=== PATIENT | female | born 1970 | race Caucasian/White ===

== ENCOUNTER 2022-10-20 08:50 | Outpatient (REF) | payer OTHER, SELFPAY ==
[2022-10-24 13:07] LABS: Age Gdln ACOG Testing Note (.); HPV Aptima Negative (Negative); IGP, Aptima HPV, rfx 16/18,45 Note (.)
== END 2022-10-20 10:00 | disposition home or self-care (01) ==
LOC: LAB 08:50
PROVIDERS: PCP Family Medicine; Visit Provider Obstetrics & Gynecology
DX: Z12.4 Encounter for screening for malignant neoplasm of cervix (principal)
CPT/HCPCS: 87624; G0145

== ENCOUNTER 2022-12-14 14:14 | Outpatient (OUT) | payer OTHER, SELFPAY | END 2022-12-14 14:15 | disposition home or self-care (01) | LOC: PST 14:14 | PROVIDERS: PCP Family Medicine; Visit Provider Surgery | DX: Z01.818 Encounter for other preprocedural examination (principal); Z12.11 Encounter for screening for malignant neoplasm of colon ==

== ENCOUNTER 2023-01-29 08:55 | Outpatient (OUT) | payer OTHER, SELFPAY ==
--- NOTE | 2023-01-29 08:59 | XR_ITS ---
[address] [address] Patient Name: ANJALI ROSADO MRN: [id number] date: 1970 Sex: F Assigned Patient Location: [facility] Current Patient Location: [facility] Accession/Order Number: [id number] Exam Date: 01/29/2023 09:16 Report Date: 01/29/2023 10:19 At the request of: RANI FINN Procedure: XR DEXA axial skeleton EXAMINATION: XR DEXA axial skeleton HISTORY: Screening For Osteoporosis Z13.820 COMPARISON: No relevant comparison available. TECHNIQUE: Dual-energy X-ray absorptiometry (DXA) was performed. FINDINGS: SPINE ANALYSIS: Average bone mineral density is 1.140 g/cm2. T-score (standard deviation relative to young adult mean): -0.5 . HIP ANALYSIS: Lowest bone mineral density is within the left femoral trochanter, 0.657 g/cm2. T-score (standard deviation relative to young adult mean): -1.7 . XR/XR DEXA axial skeleton IMPRESSION: [employer] Classification: Osteopenia - Moderate Fracture Risk Electronically authenticated by: GINNY CURRAN Date: 01/29/2023 10:19
--- NOTE | 2023-01-29 09:18 | MM_ITS ---
Patient Name: ANJALI ROSADO MR#: [id number] : 1970 Exam Date: 01/29/2023 Ordering Doctor: DR David Richards . RADIOLOGY REPORT PROCEDURE: MM TOMOSYNTHESIS SCREENING BI COMPARISON: MG MAMM SCREEN 3D ALEXA CAD, 11/28/2021. MG MAMM SCREEN 3D ALEXA CAD, 11/14/2020. MG MAMM SCREEN ALEXA W CAD, 11/14/2019. MG MAMM ALEXA SCRN W CAD DIG, 01/08/2015. INDICATIONS: Screening Calculator Name NCI Breast Cancer Risk Assessment Tool 5 Year Breast Cancer Risk 1.60% Lifetime Breast Cancer Risk 14.50% Personal Breast Cancer No Personal Ovarian Cancer No Treatments None Family Cancers Aunt-maternal with melenoma cancer at age ~50; Nephew with neuroblastoma cancer at age 1. LOCATION: [facility] BREAST COMPOSITION: Heterogeneously dense,which may obscure small masses. FINDINGS: DIAGNOSTIC CATEGORY 2--BENIGN FINDING: RIGHT BREAST: No significant suspicious finding. No significant change has occurred. LEFT BREAST: No significant suspicious finding. Scattered benign-appearing nodules are present. No significant change has occurred. RECOMMENDATIONS: ROUTINE MAMMOGRAM AND CLINICAL EVALUATION IN 12 MONTHS. PLEASE NOTE: A NORMAL MAMMOGRAM DOES NOT EXCLUDE THE POSSIBILITY OF BREAST CANCER. A CLINICALLY SUSPICIOUS PALPABLE LUMP SHOULD BE BIOPSIED. Dictated by: Rob oRdriguez M.D. on 01/29/2023 at 14:53 Approved by: Rob Rodriguez M.D. on 01/29/2023 at 14:56
== END 2023-01-29 08:56 | disposition home or self-care (01) ==
LOC: MAMMO 08:55
PROVIDERS: PCP Family Medicine; Visit Provider Obstetrics & Gynecology
DX: Z12.31 Encounter for screening mammogram for malignant neoplasm of breast (principal); Z13.820 Encounter for screening for osteoporosis; Z80.9 Family history of malignant neoplasm, unspecified; Z80.8 Family history of malignant neoplasm of other organs or systems; M85.80 Other specified disorders of bone density and structure, unspecified site
CPT/HCPCS: 77063; 77067; 77080

== ENCOUNTER 2023-10-25 21:07 | Outpatient (REF) | payer OTHER, SELFPAY ==
--- OUTSIDE RECORDS SUMMARY | 2023-10-25 21:09 | XMS_ITS | CCD ---
Author Organization [facility] Care Team Providers Care Associate Merchandiser Name Role Phone Kalie Solis Unavailable LAURA MONTANO Attending Unavailable FURLONG, DR ALFIE Schaefer Primary Care Unavailable ROSSY WING Admitting Unavailable ROSSY WING Attending Unavailable ROSSY WING Consulting Unavailable READER, ARTUR Consulting Unavailable NEWATIA, TEJ Consulting Unavailable DIAB ., SOTO Consulting Unavailable AAKASH ., DR SARAVIA Admitting Unavailable AAKASH ., DR SARAVIA Attending Unavailable FURLONG, DR ALFIE Schaefer Primary Care Unavailable AAKASH ., DR SARAVIA Consulting Unavailable AAKASH ., DR SARAVIA Admitting Unavailable AAKASH ., DR SARAVIA Attending Unavailable FURLOGRECIA, DR ALFIE Schaefer Primary Care Unavailable AAKASH ., DR SARAVIA Consulting Unavailable AAKASH ., DR SARAVIA Admitting Unavailable AAKASH ., DR SARAVIA Attending Unavailable FURLONG, DR ALFIE Schaefer Primary Care Unavailable AAKASH ., DR SARAVIA Consulting Unavailable RIGO WALLACE Consulting Unavailable RAMONITA II, SAJAN Consulting Unavailable AAKASH ., DR SARAVIA Admitting Unavailable AAKASH ., DR SARAVIA Attending Unavailable FURLONG, DR ALFIE Schaefer Primary Care Unavailable AAKASH ., DR SARAVIA Consulting Unavailable ROSA, JOHNNY Admitting Unavailable ROSA, JONHNY Attending Unavailable FURMARY, DR ALFIE Schaefer Primary Care Unavailable ROSA, JOHNNY Consulting Unavailable AAKASH ., DR SARAVIA Admitting Unavailable AAKASH ., DR SARAVIA Attending Unavailable FURLONG, DR ALFIE Schaefer Primary Care Unavailable ELYSBURG, DR JOSY Cameron Consulting Unavailable AAKASH ., DR SARAVIA Consulting Unavailable Furjoycelynng Alfie DICKERSON Primary Care Provider [phone] ALFIE ANGELES Referring Unavailable FURLONG, ALFIE G Primary Care Unavailable RUSHER, VANESSA S Attending Unavailable KUNGokul, ZEINA MACIEL Attending Unavailable FURLONG, ALFIE G Referring Unavailable FURLONG, ALFIE G Primary Care Unavailable FURLONG, ALFIE G Attending Unavailable FURLONG, ALFIE G Referring Unavailable FURLONG, ALFIE G Primary Care Unavailable FURLONG, ALFIE G Attending Unavailable FURLONG, ALFIE G Referring Unavailable FURLONG, ALFIE G Primary Care Unavailable FURLONG, ALFIE G Referring Unavailable FURLONG, ALFIE G Primary Care Unavailable FURLONG, ALFIE Schaefer Attending Unavailable Medications Current Medications Medication Drug Class(es) Dates Sig (Normalized) Sig (Original) 12 hr dextromethorphan hydrobromide 30 mg / guaiFENesin 600 mg extended release oral tablet (1 source) Uncompetitive O-jeqojd-S-aspartate Receptor Antagonist, Sigma-1 Agonist Start: 05-06-2023 End: 05-16-2023 take 1 tablet by mouth every hour dextromethorphan -guaiFENesin (MUCINEX DM) 30-600 mg tablet extended release 12 hr Take 1 tablet by mouth every 12 (twelve) hours for 10 days. 20 tablet 0 05/06/2023 05/16/2023 Active fluticasone propionate 0.05 mg/actuat metered dose nasal spray (1 source) Corticosteroid fluticasone propionate (FLONASE) 50 mcg/actuation nasal spray fluticasone propionate 50 mcg/actuation nasal spray,suspension 0 Active magnesium oxide 400 mg oral tablet (1 source) Start: 12-06-2022 magnesium oxide (MAGOX) 400 mg tablet 24 hr metoprolol succinate 25 mg extended release oral tablet (2 sources) beta-Adrenergic Pancho Start: 05-14-2021 metoprolol succinate XL (TOPROL XL) 25 mg 24 hr tablet metoprolol succinate ER 25 mg tablet,extended release 24 hr TAKE 1 TABLET DAILY 0 05/14/2021 Active Metoprolol Succi bailey Active naproxen 500 mg oral tablet (1 source) Nonsteroidal Anti-inflammatory Drug Start: 10-20-2022 take 1 tablet by mouth twice daily as needed for pain naproxen (NAPROSYN) 500 mg tablet Take 1 tablet (500 mg total) by mouth 2 (two) times a day as needed for pain. 180 tablet 0 10/20/2022 Active predniSONE 20 mg oral tablet (1 source) Start: 05-06-2023 End: 05-13-2023 take 1 tablet by mouth in the morning predniSONE (DELTASONE) 20 mg tablet Take 1 tablet (20 mg total) by mouth in the morning for 7 days. 7 tablet 0 05/06/2023 05/13/2023 Active sertraline 100 mg oral tablet (1 source) Serotonin Reuptake Inhibitor Start: 07-13-2022 sertraline (ZOLOFT) 100 mg tablet TAKE 1 TABLET IN THE MORNING 90 tablet 3 07/13/2022 Active Problems Active Problems Problem Classification Problem Date Documented Da te Episodic/Chronic Anxiety disorders (1 source) Anxiety disorder, unspecified; Translations: [ANXIETY DISORDER UNSPECIFIED] Onset: 03-23-2022 Chronic Contraceptive and procreative management (4 sources) Encounter for sterilization; Translations: [ENCOUNTER FOR STERILIZATION] Onset: 03-13-2022 Episodic Esophageal disorders (1 source) Gastro-esophageal reflux disease without esophagitis; Translations: [GERD WITHOUT ESOPHAGITIS] Onset: 06-09-2022 Chronic Essential hypertension (4 sources) Essential (primary) hypertension; Translations: [ESSENTIAL PRIMARY HYPERTENSION] Onset: 12-12-2021 Chronic Headache; including migraine (1 source) Other migraine, not intractable, without status migrainosus; Translations: [Other migraine, not intractable, without status migrainosus] Onset: 07-05-2023 Chronic Mood disorders (1 source) Major depressive disorder, single episode, in full remission; Translations: [Major depressive disorder, single episode, in full remission] Onset: 07-05-2023 Chronic Nonspecific chest pain (4 sources) Chest pain, unspecified; Translations: [Other chest pain] Onset: 06-07-2022 Episodic Other aftercare (1 source) 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; Translations: [OTH [employer]BORNE MISS[employer] SYSTEMS CURRENT DRUG THERAPY] Onset: 06-09-2022 Episodic Other nervous system disorders (1 source) Lesion of plantar nerve, right lower limb; Translations: [Lesion of plantar nerve, right lower limb] Onset: 08-13-2023 Chronic Other screening for suspected conditions (not mental disorders or infectious disease) (10 sources) Encounter for screening mammogram for malignant neoplasm of breast; Translations: [Encounter for screening for malignant neoplasm of cervix] Onset: 09-22-2021 Episodic Pulmonary heart disease (1 source) Personal history of pulmonary embolism; Translations: [PERSONAL HISTORY PULMONARY EMBOLISM] Onset: 03-23-2022 Episodic Residual codes; unclassified (1 source) Viral syndrome; Translations: [Other general symptoms and signs] 05-06-2023 Episodic Unclassified (1 source) CONTACT W/AND (SUSP) EXPOS COVID-19; Translations: [CONTACT W/AND (SUSP) EXPOS COVID-19] Onset: 03-12-2022 Unclassified (1 source) Annual Exam Onset: 08-13-2023 Unclassified (1 source) medication review Onset: 07-05-2023 Unclassified (1 source) Earache Onset: 05-06-2023 Urinary tract infections (1 source) Urinary tract infectious disease Onset: 10-18-2023 Episodic Past or Other Problems Problem Classification Problem Date Documented Date Episodic/Chronic Cardiac dysrhythmias (2 sources) Sinus tachycardia; Translations: [Tachycardia, unspecified] Onset: 04-03-2019 03-24-2022 Episodic Headache; including migraine (1 source) Headache; Translations: [Nonintractable episodic headache] Onset: 10-20-2022 02-04-2023 Episodic Immunizations and screening for infectious disease (1 source) Encounter for screening for human papillomavirus (HPV); Translations: [ENC SCREENING HUMAN PAPILLOMAVIRUS] Onset: 09-23-2021 Episodic Mood disorders (2 sources) Mood disorders; Translations: [DEPRESSION UNSPECIFIED] Onset: 03-23-2022 05-06-2023 Other injuries and conditions due to external causes (1 source) Unspecified injury of right foot, initial encounter; Translations: [Injury of right foot, initial encounter S99.921A] Onset: 12-10-2020 Resolved: 12-10-2020 Episodic Other lower respiratory disease (1 source) Cough Onset: 05-06-2023 Episodic Other nutritional; endocrine; and metabolic disorders (1 source) Overweight; Translations: [Overweight] Onset: 07-05-2023 Episodic Other upper respiratory disease (1 source) Pain in throat Onset: 05-06-2023 Episodic Other upper respiratory infections (2 sources) Viral upper respiratory tract infection; Translations: [Acute upper respiratory infection, unspecified] Onset: 05-06-2023 05-06-2023 Episodic Residual codes; unclassified (1 source) Family history of malignant neoplasm of other organs or systems; Translations: [FAM HX MALIG NEOPLASM OTH ORGN/SYS] Onset: 12-01-2021 Episodic Residual codes; unclassified (1 source) Other general symptoms and signs; Translations: [Other general symptoms and signs] Onset: 05-06-2023 Episodic Sprains and strains (1 source) Unspecified sprain of unspecified toe(s), initial encounter; Translations: [Sprain of toe, initial encounter S93.509A] Onset: 12-10-2020 Resolved: 12-10-2020 Episodic Results Test Name Value Interpretation Reference Range Facility COMPREHENSIVE METABOLIC PANE [facility] 08-13-2023 Albumin [Mass/Vol] 4.1 g/dL Normal 3.2-5.3 [facility] Comment on above: Performed By: #### Stacy FRANKS [id number] #### [facility] ([id number]) [address], [address] [place] [address] ALP [Catalytic activity/Vol] 90 U/L Normal 39-130 [facility] Comment on above: Performed By: #### Stacy FRANKS, 95669-2 #### [facility] ([id number]) [address], [address] [place] [address] ALT [Catalytic activity/Vol] 18 U/L Normal 0-31 [facility] Comment on above: Performed By: #### Stacy FRANKS, 52789-8 #### [facility] ([id number]) [address], [address] [place] [address] Anion gap [Moles/Vol] 9 mmol/L Normal 5-15 [facility] Comment on above: Performed By: #### Stacy FRANKS, 93508-4 #### [facility] ([id number]) [address], [address] [place] [address] AST [Catalytic activity/Vol] 22 U/L Normal 0-41 [facility] Comment on above: Performed By: #### Stacy FRANKS, 44407-7 #### [facility] ([id number]) [address], [address] [place] [address] Bilirubin [Mass/Vol] 0.6 mg/dL Normal 0.3-1.2 [facility] Comment on above: Performed By: #### Stacy FRANKS, 48291-9 #### [facility] ([id number]) [address], [address] [place] [address] Calcium [Mass/Vol] 9.4 mg/dL Normal 8.5-10.5 [facility] Comment on above: Performed By: #### Stacy FRANKS, 42453-9 #### [facility] ([id number]) [address], [address] [place] [address] Chloride [Moles/Vol] 104 mmol/L Normal 98-109 [facility] Comment on above: Performed By: #### Stacy FRANKS, 97759-2 #### [facility] ([id number]) [address], [address] [place] [address] CO2 [Moles/Vol] 28 mmol/L Normal 22-32 [facility] Comment on above: Performed By: #### Stacy FRANKS, 17118-3 #### [facility] ([id number]) [address], [address] [place] [address] Creatinine [Mass/Vol] 0.72 mg/dL Normal 0.40-1.00 [facility] Comment on above: Result Comment: METH OD TRACEABLE TO IDMS STANDARD Performed By: #### Stacy FRANKS, 84846-8 #### [facility] ([id number]) [address] [address] [place] [address] eGFR (CKD-EPI) NON-RACE DEPENDENT >90 Normal >59 [facility] Comment on above: Result Comment: Reported eGFR is based on the CKD-EPI 2020 equation that does not use a race coefficient. Performed By: #### Stacy FRANKS, 25356-8 #### [facility] ([id number]) [address], [address] [place] [address] Glucose [Mass/Vol] 86 mg/dL Normal 65-99 [facility] Comment on above: Performed By: #### Stacy FRANKS, 18857-0 #### [facility] ([id number]) [address], [address] [place] [address] Potassium [Moles/Vol] 3.9 mmol/L Normal 3.5-5.0 [facility] Comment on above: Performed By: #### Stacy FRANKS, 21110-5 #### [facility] ([id number]) [address], [address] [place] [address] Protein [Mass/Vol] 7.3 g/dL Normal 6.0-8.0 [facility] Comment on above: Performed By: #### Stacy FRANKS, 26817-3 #### [facility] ([id number]) [address], [address] [place] [address] Sodium [Moles/Vol] 141 mmol/L Normal 134-146 [facility] Comment on above: Performed By: #### Stacy FRANKS, 25662-8 #### [facility] ([id number]) [address], [address] [place] [address] Urea nitrogen [Mass/Vol] 10 mg/dL Normal 5-23 [facility] Comment on above: Performed By: #### Stacy FRANKS, 27286-7 #### [facility] ([id number]) [address], [address] [place] [address] Lipid 1996 panelon 4 Cholesterol [Mass/Vol] 218 mg/dL High 150-200 [facility] Comment on above: Performed By: #### Stacy FRANKS, 95418-6 #### [facility] ([id number]) [address], [address] [place] [address] Cholesterol in HDL [Mass/Vol] 51 mg/dL Normal >39 [facility] Comment on above: Result Comment: HDL <40 mg/dL - High Risk HDL > or = 40mg/dL- Desirable HDL >60 mg/dL - Negative Risk Performed By: #### Stacy FRANKS, 92464-7 #### [facility] ([id number]) [address], [address] [place] [address] Cholesterol in LDL [Mass/Vol] 123 mg/dL Normal <130 [facility] Comment on above: Result Comment: LDL <100 mg/dL - Desirable LDL >160 mg/dL - High Risk Performed By: #### Stacy FRANKS, 09712-5 #### [facility] ([id number]) [address], [address] [place] [address] Cholesterol in VLDL [Mass/Vol] 44 mg/dL High 0-30 [facility] Comment on above: Performed By: #### Stacy FRANKS, 07006-2 #### [facility] ([id number]) [address], [address] [place] [address] CHOLESTEROL:HDL 4.3 Normal 1.0-5.0 [facility] Comment on above: Performed By: #### Stacy FRANKS, 02862-4 #### [facility] ([id number]) [address], [address] [place] [address] Triglyceride [Mass/Vol] 218 mg/dL High 27-150 [facility] Comment on above: Performed By: #### Stacy FRANKS, 80480-5 #### [facility] ([id number]) [address], [address] [place] [address] POCT Influenza A/Influenza B /SARS-COV-2 Veritoron 05-06-2023 External Poct Influenza A Antigen Negative [facility] External Poct Influenza B Antigen Negative [facility] SARS-CoV-2 (COVID-19) Ag IA.rapid Ql (Resp) Negative [facility] CARDIAC PRESTON ADMITon 023 CK [Catalytic activity/Vol] 77 U/L Normal 26-192 [facility] Comment on above: Performed By: #### MAKENNA Vargas MP #### [facility] [address] [address] [address] Maria Teresa Villasenor CK.MB [Mass/Vol] ng/mL Normal <=3.60 [facility] Comment on above: Performed By: #### MAKENNA Vargas MP #### [facility] [address] [place] [address] Dr. Maria Teresa Villasenor HSTROP <4.0 Normal 4.0-51.3 [facility] Comment on above: Result Comment: CUT- OFF POINTS HAVE BEEN ESTABLISHED BASED ON THE FOURTH UNIVERSAL DEFINITIONS OF MYOCARDIAL INFARCTION. THE UPPER REFERENCE LIMIT (URL) OF TROPONIN, DEFINED THE 99TH PERCENTILE OF cTnI DISTRIBUTION IN A REFERENCE POPULATION, HAS BEEN CONFIRMED THE DECISION THRESHOLD FOR SD DIAGNOSIS. Performed By: #### MAKENNA Vargas MP #### [facility] [address] [place] [address] Dr. Maria Teresa Villasenor ANJANA 30 ng/mL Normal 9-82 [facility] Comment on above: Performed By: #### MAKENNA Vargas MP #### [facility] [address] [address] [address] Maria Teresa Villasenor CBC AUTO DIFFon 06-07-2022 BASO # 0.0 103/ul Normal 0.0-0.1 [facility] Comment on above: Performed By: #### C BC ####[facility] [address] [address]Dr. Maria Teresa Villasenor Basophils/100 WBC (Bld) 0.4 % Normal 0.2-2.0 [facility] Comment on above: Performed By: #### Stacy MARIA ####[facility] [address] [address]Dr. Maria Teresa Villasenor EO # 0.1 103/ul Normal 0.0-0.7 [facility] Comment on above: Performed By: #### C BC ####[facility] [address] [address]Dr. Maria Teresa Villasenor Eosinophils/100 WBC (Bld) 0.9 % Normal 0.9-7.0 [facility] Comment on above: Performed By: #### C BC ####[facility] [address] [place], [place] [address]Dr. Maria Teresa Villasenor Erythrocyte distribution width (RBC) [Ratio] 12.6 % Normal 11.0-15.0 [facility] Comment on above: Performed By: #### C BC ####[facility] [address] [place], [place] [address]Dr. Maria Teresa Villasenor Hematocrit (Bld) [Volume fraction] 39.7 % Normal 36.0-48.0 [facility] Comment on above: Performed By: #### C BC ####[facility] [address] [place], [place] [address]Dr. Maria Teresa Villasenor Hemoglobin (Bld) [Mass/Vol] 13.3 g/dL Normal 12.0-16.0 [facility] Comment on above: Performed By: #### C BC ####[facility] [address] [place], [place] [address]Dr. Maria Teresa Villasenor IG # 0.03 10e3/ul Normal 0.00-0.03 [facility] Comment on above: Performed By: #### C BC ####[facility] [address] [place], [place] [address]Dr. Maria Teresa Villasenor IG % 0.3 % Normal 0.0-0.5 [facility] Comment on above: Performed By: #### C BC ####[facility] [address] [place], [place] [address]Dr. Maria Teresa Villasenor LYMPH # 1.7 103/ul Normal 1.2-3.8 [facility] Comment on above: Performed By: #### C BC ####[facility] [address] [address]Dr. Maria Teresa Hamilton Lymphocytes/100 WBC (Bld) 16.2 % Critically low 20.5-60.0 [facility] Comment on above: Performed By: #### C BC ####[facility] [address] [address]Dr. Carolynedaysi Villasenor MANUAL DIFF REQ NO Normal [facility] Comment on above: Performed By: #### C BC ####[facility] [address] [address]Dr. Maria Teresa Hamilton MCH (RBC) [Entitic mass] 31.9 pg Normal 26.7-34.0 [facility] Comment on above: Performed By: #### C BC ####[facility] [address] [place], [place] [address]Dr. Maria Teresa Hamilton MCHC (RBC) [Mass/Vol] 33.5 g/dL Normal 29.9-35.2 [facility] Comment on above: Performed By: #### C BC ####[facility] [address] [place], [place] [address]Dr. Maria Teresa Villasenor MCV (RBC) [Entitic vol] 95.2 fL Normal 81.0-99.0 [facility] Comment on above: Performed By: #### C BC ####[facility] [address] [place], [place] [address]Dr. Maria Teresa Villasenor MONO # 0.7 103/ul Normal 0.3-0.8 [facility] Comment on above: Performed By: #### C BC ####[facility] [address] [place], [place] [address]Dr. Maria Teresa Villasenor Monocytes/100 WBC (Bld) 6.7 % Normal 1.7-12.0 [facility] Comment on above: Performed By: #### C BC ####[facility] [address] [place], [place] [address]Dr. Maria Teresa Villasenor NEUT # 8.1 103/ul Critically high 1.4-6.5 [facility] Comment on above: Performed By: #### C BC ####[facility] [address] [place] [address] Maria Teresa Villasenor Neutrophils/100 WBC (Bld) 75.5 % Critically high 43.0-75.0 [facility] Comment on above: Performed By: #### C BC ####[facility] [address] [id number] Maria Teresa Villasenor Platelet mean volume (Bld) [Entitic vol] 9.1 fL Critically low 9.5-13.5 [facility] Comment on above: Performed By: #### C BC ####[facility] [address] [id number] Maria Teresa Villasenor PLT 315 103/ul Normal 150-450 [facility] Comment on above: Performed By: #### C BC ####[facility] [address] [id number] Maria Teresa Villasenor RBC 4.17 106/ul Critically low 4.20-5.40 [facility] Comment on above: Performed By: #### C BC ####[facility] [address] [id number]. Maria Teresa Villasenor WBC 10.7 103/ul Normal 4.0-11.0 [facility] Comment on above: Performed By: #### C BC ####[facility] [address] [id number] Maria Teresa Villasenor CTA CHEST WO W CONon 06-07- 023 CTA CHEST WO W CON EXAMINATION: CTA CHEST WO W CON, 06/07/2022 7:37 AM EDT HISTORY: CHEST PAIN, UNSPECIFIED COMPARISON: None. TECHNIQUE: CT angiography of the chest was performed with IV contrast. MIP (maximum intensity projection) images or 3D post processing was performed. CT dose reduction technique was used, including Automated Exposure Control. FINDINGS: VASCULATURE/PULMONARY ARTERIES: There is satisfactory opacification of the pulmonary arterial system. There is no evidence of pulmonary embolism. The main pulmonary artery is normal in diameter. The aorta and great vessels appear normal. HEART/PERICARDIUM: Normal. MEDIASTINAL/HILAR LYMPH NODES: Calcified left hilar lymph node. No lymphadenopathy. ESOPHAGUS: Normal as visualized. PLEURAL CAVITY: No pleural effusion or pneumothorax. LUNGS/AIRWAYS: No infiltrates or consolidations. No suspicious pulmonary nodules. Calcified granuloma noted in the left lower lobe. CHEST WALL/AXILLA/LOWER NECK: Normal. VISUALIZED UPPER ABDOMEN: There is a small hiatal hernia. 6 mm hypodensity in the left hepatic lobe which appears unchanged and likely benign. BONES: No acute process. IMPRESSION: 1. No evidence of pulmonary embolism. 2. No other acute cardiopulmonary process. Electronically authenticated by: TEJ CATES Date: 2022-06-07 08:33 Normal [facility] D-DIMERon 06-07-2022 D-DIMER 0.62 mg/L FEU Critically high <=0.59 [facility] Comment on above: Performed By: #### D DIM #### [facility] [address] [place] [address] Dr. Maria Teresa Villasenor D-DIMER COMMENTS SEE BELOW Normal [facility] Comment on above: Result Comment: Incr eases in D-Dimer concentration observed with thromboembolic events can be variable due to localization, size, and age of the thrombus. Therefore, a thromboembolic event cannot be diagnosed with certainty on the basis of the reference range. D-Dimers may also be elevated for a variety of disorders including: advanced age, , coronary disease, cancer, liver disease, infection, inflammation, hematoma, DIC, trauma, post-surgery, diabetes, thrombolytic or anticoagulant therapy, stress, and generalized hospitalization. Performed By: #### D DIM #### [facility] [address] [place] [address] Dr. Maria Teresa Villasenor PROF CHEM 8 (BAS METB)on Anion gap [Moles/Vol] 12.5 mmol/L Normal [facility] Comment on above: Performed By: #### B TRACIE FRANKSDM #### [facility] [address] [place] [address] Dr. Maria Teresa Villasenor Calcium [Mass/Vol] 9.4 mg/dL Normal 8.5-10.1 [facility] Comment on above: Performed By: #### B TRACIE FRANKSDM #### [facility] [address] [place] [address] Dr. Maria Teresa Villasenor Chloride [Moles/Vol] 103 mmol/L Normal 98-107 [facility] Comment on above: Performed By: #### B MP, CMADM #### [facility] [address] [address] [address] Maria Teresa Villasenor CO2 [Moles/Vol] 28.3 mmol/L Normal 21.0-32.0 [facility] Comment on above: Performed By: #### B MP, CMADM #### [facility] [address] [address] [address] Maria Teresa Villasenor Creatinine [Mass/Vol] 0.68 mg/dL Normal 0.55-1.02 [facility] Comment on above: Performed By: #### B MP, CMADM #### [facility] [address] [address] [address] Maria Teresa Villasenor EGFR-AF CHILEAN >60 Normal >=60 [facility] Comment on above: Performed By: #### B GOLDEN, CMADM #### [facility] [address] [address] [address] Maria Teresa Villasenor EGFR-NON AF CHILEAN >60 Normal >=60 [facility] Comment on above: Performed By: #### B GOLDEN, CMADM #### [facility] [address] [address] [address] Maria Teresa Villasenor Glucose [Mass/Vol] 99 mg/dL Normal 74-106 [facility] Comment on above: Performed By: #### B GOLDEN, CMADM #### [facility] [address] [address] [address] Maria Teresa Villasenor Potassium [Moles/Vol] 3.8 mmol/L Normal 3.5-5.1 [facility] Comment on above: Performed By: #### B MP, CMADM #### [facility] [address] [address] [address] Maria Teresa Villasenor Sodium [Moles/Vol] 140 mmol/L Normal 136-145 [facility] Comment on above: Performed By: #### B MP, CMADM #### [facility] [address] [address] [address] Maria Teresa Villasenor Urea nitrogen [Mass/Vol] 20.0 mg/dL Critically high 7.0-18.0 [facility] Comment on above: Performed By: #### B MAKENNA FRANKS #### [facility] [address] [address] [address] Maria Teresa Villasenor Urea nitrogen/Creatinin e [Mass ratio] 29.4 mg/mg Normal [facility] Comment on above: Performed By: #### B MAKENNA FRANKS #### [facility] [address] [address] [address] Maria Teresa Villasenor TROPONIN, HIGH SENSITIVITYon 06-07-2022 HSTROP <4.0 Normal 4.0-51.3 [facility] Comment on above: Result Comment: CUT- OFF POINTS HAVE BEEN ESTABLISHED BASED ON THE FOURTH UNIVERSAL DEFINITIONS OF MYOCARDIAL INFARCTION. THE UPPER REFERENCE LIMIT (URL) OF TROPONIN, DEFINED THE 99TH PERCENTILE OF cTnI DISTRIBUTION IN A REFERENCE POPULATION, HAS BEEN CONFIRMED THE DECISION THRESHOLD FOR SD DIAGNOSIS. Performed By: #### H STROPN #### [facility] [address] [address] [address] Maria Teresa Villasenor XR CHEST 1 Von 06-07-2022 XR CHEST 1 V HISTORY: Left-sided chest pain radiating into the back since early this morning. XR CHEST 1 V: 06/07/2022 6:53 AM EDT COMPARISON: PA and lateral chest 07/28/2018. FINDINGS: The heart appears within normal limits in size. A calcified lymph node again projects over the left hilum and there is a small calcified granuloma again seen projecting over the left lung base. No focal consolidation, pleural effusion, pneumothorax or evidence of congestive heart failure is seen. IMPRESSION: 1. No radiographic evidence of active cardiopulmonary disease is seen. 2. Stable appearance of the sequela of prior granulomatous disease. Electronically authenticated by: ARTUR HARTMANN Date: 2022-06-07 07:38 Normal The [facility] CBC AUTO DIFFon 03-13-2022 BASO # 0.1 103/ul Normal 0.0-0.1 [facility] Comment on above: Performed By: #### C BC #### [facility] [address] [address] [address] Maria Teresa Villasenor Basophils/100 WBC (Bld) 0.5 % Normal 0.2-2.0 [facility] Comment on above: Performed By: #### C BC #### [facility] [address] [place] [address] Dr. Maria Teresa Villasenor EO # 0.2 103/ul Normal 0.0-0.7 [facility] Comment on above: Performed By: #### C BC #### [facility] [address] [place] [address] Dr. Maria Teresa Villasenor Eosinophils/100 WBC (Bld) 2.4 % Normal 0.9-7.0 [facility] Comment on above: Performed By: #### C BC #### [facility] [address] [place] [address] Dr. Maria Teresa Villasenor Erythrocyte distribution width (RBC) [Ratio] 12.6 % Normal 11.0-15.0 [facility] Comment on above: Performed By: #### C BC #### [facility] [address] [place] [address] Dr. Maria Teresa Villasenor Hematocrit (Bld) [Volume fraction] 43.1 % Normal 36.0-48.0 [facility] Comment on above: Performed By: #### C BC #### [facility] [address] [place] [address] Dr. Maria Teresa Villasenor Hemoglobin (Bld) [Mass/Vol] 13.3 g/dL Normal 12.0-16.0 [facility] Comment on above: Performed By: #### C BC #### [facility] [address] [place] [address] Dr. Maria Teresa Villasenor IG # 0.02 10e3/ul Normal 0.00-0.03 [facility] Comment on above: Performed By: #### C BC #### [facility] [address] [place] [address] Dr. Maria Teresa Villasenor IG % 0.2 % Normal 0.0-0.5 [facility] Comment on above: Performed By: #### C BC #### [facility] [address] [place] [address] Dr. Maria Teresa Villasenor LYMPH # 2.7 103/ul Normal 1.2-3.8 [facility] Comment on above: Performed By: #### C BC #### [facility] [address] [address] [address] Maria Teresa Villasenor Lymphocytes/100 WBC (Bld) 28.6 % Normal 20.5-60.0 [facility] Comment on above: Performed By: #### C BC #### [facility] [address] [address] [address] Maria Teresa Villasenor MANUAL DIFF REQ NO Normal The [facility] Comment on above: Performed By: #### C BC #### [facility] [address] [address] [address] Mraia Teresa Villasenor MCH (RBC) [Entitic mass] 32.7 pg Normal 26.7-34.0 [facility] Comment on above: Performed By: #### C BC #### [facility] [address] [place] [address] Dr. Maria Teresa Villasenor MCHC (RBC) [Mass/Vol] 30.9 g/dL Normal 29.9-35.2 [facility] Comment on above: Performed By: #### C BC #### [facility] [address] [place] [address] Dr. Maria Teresa Villasenor MCV (RBC) [Entitic vol] 105.9 fL Critically high 81.0-99.0 [facility] Comment on above: Performed By: #### C BC #### [facility] [address] [place] [address] Dr. Maria Teresa Villasenor MONO # 1.2 103/ul Critically high 0.3-0.8 [facility] Comment on above: Performed By: #### C BC #### [facility] [address] [place] [address] Dr. Maria Teresa Villasenor Monocytes/100 WBC (Bld) 12.3 % Critically high 1.7-12.0 [facility] Comment on above: Performed By: #### C BC #### [facility] [address] [place] [address] Dr. Maria Teresa Villasenor NEUT # 5.3 103/ul Normal 1.4-6.5 [facility] Comment on above: Performed By: #### C BC #### [facility] [address] [place] [address] Dr. Maria Teresa Villasenor Neutrophils/100 WBC (Bld) 56.0 % Normal 43.0-75.0 [facility] Comment on above: Performed By: #### C BC #### [facility] [address] [place] [address] Dr. Maria Teresa Villasenor Platelet mean volume (Bld) [Entitic vol] 9.3 fL Critically low 9.5-13.5 [facility] Comment on above: Performed By: #### C BC #### [facility] [address] [address] [address] Maria Teresa Villasenor PLT 357 103/ul Normal 150-450 [facility] Comment on above: Performed By: #### C BC #### [facility] [address] [place] [address] Dr. Maria Teresa Villasenor RBC 4.07 106/ul Critically low 4.20-5.40 [facility] Comment on above: Performed By: #### C BC #### [facility] [address] [address] [address] Maria Teresa Villasenor WBC 9.4 103/ul Normal 4.0-11.0 [facility] Comment on above: Performed By: #### C BC #### [facility] [address] [place] [address] Dr. Maria Teresa Villasenor PREG HCG QUALon 03-13-2022 , QUAL Negative Normal NEGATIVE [facility] Comment on above: Performed By: #### P REG #### [facility] [address] [place] [address] Dr. Maria Teresa Villasenor Covid-19 PCR (CVDTB)on 03-01 SARS-CoV-2 (COVID-19) RNA JOSÉ ANTONIO+probe Ql (Unsp spec) Not detected Normal NOT DETECTED [facility] Comment on above: Result Comment: This test is not yet approved or cleared by the [place] FDA. When there are no FDA-approved or cleared tests available, and other criteria are met, FDA can make tests available under an emergency access mechanism called an Emergency Use Authorization (EUA). The EUA for this test is supported by the [place] of Health and Human Service's (HHS's) declaration that circumstances exist to justify the emergency use of in vitro diagnostics for the detection and/or diagnosis of the virus that causes COVID-19. This EUA will remain in effect (meaning this test can be used) for the duration of the COVID-19 declaration justifying emergency of IVDs, unless it is terminated or revoked by FDA (after which the test may no longer be used). When diagnostic testing is negative, the possibility of a false negative should be considered in the context of a patient's recent exposures and the presence of clinical signs and symptoms consistent with SARS-CoV-2. Performed By: #### [facility] ####[facility] [address] [place], [place] [address]AyDr. Maria Teresa Villasenor Office Visiton 02-04-2022 Follow-up visit [id number] Zaki White 1970 F Date Provider Department Center 02/04/2022 LAURA OLSEN [facility] No family history on file Level of Service:74790 [facility] OFFICE/OUTPATIENT ESTABLISHED LOW MDM 20-29 MIN Normal [facility] PROF CHEM 8 (BAS METB)on Anion gap [Moles/Vol] 10.2 mmol/L Normal [facility] Comment on above: Performed By: #### B MP #### [facility] [address] [address] [address] Maria Teresa Villasenor Calcium [Mass/Vol] 8.7 mg/dL Normal 8.5-10.1 [facility] Comment on above: Performed By: #### B MP #### [facility] [address] [address] [address] Maria Teresa Villasenor Chloride [Moles/Vol] 106 mmol/L Normal 98-107 [facility] Comment on above: Performed By: #### B MP #### [facility] [address] [address] [address] Maria Teresa Villasenor CO2 [Moles/Vol] 27.8 mmol/L Normal 21.0-32.0 [facility] Comment on above: Performed By: #### B MP #### [facility] [address] [address] [address] Maria Teresa Villasenor Creatinine [Mass/Vol] 0.64 mg/dL Normal 0.55-1.02 [facility] Comment on above: Performed By: #### B MP #### [facility] [address] [place] [address] Dr. Maria Teresa Villasenor EGFR-AF CHILEAN >60 Normal >=60 [facility] Comment on above: Performed By: #### B MP #### [facility] [address] [address] [address] Maria Teresa Villasenor EGFR-NON AF CHILEAN >60 Normal >=60 [facility] Comment on above: Performed By: #### B MP #### [facility] [address] [address] [address] Maria Teresa Villasenor Glucose [Mass/Vol] 89 mg/dL Normal 74-106 [facility] Comment on above: Performed By: #### B MP #### [facility] [address] [place] [address] Dr. Maria Teresa Villasenor Potassium [Moles/Vol] 4.0 mmol/L Normal 3.5-5.1 [facility] Comment on above: Performed By: #### B MP #### [facility] [address] [place] [address] Dr. Maria Teresa Villasenor Sodium [Moles/Vol] 140 mmol/L Normal 136-145 [facility] Comment on above: Performed By: #### B MP #### [facility] [address] [place] [address] Dr. Maria Teresa Villasenor Urea nitrogen [Mass/Vol] 12.0 mg/dL Normal 7.0-18.0 [facility] Comment on above: Performed By: #### B MP #### [facility] [address] [place] [address] Dr. Maria Teresa Villasenor Urea nitrogen/Creatinin e [Mass ratio] 18.8 mg/mg Normal [facility] Comment on above: Performed By: #### B MP #### [facility] [address] [place] [address] Dr. Maria Teresa Villasenor MG MAMM SCREEN 3D ALEXA CADon 11-28-2021 MG MAMM SCREEN 3D ALEXA CAD Patient: ZAKI WHITE Exam Date: 11/28/2021 : 1970 Gender:F Ordering : DR RANI RICHARDS . Admission #: [id number] Family : Order #: [id number] CLICK HERE TO VIEW EXAM RADIOLOGY REPORT PROCEDURE: MAMMOGRAM SCREENING 3D BILATERAL CAD COMPARISON: MG MAMM SCREEN 3D ALEXA CAD, 11/14/2020. MG MAMM SCREEN ALEXA W CAD, 11/14/2019. INDICATIONS: Screening mammography Calculator Name NCI Breast Cancer Risk Assessment Tool 5 Year Breast Cancer Risk 1.30% Lifetime Breast Cancer Risk 11.80% Personal Breast Cancer No Personal Ovarian Cancer No Treatments None Family Cancers Aunt-maternal with melenoma cancer at age 50; Nephew with neuroblastoma cancer at age 1. LOCATION: The [facility] BREAST COMPOSITION: Heterogeneously dense,which may obscure small masses. FINDINGS: DIAGNOSTIC CATEGORY 1--NEGATIVE. NO CHANGE FROM COMPARISON ASSESSMENT. Scattered benign-appearing calcifications are present. Scattered benign-appearing lymph nodes are present. RIGHT BREAST: No significant suspicious finding. LEFT BREAST: No significant suspicious finding. RECOMMENDATIONS: ROUTINE MAMMOGRAM AND CLINICAL EVALUATION IN 12 MONTHS. PLEASE NOTE: A NORMAL MAMMOGRAM DOES NOT EXCLUDE THE POSSIBILITY OF BREAST CANCER. A CLINICALLY SUSPICIOUS PALPABLE LUMP SHOULD BE BIOPSIED. Dictated by: Josy Sebastian MD on 11/28/2021 at 12:50 Approved by: Josy Sebastian MD on 11/28/2021 at 12:51 [facility] PAP ACOG PANEL 2: 30 to 65on 09-24-2021 . . Normal [facility] Comment on above: Result Comment: Perf ormed at: WB Performed By: #### [id number] #### [facility] [address] [address] [address] Maria Teresa Villasenor Age Gdln ACOG Testing 30-65 Normal [facility] Comment on above: Performed By: #### 4 [id number] #### [facility] [address] [address] [address] Maria Teresa Villasenor DIAGNOSIS: Comment Normal [facility] Comment on above: Result Comment: NEGA TIVE FOR INTRAEPITHELIAL LESION OR MALIGNANCY. Performed at: WB Performed By: #### 4 [id number] #### [facility] [address] [place] [address] Dr. Maria Teresa Villasenor HPV Aptima Negative Normal Negative [facility] Comment on above: Result Comment: This nucleic acid amplification test detects fourteen high-risk HPV types (16,18,31,33,35,39,45,51,52,56,58,59,66,68) without differentiation. Performed at: =G Performed By: #### 4 [id number] #### [facility] [address] [place] [address] Dr. Maria Teresa Villasenor Methodology: Comment Normal [facility] Comment on above: Result Comment: This liquid based ThinPrep(R) pap test was screened with the use of an image guided system. Performed at: WB Performed By: #### 4 [id number] #### [facility] [address] [place] [address] Dr. Maria Teresa Villasenor Note: Comment Normal [facility] Comment on above: Result Comment: The Pap smear is a screening test designed to aid in the detection of premalignant and malignant conditions of the uterine cervix. It is not a diagnostic procedure and should not be used as the sole means of detecting cervical cancer. Both false-positive and false-negative reports do occur. . Performed at: WB Performed By: #### [id number] #### [facility] [address] [place] [address] Dr. Maria Teresa Villasenor Performed by: Comment Normal [facility] Comment on above: Result Comment: Sabrina Vasquez Crusher Supervisor (ASCP) Performed at: WB Performed By: #### 4 [id number] #### [facility] [address] [place] [address] Dr. Maria Teresa Villasenor Specimen adequacy: Comment Normal [facility] Comment on above: Result Comment: Sati sfactory for evaluation. Endocervical and/or squamous metaplastic cells (endocervical component) are present. Performed at: WB Performed By: #### 4 [id number] #### [facility] [address] [place] [address] Dr. Maria Teresa Villasenor COMPREHENSIVE METABOLIC PANE [facility] 08-23-2021 Albumin [Mass/Vol] 4.3 g/dL Normal 3.6-5.1 [facility] Comment on above: Performed By: #### 1 0231, 7600 #### [facility] of [address] [address] Flagsetter: Jacob Zavaleta MD Albumin/Globulin [Mass ratio] 1.8 {ratio} Normal 1.0-2.5 [facility] Comment on above: Performed By: #### 1 0231, 7600 #### [facility] of [address], [address] [place] [address] Flagsetter: Jacob Zavaleta MD ALP [Catalytic activity/Vol] 56 U/L Normal 31-125 [facility] Comment on above: Performed By: #### 1 0231, 7600 #### [facility] of [address] [address] Flagsetter: Jacob Zavaleta MD ALT [Catalytic activity/Vol] 9 U/L Normal 6-29 [facility] Comment on above: Performed By: #### 1 0231, 7600 #### [facility] of [address], [address] [place] [address] Flagsetter: Jacob Zavaleta MD AST [Catalytic activity/Vol] 10 U/L Normal 10-35 [facility] Comment on above: Performed By: #### 1 0231, 7600 #### [facility] of [address], [address] [place] [address] Flagsetter: Jacob Zavaleta MD Bilirubin [Mass/Vol] 0.4 mg/dL Normal 0.2-1.2 [facility] Comment on above: Performed By: #### 1 0231, 7600 #### [facility] of [address] [address] Flagsetter: Jacob Zavaleta MD BUN/CREATININE RATIO NOT APPLICABLE Normal 6-22 [facility] Comment on above: Performed By: #### 1 0231, 7600 #### [facility] of [address], [address] [place] [address] Flagsetter: Jacob Zavaleta MD Calcium [Mass/Vol] 9.3 mg/dL Normal 8.6-10.2 [facility] Comment on above: Performed By: #### 1 023, 7600 #### [facility] of [address], [address] [place] [address] Flagsetter: Jacob Zavaleta MD Chloride [Moles/Vol] 106 mmol/L Normal 98-110 [facility] Comment on above: Performed By: #### 1 023, 7600 #### [facility] of [address], [address] [place] [address] Flagsetter: Jacob Zavaleta MD CO2 [Moles/Vol] 26 mmol/L Normal 20-32 [facility] Comment on above: Performed By: #### 1 023, 7600 #### [facility] [address] [place] [address] Flagsetter: Jacob Zavaleta MD Creatinine [Mass/Vol] 0.77 mg/dL Normal 0.50-1.10 [facility] Comment on above: Performed By: #### 1 023, 7600 #### [facility] [place] [address] Flagsetter: Jacob Zavaleta MD eGFR NON-AFR. CHILEAN 91 mL/min/1.73m2 Normal > OR = 60 [facility] Comment on above: Performed By: #### 1 023, 7600 #### [facility] of [address] [place] [address] Flagsetter: Jacob Zavaleta MD GFR/1.73 sq M.predicted among blacks MDRD (S/P/Bld) [Vol rate/Area] 105 mL/min/{1.73_m2} Normal > OR = 60 [facility] Comment on above: Performed By: #### 1 0231, 7600 #### [facility] of [address] [place] [address] Flagsetter: Jacob Zavaleta MD Globulin (S) [Mass/Vol] 2.4 g/dL Normal 1.9-3.7 [facility] Comment on above: Performed By: #### 1 0231, 7600 #### [facility] [place] [address] Flagsetter: Jacob Zavaleta MD Glucose [Mass/Vol] 148 mg/dL High 65-139 [facility] Comment on above: Result Comment: Non-fasting reference interval For someone without known diabetes, a glucose value >125 mg/dL indicates that they may have diabetes and this should be confirmed with a follow-up test. Performed By: #### 1 023, 7600 #### [facility] [address], [address] [place] [address] Flagsetter: Jacob Zavaleta MD Potassium [Moles/Vol] 4.2 mmol/L Normal 3.5-5.3 [facility] Comment on above: Performed By: #### 1 023, 7600 #### [facility] [place] [address] Flagsetter: Jacob Zavaleta MD Protein [Mass/Vol] 6.7 g/dL Normal 6.1-8.1 [facility] Comment on above: Performed By: #### 1 023, 7600 #### [facility] [place] [address] Flagsetter: Jacob Zavaleta MD Sodium [Moles/Vol] 139 mmol/L Normal 135-146 [facility] Comment on above: Performed By: #### 1 023, 7600 #### [facility] [place] [address] Flagsetter: Jacob Zavaleta MD Urea nitrogen [Mass/Vol] 12 mg/dL Normal 7-25 [facility] Comment on above: Performed By: #### 1 0231, 7600 #### [facility] [place] [address] Flagsetter: Jacob Zavaleta MD LIPID PANEL, [facility] 07-31 Cholesterol [Mass/Vol] 191 mg/dL Normal <200 [facility] Comment on above: Order Comment: FASTI NG:NO FASTING: NO Performed By: #### 1 0231, 7600 #### [facility] [address], [address] [place] [address] Flagsetter: Jacob Zavaleta MD Cholesterol in HDL [Mass/Vol] 60 mg/dL Normal > OR = 50 [facility] Comment on above: Order Comment: FASTI NG:NO FASTING: NO Performed By: #### 1 0231, 7600 #### [facility] [address], [address] [place] [address] Flagsetter: Jacob Zavaleta MD Cholesterol in LDL [Mass/Vol] 107 mg/dL High [facility] Comment on above: Order Comment: FASTI NG:NO FASTING: NO Result Comment: Refe rence range: <100 Desirable range <100 mg/dL for primary prevention; <70 mg/dL for patients with CHD or diabetic patients with > or = 2 CHD risk factors. LDL-C is now calculated using the Richard calculation, which is a validated novel method providing better accuracy than the Friedewald equation in the estimation of LDL-C. Dima HINSON et al. BLANCA. 2013;310(19): 8928-9694 (http://education.Typo Keyboards.klinify/faq/[id number]) Performed By: #### 1 023, 0 #### [facility] [address], [address] [place] [address] Flagsetter: Jacob Zavaleta MD Cholesterol.total/ Cholesterol in HDL [Mass ratio] 3.2 {ratio} Normal <5.0 [facility] Comment on above: Order Comment: FASTI NG:NO FASTING: NO Performed By: #### 1 0231, 7600 #### [facility] [address], [address] [place] [address] Flagsetter: Jacob Zavaleta MD NON HDL CHOLESTEROL 131 mg/dL (calc) High <130 [facility] Comment on above: Order Comment: FASTI NG:NO FASTING: NO Result Comment: For patients with diabetes plus 1 major ASCVD risk factor, treating to a non-HDL-C goal of <100 mg/dL (LDL-C of <70 mg/dL) is considered a therapeutic option. Performed By: #### 1 0231, 7600 #### [facility] [address], [address] Flagsetter: Jacob Zavaleta MD Triglyceride [Mass/Vol] 126 mg/dL Normal <150 [facility] Comment on above: Order Comment: FASTI NG:NO FASTING: NO Performed By: #### 1 0231, 0 #### [facility] [address], [address] Flagsetter: Jacob Zavaleta MD XR foot RT min 3V*on 021 XR foot RT min 3V* [facility] [employer] Other XR foot RT min 3V* [facility] Main [place] [employer] Other XR foot RT min 3V* [address] [place] [address] [employer] Other XR foot RT min 3V* [place] [address] [employer] Other XR foot RT min 3V* XRay Report [employer] Other XR foot RT min 3V* Signed [employer] Other XR foot RT min 3V* Patient: Zaki White MR#: [id number] [employer] Other XR foot RT min 3V* 0 [employer] Other XR foot RT min 3V* : 1970 Acct:[id number] [employer] Other XR foot RT min 3V* Age/Sex: 50 / F ADM Date: 12/10/20 [employer] Other XR foot RT min 3V* Loc: [facility] Room: Type: [facility] [employer] Other XR foot RT min 3V* Attending Dr: Kalie Solis [employer] Other XR foot RT min 3V* Ordering Provider: LEN Alvarado [employer] Other XR foot RT min 3V* Date of Service: 12/10/20 [employer] Other XR foot RT min 3V* XR/XR foot RT min 3V*: Injury of right foot, initial encounter [employer] Other XR foot RT min 3V* Copies to: LEN Alvarado [employer] Other XR foot RT min 3V* CLINICAL HISTORY: Struck right foot against treadmill this morning while walking, pain, bruising [employer] Other XR foot RT min 3V* with swelling to the distal fifth metatarsal and little toe. [employer] Other XR foot RT min 3V* XR foot RT min 3V* [employer] Other XR foot RT min 3V* COMPARISON: None [employer] Other XR foot RT min 3V* FINDINGS: AP, latera l and oblique views of the right foot were obtained. There is no evidence of [employer] Other XR foot RT min 3V* fracture, dislocatio n or bony erosion. Mild spur at the head of the first metatarsal is noted. Soft [employer] Other XR foot RT min 3V* tissue swelling is demonstrated along the lateral aspect of the fifth metatarsal and the little toe. [employer] Other XR foot RT min 3V* XR/XR foot RT min 3V* [employer] Other XR foot RT min 3V* IMPRESSION: [employer] Other XR foot RT min 3V* NO FRACTURE OR SUBLUXATION. [employer] Other XR foot RT min 3V* Impression dictated by: Niels Boyd M.D.12/10/2020 10:37 AM [employer] Other XR foot RT min 3V* Dictation Location: [place] [address] [employer] Other XR foot RT min 3V* Transcribed By: JONH 12/10/20 1037 [employer] Other XR foot RT min 3V* Dictated By: Niels Boyd MD 12/10/20 1027 [employer] Other XR foot RT min 3V* Signed By: [employer] Other XR foot RT min 3V* 12/10/20 1037 [facility] [employer] Other XR foot RT min 3V* [facility] Main [place] [address] [place] [address] XRay Report Signed Patient: Zaki White MR#: [id number] 0 : 1970 Acct:[id number] Age/Sex: 50 / F ADM Date: 12/10/20 Loc: [facility] Room: Type: [facility] Attending Dr: Kalie HARRINGTON Ordering Provider: LEN Alvarado Date of Service: 12/10/20 XR/XR foot RT min 3V*: Injury of right foot, initial encounter Copies to: LEN Alvarado CLINICAL HISTORY: Struck right foot against treadmill this morning while walking, pain, bruising with swelling to the distal fifth metatarsal and little toe. XR foot RT min 3V* COMPARISON: None FINDINGS: AP, lateral and oblique views of the right foot were obtained. There is no evidence of fracture, dislocation or bony erosion. Mild spur at the head of the first metatarsal is noted. Soft tissue swelling is demonstrated along the lateral aspect of the fifth metatarsal and the little toe. XR/XR foot RT min 3V* IMPRESSION: NO FRACTURE OR SUBLUXATION. Impression dictated by: Niels Boyd M.D.12/10/2020 10:37 AM Dictation Location: [facility]--13 Transcribed By: [facility] 12/10/20 1037 Dictated By: Niels Boyd MD 12/10/20 1027 Signed By: 12/10/20 1037 [facility] Vital Signs Date Time Vital Sign Value Performing Clinician Facility 05-06-2023 11:13-0500 Body height 154.9 cm Zeina Pimentel APRN-CODE CLERK Work Phone: [facility] 05-06-2023 11:13-0500 Body mass index (BMI) [Ratio] 27.89 kg/m2 Zeina BOYDCODE CLERK Work Phone: [facility] 05-06-2023 11:13-0500 Body temperature 98.49 [degF] Zeina Pimentel APRN-CODE CLERK Work Phone: [facility] 05-06-2023 11:13-0500 Body weight 66.95 kg Zeina BOYDCODE CLERK Work Phone: [facility] 05-06-2023 11:13-0500 Diastolic blood pressure 64 mm[Hg] Zeina BOYDCODE CLERK Work Phone: [facility] 05-06-2023 11:13-0500 Heart rate 82 /min Zeina BOYDCODE CLERK Work Phone: [facility] 05-06-2023 11:13-0500 SaO2% (BldA) [Mass fraction] 97 % Zeina Pimentel APRNAnnamarieCODE CLERK Work Phone: [facility] 05-06-2023 11:13-0500 Systolic blood pressure 90 mm[Hg] Zeina Pimentel APRNAnnamarieCODE CLERK Work Phone: [facility] 12-10-2020 10:35-0400 Body height 154.94 cm Kalie Solis Other [employer] Other 12-10-2020 10:35-0400 Body mass index (BMI) [Ratio] 26.98 kg/m2 Kalie Solis Other [employer] Other 12-10-2020 10:35-0400 Body temperature 97.8 [degF] Kalie Solis Other [employer] Other 12-10-2020 10:35-0400 Body weight 64.77 kg Kalie Solis Other [employer] Other 12-10-2020 10:35-0400 Diastolic blood pressure 77 mm[Hg] Kalie Solis Other [employer] Other 12-10-2020 10:35-0400 Respiratory rate 18 /min Kalie Solis Other [employer] Other 12-10-2020 10:35-0400 SaO2% (BldA) [Mass fraction] 100 % Kalie Solis Other [employer] Other 12-10-2020 10:35-0400 Systolic blood pressure 113 mm[Hg] Kalie Solis Other [employer] Other Encounters Encounter Date Encounter Type Care Provider Facility Start: 10-18-2023 End: 10-18-2023 ambulatory [facility] Start: 10-12-2023 End: 10-12-2023 ambulatory VANESSA PARKER Not Available Start: 08-13-2023 End: 08-13-2023 ambulatory [facility] Start: 08-13-2023 Encounter for genera l adult medical examination without abnormal findings [facility] Start: 08-13-2023 End: 08-13-2023 ambulatory [facility] Start: 08-13-2023 Encounter for genera l adult medical examination without abnormal findings [facility] Start: 07-05-2023 End: 07-05-2023 ambulatory ALFIE G [facility] Start: 05-06-2023 End: 05-06-2023 Office outpatient visit 15 minutes Zeina Pimentel COMPOUNDING AND FINISHING SUPERVISOR-CODE CLERK Work Phone: [facility] Comment on above: Flu-like symptoms (P rimary Dx); Viral upper respiratory tract infection Start: 05-06-2023 End: 05-06-2023 ambulatory ZEINA PIMENTEL [facility] Start: 06-07-2022 End: 06-07-[address] ALFIE ANGELES Facility:[facility] Start: 03-13-2022 End: 03-13-[address] RANI RICHARDS . Facility:[facility] Start: 03-12-2022 Encounter for preprocedural laboratory examination DR RANI RICHARDS . [facility] Start: 03-10-2022 End: 03-11-[address] RANI RICHARDS . Facility:[facility] Start: 03-10-2022 End: 03-11-2022 Encounter for preprocedural laboratory examination DR RANI RICHARDS . Facility:[facility] Start: 03-06-2022 Encounter for preprocedural cardiovascular examination DR RANI RICHARDS . [facility] Start: 03-02-2022 End: 03-03-[address] RANI RICHARDS . Facility:[facility] Start: 03-02-2022 End: 03-03-2022 Encounter for preprocedural cardiovascular examination DR RANI RICHARDS . Facility:[facility] Start: 02-04-2022 End: [facility] Start[facility] 12-12-2021 End: 12-13-2021 ambulatory JOHNNY LEE Facility:[facility] Start: 11-28-2021 End: 11-29-[address] RANI RICHARDS . Facility:[facility] Start: 09-22-2021 End: 09-22-[address] RANI RICHARDS . Facility:[facility] Start: 12-10-2020 Office outpatient ne w 20 minutes Kalie Solis [facility] Procedures Date Procedure Procedure Detail Performing Clinician Start: 05-06-2023 POCT INFLUENZA A/INF LUENZA B/SARS-COV-2 VERITOR Zeina Pimentel COMPOUNDING AND FINISHING SUPERVISOR-CODE CLERK Work Phone: Start: 05-06-2023 Adult depression scr eening assessment Zeina Pimentel COMPOUNDING AND FINISHING SUPERVISOR-CODE CLERK Work Phone: Start: 01-29-2023 Mammography Zeina Pimentel COMPOUNDING AND FINISHING SUPERVISOR-CODE CLERK Work Phone: Start: 10-20-2022 Microscopic observat ion [Identifier] in Cervix by Cyto stain Zeina Pimentel COMPOUNDING AND FINISHING SUPERVISOR-CODE CLERK Work Phone: Plan of Treatment Date Care Activity Detail Author Start: 10-20-2025 Screening for malignant neoplasm of cervix Pap Smear [facility] Start: 06-19-2025 DTaP,Tdap and Td Vaccines (2 - Td or Tdap) DTaP,Tdap and Td Vaccines (2 - Td or Tdap) [facility] Start: 05-05-2024 Adult BMI Screening Adult BMI Screening [facility] Start: 05-05-2024 Depression Screening Depression Screening [facility] Start: 05-05-2024 Tobacco Screening Tobacco Screening [facility] Start: 01-30-2024 Screening for malignant neoplasm of breast Mammogram [facility] Start: 10-30-2022 Influenza vaccination Influenza Vaccine [facility] Start: 2022 Administration of varicella zoster vaccine Zoster (Shingles) Vaccine (1 of 2) [facility] Start: 2017 Screening for malignant neoplasm of colon Colonoscopy [facility] Start: 1990 Adult BMI Follow Up Plan Adult BMI Follow Up Plan [facility] Immunizations Immunization Date Immunization Notes Care Provider Fa juanita 06-20-2015 tetanus toxoid, redu brinda diphtheria toxoid, and acellular pertussis vaccine, adsorbed Zeina Pimentel COMPOUNDING AND FINISHING SUPERVISOR-CODE CLERK Work Phone: [facility] Payers Date Payer Category Payer Unknown [employer] [place] [employer] [id number] 2022-Present [phone] [address] [place] [address] [id number] 1970 Unknown [id number] 1970 Unknown [id number] 1972 Unknown [id number] [id number] 1972 Unknown [id number] 1972 Unknown [id number] [id number] 1972 Unknown [id number] [id number] 1972 Unknown [id number] [id number] 1972 Unknown [id number] [id number] 1972 Unknown [id number] [id number] 1972 Unknown [id number] [id number] 1972 Unknown [id number] [id number] 1972 Unknown [id number] [id number] 1972 Unknown [id number] 1959 Unknown [id number] Social History Date Type Detail Facility Start: 04-11-2020 End: 05-06-2023 Sex Assigned At [facility] Start: 03-24-2022 Tobacco smoking stat [email or web address] Never smoked tobacco [facility] Start: 03-24-2022 Tobacco use and exposure Smokeless tobacco non-user [facility] Start: 05-06-2023 Alcohol intake Current drinke r of alcohol (finding) [facility] Start: 04-11-2020 End: 05-06-2023 History of Social function [facility] How hard is it for y ou to pay for the very basics like food, housing, medical care, and heating Not hard at all [facility] Start: 1970 Sex Assigned At Not on file P [facility] [place] [facility] History of Present illness Narrative 05-06-2023 Zeina Pimentel, COMPOUNDING AND FINISHING SUPERVISOR-CODE CLERK - 05/06/2023 11:20 AM EST Note Date & Type Note Facility 05-06-2023 History of Present illness Narrative Subjective Patient ID: Zaki White is a 53 y.o. female. Onset with cough on Wednesday of this week Feels some pressure and tightness in the center of the chest but she feels ok breathing She has a sore throat with pain radiating up her neck into her ears Productive cough Appetite ok no nausea or vomiting The following portions of the patient's history were reviewed and updated as appropriate: allergies, current medications, past family history, past medical history, past social history, past surgical history, problem list, and medication reconciliation was completed including current medication and post discharge medication. Review of Systems Constitutional: Positive for fatigue. Negative for chills and fever. HENT: Positive for congestion, ear pain and sore throat. Respiratory: Positive for cough, chest tightness and shortness of breath. Gastrointestinal: Negative for abdominal pain, diarrhea, nausea and vomiting. Endocrine: Negative. Genitourinary: Negative. Musculoskeletal: Positive for myalgias. Allergic/Immunologic: Negative. Neurological: Negative. Hematological: Negative. Psychiatric/Behavioral: Negative. Objective Physical Exam Vitals and nursing note reviewed. Constitutional: Appearance: Normal appearance. HENT: Head: Normocephalic. Right Ear: Tympanic membrane, ear canal and external ear normal. Left Ear: Tympanic membrane, ear canal and external ear normal. Nose: Congestion and rhinorrhea present. Mouth/Throat: Mouth: Mucous membranes are moist. Pharynx: Posterior oropharyngeal erythema present. Eyes: Conjunctiva/sclera: Conjunctivae normal. Cardiovascular: Rate and Rhythm: Normal rate and regular rhythm. Pulses: Normal pulses. Heart sounds: Normal heart sounds. No murmur heard. Pulmonary: Effort: Pulmonary effort is normal. No respiratory distress. Breath sounds: Normal breath sounds. Musculoskeletal: Cervical back: Neck supple. No tenderness. Right lower leg: No edema. Left lower leg: No edema. Lymphadenopathy: Cervical: No cervical adenopathy. Skin: General: Skin is warm and dry. Capillary Refill: Capillary refill takes less than 2 seconds. Neurological: Mental Status: She is alert and oriented to person, place, and time. Psychiatric: Thought Content: Thought content normal. Judgment: Judgment normal. Assessment/Plan Zaki was seen today for sore throat, cough and earache. Diagnoses and all orders for this visit: Flu-like symptoms - POCT Influenza A/Influenza B/SARS-COV-2 Veritor Viral upper respiratory tract infection Other orders - predniSONE (DELTASONE) 20 mg tablet; Take 1 tablet (20 mg total) by mouth in the morning for 7 days. - dextromethorphan-guaiFENesin (MUCINEX DM) 30-600 mg tablet extended release 12 hr; Take 1 tablet by mouth every 12 (twelve) hours for 10 days. Her influenza and covid testing are negative She is afebrile Will treat her symtomatically with rest and fluids and as she feels tight in her chest will provide prednisone as well, no active wheezing noted on exam KAY Ramirez 05/06/23 1223 documented in this encounter [facility] Clinical Note 03-13-2022 Note Date & Type Note Facility 03-13-2022 Note OPERATIVE NOTE OPERATION DATE: 03/13/2022 PROCEDURE: Bilateral laparoscopic salpingectomy. PREOPERATIVE DIAGNOSIS: Multiparity, desires permanent sterilization. POSTOPERATIVE DIAGNOSIS: Multiparity, desires permanent sterilization. ANESTHESIA: General. SURGEON: Rani Richards D.O. EXTRUSION FORMER: UCHE Bynum URINE OUTPUT: Yellow and clear. BLOOD LOSS: 5 mL. FINDINGS: Normal appearing ovaries, uterus and tubes. Normal appearing appendix. SPECIMEN: Bilateral tubes. PROCEDURE: The patient was taken back to the Operating Room where she was given general anesthesia without difficulty. She was then prepped and draped in the normal sterile fashion after being placed in a dorsal lithotomy position. A wet sponge stick was placed into the patient's vagina. Attention was then turned to the patient's abdomen, where a scalpel was used to make a small infraumbilical incision. The S retractors were then used to dissect the underlying layers until the fascia could be seen. The fascia was then grasped with Yohana clamps and tented up. A knife was then used to make a small incision to the fascia. The muscle was identified, at that time two sutures of #0 Vicryl on a GI needle was then used and placed through the fascia. The peritoneum was then identified and entered bluntly. The 10-4 Rosana was then placed into the patient's abdomen. This was confirmed with direct visualization of the bowel, using the laparoscope. The patient's abdomen was then insufflated using approximately 4 liters of CO2 gas. Survey of the patient's abdomen demonstrated ovaries were normal in appearance as well as both tubes and uterus. A second and third rt and lt lateral ports which were 7-8 and 5 mm in size, was then placed after the skin incision was made under direct visualization The patient's tube on the patient's right side was identified and tented up using a grasper, the LigaSure apparatus was then used to come across the mesosalpinx from the fimbriated end to the insertion site at the uterus, the tube was then amputated and removed in its entirety. This was done on the contralateral side. The tubes were the removed from the patient's abdomen. Excellent hemostasis was noted. The lateral ports were then moved under direct visualization with excellent hemostasis. All instruments were removed from the patient's abdomen. The fascia was closed using the #0 Vicryl on GI needle. The skin was closed using 4-0 Vicryl subcuticularly. All instruments were removed from the patient's vagina as well. The patient was taken out of the dorsal lithotomy position and placed in the supine position and taken to recovery in stable condition. Sponge, lap and needle counts were correct x2. [facility] Progress note 02-04-2022 Note Date & Type Note Facility 02-04-2022 Note SVT and palpitations are well controlled with toprol, no concerning symptoms, continue to maintain adequate hydration. Continue toprol RTC 1 year or as needed [facility] Progress note 02-04-2022 Note Date & Type Note Facility 02-04-2022 Note [facility] PROGR ESS NOTE HPI: Zaki White is a 51 y.o. female here for tachycardia that is managed with toprol. Denied chest pain, shortness of breath, orthopnea, or tachycardia with fit bit. Overall she states she feels well, and no concering symptoms at this time. States even with hot showers her symptoms have not re-occurred. Review of Systems Respiratory: Negative for chest tightness. Cardiovascular: Negative for chest pain and leg swelling. Neurological: Negative for dizziness, syncope and light-headedness. All other systems reviewed and are negative. Visit Vitals BP (P) 114/72 Pulse (P) 79 Wt 65.3 kg (144 lb) SpO2 (P) 97% BMI 27.21 kg/m??? BSA 1.68 m??? No Known Allergies Medications: Current Outpatient Medications on File Prior to Visit Medication Sig Dispense Refill fluticasone (Flonase) 50 mcg/actuation nasal spray fluticasone propionate 50 mcg/actuation nasal spray,suspension Jacek Fe 03/20, 28, 1 mg-20 mcg (21)/75 mg (7) tablet Take 1 tablet by mouth in the morning. metoprolol succinate XL (Toprol-XL) 25 mg 24 hr tablet metoprolol succinate ER 25 mg tablet,extended release 24 hr naproxen sodium (Anaprox) 550 mg tablet take 1 tablet by mouth every 12 hours if needed sertraline (Zoloft) 50 mg tablet Take 2 tablets by mouth in the morning. ubrogepant (Ubrelvy) 100 mg tablet in the morning. No current facility-administered medications on file prior to visit. Physical Exam: Constitutional: Appearance: Normal appearance. Without apparent distress HENT: Head: Normocephalic and atraumatic. Nose: Nose normal. Mouth/Throat: Mouth: Mucous membranes are moist. Eyes: Extraocular Movements: Extraocular movements intact. Conjunctiva/sclera: Conjunctivae normal. Neck: Vascular: No JVD. Cardiovascular: Rate and Rhythm: Normal rate and regular rhythm. Pulses: Dorsalis pedis pulses are 3 on the right side and 3on the left side. Posterior tibial pulses are 3 on the right side and 3 on the left side. Heart sounds: Normal heart sounds, S1 normal and S2 normal. Pulmonary: Effort: Pulmonary effort is normal. Breath sounds: Normal breath sounds. Abdominal: General: Bowel sounds are normal. Palpations: Abdomen is soft. Musculoskeletal: General: Normal range of motion. Cervical back: Normal range of motion. Right lower leg: No edema. Left lower leg: No edema. Skin: General: Skin is warm and dry. Capillary Refill: Capillary refill takes less than 2 seconds. Neurological: General: No focal deficit present. Mental Status: She is alert and oriented to person, place, and time. Psychiatric: Mood and Affect: Mood normal. Behavior: Behavior normal. Thought Content: Thought content normal. Judgment: Judgment normal. Labs: 08/22/20 TSH normal BUN 12, Cr 0.77 normal LFT normal Chol 193, HDL 49, Trig 118, LDL 121 Last lab values have been reviewed CV Testing: No echocardiogram results found for the past 12 months Assessment/Plan: Sinus tachycardia SVT and palpitations are well controlled with toprol, no concerning symptoms, continue to maintain adequate hydration. Continue toprol RTC 1 year or as needed [facility] Evaluation note 12-10-2020 Note Date & Type Note Facility 12-10-2020 Evaluation note Encounter Date Diagnosis Assessment Notes Nov, Injury of right foot, initial encounter (ICD-10 - S99.921A) Nov, Sprain of toe, initial encounter (ICD-10 - S93.509A) Nov, Other Toe fracture material was printed, Buddying tape material was printed Keep the toes larry taped for comfort and compression. Ice and elevate your foot as much as possible. Follow-up with your family physician if no improvement in 2 to 3 days. Take Tylenol or ibuprofen as needed for pain. [employer] Other Evaluation note Note Date & Type Note Facility Evaluation note Diagnosis Flu-like symptoms- Primary Viral upper respiratory tract infection Acute upper respiratory infections of unspecified site documented in this encounter [facility] History general Narrative - Reported Note Date & Type Note Facility History general Narrative - Reported Type Medical History tachycardia Surgical History D&C Surgical History wisdom teeth extract Surgical History x1 Hospitalization History see above [employer] Other Instructions Note Date & Type Note Facility Instructions Not on filedocumented in this en counter [facility] Summary Purpose Family History No Family History Records FoundNo Family History Records FoundNo Family History Records FoundNo Family History Records FoundNo Family History Records FoundNo Family History Records FoundNo Family History Records Found Advance Directives No Advanced Directives Records FoundNo Advanced Directives Records FoundNo Advanced Directives Records FoundNo Advanced Directives Records FoundNo Advanced Directives Records FoundNo Advanced Directives Records FoundNo Advanced Directives Records Found Additional Source Comments INFORMATION SOURCE (unrecogn ized section and content) DATE CREATED AUTHOR 12/18/2020 [facility] DATE CREATED AUTHOR AUTHOR'S ORGANIZ ATION 08/23/2021 [facility] DATE CREATED AUTHOR AUTHOR'S ORGANIZ ATION 02/05/2022 [facility] DATE CREATED AUTHOR AUTHOR'S ORGANIZ ATION 06/09/2022 [facility] DATE CREATED AUTHOR AUTHOR'S ORGANIZ ATION 08/15/2023 [facility] DATE CREATED AUTHOR AUTHOR'S ORGANIZ ATION 10/14/2023 [facility] DATE CREATED AUTHOR AUTHOR'S ORGANIZ ATION 10/19/2023 [facility] REASON FOR VISIT (unrecogniz ed section and content) Reason Comments Sore Throat Cough Chest congestion Earache Care Teams (unrecognized sec tion and content) Associate Merchandiser Relationship Specialty Start Date End Date Alfie Angeles DO [address] [place] [address] PCP - General Family Medicine 12/07/22 FOR RECORDS PERTAINING TO PATIENTS WHO ARE OR HAVE BEEN ENROLLED IN A CHEMICAL DEPENDENCY/SUBSTANCEABUSE PROGRAM, SOME INFORMATION MAY BE OMITTED. This clinical summary was aggregated from multiple sources. Caution should be exercised in using it in the provision of clinical care. This summary normalizes information from multiple sources, and as a consequence, information in this document may materially change the coding, format and clinical context of patient data. In addition, data may be omitted in some cases. CLINICAL DECISIONS SHOULD BE BASED ON THE PRIMARY CLINICAL RECORDS. [facility] [employer] [facility]. provides no warranty or guarantee of the accuracy or completeness of information in this document.
== END 2023-10-25 21:08 | disposition home or self-care (01) ==
LOC: LAB 21:07
PROVIDERS: PCP Family Medicine; Visit Provider Obstetrics & Gynecology
DX: Z01.419 Encounter for gynecological examination (general) (routine) without abnormal findings (principal)
CPT/HCPCS: 87624; 88175

== ENCOUNTER 2023-11-08 08:22 | Outpatient (OUT) | payer OTHER, SELFPAY ==
--- NOTE | 2023-11-08 08:24 | US_ITS ---
The [address] [address] Patient Name: ANJALI ROSADO MRN: [id number] date: 1970 Sex: F Assigned Patient Location: [facility] Current Patient Location: [facility] Accession/Order Number: [id number] Exam Date: 11/08/2023 08:25 Report Date: 11/08/2023 15:54 At the request of: RANI FINN Procedure: US pelvis w/ transvaginal EXAMINATION: US pelvis w/ transvaginal HISTORY: POST MENOPAUSAL BLEEDING COMPARISON: No relevant comparison available. FINDINGS: Abdominal and transvaginal images The uterus is normal in size and contour measuring 6.6 x 3.3 x 4.6 cm. Heterogeneous echotexture. No focal myometrial mass. The endometrium measures 9 mm. The right ovary measures 3.3 x 2.3 x 2.6 cm. Normal color Doppler flow. 2.8 cm area of anechoic echogenicity, simple cyst favored The left ovary measures 2.3 x 1.2 x 2.1 cm. Normal color and Doppler flow. 1.1 cm area of heterogeneous avascular echotexture, a complex cyst is favored US/US pelvis w/ transvaginal IMPRESSION: 2.8 cm right ovarian simple cyst 1.1 cm left ovarian complex appearing cyst The endometrium measures 9 mm, thickened for postmenopausal patient Electronically authenticated by: JOSY NEELY Date: 11/08/2023 15:54
--- OUTSIDE RECORDS SUMMARY | 2023-11-08 08:39 | XMS_ITS | CCD ---
Author Organization [facility] CliniSyri Care Team Providers Care Rn Integrity Name Role Phone Kalie Solis Unavailable LAURA MONTANO Attending Unavailable FURLONG, DR ALFIE Schaefer Primary Care Unavailable ROSSY WING Admitting Unavailable ROSSY WING Attending Unavailable ROSSY WING Consulting Unavailable READERARTUR Consulting Unavailable NEWATIA, TEJ Consulting Unavailable DIAB [...] Consulting Unavailable ROSA, JOHNNY Admitting Unavailable ROSA, JOHNNY Attending Unavailable FURMARY, DR ALFIE Schaefer Primary Care Unavailable ROSA, JOHNNY Consulting Unavailable AAKASH ., DR SARAVIA Admitting Unavailable AAKASH ., DR SARAVIA Attending Unavailable FURLONG, DR ALFIE Schaefer Primary Care Unavailable ALEXANDRIA, DR JOSY Cameron Consulting Unavailable AAKASH ., DR SARAVIA Consulting Unavailable Furlong Alfie DICKERSON Primary Care Provider [phone] ALFIE ANGELES Referring Unavailable ALFIE ANGELES Primary Care Unavailable LOVELY ZEINA MACIEL Attending Unavailable BONIFACIOLONG, ALFIE Schaefer Referring Unavailable FURLONG, ALFIE Schaefer Primary Care Unavailable FURLONG, ALFIE Schaefer Attending Unavailable FURLONG, ALFIE G Referring Unavailable FURLONG, ALFIE G Primary Care Unavailable FURLONG, ALFIE Schaefer Attending Unavailable FURLONG, ALFIE G Referring Unavailable FURLONG, ALFIE G Primary Care Unavailable FURLONG, ALFIE Schaefer Referring Unavailable FURLONG, ALFIE G Primary Care Unavailable FURLONG, ALFIE Schaefer Attending Unavailable VANESSA PARKER Attending Unavailable RANI RICHARDS Attending Unavailable Medications Current Medications Medication Drug Class(es) Dates Sig (Normalized) Sig (Original) 12 hr dextromethorphan hydrobromide 30 mg / guaiFENesin 600 mg extended release oral tablet (1 source) Uncompetitive E-xpghdr-T-aspartate Receptor Antagonist, Sigma-1 Agonist Start: 05-06-2023 End: [...] 06-07-2022 Episodic Other aftercare (1 source) Other senior living (current) drug therapy; Translations: [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 CURRENT DRUG THERAPY] Onset: 06-09-2022 Episodic Other [...] Interpretation Reference Range Facility COMPREHENSIVE METABOLIC PANE [facility] 08-13-2023 Albumin [Mass/Vol] 4.1 g/dL Normal 3.2-5.3 [facility] Comment on above: Performed By: #### Stacy FRANKS 69464-4 #### [facility] ([id number]) [address], [address] [place] [address] ALP [Catalytic activity/Vol] 90 U/L Normal 39-130 [facility] Comment on above: Performed By: #### Stacy FRANKS 71471-9 #### [facility] ([id number]) [address] [place] [address] ALT [Catalytic activity/Vol] 18 U/L Normal 0-31 [facility] Comment on above: Performed By: #### Stacy FRANKS 13691-6 #### [facility] ([id number]) [address] [place] [address] Anion gap [Moles/Vol] 9 mmol/L Normal 5-15 [facility] Comment on above: Performed By: #### Stacy FRANKS 95983-1 #### [facility] ([id number]) [address] [place] [address] AST [Catalytic activity/Vol] 22 U/L Normal 0-41 [facility] Comment on above: Performed By: #### Stacy FRANKS 43315-8 #### [facility] ([id number]) [address], [address] [place] [address] Bilirubin [Mass/Vol] 0.6 mg/dL Normal 0.3-1.2 [facility] Comment on above: Performed By: #### Stacy FRANKS, 20289-9 #### [facility] ([id number]) [address], [address] [place] [address] Calcium [Mass/Vol] 9.4 mg/dL Normal 8.5-10.5 [facility] Comment on above: Performed By: #### Stacy FRANKS, 82513-5 #### [facility] ([id number]) [address], [address] [place] [address] Chloride [Moles/Vol] 104 mmol/L Normal 98-109 [facility] Comment on above: Performed By: #### Stacy FRANKS, 58847-5 #### [facility] ([id number]) [address], [address] [place] [address] CO2 [Moles/Vol] 28 mmol/L Normal 22-32 [facility] Comment on above: Performed By: #### Stacy FRANKS, 55858-4 #### [facility] ([id number]) [address], [address] [place] [address] Creatinine [Mass/Vol] 0.72 mg/dL Normal 0.40-1.00 [facility] Comment on above: Result Comment: METH OD TRACEABLE TO IDMS STANDARD Performed By: #### Stacy FRANKS, 25784-6 #### [facility] ([id number]) [address] [place] [address] eGFR (CKD-EPI) NON-RACE DEPENDENT >90 Normal >59 [facility] Comment on above: Result Comment: Reported eGFR is based on the CKD-EPI 2020 equation that does not use a race coefficient. Performed By: #### Stacy FRANKS, 03714-8 #### [facility] ([id number]) [address], [address] [place] [address] Glucose [Mass/Vol] 86 mg/dL Normal 65-99 [facility] Comment on above: Performed By: #### Stacy FRANKS, 93923-1 #### [facility] ([id number]) [address], [address] [place] [address] Potassium [Moles/Vol] 3.9 mmol/L Normal 3.5-5.0 [facility] Comment on above: Performed By: #### Stacy FRANKS, 74324-8 #### [facility] ([id number]) [address], [address] [place] [address] Protein [Mass/Vol] 7.3 g/dL Normal 6.0-8.0 [facility] Comment on above: Performed By: #### Stacy FRANKS, 11262-8 #### [facility] ([id number]) [address] [place] [address] Sodium [Moles/Vol] 141 mmol/L Normal 134-146 [facility] Comment on above: Performed By: #### Stacy FRANKS, 45077-6 #### [facility] ([id number]) [address], [address] [place] [address] Urea nitrogen [Mass/Vol] 10 mg/dL Normal 5-23 [facility] Comment on above: Performed By: #### Stacy FRANKS, 03492-5 #### [facility] ([id number]) [address], [address] [place] [address] Lipid 1996 panelon 4 Cholesterol [Mass/Vol] 218 mg/dL High 150-200 [facility] Comment on above: Performed By: #### Stacy FRANKS, 25401-9 #### [facility] ([id number]) [address], [address] [place] [address] Cholesterol in HDL [Mass/Vol] 51 mg/dL Normal >39 [facility] Comment on above: Result Comment: HDL <40 mg/dL - High Risk HDL > or = 40mg/dL- Desirable HDL >60 mg/dL - Negative Risk Performed By: #### Stacy FRANKS, 91911-3 #### [facility] ([id number]) [address], [address] [place] [address] Cholesterol in LDL [Mass/Vol] 123 mg/dL Normal <130 [facility] Comment on above: Result Comment: LDL <100 mg/dL - Desirable LDL >160 mg/dL - High Risk Performed By: #### Stacy FRANKS, 41330-2 #### [facility] ([id number]) [address], [address] [place] [address] Cholesterol in VLDL [Mass/Vol] 44 mg/dL High 0-30 [facility] Comment on above: Performed By: #### Stacy FRANKS, 70062-1 #### [facility] ([id number]) [address], [address] [place] [address] CHOLESTEROL:HDL 4.3 Normal 1.0-5.0 [facility] Comment on above: Performed By: #### Stacy FRANKS, 22750-6 #### [facility] ([id number]) [address], [address] [place] [address] Triglyceride [Mass/Vol] 218 mg/dL High 27-150 [facility] Comment on above: Performed By: #### Stacy FRANKS, 66278-7 #### [facility] ([id number]) [address], [address] [place] [address] POCT Influenza A/Influenza B /SARS-COV-2 Veritoron 05-06-2023 External Poct Influenza A Antigen Negative [facility] External Poct Influenza B Antigen Negative [facility] SARS-CoV-2 (COVID-19) Ag IA.rapid Ql (Resp) Negative [facility] CARDIAC PRESTON ADMITon 023 CK [Catalytic activity/Vol] 77 U/L Normal 26-192 [facility] Comment on above: Performed By: #### B MAKENNA FRANKS #### [facility] [address] [address] [address] Maria Teresa Villasenor CK.MB [Mass/Vol] ng/mL Normal <=3.60 [facility] Comment on above: Performed By: #### B MAKENNA FRANKS #### [facility] [address] [address] [address] Maria Teresa Villasenor HSTROP <4.0 Normal 4.0-51.3 [facility] Comment on above: Result Comment: CUT- OFF POINTS HAVE BEEN ESTABLISHED BASED ON THE FOURTH UNIVERSAL DEFINITIONS OF MYOCARDIAL INFARCTION. THE UPPER REFERENCE LIMIT (URL) OF TROPONIN, DEFINED THE 99TH PERCENTILE OF cTnI DISTRIBUTION IN A REFERENCE POPULATION, HAS BEEN CONFIRMED THE DECISION THRESHOLD FOR [place] DIAGNOSIS. Performed By: #### MAKENNA Vargas MP #### [facility] [address] [address] [address] Maria Teresa Villasenor ANJANA 30 ng/mL Normal 9-82 [facility] Comment on above: Performed By: #### B MAKENNA FRANKS #### [facility] [address] [address] [address] Maria Teresa Villasenor CBC AUTO DIFFon 06-07-2022 BASO # 0.0 103/ul Normal 0.0-0.1 [facility] Comment on above: Performed By: #### C BC ####[facility] [address] [address]Dr. Maria Teresa Villasenor Basophils/100 WBC (Bld) 0.4 % Normal 0.2-2.0 [facility] Comment on above: Performed By: #### C BC ####[facility] [address] [id number]. Maria Teresa Villasenor EO # 0.1 103/ul Normal 0.0-0.7 [facility] Comment on above: Performed By: #### C BC ####[facility] [address] [address]Dr. Maria Teresa Villasenor Eosinophils/100 WBC (Bld) 0.9 % Normal 0.9-7.0 [facility] Comment on above: Performed By: #### C BC ####[facility] [address] [place], [place] [address]Dr. Maria Teresa Villasenor Erythrocyte distribution width (RBC) [Ratio] 12.6 % Normal 11.0-15.0 [facility] Comment on above: Performed By: #### C BC ####[facility] [address] [place], [place] [address]Dr. Maria Teresa Villasenor Hematocrit (Bld) [Volume fraction] 39.7 % Normal 36.0-48.0 [facility] Comment on above: Performed By: #### C BC ####[facility] [address] [place], [place] [address]Dr. Maria Teresa Villasenor Hemoglobin (Bld) [Mass/Vol] 13.3 g/dL Normal 12.0-16.0 [facility] Comment on above: Performed By: #### C BC ####[facility] [address] [place], [place] [address]Dr. Maria Teresa Villasenor IG # 0.03 10e3/ul Normal 0.00-0.03 [facility] Comment on above: Performed By: #### C BC ####[facility] [address] [place], [place] [address]Dr. Maria Teresa Villasenor IG % 0.3 % Normal 0.0-0.5 [facility] Comment on above: Performed By: #### C BC ####[facility] [address] [place], [place] [address]Dr. Maria Teresa Villasenor LYMPH # 1.7 103/ul Normal 1.2-3.8 [facility] Comment on above: Performed By: #### C BC ####[facility] [address] [address]Dr. Maria Teresa Villasenor Lymphocytes/100 WBC (Bld) 16.2 % Critically low 20.5-60.0 [facility] Comment on above: Performed By: #### C BC ####[facility] [address] [id number]. Maria Teresa Villasenor MANUAL DIFF REQ NO Normal [facility] Comment on above: Performed By: #### C BC ####[facility] [address] [id number]. Maria Teresa Villasenor MCH (RBC) [Entitic mass] 31.9 pg Normal 26.7-34.0 [facility] Comment on above: Performed By: #### C BC ####[facility] [address] [address]Dr. Maria Teresa Villasenor MCHC (RBC) [Mass/Vol] 33.5 g/dL Normal 29.9-35.2 [facility] Comment on above: Performed By: #### C BC ####[facility] [address] [id number]. Maria Teresa Villasenor MCV (RBC) [Entitic vol] 95.2 fL Normal 81.0-99.0 [facility] Comment on above: Performed By: #### C BC ####[facility] [address] [id number]. Maria Teresa Hamilton MONO # 0.7 103/ul Normal 0.3-0.8 [facility] Comment on above: Performed By: #### C BC ####[facility] [address] [id number]. Maria Teresa Villasenor Monocytes/100 WBC (Bld) 6.7 % Normal 1.7-12.0 [facility] Comment on above: Performed By: #### C BC ####[facility] [address] [id number]. Maria Teresa Villasenor NEUT # 8.1 103/ul Critically high 1.4-6.5 [facility] Comment on above: Performed By: #### C BC ####[facility] [address] [place], [place] [address]Ts. Maria Teresa Villasenor Neutrophils/100 WBC (Bld) 75.5 % Critically high 43.0-75.0 [facility] Comment on above: Performed By: #### C BC ####[facility] [address] [place], [place] [address]Pn. Maria Teresa Villasenor Platelet mean volume (Bld) [Entitic vol] 9.1 fL Critically low 9.5-13.5 [facility] Comment on above: Performed By: #### C BC ####[facility] [address] [place], [place] [address]Ox. Maria Teresa Villasenor PLT 315 103/ul Normal 150-450 [facility] Comment on above: Performed By: #### C BC ####[facility] [address] [place], [place] [address]No. Maria Teresa Villasenor RBC 4.17 106/ul Critically low 4.20-5.40 [facility] Comment on above: Performed By: #### C BC ####[facility] [address] [place], [place] [address]Co. Maria Teresa Villasenor WBC 10.7 103/ul Normal 4.0-11.0 [facility] Comment on above: Performed By: #### C BC ####[facility] [address] [place], [place] [address]Bl. Maria Teresa Villasenor CTA CHEST WO W CONon 023 CTA CHEST WO W CON EXAMINATION: [...] TEJ CATES Date: 2022-06-07 08:33 Normal [facility] D-DIMERon 06-07-2022 D-DIMER 0.62 mg/L FEU Critically high <=0.59 [facility] Comment on above: Performed By: #### D DIM #### [facility] [address] [address] [address] Maria Teresa Villasenor D-DIMER COMMENTS SEE BELOW Normal [facility] Comment on above: Result Comment: Incr eases [...] hospitalization. Performed By: #### D DIM #### [facility] [address] [address] [address] Maria Teresa Villasenor PROF CHEM 8 (BAS METB)on Anion gap [Moles/Vol] 12.5 mmol/L Normal [facility] Comment on above: Performed By: #### B GOLDEN, CMADM #### [facility] [address] [address] [address] Maria Teresa Villasenor Calcium [Mass/Vol] 9.4 mg/dL Normal 8.5-10.1 [facility] Comment on above: Performed By: #### B GOLDEN, CMADM #### [facility] [address] [address] [address] Maria Teresa Villasenor Chloride [Moles/Vol] 103 mmol/L Normal 98-107 [facility] Comment on above: Performed By: #### B GOLDEN, CMADM #### [facility] [address] [address] [address] Maria Teresa Villasenor CO2 [Moles/Vol] 28.3 mmol/L Normal 21.0-32.0 [facility] Comment on above: Performed By: #### B GOLDEN, CMADM #### [facility] [address] [address] [address] Maria Teresa Villasenor Creatinine [Mass/Vol] 0.68 mg/dL Normal 0.55-1.02 [facility] Comment on above: Performed By: #### B GOLDEN, CMADM #### [facility] [address] [address] [address] Maria Teresa Villasenor EGFR-AF KITTITIAN >60 Normal >=60 [facility] Comment on above: Performed By: #### B GOLDEN, CMADM #### [facility] [address] [address] [address] Maria Teresa Villasenor EGFR-NON AF KITTITIAN >60 Normal >=60 [facility] Comment on above: Performed By: #### B GOLDEN, CMADM #### [facility] [address] [address] [address] Maria Teresa Villasenor Glucose [Mass/Vol] 99 mg/dL Normal 74-106 [facility] Comment on above: Performed By: #### B GOLDEN, CMADM #### [facility] [address] [address] [address] Maria Teresa Villasenor Potassium [Moles/Vol] 3.8 mmol/L Normal 3.5-5.1 [facility] Comment on above: Performed By: #### B GOLDEN, CMADM #### [facility] [address] [address] [address] Maria Teresa Villasenor Sodium [Moles/Vol] 140 mmol/L Normal 136-145 [facility] Comment on above: Performed By: #### B GOLDEN, CMADM #### [facility] [address] [address] [address] Maria Teresa Villasenor Urea nitrogen [Mass/Vol] 20.0 mg/dL Critically high 7.0-18.0 [facility] Comment on above: Performed By: #### B GOLDEN, TRACIEDM #### [facility] [address] [address] [address] Maria Teresa Villasenor Urea nitrogen/Creatinin e [Mass ratio] 29.4 mg/mg Normal [facility] Comment on above: Performed By: #### B GOLDEN, TRACIEDM #### [facility] [address] [address] [address] Maria Teresa Villasenor TROPONIN, HIGH SENSITIVITYon 06-07-2022 HSTROP <4.0 Normal 4.0-51.3 [facility] Comment on above: Result Comment: CUT- OFF POINTS HAVE BEEN ESTABLISHED BASED ON THE FOURTH UNIVERSAL DEFINITIONS OF MYOCARDIAL INFARCTION. THE UPPER REFERENCE LIMIT (URL) OF TROPONIN, DEFINED THE 99TH PERCENTILE OF cTnI DISTRIBUTION IN A REFERENCE POPULATION, HAS BEEN CONFIRMED THE DECISION THRESHOLD FOR [place] DIAGNOSIS. Performed By: #### H STROPN #### [facility] [address] [place] [address] Dr. Maria Teresa Villasenor XR CHEST 1 [...] ARTUR HARTMANN Date: 2022-06-07 07:38 Normal [facility] CBC AUTO DIFFon 03-13-2022 BASO # 0.1 103/ul Normal 0.0-0.1 [facility] Comment on above: Performed By: #### C BC #### [facility] [address] [place] [address] Dr. Maria Teresa Villasenor Basophils/100 WBC (Bld) 0.5 % Normal 0.2-2.0 [facility] Comment on above: Performed By: #### C BC #### [facility] [address] [place] [address] Dr. Maria Teresa Villasenor EO # 0.2 103/ul Normal 0.0-0.7 [facility] Comment on above: Performed By: #### C BC #### [facility] [address] [place] [address] Dr. Maria Teresa Villasenor Eosinophils/100 WBC (Bld) 2.4 % Normal 0.9-7.0 [facility] Comment on above: Performed By: #### C BC #### [facility] [address] [place] [address] Dr. Maria Teresa Villasenor Erythrocyte distribution width (RBC) [Ratio] 12.6 % Normal 11.0-15.0 [facility] Comment on above: Performed By: #### C BC #### [facility] [address] [place] [address] Dr. Maria Teresa Villasenor Hematocrit (Bld) [Volume fraction] 43.1 % Normal 36.0-48.0 [facility] Comment on above: Performed By: #### C BC #### [facility] [address] [place] [address] Dr. Maria Teresa Villasenor Hemoglobin (Bld) [Mass/Vol] 13.3 g/dL Normal 12.0-16.0 [facility] Comment on above: Performed By: #### C BC #### [facility] [address] [place] [address] Dr. Maria Teresa Villasenor IG # 0.02 10e3/ul Normal 0.00-0.03 [facility] Comment on above: Performed By: #### C BC #### [facility] [address] [place] [address] Dr. Maria Teresa Villasenor IG % 0.2 % Normal 0.0-0.5 [facility] Comment on above: Performed By: #### C BC #### [facility] [address] [place] [address] Dr. Maria Teresa Villasenor LYMPH # 2.7 103/ul Normal 1.2-3.8 [facility] Comment on above: Performed By: #### C BC #### [facility] [address] [place] [address] Dr. Maria Teresa Villasenor Lymphocytes/100 WBC (Bld) 28.6 % Normal 20.5-60.0 [facility] Comment on above: Performed By: #### C BC #### [facility] [address] [place] [address] Dr. Maria Teresa Villasenor MANUAL DIFF REQ NO Normal [facility] Comment on above: Performed By: #### C BC #### [facility] [address] [place] [address] Dr. Maria Teresa Villasenor MCH (RBC) [Entitic mass] 32.7 pg Normal 26.7-34.0 [facility] Comment on above: Performed By: #### C BC #### [facility] [address] [place] [address] Dr. Maria Teresa Villasenor MCHC (RBC) [Mass/Vol] 30.9 g/dL Normal 29.9-35.2 [facility] Comment on above: Performed By: #### C BC #### [facility] [address] [place] [address] Dr. Maria Teresa Villasenor MCV (RBC) [Entitic vol] 105.9 fL Critically high 81.0-99.0 [facility] Comment on above: Performed By: #### C BC #### [facility] [address] [place] [address] Dr. Maria Teresa Villasenor MONO # 1.2 103/ul Critically high 0.3-0.8 [facility] Comment on above: Performed By: #### C BC #### [facility] [address] [place] [address] Dr. Maria Teresa Villasenor Monocytes/100 WBC (Bld) 12.3 % Critically high 1.7-12.0 [facility] Comment on above: Performed By: #### C BC #### [facility] [address] [place] [address] Dr. Maria Teresa Villasenor NEUT # 5.3 103/ul Normal 1.4-6.5 [facility] Comment on above: Performed By: #### C BC #### [facility] [address] [place] [address] Dr. Maria Teresa Villasenor Neutrophils/100 WBC (Bld) 56.0 % Normal 43.0-75.0 [facility] Comment on above: Performed By: #### C BC #### [facility] [address] [address] [address] Maria Teresa Villasenor Platelet mean volume (Bld) [Entitic vol] 9.3 fL Critically low 9.5-13.5 [facility] Comment on above: Performed By: #### C BC #### [facility] [address] [place] [address] Dr. Maria Teresa Villasenor PLT 357 103/ul Normal 150-450 [facility] Comment on above: Performed By: #### C BC #### [facility] [address] [place] [address] Dr. Maria Teresa Villasenor RBC 4.07 106/ul Critically low 4.20-5.40 [facility] Comment on above: Performed By: #### C BC #### [facility] [address] [place] [address] Dr. Maria Teresa Villasenor WBC 9.4 103/ul Normal 4.0-11.0 [facility] Comment on above: Performed By: #### C BC #### [facility] [address] [place] [address] Dr. Maria Teresa Villasenor PREG HCG QUALon 03-13-2022 , QUAL Negative Normal NEGATIVE [facility] Comment on above: Performed By: #### P REG #### [facility] [address] [place] [address] Dr. Maria Teersa Villasenor Covid-19 PCR (CVDTB)on 03-01 SARS-CoV-2 (COVID-19) RNA JOSÉ ANTONIO+probe Ql (Unsp spec) Not detected Normal NOT DETECTED [facility] Comment on above: Result Comment: This test is not yet approved or cleared by the [place] FDA. When there are no FDA-approved or cleared tests available, and other criteria are met, FDA can make tests available under an emergency access mechanism called an Emergency Use Authorization (EUA). The EUA for this test is supported by the [place] of Health and Human Service's (HHS's) declaration [...] consistent with SARS-CoV-2. Performed By: #### [facility] ####[facility] [id number] [address]Dr. Maria Teresa Villasenor Office Visiton 02-04-2022 Follow-up visit [id number] Zaki White 1970 F Date Provider Department Center 02/04/2022 LAURA OLSEN [facility] No family history on file Level of Service:31299 UT OFFICE/OUTPATIENT ESTABLISHED LOW MDM 20-29 MIN Normal [facility] PROF CHEM 8 (BAS METB)on Anion gap [Moles/Vol] 10.2 mmol/L Normal [facility] Comment on above: Performed By: #### B MP #### [facility] [address] [address] [address] Maria Teresa Villasenor Calcium [Mass/Vol] 8.7 mg/dL Normal 8.5-10.1 [facility] Comment on above: Performed By: #### B MP #### [facility] [address] [address] [address] Maria Teresa Villasenor Chloride [Moles/Vol] 106 mmol/L Normal 98-107 [facility] Comment on above: Performed By: #### B MP #### [facility] [address] [address] [address] Maria Teresa Villasenor CO2 [Moles/Vol] 27.8 mmol/L Normal 21.0-32.0 [facility] Comment on above: Performed By: #### B MP #### [facility] [address] [address] [address] Maria Teresa Villasenor Creatinine [Mass/Vol] 0.64 mg/dL Normal 0.55-1.02 [facility] Comment on above: Performed By: #### B MP #### [facility] [address] [address] [address] Maria Teresa Villasenor EGFR-AF KITTITIAN >60 Normal >=60 [facility] Comment on above: Performed By: #### B MP #### [facility] [address] [address] [address] Maria Teresa Villasenor EGFR-NON AF KITTITIAN >60 Normal >=60 [facility] Comment on above: Performed By: #### B MP #### [facility] [address] [address] [address] Maria Teresa Villasenor Glucose [Mass/Vol] 89 mg/dL Normal 74-106 [facility] Comment on above: Performed By: #### B MP #### [facility] [address] [address] [address] Maria Teresa Villasenor Potassium [Moles/Vol] 4.0 mmol/L Normal 3.5-5.1 [facility] Comment on above: Performed By: #### B MP #### [facility] [address] [address] [address] Maria Teresa Villasenor Sodium [Moles/Vol] 140 mmol/L Normal 136-145 [facility] Comment on above: Performed By: #### B MP #### [facility] [address] [address] [address] Maria Teresa Villasenor Urea nitrogen [Mass/Vol] 12.0 mg/dL Normal 7.0-18.0 [facility] Comment on above: Performed By: #### B MP #### [facility] [address] [place] [address] Dr. Maria Teresa Villasenor Urea nitrogen/Creatinin e [Mass ratio] 18.8 mg/mg Normal [facility] Comment on above: Performed By: #### B MP #### [facility] [address] [place] [address] Dr. Maria Teresa Villasenor MG MAMM SCREEN 3D ALEXA CADon 09-30-2022 MG MAMM SCREEN 3D ALEXA CAD Patient: ZAKI WHITE Exam Date: 11/28/2021 : 1970 Gender:F Ordering : DR RANI RICHARDS . Admission #: [id number] Family : Order #: [id number] CLICK HERE TO VIEW EXAM RADIOLOGY REPORT PROCEDURE: MAMMOGRAM SCREENING 3D BILATERAL CAD COMPARISON: MG MAMM SCREEN 3D LAEXA CAD, 11/14/2020. MG MAMM SCREEN ALEXA W CAD, 11/14/2019. INDICATIONS: Screening mammography Calculator Name NCI Breast Cancer Risk Assessment Tool 5 Year Breast Cancer Risk 1.30% Lifetime Breast Cancer Risk 11.80% Personal Breast Cancer No Personal Ovarian Cancer No Treatments None Family Cancers Aunt-maternal with melenoma cancer at age 50; Nephew with neuroblastoma cancer at age 1. LOCATION: [facility] BREAST COMPOSITION: Heterogeneously dense,which may obscure small [...] Josy Sebastian MD on 11/28/2021 at 12:51 [facility] PAP ACOG PANEL 2: 30 to 65on 09-24-2021 . . Normal [facility] Comment on above: Result Comment: Perf ormed at: WB Performed By: #### 4 [id number] #### [facility] [address] [address] [address] Maria Teresa Villasenor Age Gdln ACOG Testing 30-65 Normal [facility] Comment on above: Performed By: #### 4 [id number] #### [facility] [address] [place], [place] [address] Dr. Maria Teresa Villasenor DIAGNOSIS: Comment Normal [facility] Comment on above: Result Comment: NEGA TIVE FOR INTRAEPITHELIAL LESION OR MALIGNANCY. Performed at: WB Performed By: #### 4 [id number] #### [facility] [address] [place] [address] Dr. Maria Teresa Villasenor HPV Aptima Negative Normal Negative [facility] Comment on above: Result Comment: This nucleic acid amplification test detects fourteen high-risk HPV types (16,18,31,33,35,39,45,51,52,56,58,59,66,68) without differentiation. Performed at: =G Performed By: #### 4 [id number] #### [facility] [address] [place] [address] Dr. Maria Teresa Villasenor Methodology: Comment Normal [facility] Comment on above: Result Comment: This liquid based ThinPrep(R) pap test was screened with the use of an image guided system. Performed at: WB Performed By: #### 4 [id number] #### [facility] [address] [place] [address] Dr. Maria Teresa Villasenor Note: Comment Normal [facility] Comment on above: Result Comment: The Pap smear is a screening test designed to aid in the detection of premalignant and malignant conditions of the uterine cervix. It is not a diagnostic procedure and should not be used as the sole means of detecting cervical cancer. Both false-positive and false-negative reports do occur. . Performed at: WB Performed By: #### 4 [id number] #### [facility] [address] [place] [address] Dr. Maria Teresa Villasenor Performed by: Comment Normal [facility] Comment on above: Result Comment: Sabrina Vasquez Sand Mill Operator Facing Sand (ASCP) Performed at: WB Performed By: #### 4 [id number] #### [facility] [address] [place] [address] Dr. Maria Teresa Villasenor Specimen adequacy: Comment Normal [facility] Comment on above: Result Comment: Sati sfactory for evaluation. Endocervical and/or squamous metaplastic cells (endocervical component) are present. Performed at: WB Performed By: #### 4 [id number] #### [facility] [address] [place] [address] Dr. Maria Teresa Villasenor [facility] 08-23-2021 Albumin [Mass/Vol] 4.3 g/dL Normal 3.6-5.1 [facility] Comment on above: Performed By: #### 1 0231, 7600 #### [facility] of [address], [address] [place] [address] [employer] Autobody Repairer: Jacob Zavaleta MD Albumin/Globulin [Mass ratio] 1.8 {ratio} Normal 1.0-2.5 [facility] Comment on above: Performed By: #### 1 0231, 7600 #### [facility] of [address], [address] [place] [address] [employer]ob[employer] Repairer: Jacob Zavaleta MD ALP [Catalytic activity/Vol] 56 U/L Normal 31-125 [facility] Comment on above: Performed By: #### 1 0231, 7600 #### [facility] of [address], [address] [place] [address] [employer] Repairer: Jacob Zavaleta MD ALT [Catalytic activity/Vol] 9 U/L Normal 6-29 [facility] Comment on above: Performed By: #### 1 023, 7600 #### [facility] of [address], [address] [place] [address] [employer]ob[employer] Repairer: Jacob Zavaleta MD AST [Catalytic activity/Vol] 10 U/L Normal 10-35 [facility] Comment on above: Performed By: #### 1 0231, 7600 #### [facility] of [address], [address] [place] [address] [employer]ob[employer] Repairer: Jacob Zavaleta MD Bilirubin [Mass/Vol] 0.4 mg/dL Normal 0.2-1.2 [facility] Comment on above: Performed By: #### 1 0231, 7600 #### [facility] of [address], [address] [place] [address] [employer]ob[employer] Repairer: Jacob Zavaleta MD BUN/CREATININE RATIO NOT APPLICABLE Normal 6-22 [facility] Comment on above: Performed By: #### 1 0231, 7600 #### [facility] of [address], [address] [place] [address] [employer] Repairer: Jacob Zavaleta MD Calcium [Mass/Vol] 9.3 mg/dL Normal 8.6-10.2 [facility] Comment on above: Performed By: #### 1 023, 7600 #### [facility] of [address] [place] [address] [employer] Repairer: Jacob Zavaleta MD Chloride [Moles/Vol] 106 mmol/L Normal 98-110 [facility] Comment on above: Performed By: #### 1 023, 7600 #### [facility] of [address] [place] [address] [employer] Repairer: Jacob Zavaleta MD CO2 [Moles/Vol] 26 mmol/L Normal 20-32 [facility] Comment on above: Performed By: #### 1 023, 7600 #### [facility] [place] [address] [employer] Repairer: Jacob Zavaleta MD Creatinine [Mass/Vol] 0.77 mg/dL Normal 0.50-1.10 [facility] Comment on above: Performed By: #### 1 230, 7600 #### [facility] [place] [address] [employer] Repairer: Jacob Zavaleta MD eGFR NON-AFR. KITTITIAN 91 mL/min/1.73m2 Normal > OR = 60 [facility] Comment on above: Performed By: #### 1 230, 7600 #### [facility] of [address] [place] [address] [employer] Repairer: Jacob Zavaleta MD GFR/1.73 sq M.predicted among blacks MDRD (S/P/Bld) [Vol rate/Area] 105 mL/min/{1.73_m2} Normal > OR = 60 [facility] Comment on above: Performed By: #### 1 023, 7600 #### [facility] of [place] [address] [employer] Repairer: Jacob Zavaleta MD Globulin (S) [Mass/Vol] 2.4 g/dL Normal 1.9-3.7 [facility] Comment on above: Performed By: #### 1 023, 0 #### [facility] [place] [address] [employer] Repairer: Jacob Zavaleta MD Glucose [Mass/Vol] 148 mg/dL High 65-139 [facility] Comment on above: Result Comment: Non-fasting reference interval For someone without known diabetes, a glucose value >125 mg/dL indicates that they may have diabetes and this should be confirmed with a follow-up test. Performed By: #### 1 023, 0 #### [facility] [place] [address] [employer]ob[employer] Repairer: Jacob Zavaleta MD Potassium [Moles/Vol] 4.2 mmol/L Normal 3.5-5.3 [facility] Comment on above: Performed By: #### 1 230, 7599 #### [facility] [place] [address] [employer] Repairer: Jacob Zavaleta MD Protein [Mass/Vol] 6.7 g/dL Normal 6.1-8.1 [facility] Comment on above: Performed By: #### 1 023, 0 #### [facility] [place] [address] [employer]ob[employer] Repairer: Jacob Zavaleta MD Sodium [Moles/Vol] 139 mmol/L Normal 135-146 [facility] Comment on above: Performed By: #### 1 023, 7600 #### [facility] of [place] [address] [employer] Repairer: Jacob Zavaleta MD Urea nitrogen [Mass/Vol] 12 mg/dL Normal 7-25 [facility] Comment on above: Performed By: #### 1 023, 7600 #### [facility] [place] [address] [employer] Repairer: Jacob Zavaleta MD LIPID PANEL, [facility] 07-31 Cholesterol [Mass/Vol] 191 mg/dL Normal <200 [facility] Comment on above: Order Comment: FASTI NG:NO FASTING: NO Performed By: #### 1 0231, 7600 #### [facility] [address], [address] [place] [address] [employer]ob[employer] Repairer: Jacob Zavaleta MD Cholesterol in HDL [Mass/Vol] 60 mg/dL Normal > OR = 50 [facility] Comment on above: Order Comment: FASTI NG:NO FASTING: NO Performed By: #### 1 0231, 7600 #### [facility] [address], [address] [place] [address] [employer] Repairer: Jacob Zavaleta MD Cholesterol in LDL [Mass/Vol] 107 mg/dL High [facility] Comment on above: Order Comment: FASTI NG:NO FASTING: NO Result Comment: Refe rence range: <100 Desirable range <100 mg/dL for primary prevention; <70 mg/dL for patients with CHD or diabetic patients with > or = 2 CHD risk factors. LDL-C is now calculated using the Dima-Jesus calculation, which is a validated novel method providing better accuracy than the Friedewald equation in the estimation of LDL-C. Dima HINSON et al. BLANCA. 2013;310(19): 6235-7705 (http://education.[employer]/faq/MPW524) Performed By: #### 1 0231, 0 #### [facility] [address], [address] [place] [address] [employer]ob[employer] Repairer: Jacob Zavaleta MD Cholesterol.total/ Cholesterol in HDL [Mass ratio] 3.2 {ratio} Normal <5.0 [facility] Comment on above: Order Comment: FASTI NG:NO FASTING: NO Performed By: #### 1 0231, 7600 #### [facility] [address], [address] [place] [address] [employer]ob[employer] Repairer: Jacob Zavaleta MD NON HDL CHOLESTEROL 131 mg/dL (calc) High <130 [facility] Comment on above: Order Comment: FASTI NG:NO FASTING: NO Result Comment: For patients with diabetes plus 1 major ASCVD risk factor, treating to a non-HDL-C goal of <100 mg/dL (LDL-C of <70 mg/dL) is considered a therapeutic option. Performed By: #### 1 0231, 7600 #### [facility] [address] [place] [address], [address] [place] [address] [employer] Repairer: Jacob Zavaleta MD Triglyceride [Mass/Vol] 126 mg/dL Normal <150 [facility] Comment on above: Order Comment: FASTI NG:NO FASTING: NO Performed By: #### 1 0231, 7600 #### [facility] [address], [address] [place] [address] [employer] Repairer: Jacob Zavaleta MD XR foot RT min 3V*on 021 XR foot RT min 3V* [facility] [employer] Other XR foot RT min 3V* [facility] [employer] Other XR foot RT min 3V* [address] [place] [address] [employer] Other XR foot RT min 3V* [place] [id number] [employer] Other XR foot RT min 3V* XRay Report [employer] Other XR foot RT min 3V* Signed [employer] Other XR foot RT min 3V* Patient: Zaki White MR#: [id number] [employer] Other XR foot RT min 3V* 0 [employer] Other XR foot RT min 3V* : 1970 Acct:[id number] [employer] Other XR foot RT min 3V* Age/Sex: 50 / F ADM Date: 12/10/20 [employer] Other XR foot RT min 3V* Loc: XDUCLY Room: Type: REG CLI [employer] Other XR foot RT min 3V* Attending Dr: Kalie HARRINGTON [employer] Other XR foot RT min 3V* Ordering Provider: LEN Alvarado [employer] Other XR foot RT min 3V* Date of Service: 12/10/20 [employer] Other XR foot RT min 3V* XR/XR foot RT min 3V*: Injury of right foot, initial encounter [employer] Other XR foot RT min 3V* Copies to: LEN Alvarado [employer] Other XR foot RT min 3V* CLINICAL HISTORY: Struck right foot against treadmill this morning while walking, pain, bruising [employer] Other XR foot RT min 3V* with swelling to the distal fifth metatarsal and little toe. [employer] Other XR foot RT min 3V* XR foot RT min 3V* [employer] Other XR foot RT min 3V* COMPARISON: None [employer] Other XR foot RT min 3V* FINDINGS: AP, latera l and oblique views of the right foot were obtained. There is no evidence of [employer] Other XR foot RT min 3V* fracture, dislocatio n or bony erosion. Mild spur at the head of the first metatarsal is noted. Soft [employer] Other XR foot RT min 3V* tissue swelling is demonstrated along the lateral aspect of the fifth metatarsal and the little toe. [employer] Other XR foot RT min 3V* XR/XR foot RT min 3V* [employer] Other XR foot RT min 3V* IMPRESSION: [employer] Other XR foot RT min 3V* NO FRACTURE OR SUBLUXATION. [employer] Other XR foot RT min 3V* Impression dictated by: Niels Boyd M.D.12/10/2020 10:37 AM [employer] Other XR foot RT min 3V* Dictation Location: [place] [address] [employer] Other XR foot RT min 3V* Transcribed By: JONH 12/10/20 1037 [employer] Other XR foot RT min 3V* Dictated By: Niels Boyd MD 12/10/20 1027 [employer] Other XR foot RT min 3V* Signed By: [employer] Other XR foot RT min 3V* 12/10/20 1037 [facility] Other XR foot RT min 3V* [facility] [employer] [address] [place] [address] XRay Report Signed Patient: Zaki White MR#: [id number] 0 : 1970 Acct:[id number] Age/Sex: 50 / F ADM Date: 12/10/20 Loc: [facility] Room: Type: [facility] Attending Dr: Kalie HARRINGTON Ordering Provider: LEN [...] Niels Boyd M.D.12/10/2020 10:37 AM Dictation Location: [facility]13 Transcribed By: [facility] 12/10/20 1037 Dictated By: Niels Boyd MD 12/10/20 1027 Signed By: 12/10/[address] [facility] Vital Signs Date Time Vital Sign Value Performing Clinician Facility 05-06-2023 11:130500 Body height 154.9 cm Zeina Pimentel APRN-MAINTENANCE SHOP MANAGER Work Phone: [facility] 05-06-2023 11:13-0500 Body mass index (BMI) [Ratio] 27.89 kg/m2 Zeina Pimentel APRN-MAINTENANCE SHOP MANAGER Work Phone: [facility] 05-06-2023 11:13-0500 Body temperature 98.49 [degF] Zeina Pimentel APRN-MAINTENANCE SHOP MANAGER Work Phone: [facility] 05-06-2023 11:13-0500 Body weight 66.95 kg Zeina Pimentel APRN-MAINTENANCE SHOP MANAGER Work Phone: [facility] 05-06-2023 11:13-0500 Diastolic blood pressure 64 mm[Hg] Zeina Pimentel APRNAnnamarieMAINTENANCE SHOP MANAGER Work Phone: [facility] 05-06-2023 11:13-0500 Heart rate 82 /min Zeina Pimentel APRNAnnamarieMAINTENANCE SHOP MANAGER Work Phone: [facility] 05-06-2023 11:13-0500 SaO2% (BldA) [Mass fraction] 97 % Zeina Pimentel APRN-MAINTENANCE SHOP MANAGER Work Phone: [facility] 05-06-2023 11:13-0500 Systolic blood pressure 90 mm[Hg] Zeina Pimentel APRN-MAINTENANCE SHOP MANAGER Work Phone: [facility] 12-10-2020 10:35-0400 Body height 154.94 cm Kalie Solis Other [employer] Other 12-10-2020 10:35-0400 Body mass index (BMI) [Ratio] 26.98 kg/m2 Kalie Solis Other [employer] Other 12-10-2020 10:35-0400 Body temperature 97.8 [degF] Kalie Solis Other [employer] Other 12-10-2020 10:35-0400 Body weight 64.77 kg Kalie Solis Other [employer] Other 12-10-2020 10:35-0400 Diastolic blood pressure 77 mm[Hg] Kalie Solis Other [employer] Other 12-10-2020 10:35-0400 Respiratory rate 18 /min Kalie Solis Other [employer] Other 12-10-2020 10:35-0400 SaO2% (BldA) [Mass fraction] 100 % Kalie Solis Other [employer] Other 12-10-2020 10:35-0400 Systolic blood pressure 113 mm[Hg] Kalie Solis Other [employer] Other Encounters Encounter Date Encounter Type Care Provider Facility Start: 10-25-2023 End: 10-25-2023 ambulatory RANI RICHARDS Not Available Start: 10-18-2023 End: 10-18-[address] [facility] Start: 10-12-2023 End: 10-12-2023 ambulatory VANESSA PARKER Not Available Start: 08-13-2023 End: 08-13-2023 ambulatory [facility] Start: 08-13-2023 Encounter for genera l adult medical examination without abnormal findings [facility] Start: 08-13-2023 End: 08-13-2023 ambulatory PHILADELPHIA Silvano [facility] Start: 08-13-2023 Encounter for genera l adult medical examination without abnormal findings ALFIE Schaefer [facility] Start: 07-05-2023 End: 07-05-2023 ambulatory ALFIE Silvano [facility] Start: 05-06-2023 End: 05-06-2023 Office outpatient visit 15 minutes Zeina Pimentel UPHOLSTERY REPAIRER-MAINTENANCE SHOP MANAGER Work Phone: [facility] Comment on above: Flu-like symptoms (P rimary Dx); Viral upper respiratory tract infection Start: 05-06-2023 End: 05-06-2023 ambulatory ZEINA PIMENTEL [facility] Start: 06-07-2022 End: 06-07-[address] ALFIE ANGELES Facility:[facility] Start: 03-13-2022 End: 03-13-[address] RANI RICHARDS . Facility:[facility] Start: 03-12-2022 Encounter for preprocedural laboratory examination DR RANI RICHARDS . [facility] Start: 03-10-2022 End: 03-11-[address] RANI RICHARDS . Facility:[facility] Start: 03-10-2022 End: 03-11-2022 Encounter for preprocedural laboratory examination DR RANI RICHARDS . Facility:[facility] Start: 03-06-2022 Encounter for preprocedural cardiovascular examination DR RANI RICHARDS . [facility] Start: 03-02-2022 End: 03-03-[address] RANI RICHARDS . Facility:[facility] Start: 03-02-2022 End: 03-03-2022 Encounter for preprocedural cardiovascular examination DR RANI RICHARDS . Facility:[facility] Start: 02-04-2022 End: 02-04-2022 ambulatory LAURA MONTANO [facility] Start: 12-12-2021 End: 12-13-2021 ambulatory JOHNNY LEE Facility:[facility] Start: 11-28-2021 End: 11-29-[address] RANI RICHARDS . Facility:[facility] Start: 09-22-2021 End: 09-22-[address] RANI RICHARDS . Facility:[facility] Start: 12-10-2020 Office outpatient ne w 20 minutes Kalie Solis [facility] Procedures Date Procedure Procedure Detail Performing Clinician Start: 05-06-2023 POCT INFLUENZA A/INF LUENZA B/SARS-COV-2 VERITOR Zeina Pimentel UPHOLSTERY REPAIRER-MAINTENANCE SHOP MANAGER Work Phone: Start: 05-06-2023 Adult depression scr eening assessment Zeina Pimentel UPHOLSTERY REPAIRER-MAINTENANCE SHOP MANAGER Work Phone: Start: 01-29-2023 Mammography Zeina Pimentel UPHOLSTERY REPAIRER-MAINTENANCE SHOP MANAGER Work Phone: Start: 10-20-2022 Microscopic observat ion [Identifier] in Cervix by Cyto stain Zeina Pimentel UPHOLSTERY REPAIRER-MAINTENANCE SHOP MANAGER Work Phone: Plan of Treatment Date Care Activity Detail Author Start: 10-20-2025 Screening for malignant neoplasm of cervix Pap Smear [facility] Start: 06-19-2025 DTaP,Tdap and Td Vaccines (2 - Td or Tdap) DTaP,Tdap and Td Vaccines (2 - Td or Tdap) [facility] Start: 05-05-2024 Adult BMI Screening Adult BMI Screening [facility] Start: 05-05-2024 Depression Screening Depression Screening [facility] Start: 05-05-2024 Tobacco Screening Tobacco Screening [facility] Start: 01-30-2024 Screening for malignant neoplasm of breast Mammogram [facility] Start: 10-30-2022 Influenza vaccination Influenza Vaccine [facility] Start: 2022 Administration of varicella zoster vaccine Zoster (Shingles) Vaccine (1 of 2) [facility] Start: 2017 Screening for malignant neoplasm of colon Colonoscopy [facility] Start: 1990 Adult BMI Follow Up Plan Adult BMI Follow Up Plan [facility] Immunizations Immunization Date Immunization Notes Care Provider Alan grant 06-20-2015 tetanus toxoid, redu brinda diphtheria toxoid, and acellular pertussis vaccine, adsorbed Zeina Pimentel UPHOLSTERY REPAIRER-MAINTENANCE SHOP MANAGER Work Phone: [facility] Payers Date Payer Category Payer Unknown [employer] [place] [employer] [id number] 2022-Present [phone] [address] [place] [address] [id number] 1970 Unknown [id number] 1970 Unknown [id number] 1970 Unknown [id number] 1972 Unknown [id number] 1972 Unknown [id number] 1972 Unknown [id number] 1972 Unknown [id number] 1970 Unknown [id number] 1970 Unknown [id number] 1970 Unknown [id number] 1972 Unknown [id number] 1972 Unknown [id number] 1972 Unknown [id number] 1972 Unknown [id number] 1959 Unknown [id number] Social History Date Type Detail Facility Start: 04-11-2020 End: 05-06-2023 Sex Assigned At [facility] Start: 03-24-2022 [facility] Start: 03-24-2022 Tobacco use and exposure Smokeless tobacco non-user [facility] Start: 05-06-2023 Alcohol intake Current drinke r of alcohol (finding) [facility] Start: 04-11-2020 End: 05-06-2023 History of Social function [facility] How hard is it for y ou to pay for the very basics like food, housing, medical care, and heating Not hard at all [facility] Start: 1970 Sex Assigned At Not on file P [facility] History of Present illness Narrative 05-06-2023 Zeina Maciel Lovely, UPHOLSTERY REPAIRER-MAINTENANCE [employer]OP MANAGER - 05/06/2023 11:20 AM EST Note Date [...] no active wheezing noted on exam KAY Ramriez 05/06/23 1223 documented in this encounter [facility] Clinical Note 03-13-2022 Note Date & Type Note Facility 03-13-2022 Note OPERATIVE NOTE OPERATION DATE: 03/13/2022 PROCEDURE: Bilateral laparoscopic salpingectomy. PREOPERATIVE DIAGNOSIS: Multiparity, desires permanent sterilization. POSTOPERATIVE DIAGNOSIS: Multiparity, desires permanent sterilization. ANESTHESIA: General. SURGEON: Rani Richards D.O. BEND UP: UCHE Bynum URINE OUTPUT: Yellow and clear. [...] and needle counts were correct x2. [facility] Progress note 02-04-2022 Note Date & Type Note Facility 02-04-2022 Note SVT and palpitations are well controlled with toprol, no concerning symptoms, continue to maintain adequate hydration. Continue toprol RTC 1 year or as needed [facility] Progress note 02-04-2022 Note Date & Type [...] propionate 50 mcg/actuation nasal spray,suspension Jacek Fe /, 28, 1 mg-20 mcg (21)/75 mg (7) [...] toprol RTC 1 year or as needed [facility] Evaluation note 12-10-2020 Note Date & Type [...] Tylenol or ibuprofen as needed for pain. [employer] Other Evaluation note Note Date & Type [...] Surgical History x1 Hospitalization History see above [facility] Other Instructions Note Date & Type Note Facility Instructions Not on filedocumented in this en counter [facility] Summary Purpose Family History No Family [...] section and content) DATE CREATED AUTHOR 12/18/2020 [facility] DATE CREATED AUTHOR AUTHOR'S ORGANIZ ATION 08/23/2021 [facility] DATE CREATED AUTHOR AUTHOR'S ORGANIZ ATION 02/05/2022 [facility] DATE CREATED AUTHOR AUTHOR'S ORGANIZ ATION 06/09/2022 [facility] DATE CREATED AUTHOR AUTHOR'S ORGANIZ ATION 08/15/2023 [facility] DATE CREATED AUTHOR AUTHOR'S ORGANIZ ATION 10/19/2023 [facility] DATE CREATED AUTHOR AUTHOR'S ORGANIZ ATION 10/26/2023 [facility] EPIC REASON FOR VISIT (unrecogniz ed section and content) Reason Comments Sore Throat Cough Chest congestion Earache Care Teams (unrecognized sec tion and content) Rn Integrity Relationship Specialty Start Date End Date Alfie Angeles DO [address], [address] [place] [address] PCP - General Family Medicine 12/07/22 FOR [...] BE BASED ON THE PRIMARY CLINICAL RECORDS. [facility], [facility]. provides no warranty or guarantee of the accuracy or completeness of information in this document.
== END 2023-11-08 08:23 | disposition home or self-care (01) ==
LOC: NOMS 08:23
PROVIDERS: PCP Family Medicine; Visit Provider Obstetrics & Gynecology
DX: N95.0 Postmenopausal bleeding (principal); N83.292 Other ovarian cyst, left side; N83.291 Other ovarian cyst, right side
CPT/HCPCS: 76830; 76856

== ENCOUNTER 2023-12-20 13:33 | Outpatient (OUT) | payer OTHER, SELFPAY ==
--- NOTE | 2023-12-20 13:35 | US_ITS ---
[address] [address] Patient Name: ANJALI ROSADO MRN: [id number] date: 1970 Sex: F Assigned Patient Location: [facility] Current Patient Location: Accession/Order Number: [id number] Exam Date: 12/20/2023 13:36 Report Date: 12/21/2023 10:52 At the request of: RANI FINN Procedure: US pelvis w/ transvaginal EXAMINATION: US pelvis w/ transvaginal HISTORY: LEFT COMPLEX OVARIAN CYST COMPARISON: 11/08/2023 FINDINGS: Transabdominal and transvaginal The uterus is normal in size and contour with heterogeneous echotexture. The uterus measures 5.7 x 3.6 x 4.8 cm per the uterus is anteverted, anteflexed. No focal myometrial mass. The endometrium measures 8 mm, normal The right ovary measures 1.8 x 1.3 x 2.3 cm. Normal color and Doppler flow. The previously noted cyst is not seen The left ovary measures 2.5 x 1.6 x 2.0 cm. Normal color Doppler flow. Previously noted complex cyst is not visualized US/US pelvis w/ transvaginal IMPRESSION: Interval resolution of bilateral ovarian cysts Electronically authenticated by: JOSY NEELY Date: 12/21/2023 10:52
== END 2023-12-20 13:34 | disposition home or self-care (01) ==
LOC: NOMS 13:33
PROVIDERS: PCP Family Medicine; Visit Provider Obstetrics & Gynecology
DX: N83.292 Other ovarian cyst, left side (principal)
CPT/HCPCS: 76830; 76856

== ENCOUNTER 2024-01-11 10:59 | Outpatient (OUT) | payer OTHER, SELFPAY ==
--- NOTE | 2024-01-11 11:07 | ECG_ITS ---
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
== END 2024-01-11 11:00 | disposition home or self-care (01) ==
LOC: PST 11:00
PROVIDERS: PCP Family Medicine; Visit Provider Obstetrics & Gynecology
DX: Z01.810 Encounter for preprocedural cardiovascular examination (principal); R93.89 Abnormal findings on diagnostic imaging of other specified body structures
CPT/HCPCS: 93005

== ENCOUNTER 2024-01-14 09:31 | Day surgery (SDC) | payer OTHER, SELFPAY ==
[2024-01-11 11:52] VITALS: BP 105/73; PULSE 72; TEMP 36.3; O2SAT 100; BMI 27.3
[2024-01-14] VITALS (11 sets, daily range): BP systolic 107–116; BP diastolic 67–77; PULSE 73–107; TEMP 36.1–36.4; O2SAT 96–100; BMI 26.9
--- OUTSIDE RECORDS SUMMARY | 2024-01-14 09:44 | XMS_ITS | CCD ---
Author Organization [facility] Care Team Providers Care Fish Conservationist Name Role Phone Kalie Solis Unavailable LAURA MONTANO Attending Unavailable FURLONG, DR ALFIE Schaefer Primary Care Unavailable ROSSY WING Admitting Unavailable ROSSY WING Attending Unavailable ROSSY WING Consulting Unavailable READERARTUR Consulting Unavailable NEWATIA, TEJ Consulting Unavailable DIAB ., SOTO Consulting Unavailable SUSIE ., DR SARAVIA Admitting Unavailable SUSIE ., DR SARAVIA Attending Unavailable FURLONG, DR ALFIE Schaefer Primary Care Unavailable SUSIE ., DR SARAVIA Consulting Unavailable SUSIE ., DR SARAVIA Admitting Unavailable SUSIE ., DR SARAVIA Attending Unavailable FURLONG, DR ALFIE Schaefer Primary Care Unavailable SUSIE ., DR SARAVIA Consulting Unavailable SUSIE ., DR SARAVIA Admitting Unavailable SUSIE ., DR SARAVIA Attending Unavailable FURLONG, DR ALFIE Schaefer Primary Care Unavailable SUSIE ., DR SARAVIA Consulting Unavailable RIGO WALLACE Consulting Unavailable RAMONITA II, SAJAN Consulting Unavailable SUSIE ., DR SARAVIA Admitting Unavailable SUSIE ., DR SARAVIA Attending Unavailable FURLONG, DR ALFIE Schaefer Primary Care Unavailable SUSIE ., DR SARAVIA Consulting Unavailable ROSA, JOHNNY Admitting Unavailable ROSA, JOHNNY Attending Unavailable FURLOGRECIA, DR ALFIE Schaefer Primary Care Unavailable ROSA, JOHNNY Consulting Unavailable SUSIE ., DR SARAVIA Admitting Unavailable SUSIE ., DR SARAVIA Attending Unavailable FURLONG, DR ALFIE Schaefer Primary Care Unavailable WAHPETON, DR JOSY Cameron Consulting Unavailable SUSIE ., DR SARAVIA Consulting Unavailable Furlong Alfie DICKERSON Primary Care Provider ALFIE ANGELES Referring Unavailable ALFIE ANGELES Primary Care Unavailable ZEINA MURRY Attending Unavailable FURLONG, ALFIE Schaefer Referring Unavailable FURLONG, ALFIE Schaefer Primary Care Unavailable FURLONG, ALFIE Schaefer Attending Unavailable FURLONG, ALFIE Schaefer Referring Unavailable FURLONG, ALFIE Schaefer Primary Care Unavailable FURLONG, ALFIE Schaefer Attending Unavailable FURLONG, ALFIE Schaefer Referring Unavailable FURLONG, ALFIE Schaefer Primary Care Unavailable FURLONG, ALFIE Schaefer Referring Unavailable FURLONG, ALFIE Schaefer Primary Care Unavailable FURLONG, ALFIE Schaefer Attending Unavailable Tenishalong Alfie CASTAÑEDA Primary Care Provider VANESSA PARKER Attending Unavailable RANI RICHARDS Attending Unavailable RANI RICHARDS Attending Unavailable Medications Current Medications Medication Drug Class(es) Dates Sig (Normalized) Sig (Original) Calcium Carb-Cholecalciferol (Calcium 1000 + D) 1000-20 MG-MCG tablet (2 sources) Start: 03-01-2023 Calcium Carb-Cholecalcif mariana (Calcium 1000 + D) 1000-20 MG-MCG tablet 03/01/2023 Active 12 hr dextromethorphan hydrobromide 30 mg / guaiFENesin 600 mg extended release oral tablet (1 source) Uncompetitive M-qeilua-T-aspartate Receptor Antagonist, Sigma-1 Agonist Start: 05-06-2023 End: 05-16-2023 take 1 tablet by mouth every hour dextromethorphan -guaiFENesin (MUCINEX DM) 30-600 mg tablet extended release 12 hr Take 1 tablet by mouth every 12 (twelve) hours for 10 days. 20 tablet 0 05/06/2023 05/16/2023 Active fluticasone propionate 0.05 mg/actuat metered dose nasal spray (2 sources) Corticosteroid fluticasone propionate (FLONASE) 50 mcg/actuation nasal spray fluticasone propionate 50 mcg/actuation nasal spray,suspension Active fluticasone prop ionate (FLONASE) 50 mcg/actuation nasal spray fluticasone propionate 50 mcg/actuation nasal spray,suspension 0 Active magnesium oxide 400 mg oral tablet (4 sources) Start: 12-06-2022 End: 12-20-2023 magnesium oxide (MAGOX) 400 mg tablet 12/06/2022 Active 24 hr metoprolol succinate 25 mg extended release oral tablet (6 sources) beta-Adrenergic Pancho Start: 01-10-2024 metoprolol succinate XL (TOPROL XL) 25 mg 24 hr tablet TAKE 1 TABLET IN THE MORNING 90 tablet 3 01/10/2024 Active Start: 07-05-2023 End: 01-10-2024 take 1 tablet by mouth every twenty-four hours in the morning metoprolol succinate XL (TOPROL XL) 25 mg 24 hr tablet Take 1 tablet (25 mg total) by mouth in the morning. 90 tablet 1 07/05/2023 01/10/2024 Discontinued Start: 04-28-2022 metoprolol suc cinate XL (Toprol-XL) 25 MG 24 hr tablet 1 (one) time each day at the same time. 04/28/2022 Active Start: 05-14-2021 metoprolol suc cinate XL (TOPROL XL) 25 mg 24 hr tablet metoprolol succinate ER 25 mg tablet,extended release 24 hr TAKE 1 TABLET DAILY 0 05/14/2021 Active Metoprolol Succi bailey Active naproxen 500 mg oral tablet (4 sources) Nonsteroidal Anti-inflammatory Drug Start: 10-13-2022 take 1 tablet by mouth twice daily as needed for pain naproxen (NAPROSYN) 500 mg tablet Take 1 tablet (500 mg total) by mouth 2 (two) times a day as needed for pain. 180 tablet 10/20/2022 Active predniSONE 20 mg oral tablet (1 source) Start: 05-06-2023 End: 05-13-2023 take 1 tablet by mouth in the morning predniSONE (DELTASONE) 20 mg tablet Take 1 tablet (20 mg total) by mouth in the morning for 7 days. 7 tablet 0 05/06/2023 05/13/2023 Active sertraline 100 mg oral tablet (4 sources) Serotonin Reuptake Inhibitor Start: 07-13-2022 sertraline (ZOLOFT) 100 mg tablet TAKE 1 TABLET IN THE MORNING 90 tablet 3 07/08/2023 Active ubrogepant 100 mg oral tablet (3 sources) Start: 08-13-2023 take 1 tablet by mouth once daily as needed ubrogepant (UBRELVY) 100 mg tablet Indications: Other migraine without status migrainosus, not intractable Take 100 mg by mouth daily as needed (migraine). 2 tablet 08/13/2023 Active Problems Active Problems Problem Classification Problem [...] HYPERTENSION] Onset: 12-12-2021 Chronic Headache; including migraine (2 sources) Other migraine, not intractable, without status migrainosus; Translations: [Migraine] Onset: 07-05-2023 07-05-2023 Chronic Mood disorders (2 sources) Major depressive disorder, single episode, in full remission; Translations: [Major depression in remission] Onset: 07-05-2023 07-05-2023 Chronic Nonspecific chest pain (4 sources) Chest pain, unspecified; Translations: [Other chest pain] Onset: 06-07-2022 Episodic Other aftercare (1 source) Other strategic planning specialist (current) drug therapy; Translations: [OTH PRISON CURRENT DRUG THERAPY] Onset: 06-09-2022 Episodic Other nervous system disorders (1 source) Lesion of plantar nerve, right lower limb; Translations: [Lesion of plantar nerve, right lower limb] Onset: 08-13-2023 Chronic Other screening for suspected conditions (not mental disorders or infectious disease) (1 source) Endometrium thickened; Translations: [Abnormal findings on diagnostic imaging of other specified body structures] 12-20-2023 Chronic Other screening for suspected conditions (not [...] Problem Date Documented Date Episodic/Chronic Cardiac dysrhythmias (3 sources) Sinus tachycardia; Translations: [Tachycardia, unspecified] Onset: 04-03-2019 03-24-2022 Episodic Headache; including migraine (4 sources) Headache; Translations: [Nonintractable episodic headache] Onset: 10-20-2022 02-04-2023 Episodic Immunizations and screening for infectious disease (1 source) Encounter for screening for human papillomavirus (HPV); Translations: [ENC SCREENING HUMAN PAPILLOMAVIRUS] Onset: 09-23-2021 Episodic Mood disorders (3 sources) Mood disorders; Translations: [DEPRESSION UNSPECIFIED] Onset: 05-06-2023 Resolved: 08-13-2023 05-06-2023 Other injuries and conditions due to [...] Test Name Value Interpretation Reference Range Facility [facility] METABOLIC PANE Michael 08-13-2023 Albumin [Mass/Vol] 4.1 g/dL Normal 3.2-5.3 [facility] Comment on above: Performed By: #### Stacy FRANKS, 71468-8 #### [facility] ([id number]) [address], [address] [place] [address] ALP [Catalytic activity/Vol] 90 U/L Normal 39-130 [facility] Comment on above: Performed By: #### Stacy FRANKS, 90164-9 #### [facility] ([id number]) [address], [address] [place] [address] ALT [Catalytic activity/Vol] 18 U/L Normal 0-31 [facility] Comment on above: Performed By: #### Stacy FRANKS, 66575-3 #### [facility] ([id number]) [address], [address] [place] [address] Anion gap [Moles/Vol] 9 mmol/L Normal 5-15 [facility] Comment on above: Performed By: #### Stacy FRANKS, 19927-1 #### [facility] ([id number]) [address], [address] [place] [address] AST [Catalytic activity/Vol] 22 U/L Normal 0-41 [facility] Comment on above: Performed By: #### Stacy FRANKS, 58403-8 #### [facility] ([id number]) [address], [address] [place] [address] Bilirubin [Mass/Vol] 0.6 mg/dL Normal 0.3-1.2 [facility] Comment on above: Performed By: #### Stacy FRANKS, 05710-8 #### [facility] ([id number]) [address], [address] [place] [address] Calcium [Mass/Vol] 9.4 mg/dL Normal 8.5-10.5 [facility] Comment on above: Performed By: #### Stacy FRANKS, 06140-0 #### [facility] ([id number]) [address], [address] [place] [address] Chloride [Moles/Vol] 104 mmol/L Normal 98-109 [facility] Comment on above: Performed By: #### Stacy FRANKS, 60535-9 #### [facility] ([id number]) [address], [address] [place] [address] CO2 [Moles/Vol] 28 mmol/L Normal 22-32 [facility] Comment on above: Performed By: #### Stacy FRANKS, 07170-8 #### [facility] ([id number]) [address] [place] [address] Creatinine [Mass/Vol] 0.72 mg/dL Normal 0.40-1.00 [facility] Comment on above: Result Comment: METH OD TRACEABLE TO IDMS STANDARD Performed By: #### Stacy FRANKS, 76309-6 #### [facility] ([id number]) [address], [address] [place] [address] eGFR (CKD-EPI) NON-RACE DEPENDENT >90 Normal >59 [facility] Comment on above: Result Comment: Reported eGFR is based on the CKD-EPI 1 equation that does not use a race coefficient. Performed By: #### Stacy FRANKS, 06208-2 #### [facility] ([id number]) [address], [address] [place] [address] Glucose [Mass/Vol] 86 mg/dL Normal 65-99 [facility] Comment on above: Performed By: #### Stacy FRANKS, 59984-8 #### [facility] ([id number]) [address], [address] [place] [address] Potassium [Moles/Vol] 3.9 mmol/L Normal 3.5-5.0 [facility] Comment on above: Performed By: #### Stacy FRANKS, 59247-3 #### [facility] ([id number]) [address], [address] [place] [address] Protein [Mass/Vol] 7.3 g/dL Normal 6.0-8.0 [facility] Comment on above: Performed By: #### Stacy FRANKS, 00638-1 #### [facility] ([id number]) [address], [address] [place] [address] Sodium [Moles/Vol] 141 mmol/L Normal 134-146 [facility] Comment on above: Performed By: #### Stacy FRANKS, 04477-4 #### [facility] ([id number]) [address], [address] [place] [address] Urea nitrogen [Mass/Vol] 10 mg/dL Normal 5-23 [facility] Comment on above: Performed By: #### Stacy FRANKS, 52585-9 #### [facility] ([id number]) [address], [address] [place] [address] Lipid 1996 panelon 4 Cholesterol [Mass/Vol] 218 mg/dL High 150-200 [facility] Comment on above: Performed By: #### Stacy FRANKS, 23884-7 #### [facility] ([id number]) [address], [address] [place] [address] Cholesterol in HDL [Mass/Vol] 51 mg/dL Normal >39 [facility] Comment on above: Result Comment: HDL <40 mg/dL - High Risk HDL > or = 40mg/dL- Desirable HDL >60 mg/dL - Negative Risk Performed By: #### C GOLDEN, 93789-1 #### [facility] ([id number]) [address], [address] [place] [address] Cholesterol in LDL [Mass/Vol] 123 mg/dL Normal <130 [facility] Comment on above: Result Comment: LDL <100 mg/dL - Desirable LDL >160 mg/dL - High Risk Performed By: #### Stacy FRANKS, 50349-7 #### [facility] ([id number]) [address] [place] [address] Cholesterol in VLDL [Mass/Vol] 44 mg/dL High 0-30 [facility] Comment on above: Performed By: #### Stacy FRANKS, 44263-8 #### [facility] ([id number]) [address] [place] [address] CHOLESTEROL:HDL 4.3 Normal 1.0-5.0 [facility] Comment on above: Performed By: #### Stacy FRANKS, 61706-6 #### [facility] ([id number]) [address] [place] [address] Triglyceride [Mass/Vol] 218 mg/dL High 27-150 [facility] Comment on above: Performed By: #### Stacy FRANKS, 33004-3 #### [facility] ([id number]) [address], [address] [place] [address] POCT Influenza A/Influenza B /SARS-COV-2 Veritoron 05-06-2023 External Poct Influenza A Antigen Negative [facility] External Poct Influenza B Antigen Negative [facility] SARS-CoV-2 (COVID-19) Ag IA.rapid Ql (Resp) Negative [facility] CARDIAC PRESTON ADMITon 023 CK [Catalytic activity/Vol] 77 U/L Normal 26-192 [facility] Comment on above: Performed By: #### B MAKENNA FRANKS #### [facility] [address] [place] [address] Dr. Maria Teresa Villasenor CK.MB [Mass/Vol] ng/mL Normal <=3.60 [facility] Comment on above: Performed By: #### B MAKENNA FRANKS #### [facility] [address] [address] [address] Maria Teresa Villasenor HSTROP <4.0 Normal 4.0-51.3 [facility] Comment on above: Result Comment: CUT- OFF POINTS HAVE BEEN ESTABLISHED BASED ON THE FOURTH UNIVERSAL DEFINITIONS OF MYOCARDIAL INFARCTION. THE UPPER REFERENCE LIMIT (URL) OF TROPONIN, DEFINED THE 99TH PERCENTILE OF cTnI DISTRIBUTION IN A REFERENCE POPULATION, HAS BEEN CONFIRMED THE DECISION THRESHOLD FOR CT DIAGNOSIS. Performed By: #### B MAKENNA FRANKS #### [facility] [address] [place] [address] Dr. Maria Teresa Villasenor ANJANA 30 ng/mL Normal 9-82 [facility] Comment on above: Performed By: #### B MAKENNA FRANKS #### [facility] [address] [address] [address] Maria Teresa Villasenor CBC AUTO DIFFon 06-07-2022 BASO # 0.0 103/ul Normal 0.0-0.1 [facility] Comment on above: Performed By: #### C BC ####[facility] [address] [address]Dr. Maria Teresa Villasenor Basophils/100 WBC (Bld) 0.4 % Normal 0.2-2.0 [facility] Comment on above: Performed By: #### C BC ####[facility] [address] [address]Dr. Maria Teresa Villasenor EO # 0.1 103/ul Normal 0.0-0.7 [facility] Comment on above: Performed By: #### C BC ####[facility] [address] [address]Dr. Maria Teresa Villasenor Eosinophils/100 WBC (Bld) 0.9 % Normal 0.9-7.0 [facility] Comment on above: Performed By: #### C BC ####[facility] [address] [address]Dr. Maria Teresa Villasenor Erythrocyte distribution width (RBC) [Ratio] 12.6 % Normal 11.0-15.0 [facility] Comment on above: Performed By: #### C BC ####[facility] [address] [address]Dr. Maria Teresa Villasenor Hematocrit (Bld) [Volume fraction] 39.7 % Normal 36.0-48.0 [facility] Comment on above: Performed By: #### C BC ####[facility] [address] [place], [place] [address]Dr. Maria Teresa Villasenor Hemoglobin (Bld) [Mass/Vol] 13.3 g/dL Normal 12.0-16.0 [facility] Comment on above: Performed By: #### C BC ####[facility] [address] [place], [place] [address]Dr. Maria Teresa Villasenor IG # 0.03 10e3/ul Normal 0.00-0.03 [facility] Comment on above: Performed By: #### C BC ####[facility] [address] [place], [place] [address]Dr. Maria Teresa Villasenor IG % 0.3 % Normal 0.0-0.5 [facility] Comment on above: Performed By: #### C BC ####[facility] [address] [place], [place] [address]Dr. Maria Teresa Villasenor LYMPH # 1.7 103/ul Normal 1.2-3.8 [facility] Comment on above: Performed By: #### C BC ####[facility] [address] [place], [place] [address]Dr. Maria Teresa Villasenor Lymphocytes/100 WBC (Bld) 16.2 % Critically low 20.5-60.0 [facility] Comment on above: Performed By: #### C BC ####[facility] [address] [place], [place] [address]Dr. Maria Teresa Hamilton MANUAL DIFF REQ NO Normal [facility] Comment on above: Performed By: #### C BC ####[facility] [address] [id number]. Maria Teresa Hamilton MCH (RBC) [Entitic mass] 31.9 pg Normal 26.7-34.0 [facility] Comment on above: Performed By: #### C BC ####[facility] [address] [address]Dr. Maria Teresa Villasenor MCHC (RBC) [Mass/Vol] 33.5 g/dL Normal 29.9-35.2 [facility] Comment on above: Performed By: #### C BC ####[facility] [address] [address]Dr. Maria Teresa Villasenor MCV (RBC) [Entitic vol] 95.2 fL Normal 81.0-99.0 [facility] Comment on above: Performed By: #### C BC ####[facility] [address] [place], [place] [address]DrMaksim Villasenor MONO # 0.7 103/ul Normal 0.3-0.8 [facility] Comment on above: Performed By: #### C BC ####[facility] [address] [place], [place] [address]Dr. Maria Teresa Villasenor Monocytes/100 WBC (Bld) 6.7 % Normal 1.7-12.0 [facility] Comment on above: Performed By: #### C BC ####[facility] [address] [place], [place] [address]DrMaksim Villasenor NEUT # 8.1 103/ul Critically high 1.4-6.5 [facility] Comment on above: Performed By: #### C BC ####[facility] [address] [place], [place] [address]DrMaksim Villasenor Neutrophils/100 WBC (Bld) 75.5 % Critically high 43.0-75.0 [facility] Comment on above: Performed By: #### C BC ####[facility] [address] [place], [place] [address]DrMaksim Villasenor Platelet mean volume (Bld) [Entitic vol] 9.1 fL Critically low 9.5-13.5 [facility] Comment on above: Performed By: #### C BC ####[facility] [address] [place], [place] [address]Kq. Maria Teresa Villasenor PLT 315 103/ul Normal 150-450 [facility] Comment on above: Performed By: #### C BC ####[facility] [address] [place], [place] [address]Mw. Maria Teresa Villasenor RBC 4.17 106/ul Critically low 4.20-5.40 [facility] Comment on above: Performed By: #### C BC ####[facility] [address] [place], [place] [address]Vb. Maria Teresa Villasenor WBC 10.7 103/ul Normal 4.0-11.0 [facility] Comment on above: Performed By: #### C BC ####[facility] [address] [place], [place] [address]Al. Maria Teresa Villasenor CTA CHEST WO W [...] Normal [facility] D-DIMERon 06-07-2022 D-DIMER 0.62 mg/L FEU Critically high <=0.59 [facility] Comment on above: Performed By: #### D DIM #### [facility] [address] [place] [address] Dr. Maria Teresa Villasenor D-DIMER COMMENTS SEE BELOW Normal [facility] Comment on above: Result Comment: Incr eases [...] DIM #### [facility] [address] [place] [address] Dr. Maria Teresa Villasenor PROF CHEM 8 (BAS METB)on Anion gap [Moles/Vol] 12.5 mmol/L Normal [facility] Comment on above: Performed By: #### MAKENNA Vargas MP #### [facility] [address] [place] [address] Dr. Maria Teresa Villasenor Calcium [Mass/Vol] 9.4 mg/dL Normal 8.5-10.1 [facility] Comment on above: Performed By: #### B MAKENNA FRANKS #### [facility] [address] [place] [address] Dr. Maria Teresa Villasenor Chloride [Moles/Vol] 103 mmol/L Normal 98-107 [facility] Comment on above: Performed By: #### B MAKENNA FRANKS #### [facility] [address] [place] [address] Dr. Maria Teresa Villasenor CO2 [Moles/Vol] 28.3 mmol/L Normal 21.0-32.0 [facility] Comment on above: Performed By: #### B MAKENNA FRANKS #### [facility] [address] [address] [address] Maria Teresa Villasenor Creatinine [Mass/Vol] 0.68 mg/dL Normal 0.55-1.02 [facility] Comment on above: Performed By: #### B GOLDEN, MAKENNA #### [facility] [address] [address] [address] Maria Teresa Villasenor EGFR-AF DANISH >60 Normal >=60 [facility] Comment on above: Performed By: #### B GOLDEN, MAKENNA #### [facility] [address] [address] [address] Maria Teresa Villasenor EGFR-NON AF DANISH >60 Normal >=60 [facility] Comment on above: Performed By: #### B MAKENNA FRANKS #### [facility] [address] [address] [address] Maria Teresa Villasenor Glucose [Mass/Vol] 99 mg/dL Normal 74-106 [facility] Comment on above: Performed By: #### B MAKENNA FRANKS #### [facility] [address] [address] [address] Maria Teresa Villasenor Potassium [Moles/Vol] 3.8 mmol/L Normal 3.5-5.1 [facility] Comment on above: Performed By: #### B MAKENNA FRANKS #### [facility] [address] [address] [address] Maria Teresa Villasenor Sodium [Moles/Vol] 140 mmol/L Normal 136-145 [facility] Comment on above: Performed By: #### B GOLDEN, MAKENNA #### [facility] [address] [address] [address] Maria Teresa Villasenor Urea nitrogen [Mass/Vol] 20.0 mg/dL Critically high 7.0-18.0 [facility] Comment on above: Performed By: #### B MAKENNA FRANKS #### [facility] [address] [address] [address] Maria Teresa Villasenor Urea nitrogen/Creatinin e [Mass ratio] 29.4 mg/mg Normal [facility] Comment on above: Performed By: #### B MAKENNA FRANKS #### [facility] [address] [address] [address] Maria Teresa Villasenor TROPONIN, HIGH SENSITIVITYon 06-07-2022 HSTROP <4.0 Normal 4.0-51.3 [facility] Comment on above: Result Comment: CUT- OFF POINTS HAVE BEEN ESTABLISHED BASED ON THE FOURTH UNIVERSAL DEFINITIONS OF MYOCARDIAL INFARCTION. THE UPPER REFERENCE LIMIT (URL) OF TROPONIN, DEFINED THE 99TH PERCENTILE OF cTnI DISTRIBUTION IN A REFERENCE POPULATION, HAS BEEN CONFIRMED THE DECISION THRESHOLD FOR CT DIAGNOSIS. Performed By: #### H STROPN #### [facility] [address] [place] [address] Dr. Maria Teresa Villasenor XR CHEST 1 [...] Normal [facility] CBC AUTO DIFFon 03-13-2022 BASO # 0.1 103/ul Normal 0.0-0.1 [facility] Comment on above: Performed By: #### C BC #### [facility] [address] [place] [address] Dr. Maria Teresa Villasenor Basophils/100 WBC (Bld) 0.5 % Normal 0.2-2.0 [facility] Comment on above: Performed By: #### C BC #### [facility] [address] [place] [address] Dr. Maria Teresa Villasenor EO # 0.2 103/ul Normal 0.0-0.7 [facility] Comment on above: Performed By: #### C BC #### [facility] [address] [address] [address] Maria Teresa Villasenor Eosinophils/100 WBC (Bld) 2.4 % Normal 0.9-7.0 [facility] Comment on above: Performed By: #### C BC #### [facility] [address] [place] [address] Dr. Maria Teresa Villasenor Erythrocyte distribution width (RBC) [Ratio] 12.6 % Normal 11.0-15.0 [facility] Comment on above: Performed By: #### C BC #### [facility] [address] [place] [address] Dr. Maria Teresa Villasenor Hematocrit (Bld) [Volume fraction] 43.1 % Normal 36.0-48.0 [facility] Comment on above: Performed By: #### C BC #### [facility] [address] [place] [address] Dr. Maria Teresa Villasenor Hemoglobin (Bld) [Mass/Vol] 13.3 g/dL Normal 12.0-16.0 [facility] Comment on above: Performed By: #### C BC #### [facility] [address] [place] [address] Dr. Maria Teresa Villasenor IG # 0.02 10e3/ul Normal 0.00-0.03 [facility] Comment on above: Performed By: #### C BC #### [facility] [address] [place] [address] Dr. Maria Teresa Villasenor IG % 0.2 % Normal 0.0-0.5 [facility] Comment on above: Performed By: #### C BC #### [facility] [address] [place] [address] Dr. Maria Teresa Villasenor LYMPH # 2.7 103/ul Normal 1.2-3.8 [facility] Comment on above: Performed By: #### C BC #### [facility] [address] [place] [address] Dr. Maria Teresa Villasenor Lymphocytes/100 WBC (Bld) 28.6 % Normal 20.5-60.0 [facility] Comment on above: Performed By: #### C BC #### [facility] [address] [place] [address] Dr. Maria Teresa Villasenor MANUAL DIFF REQ NO Normal [facility] Comment on above: Performed By: #### C BC #### [facility] [address] [place] [address] Dr. Maria Teresa Villasenor MCH (RBC) [Entitic mass] 32.7 pg Normal 26.7-34.0 [facility] Comment on above: Performed By: #### C BC #### [facility] [address] [place] [address] Dr. Maria Teresa Villasenor MCHC (RBC) [Mass/Vol] 30.9 g/dL Normal 29.9-35.2 [facility] Comment on above: Performed By: #### C BC #### [facility] [address] [place] [address] Dr. Maria Teresa Villasenor MCV (RBC) [Entitic vol] 105.9 fL Critically high 81.0-99.0 [facility] Comment on above: Performed By: #### C BC #### [facility] [address] [place] [address] Dr. Maria Teresa Villasenor MONO # 1.2 103/ul Critically high 0.3-0.8 [facility] Comment on above: Performed By: #### C BC #### [facility] [address] [place] [address] Dr. Maria Teresa Villasenor Monocytes/100 WBC (Bld) 12.3 % Critically high 1.7-12.0 [facility] Comment on above: Performed By: #### C BC #### [facility] [address] [place] [address] Dr. Maria Teresa Villasenor NEUT # 5.3 103/ul Normal 1.4-6.5 [facility] Comment on above: Performed By: #### C BC #### [facility] [address] [place] [address] Dr. Maria Teresa Villasenor Neutrophils/100 WBC (Bld) 56.0 % Normal 43.0-75.0 [facility] Comment on above: Performed By: #### C BC #### [facility] [address] [place] [address] Dr. Maria Teresa Villasenor Platelet mean volume (Bld) [Entitic vol] 9.3 fL Critically low 9.5-13.5 [facility] Comment on above: Performed By: #### C BC #### [facility] [address] [place] [address] Dr. Maria Teresa Villasenor PLT 357 103/ul Normal 150-450 [facility] Comment on above: Performed By: #### C BC #### [facility] [address] [address] [address] Maria Teresa Villasenor RBC 4.07 106/ul Critically low 4.20-5.40 [facility] Comment on above: Performed By: #### C BC #### [facility] [address] [address] [address] Maria Teresa Villasenor WBC 9.4 103/ul Normal 4.0-11.0 [facility] Comment on above: Performed By: #### C BC #### [facility] [address] [place] [address] Dr. Maria Teresa Villasenor PREG HCG QUALon 03-13-2022 , QUAL Negative Normal NEGATIVE [facility] Comment on above: Performed By: #### P REG #### [facility] [address] [place] [address] Dr. Maria Teresa Villasenor Covid-19 PCR (CVDTB)on 03-01 SARS-CoV-2 (COVID-19) RNA JOSÉ ANTONIO+probe Ql (Unsp spec) Not detected Normal NOT DETECTED [facility] Comment on above: Result Comment: This test is not yet approved or cleared by the [place] FDA. When there are no FDA-approved or cleared tests available, and other criteria are met, FDA can make tests available under an emergency access mechanism called an Emergency Use Authorization (EUA). The EUA for this test is supported by the [place] of Health and Human Service's (HHS's) declaration [...] consistent with SARS-CoV-2. Performed By: #### [facility] ####[facility] [id number] [place], [place] [address]IyDr. Maria Teresa Villasenor Office Visiton 02-04-2022 Follow-up visit [id number] Zaki White 1970 F Date Provider Department Center 02/04/2022 RAÚL, LAURA CARD [facility] No family history on file Level of Service:10591 SC OFFICE/OUTPATIENT ESTABLISHED LOW MDM 20-29 MIN Normal [facility] PROF CHEM 8 (BAS METB)on Anion gap [Moles/Vol] 10.2 mmol/L Normal [facility] Comment on above: Performed By: #### B MP #### [facility] [address] [place] [address] Dr. Maria Teresa Villasenor Calcium [Mass/Vol] 8.7 mg/dL Normal 8.5-10.1 [facility] Comment on above: Performed By: #### B MP #### [facility] [address] [address] [address] Maria Teresa Villasenor Chloride [Moles/Vol] 106 mmol/L Normal 98-107 [facility] Comment on above: Performed By: #### B MP #### [facility] [address] [address] [address] Maria Teresa Villasenor CO2 [Moles/Vol] 27.8 mmol/L Normal 21.0-32.0 [facility] Comment on above: Performed By: #### B MP #### [facility] [id number] Maria Teresa Villasenor Creatinine [Mass/Vol] 0.64 mg/dL Normal 0.55-1.02 [facility] Comment on above: Performed By: #### B MP #### [facility] [address] [address] [address] Maria Teresa Villasenor EGFR-AF DANISH >60 Normal >=60 [facility] Comment on above: Performed By: #### B MP #### [facility] [address] [address] [address] Maria Teresa Villasenor EGFR-NON AF DANISH >60 Normal >=60 [facility] Comment on above: Performed By: #### B MP #### [facility] [address] [address] [address] Maria Teresa Villasenor Glucose [Mass/Vol] 89 mg/dL Normal 74-106 [facility] Comment on above: Performed By: #### B MP #### [facility] [address] [address] [address] Maria Teresa Villasenor Potassium [Moles/Vol] 4.0 mmol/L Normal 3.5-5.1 [facility] Comment on above: Performed By: #### B MP #### [facility] [address] [address] [address] Maria Teresa Villasenor Sodium [Moles/Vol] 140 mmol/L Normal 136-145 [facility] Comment on above: Performed By: #### B MP #### [facility] [address] [address] [address] Maria Teresa Villasenor Urea nitrogen [Mass/Vol] 12.0 mg/dL Normal 7.0-18.0 [facility] Comment on above: Performed By: #### B MP #### [facility] [address] [address] [address] Maria Teresa Villasenor Urea nitrogen/Creatinin e [Mass ratio] 18.8 mg/mg Normal [facility] Comment on above: Performed By: #### B MP #### [facility] [address] [address] [address] Maria Teresa Villasenor MG MAMM SCREEN 3D ALEXA CADon 11-28-2021 MG MAMM SCREEN 3D ALEXA CAD Patient: ZAKI WHITE Exam Date: 11/28/2021 : 1970 Gender:F Ordering : DR RANI RICHARDS . Admission #: [id number] Family : Order #: [id number] CLICK HERE TO VIEW EXAM RADIOLOGY REPORT [...] LOCATION: [facility] BREAST COMPOSITION: Heterogeneously dense,which may obscure [...] Josy Sebastian MD on 11/28/2021 at 12:51 Normal [facility] PAP ACOG PANEL 2: 30 to 65on 09-24-2021 . . Normal [facility] Comment on above: Result Comment: Perf ormed at: WB Performed By: #### 4 [id number] #### [facility] [address] [place] [address] Dr. Maria Teresa Villasenor Age Gdln ACOG Testing 30-65 Normal [facility] Comment on above: Performed By: #### 4 [id number] #### [facility] [address] [place] [address] Dr. Maria Teresa Villasenor DIAGNOSIS: Comment Normal [facility] Comment on above: Result Comment: NEGA TIVE FOR INTRAEPITHELIAL LESION OR MALIGNANCY. Performed at: WB Performed By: #### 4 [id number] #### [facility] [address] [address] [address] Maria Teresa Villasenor HPV Aptima Negative Normal Negative [facility] Comment on above: Result Comment: This nucleic acid amplification test detects fourteen high-risk HPV types (16,18,31,33,35,39,45,51,52,56,58,59,66,68) without differentiation. Performed at: =G Performed By: #### 4 [id number] #### [facility] [address] [place] [address] Dr. Maria Teresa Villasenor Methodology: Comment Normal [facility] Comment on above: Result Comment: This liquid based ThinPrep(R) pap test was screened with the use of an image guided system. Performed at: WB Performed By: #### 4 [id number] #### [facility] [address] [place] [address] Dr. Maria Teresa Villasenor Note: Comment Normal [facility] Comment on above: Result Comment: The Pap smear is a screening test designed to aid in the detection of premalignant and malignant conditions of the uterine cervix. It is not a diagnostic procedure and should not be used as the sole means of detecting cervical cancer. Both false-positive and false-negative reports do occur. . Performed at: WB Performed By: #### 4 [id number] #### [facility] [address] [place] [address] Dr. Maria Teresa Villasenor Performed by: Comment Normal [facility] Comment on above: Result Comment: Sabrina Vasquez Manager [employer]) Performed at: WB Performed By: #### 4 [id number] #### [facility] [address] [place] [address] Dr. Maria Teresa Villasenor Specimen adequacy: Comment Normal [facility] Comment on above: Result Comment: Sati sfactory for evaluation. Endocervical and/or squamous metaplastic cells (endocervical component) are present. Performed at: WB Performed By: #### 4 [id number] #### [facility] [address] [place] [address] Dr. Maria Teresa Villasenor [facility] METABOLIC PANE [facility] 08-23-2021 Albumin [Mass/Vol] 4.3 g/dL Normal 3.6-5.1 [facility] Comment on above: Performed By: #### 1 2011, 9470 #### [facility] [address], [address] [place] [address] Multimedia Coordinator: Jacob Zavaleta MD Albumin/Globulin [Mass ratio] 1.8 {ratio} Normal 1.0-2.5 [facility] Comment on above: Performed By: #### 1 0231, 7600 #### [facility] of [address], [address] [place] [address] Multimedia Coordinator: Jacob Zavaleta MD ALP [Catalytic activity/Vol] 56 U/L Normal 31-125 [facility] Comment on above: Performed By: #### 1 0231, 7600 #### [facility] of [address], [address] [place] [address] Multimedia Coordinator: Jacob Zavaleta MD ALT [Catalytic activity/Vol] 9 U/L Normal 6-29 [facility] Comment on above: Performed By: #### 1 0231, 7600 #### [facility] of [address], [address] [place] [address] Multimedia Coordinator: Jacob Zavaleta MD AST [Catalytic activity/Vol] 10 U/L Normal 10-35 [facility] Comment on above: Performed By: #### 1 0231, 7600 #### [facility] of [address], [address] [place] [address] Multimedia Coordinator: Jacob Zavaleta MD Bilirubin [Mass/Vol] 0.4 mg/dL Normal 0.2-1.2 [facility] Comment on above: Performed By: #### 1 0231, 7600 #### [facility] of [place] [address] Multimedia Coordinator: Jacob Zavaleta MD BUN/CREATININE RATIO NOT APPLICABLE Normal 6-22 [facility] Comment on above: Performed By: #### 1 0231, 7600 #### [facility] of [address], [address] [place] [address] Multimedia Coordinator: Jacob Zavaleta MD Calcium [Mass/Vol] 9.3 mg/dL Normal 8.6-10.2 [facility] Comment on above: Performed By: #### 1 0231, 7600 #### [facility] of [address], [address] [place] [address] Multimedia Coordinator: Jacob Zavaleta MD Chloride [Moles/Vol] 106 mmol/L Normal 98-110 [facility] Comment on above: Performed By: #### 1 023, 7600 #### [facility] [address] [place] [address] Multimedia Coordinator: Jacob Zavaleta MD CO2 [Moles/Vol] 26 mmol/L Normal 20-32 [facility] Comment on above: Performed By: #### 1 023, 7600 #### [facility] [place] [address] Multimedia Coordinator: Jacob Zavaleta MD Creatinine [Mass/Vol] 0.77 mg/dL Normal 0.50-1.10 [facility] Comment on above: Performed By: #### 1 023, 7600 #### [facility] [place] [address] Multimedia Coordinator: Jacob Zavaleta MD eGFR NON-AFR. DANISH 91 mL/min/1.73m2 Normal > OR = 60 [facility] Comment on above: Performed By: #### 1 023, 0 #### [facility] [place] [address] Multimedia Coordinator: Jacob Zavaleta MD GFR/1.73 sq M.predicted among blacks MDRD (S/P/Bld) [Vol rate/Area] 105 mL/min/{1.73_m2} Normal > OR = 60 [facility] Comment on above: Performed By: #### 1 230, 7600 #### [facility] [place] [address] Multimedia Coordinator: Jacob Zavaleta MD Globulin (S) [Mass/Vol] 2.4 g/dL Normal 1.9-3.7 [facility] Comment on above: Performed By: #### 1 023, 7600 #### [facility] [place] [address] Multimedia Coordinator: Jacob Zavaleta MD Glucose [Mass/Vol] 148 mg/dL High 65-139 [facility] Comment on above: Result Comment: Non-fasting reference interval For someone without known diabetes, a glucose value >125 mg/dL indicates that they may have diabetes and this should be confirmed with a follow-up test. Performed By: #### 1 0231, 7600 #### [facility] [place] [address] Multimedia Coordinator: Jacob Zavaleta MD Potassium [Moles/Vol] 4.2 mmol/L Normal 3.5-5.3 [facility] Comment on above: Performed By: #### 1 023, 7600 #### [facility] [place] [address] Multimedia Coordinator: Jacob Zavaleta MD Protein [Mass/Vol] 6.7 g/dL Normal 6.1-8.1 [facility] Comment on above: Performed By: #### 1 023, 7600 #### [facility] [place] [address] Multimedia Coordinator: Jacob Zavaleta MD Sodium [Moles/Vol] 139 mmol/L Normal 135-146 [facility] Comment on above: Performed By: #### 1 023, 7600 #### [facility] [place] [address] Multimedia Coordinator: Jacob Zavaleta MD Urea nitrogen [Mass/Vol] 12 mg/dL Normal 7-25 [facility] Comment on above: Performed By: #### 1 023, 7600 #### [facility] [place] [address] Multimedia Coordinator: Jacob Zavaleta MD LIPID PANEL, [facility] 07-31 Cholesterol [Mass/Vol] 191 mg/dL Normal <200 [facility] Comment on above: Order Comment: FASTI NG:NO FASTING: NO Performed By: #### 1 023, 7600 #### [facility] of [place] [address] Multimedia Coordinator: Jacob Zavaleta MD Cholesterol in HDL [Mass/Vol] 60 mg/dL Normal > OR = 50 [facility] Comment on above: Order Comment: FASTI NG:NO FASTING: NO Performed By: #### 1 023, 7600 #### [facility] [address], [address] [place] [address] Multimedia Coordinator: Jacob Zavaleta MD Cholesterol in LDL [Mass/Vol] [...] equation in the estimation of LDL-C. Dima SS et al. BLANCA. 2013;310(19): 9578-1359 (http://education.[employer]/faq/ADI074) Performed By: #### 1 023, 0 #### [facility] [address], [address] [place] [address] Multimedia Coordinator: Jacob Zavaleta MD Cholesterol.total/ Cholesterol in HDL [Mass ratio] 3.2 {ratio} Normal <5.0 [facility] Comment on above: Order Comment: FASTI NG:NO FASTING: NO Performed By: #### 1 023, 7600 #### [facility] [address], [address] [place] [address] Multimedia Coordinator: Jacob Zavaleta MD NON HDL CHOLESTEROL 131 mg/dL (calc) High <130 [facility] Comment on above: Order Comment: FASTI NG:NO FASTING: NO Result Comment: For patients with diabetes plus 1 major ASCVD risk factor, treating to a non-HDL-C goal of <100 mg/dL (LDL-C of <70 mg/dL) is considered a therapeutic option. Performed By: #### 1 023, 7600 #### [facility] [address], [address] [place] [address] Multimedia Coordinator: Jacob Zavaleta MD Triglyceride [Mass/Vol] 126 mg/dL Normal <150 [facility] Comment on above: Order Comment: FASTI NG:NO FASTING: NO Performed By: #### 1 0231, 7600 #### [facility] [address] [facility], [address] [place] [address] Multimedia Coordinator: Jacob Zavaleta MD XR foot RT min 3V*on 021 XR foot RT min 3V* [facility] [employer] Other XR foot RT min 3V* [facility] [employer] Other XR foot RT min 3V* [address] [place] [address] [employer] Other XR foot RT min 3V* GWYN Srivastava [address] [employer] Other XR foot RT min 3V* XRay Report [employer] Other XR foot RT min 3V* Signed [employer] Other XR foot RT min 3V* Patient: Zaki White MR#: [id number] [employer] Other XR foot RT min 3V* 0 [employer] Other XR foot RT min 3V* : 1970 Acct:[id number] [employer] Other XR foot RT min 3V* Age/Sex: 50 / F ADM Date: 12/10/20 [employer] Other XR foot RT min 3V* Loc: [facility] Room: Type: REG CLI [employer] Other XR foot RT min 3V* Attending Dr: Kalie HARRINGTON [employer] Other XR foot RT min 3V* Ordering Provider: LEN Alvarado [employer] Other XR foot RT min 3V* Date of Service: 12/10/20 [employer] Other XR foot RT min 3V* XR/XR foot RT min 3V*: Injury of right foot, initial encounter [employer] Other XR foot RT min 3V* Copies to: TREY AlvaradoC [employer] Other XR foot RT min 3V* CLINICAL HISTORY: Struck right foot against treadmill this morning while walking, pain, bruising [employer] Other XR foot RT min 3V* with swelling to the distal fifth metatarsal and little toe. [employer] Other XR foot RT min 3V* XR foot RT min 3V* [employer] Other XR foot RT min 3V* COMPARISON: None [employer] Other XR foot RT min 3V* FINDINGS: AP, latera l and oblique views of the right foot were obtained. There is no evidence of [employer] Other XR foot RT min 3V* fracture, dislocatio n or bony erosion. Mild spur at the head of the first metatarsal is noted. Soft [employer] Other XR foot RT min 3V* tissue swelling is demonstrated along the lateral aspect of the fifth metatarsal and the little toe. [employer] Other XR foot RT min 3V* XR/XR foot RT min 3V* [employer] Other XR foot RT min 3V* IMPRESSION: [employer] Other XR foot RT min 3V* NO FRACTURE OR SUBLUXATION. [employer] Other XR foot RT min 3V* Impression dictated by: Niels Boyd M.D.12/10/2020 10:37 AM [employer] Other XR foot RT min 3V* Dictation Location: [facility]- [employer] Other XR foot RT min 3V* Transcribed By: JONH 12/10/20 1037 [facility] [employer] Other XR foot RT min 3V* Dictated By: Niels Boyd MD 12/10/20 1027 [facility] [employer] Other XR foot RT min 3V* Signed By: [facility] [employer] Other XR foot RT min 3V* 12/10/20 1037 [facility] [employer] Other XR foot RT min 3V* [facility] [place] [address] [place] [address] XRay Report Signed Patient: Zaki White MR#: [id number] 0 : 1970 Acct:[id number] Age/Sex: 50 / F ADM Date: 12/10/20 [facility]: Type: [facility] Attending Dr: Kalie HARRINGTON Ordering Provider: LEN [...] Niels Boyd M.D.12/10/2020 10:37 AM Dictation Location: [facility]-13 Transcribed By: JONH 12/10/20 1037 Dictated By: Niels Boyd MD 12/10/20 1027 Signed By: 12/10/20 1037 [facility] Vital Signs Date Time Vital Sign Value Performing Clinician Facility 12-20-2023 15:10-0400 Body mass index (BMI) [Ratio] 27.21 kg/m2 Rani Susie DO Work Phone: [facility] 12-20-2023 15:10-0400 Body weight 65.32 kg Rani Susie DO Work Phone: [facility] 12-20-2023 15:10-0400 Diastolic blood pressure 70 mm[Hg] Rani Susie DO Work Phone: [facility] 12-20-2023 15:10-0400 Systolic blood pressure 118 mm[Hg] Rani Susie DO Work Phone: [facility] 05-06-2023 11:13-0500 Body height 154.9 cm Zeina Murry [employer]FORE[employer] CLERK Work Phone: [facility] 05-06-2023 11:13-0500 Body mass index (BMI) [Ratio] 27.89 kg/m2 Zeina Murry [employer]-FOREIGN CLERK Work Phone: [facility] 05-06-2023 11:13-0500 Body temperature 98.49 [degF] Zeina Murry G[employer] AND [employer]ER-FOREIGN CLERK Work Phone: [facility] 05-06-2023 11:13-0500 Body weight 66.95 kg Zeina Murry G[employer] AND [employer]ER-FOREIGN CLERK Work Phone: [facility] 05-06-2023 11:13-0500 Diastolic blood pressure 64 mm[Hg] Zeina Murry G[employer] WHE[employer] AND [employer]ER-FOREIGN CLERK Work Phone: [facility] 05-06-2023 11:13-0500 Heart rate 82 /min Zeina Murry [employer] AND [employer]ER-FOREIGN CLERK Work Phone: [facility] 05-06-2023 11:13-0500 SaO2% (BldA) [Mass fraction] 97 % Zeina Murry [employer] AND [employer]ISHER-FOREIGN CLERK Work Phone: [facility] 05-06-2023 11:13-0500 Systolic blood pressure 90 mm[Hg] Zeina Murry G[employer] WHE[employer] AND [employer]ER-FOREIGN CLERK Work Phone: [employer] 12-10-2020 10:35-0400 Body height 154.94 cm Kalie Solis Other [employer] Other 12-10-2020 10:35-0400 Body mass index (BMI) [Ratio] 26.98 kg/m2 Kalie Solis Other [employer] Other 12-10-2020 10:35-0400 Body temperature 97.8 [degF] Kalie Solis Other [employer] Other 12-10-2020 10:35-0400 Body weight 64.77 kg Kalie Solis Other [employer] Other 12-10-2020 10:35-0400 Diastolic blood pressure 77 mm[Hg] Kalie Solis Other [employer] Other 12-10-2020 10:35-0400 Respiratory rate 18 /min Kalie Solis Other [employer] Other 12-10-2020 10:35-0400 SaO2% (BldA) [Mass fraction] 100 % Kalie Solis Other [employer] Other 12-10-2020 10:35-0400 Systolic blood pressure 113 mm[Hg] Kalie Blackmond Other [employer] Other Encounters Encounter Date Encounter Type Care Provider Facility Start: 01-10-2024 End: 01-10-2024 Refill Alfie Angeles DO Work Phone: [facility] Start: 12-20-2023 End: 12-20-2023 Office outpatient visit 15 minutes Rani Susie DO Work Phone: [facility] Comment on above: Pre-op examination; Thickened endometrium Start: 12-20-2023 End: 12-20-2023 Preprocedural examination done Rani Susie DO Work Phone: [facility] Start: 12-20-2023 End: 12-20-2023 ambulatory RANI SUSIE Not Available Start: 12-20-2023 End: 12-20-2023 Bamboo flowsheet Rani Susie DO Work Phone: [facility] Start: 12-20-2023 End: 12-20-2023 Bamboo flowsheet Rani Susie DO Work Phone: [facility] Start: 10-25-2023 End: 10-25-2023 ambulatory RANI SUSIE Not Available Start: 10-18-2023 End: 10-18-2023 ambulatory [facility] Start: 10-12-2023 End: 10-12-2023 ambulatory VANESSA S KEITH Not Available Start: 08-13-2023 End: 08-13-2023 ambulatory [facility] Start: 08-13-2023 Encounter for genera l adult medical examination without abnormal findings [facility] Start: 08-13-2023 End: 08-13-2023 ambulatory [facility] Start: 08-13-2023 Encounter for genera l adult medical examination without abnormal findings [facility] Start: 07-05-2023 End: 07-05-2023 ambulatory [facility] Start: 05-06-2023 End: 05-06-2023 Office outpatient visit 15 minutes Zeina Murry GOLD WHEEL BLOCKER AND POLISHER-FOREIGN CLERK Work Phone: [facility] Internal [facility] - Family Medicine Comment on above: Flu-like symptoms (P rimary Dx); Viral upper respiratory tract infection Start: 05-06-2023 End: 05-06-2023 ambulatory ZEINA MURRY [facility] Start: 06-07-2022 End: 06-07-[address] ALFIE ANGELES Facility:[facility]1 Start: 03-13-2022 End: 03-13-[address] RANI RICHARDS . Facility:[facility] Start: 03-12-2022 Encounter for preprocedural laboratory examination DR RANI RICHARDS . [facility] Start: 03-10-2022 End: 03-11-[address] RANI RICHARDS . Facility:[facility] Start: 03-10-2022 End: 03-11-2022 Encounter for preprocedural laboratory examination DR RANI RICHARDS . Facility:[facility] Start: 03-06-2022 Encounter for preprocedural cardiovascular examination DR RANI RICHARDS . [facility] Start: 03-02-2022 End: 03-03-[address] RANI RICHARDS . Facility:[facility] Start: 03-02-2022 End: 03-03-2022 Encounter for preprocedural cardiovascular examination DR RANI RICHARDS . Facility:[facility] Start: 02-04-2022 End: 02-04-2022 ambulatory LAURA MONTANO [facility] Start: 12-12-2021 End: 12-13-2021 ambulatory JOHNNY ROSA Facility:[facility] Start: 11-28-2021 End: 11-29-[address] RANI RICHARDS . Facility:[facility] Start: 09-22-2021 End: 09-22-[address] RANI RICHARDS . Facility:[facility] Start: 12-10-2020 Office outpatient ne w 20 minutes Kalie Solis [facility] Procedures Date Procedure Procedure Detail Performing Clinician Start: 08-13-2023 Adult depression scr eening assessment Alfie Angeles DO Work Phone: Start: 05-06-2023 POCT INFLUENZA A/INF LUENZA B/SARS-COV-2 VERITOR Zeina Choi Lovely GOLD WHEEL BLOCKER AND POLISHER-FOREIGN CLERK Work Phone: Start: 05-06-2023 Adult depression scr eening assessment Zeina Lovely GOLD WHEEL BLOCKER AND POLISHER-FOREIGN CLERK Work Phone: Start: 12-01-2023 Mammography Zeina Murry GOLD WHEEL BLOCKER AND POLISHER-FOREIGN CLERK Work Phone: Start: 10-20-2022 Microscopic observat ion [Identifier] in Cervix by Cyto stain Zeina Murry GOLD WHEEL BLOCKER AND POLISHER-FOREIGN CLERK Work Phone: Plan of Treatment Date Care Activity Detail Author Start: 10-20-2025 Screening for malign ant neoplasm of cervix Pap Smear [facility] Start: 06-19-2025 DTaP,Tdap and Td Vac cines (2 - Td or Tdap) DTaP,Tdap and Td Vaccines (2 - Td or Tdap) [facility] Start: 11-01-2024 End: 11-01-2024 Patient encounter procedure 11/01/2024 2:00 PM EDT Office Visit [facility] [address] [facility] [place] [id number] Rani Richards, DO [address] [place], [place] [id number] [facility] Start: 10-17-2024 Adult BMI Screening Adult BMI Screen ing [facility] Start: 08-12-2024 Depression Screening Depression Scre ening [facility] Start: 08-12-2024 Tobacco Screening Tobacco Screening [facility] Start: 05-05-2024 Adult BMI Screening Adult BMI Screen ing [facility] Start: 05-05-2024 Depression Screening Depression Scre ening [facility] Start: 05-05-2024 Tobacco Screening Tobacco Screening [facility] Start: 01-30-2024 Screening for malign ant neoplasm of breast Mammogram [facility] Start: 12-20-2023 End: 12-20-2023 Patient encounter procedure 12/20/2023 2:30 PM EDT Consult [facility] [address] [place] [address] Rani Richards, DO [address] [place], [place] [id number] Arrived [facility] Comment on above: Arrived Start: 10-31-2023 Influenza vaccination Influenza Vacc ine [facility] Start: 10-30-2022 Influenza vaccination Influenza Vacc [facility] Start: 2022 Administration of varicella zoster vaccine Zoster (Shingles) Vaccine (1 of 2) [facility] Start: 2017 Screening for malign ant neoplasm of colon Colonoscopy [facility] Start: 1990 Adult BMI Follow Up Plan Adult BMI Follow Up Plan [facility] Immunizations Immunization Date Immunization Notes Care Provider Alan grant 06-20-2015 tetanus toxoid, redu brinda diphtheria toxoid, and acellular pertussis vaccine, adsorbed Zeina Murry GOLD WHEEL BLOCKER AND POLISHER-FOREIGN CLERK Work Phone: [facility] Payers Date Payer Category Payer Commercial Managed C are - PPO [employer] [id number] 2022 Private Health Insurance [employer] [id number] 2022 Unknown [employer] M MO SUPERMED [id number] 2022-Present [phone] [address] [place] [address] [id number] 1972 Unknown [id number] 2.16.840.1.553703.3.579.2. 593 1972 Unknown [id number] 2.16.840.1.991535.3.579.2. 593 1972 Unknown [id number] 2.16.840.1.524665.3.579.2. 593 1972 Unknown [id number] 2.16.840.1.760700.3.579.2. 593 1972 Unknown [id number] 2.16.840.1.336735.3.579.2. 593 1972 Unknown [id number] 2.16840.1.407722.3.579.2. 593 1972 Unknown [id number] 2.840.1.470065.3.579.2. 593 1972 Unknown [id number] 2.16.840.1.088091.3.579.2. 1286 1972 Unknown [id number] 2.16840.1.667032.3.579.2. 1286 1972 Unknown [id number] 2.16840.1.082571.3.579.2. 1286 1972 Unknown [id number] 2.16840.1.448504.3.579.2. 1286 1972 Unknown [id number] 2.16.840.1.205539.3.579.2. 1286 1972 Unknown [id number] 2.16.840.1.176827.3.579.2. 1259 1972 Unknown [id number] 2.16.840.1.282946.3.579.2. 1259 1972 Unknown [id number] 2.16.840.1.430534.3.579.2. 1259 1959 Unknown [id number] [id number] Social History Date Type Detail Facility Start: 05-06-2023 End: 08-13-2023 Sex Assigned At [facility] Start: 03-24-2022 End: 10-15-2022 Tobacco smoking status NHIS Never smoked tobacco [facility] Start: 03-24-2022 End: 10-15-2022 Tobacco use and exposure Smokeless tobacco non-user [facility] Start: 05-06-2023 End: 08-13-2023 Alcohol intake Current drinker of alcohol (finding) [facility] Start: 05-06-2023 End: 08-13-2023 History of Social function [facility] How hard is it for y ou to pay for the very basics like food, housing, medical care, and heating Not hard at all [facility] Start: 1970 Sex Assigned At Not on file P [facility] Start: 10-25-2023 End: 12-20-2023 Alcoholic beverage intake Lifetime non-drinker (finding) [facility] Start: 1970 Sex assigned at Female [facility] Start: 10-19-2022 Gender identity Identifies as female gender (finding) [facility] Has the [employer], [employer], [employer], or water company threatened to shut off services in your home in past 12Mo No [facility] Are you now , , , , never or living with a partner? [facility] How often to you hav e a drink containing alcohol? 2-4 times a month [facility] How many standard drinks containing alcohol do you have on a typical day? 1 or 2 [facility] How often do you hav e 6 or more drinks on 1 occasion? Never [facility] Do you feel stress - tense, restless, nervous, or anxious, or unable to sleep at night because your mind is troubled all the time - these days [OSQ] Not at all [facility] Start: 10-04-2014 Sex Female (finding) [facility] Clinical Notes 12-10-2020 to 12-20-2023 Caren Khanna - 12/20/2023 2:30 PM EDJordan Murry, GOLD WHEEL BLOCKER AND POLISHER-FOREIGN CLERK - 05/06/2023 11:20 AM EST Note Date & Type Note Facility 12-20-2023 History of Present illness Narrative Reason for Appointment: Patient ID: Zaki White is a 53 y.o. female who presents for Pre-op Visit Patient presents today for Pre Op appointment. Patient is scheduled to undergo D&C Hysteroscopy, possible Myosure on 01/14/[address] Richards at [facility]. MEDICATIONS Current Outpatient Medications Medication Instructions Calcium Carb-Cholecalciferol (Calcium 1000 + D) 1000-20 MG-MCG tablet magnesium oxide (Mag-Ox) 400 MG tablet take 1 tablet by mouth every morning before meals metoprolol succinate XL (Toprol-XL) 25 MG 24 hr tablet Every 24 hours naproxen (NAPROSYN) 500 mg, Oral, 2 times daily PRN sertraline (Zoloft) 100 MG tablet 1 tablet, Oral, Every morning Ubrelvy 100 mg, Oral, Daily PRN ALLERGIES No Known Allergies PROBLEMS Active Ambulatory Problems Diagnosis Date Noted Nonintractable episodic headache 10/20/2022 Resolved Ambulatory Problems Diagnosis Date Noted No Resolved Ambulatory Problems Past Medical History: Diagnosis Date Anxiety Depression (CMS/HCC) Multiple pulmonary nodules Sinus tachycardia HISTORY PAST MEDICAL HISTORY SOCIAL HISTORY Past Medical History: Diagnosis Date Anxiety Depression (CMS/HCC) Multiple pulmonary nodules Sinus tachycardia Social History Tobacco Use Smoking status: Never Smokeless tobacco: Never Vaping Use Vaping status: Never Used Substance Use Topics Alcohol use: Never Drug use: Never FAMILY HISTORY Family History Problem Relation Name Age of Onset Heart disease Father SURGICAL HISTORY Past Surgical History: Procedure Laterality Date BREAST BIOPSY Left SECTION, LOW TRANSVERSE 2014 DILATION AND CURETTAGE OF UTERUS MOUTH SURGERY PAP SMEAR 09/22/2021 negative SALPINGECTOMY Bilateral 03/13/2022 laparoscopic REVIEW OF SYSTEMS Review of Systems: Review of Systems Constitutional: Negative. HENT: Negative. Eyes: Negative. Respiratory: Negative. Cardiovascular: Negative. Gastrointestinal: Negative. Genitourinary: Negative. Musculoskeletal: Negative. Skin: Negative. Neurological: Negative. All other systems reviewed and are negative. Hematological: Negative. Endocrine: Negative. Allergic/Immunologic: Negative. OBJECTIVE Objective: Physical Exam Constitutional: Appearance: Normal appearance. She is well-developed. Cardiovascular: Rate and Rhythm: Normal rate and regular rhythm. Pulmonary: Effort: Pulmonary effort is normal. Breath sounds: Normal breath sounds. Abdominal: General: Bowel sounds are normal. There is no distension. Palpations: Abdomen is soft. Tenderness: There is no abdominal tenderness. There is no guarding or rebound. Musculoskeletal: General: No swelling. Normal range of motion. Right lower leg: No edema. Left lower leg: No edema. Neurological: Mental Status: She is alert and oriented to person, place, and time. Skin: General: Skin is warm and dry. Psychiatric: Mood and Affect: Mood normal. Behavior: Behavior normal. Vitals and nursing note reviewed. Exam conducted with a milk bottling machine operator present. Vitals: Estimated body mass index is 27.02 kg/m as calculated from the following: Height as of 10/12/23: 5' 1 . Weight as of 10/25/23: 143 lb. BP: No LMP recorded. Patient is premenopausal. ASSESSMENT & PLAN ICD-10-CM 1. Pre-op examination Z01.818 2. Thickened endometrium R93.89 Pre Op: Patient is doing well but has complaints of thickened endometrium (found on ultrasound). I have discussed conservative management vs. surgical management with the patient in detail and patient desires surgical management at this time. Patient will undergo D&C Hysteroscopy, possible Myosure on 01/14/2024. Surgical consents were signed, mmc was reviewed, and [facility] Follow Up: Patient is to follow up between 1-2 weeks post operative to assess proper healing and recovery from procedure. Documented by Ayesha Acharya LPN on behalf of: Rani Richards DO documented in this encounter [facility] 05-06-2023 History of Present illness Narrative Subjective [...] Ramirez 05/06/23 1223 documented in this encounter [facility] 03-13-2022 Note OPERATIVE NOTE OPERATION DATE: 03/13/2022 PROCEDURE: Bilateral laparoscopic salpingectomy. PREOPERATIVE DIAGNOSIS: Multiparity, desires permanent sterilization. POSTOPERATIVE DIAGNOSIS: Multiparity, desires permanent sterilization. ANESTHESIA: General. SURGEON: Rani Richards D.O. OUTPATIENT SCHEDULER: UCHE Bynum URINE OUTPUT: Yellow and clear. [...] x2. [facility] 02-04-2022 Note SVT and palpitations are well controlled with toprol, no concerning symptoms, continue to maintain adequate hydration. Continue toprol RTC 1 year or as needed [facility] 02-04-2022 Note [facility]TP CARDIOLOGY PROGR ESS NOTE [...] 50 mcg/actuation nasal spray,suspension Jacek Fe 03/20, , 1 mg-20 mcg (21)/75 mg (7) tablet [...] toprol RTC 1 year or as needed [facility] 12-10-2020 Evaluation note Encounter Date Diagnosis Assessment [...] Tylenol or ibuprofen as needed for pain. [employer] Other Evaluation note* Diagnosis Flu-like symptoms- Primary Viral upper respiratory tract infection Acute upper respiratory infections of unspecified site [facility] Pre-op examination Thickened endometrium Nonspecific (abnormal) findings on radiological and other examination of genitourinary organs documented [facility] this encounter [facility] N[facility] - Reported* Type Description Date Medical History tachycardia Surgical History D&C Surgical History wisdom teeth extract Surgical History x1 Hospitalization History see above [employer] Other InstructionsNot on filedocumented in this encounter [facility] filed[facility]ed in this encounter [facility] Summary Purpose Family History No Family [...] section and content) DATE CREATED AUTHOR 12/18/2020 [facility] DATE CREATED AUTHOR AUTHOR'S ORGANIZ ATION 08/23/2021 [facility] DATE CREATED AUTHOR AUTHOR'S ORGANIZ ATION 02/05/[address] [facility] DATE CREATED AUTHOR AUTHOR'S ORGANIZ ATION 06/09/2022 [facility] DATE CREATED AUTHOR AUTHOR'S ORGANIZ ATION 08/15/2023 [facility] DATE CREATED AUTHOR AUTHOR'S ORGANIZ ATION 10/19/2023 [facility] DATE CREATED AUTHOR AUTHOR'S ORGANIZ ATION 12/22/2023 [facility] Special[facility] EPIC REASON FOR VISIT (unrecogniz ed section and content) Reason Comments Sore Throat Cough Chest congestion Earache Reason Comments Pre-op Visit Reason Comments Med Refill Care Teams (unrecognized sec tion and content) Fish Conservationist Relationship Specialty Start Date End Date Alfie Angeles DO [address], [place] [address] PCP - General Family Medicine 12/07/22 Fish Conservationist Relationship Specialty Start Date End Date Alfie Angeles MD [address], [place] [address] PCP - General 10/19/22 Fish Conservationist Relationship Specialty Start Date End Date Alfie Angeles MD [address], [place] [address] PCP - General 10/19/22 Fish Conservationist Relationship Specialty Start Date End Date Alfie Angeles DO [address], [place] [address] PCP - General Family Medicine 12/07/22 FOR [...] BE BASED ON THE PRIMARY CLINICAL RECORDS. [employer] provides no warranty or guarantee of the accuracy or completeness of information in this document.
[2024-01-14 09:48] LABS: Basophils Percent Auto 0.5 % (0.2-2.0); Eosinophils Absolute Auto 0.1 10^3/uL (0.0-0.7); Eosinophils Percent Auto 1.3 % (0.9-7.0); Hematocrit 40.4 % (36.0-48.0); Hemoglobin 13.4 g/dL (12.0-16.0); Immature Granulocytes Abs Auto 0.02 10^3/uL (0.00-0.03); Immature Granulocytes Pct Auto 0.2 % (0.0-0.5); Lymphocytes Absolute Auto 2.7 10^3/uL (1.2-3.8); Lymphocytes Percent Auto 33.5 % (20.5-60.0); Mean Corpuscular HGB Conc 33.2 g/dL (29.9-35.2); Mean Corpuscular Hemoglobin 31.3 pg (26.7-34.0); Mean Corpuscular Volume 94.4 fL (81.0-99.0); Mean Platelet Volume 9.1 fL (9.5-13.5); Monocytes Percent Auto 11.8 % (1.7-12.0); Neutrophils Absolute Auto 4.3 10^3/uL (1.4-6.5); Neutrophils Percent Auto 52.7 % (43.0-75.0); Platelet Count 372 10^3/uL (150-450); Red Blood Count 4.28 10^6/uL (4.20-5.40); Red Cell Distribution Width 12.4 % (11.0-15.0); White Blood Count 8.2 10^3/uL (4.0-11.0)
[2024-01-14] MEDS: LACTATED RINGER'S SOLUTION 1,000 ML 50 ML IV (10:25)
[2024-01-14] MEDS: FAMOTIDINE/PF 20 MG/2 ML VIAL IV (10:34)
[2024-01-14] MEDS: SCOPOLAMINE 1 MG/3 DAYS TRANSDERM PATCH 1 PATCH TD (10:34)
[2024-01-14 10:38] LABS: HCG Quantitative <1 mIU/mL
--- NOTE | 2024-01-14 12:32 | PM.ONB ---
Brief Operative Note Date of procedure: 01/14/24 Pre-op diagnosis general: pmb Post-op diagnosis: same as pre-op Procedure: NAME OF PROCEDURE: [d&c hysteroscopy] PROCEDURE: The patient was taken back to the Operating Room where she was prepped and draped in normal sterile fashion after being placed under general anesthesia without difficulty. She was also placed in the dorsal lithotomy position. A weighted speculum was placed in the patient?s vagina. The anterior lip of the cervix was identified and grasped with a single tooth tenaculum. The patient?s uterus was then sounded roughly to [?7] cm. The patient was then gently dilated using Hegar dilators. The hysteroscope was passed through the patient?s cervix into the uterus. Both ostia were identified. atrophic appearing endometrium. No gross evidence of polyps, fibroids or malignancy. The hysteroscope was then removed from the patient's uterus.? At that point, gentle curettage was performed until a gritty texture was noted. The endometrial curettings were sent out to pathology.? The single tooth tenaculum was then removed from the patient's anterior lip of the cervix where excellent hemostasis was noted. Anesthesia: ABELARDOA Surgeon: David Richards Estimated blood loss (mL): 5 Pathology: other (endometrial currettings) Condition: stable Disposition: PACU
== END 2024-01-14 13:36 | disposition home or self-care (01) ==
PROVIDERS: PCP Family Medicine; Visit Provider Obstetrics & Gynecology
PROC: (CPT 952; principal; 2024-01-14 10:40)
DX: N95.0 Postmenopausal bleeding (principal); R93.89 Abnormal findings on diagnostic imaging of other specified body structures
CPT/HCPCS: 58558; 36415; 84702; 85025; 88305; J1100; J1885; J2250; J2371; J2405; J2704; J3010

== ENCOUNTER 2024-11-01 20:06 | Outpatient (REF) | payer OTHER, SELFPAY ==
--- OUTSIDE RECORDS SUMMARY | 2024-11-01 14:00 | XMS_ITS | Encounter Summary ---
Author Organization [facility] Address [address] [place] [address] Care Team Providers Care Traffic Control Signaler Name Role Phone Alfie Angeles MD Primary Care Provider Reason for Visit * Reason Comments Well Women Visit Encounter Details Date Type Department Care Team (Late st Contact Info) Description 11/01/2024 2:00 PM EDT Office Visit [facility] [address] [place] [phone] David Richards DO [address] [facility] [place] [address] Well woman exam with routine gynecological exam; Breast cancer screening by mammogram; Postmenopausal state Social History Tobacco Use Types Packs/Day Years Used Date Smoking Tobacco: Never Smokeless Tobacco: Never Alcohol Use Standard Drinks/Week Comments Never 0 (1 standard drink = 0.6 oz pur e alcohol) Comments No Sex and Gender Information Value Date Recorded Sex Assigned at Female 10/19/2022 5:38 PM EDT Legal Sex Female 11:47 PM EDT Gender Identity Female 10/19/2022 5:38 PM EDT Sexual Orientation Not on file documented as of this encounter Last Filed Vital Signs Vital Sign Reading Time Taken Comments Blood Pressure 120/70 11/01/2024 2:40 PM EDT Pulse - - Temperature - - Respiratory Rate - - Oxygen Saturation - - Inhaled Oxygen Concentration - - Weight 69.3 kg (152 lb 12.8 oz) 11/01/2024 2:40 PM EDT Height - - Body Mass Index 28.87 10/12/2023 10:45 AM EDT documented in this encounter Progress Notes * Genia Maria, KAM - 11/01/2024 2:00 PM EDT Reason for Appointment: Patient ID: Zaki White is a 54 y.o. female who presents for Well Women Visit Patient presents today for Annual Exam. MEDICATIONS Current Outpatient Medications Medication Instructions [id number]-oxtwejgitygqs-jwjukbzc (Excedrin Migraine) 250-250-65 MG tablet 1 tablet, Every 6 hours PRN Calcium Carb-Cholecalciferol (Calcium 1000 + D) 1000-20 MG-MCG tablet loratadine-pseudoephedrine ER (Claritin-D 12-hour) 5-120 MG 12 hr tablet 1 tablet, 2 times daily metoprolol succinate XL (Toprol-XL) 25 MG 24 hr tablet Every 24 hours naproxen (NAPROSYN) 500 mg, 2 times daily PRN sertraline (Zoloft) 100 MG tablet 1 tablet, Every morning ALLERGIES No Known Allergies PROBLEMS Active Ambulatory Problems Diagnosis Date Noted Nonintractable episodic headache 10/20/2022 Resolved Ambulatory Problems Diagnosis Date Noted No Resolved Ambulatory Problems Past Medical History: Diagnosis Date Anxiety Depression Multiple pulmonary nodules Sinus tachycardia HISTORY PAST MEDICAL HISTORY SOCIAL HISTORY Past Medical History: Diagnosis Date Anxiety Depression Multiple pulmonary nodules Sinus tachycardia Social History [...] Constitutional: Appearance: Normal appearance. She is well-developed. Genitourinary: Breasts: Breasts are soft. Right: Normal. Left: Normal. Cardiovascular: Rate and Rhythm: Normal rate and [...] nursing note reviewed. Exam conducted with a bus transportation manager present. Vitals: Estimated body mass index is 28.87 kg/m?? as calculated from the following: Height as of 10/11/24: 5' 1 . Weight as of this encounter: 152 lb 12.8 oz. BP: 120/70 No LMP recorded. Patient is premenopausal. ASSESSMENT & PLAN ICD-10-CM 1. Well woman exam with routine gynecological exam Z01.419 THIN PREP TIS PAP AND HR HPV DNA 2. Breast cancer screening by mammogram Z12.31 Bilateral screening mammogram Bilateral screening mammogram 3. Postmenopausal state Z78.0 DEXA bone density Annual Exam: Patient presents today for an annual exam. Patient states she is doing well and has no complaints. Pap was obtained without difficulty. Orders Placed This Encounter Procedures Bilateral screening mammogram DEXA bone density Follow Up: Patient is to return in one year for annual unless needed otherwise. Documented by Genia Maria NP on behalf of: Genia Maria NP documented in this encounter Plan of Treatment Upcoming Encounters Date Type Department Care Team (Late st Contact Info) Description 11/07/2025 2:00 PM EDT Procedure Visit [facility] [address] [place] [address] David Richards DO [address] [place] [address] Scheduled Orders Name Type Priority Associated Diagnoses Orde r Schedule Bilateral screening mammogram Imaging Routine Breast cancer screening by mammogram Expected: 11/01/2024, Expires: 01/01/2026 DEXA bone density Imaging Routine Postmenopausal state Expected: 11/01/2024 (Approximate), Expires: 11/01/2025 THIN PREP TIS PAP AND HR HPV DNA Pathology and Cytology Routine Well woman exam with routine gynecological exam Ordered: 11/01/2024 documented as of this encounter Visit Diagnoses Diagnosis Well woman exam with routine gynecological exam Routine gynecological examination Breast cancer screening by mammogram Postmenopausal state Asymptomatic postmenopausal status (age-related) (natural) documented in this encounter Care Teams Traffic Control Signaler Relationship Specialty Start Date End Date Alfie Angeles MD PCP - General 10/19/22 documented as of this encounter
--- OUTSIDE RECORDS SUMMARY | 2024-11-01 20:11 | XMS_ITS | Encounter Summary ---
Author Organization [facility] Address [id number] [address] [place] [address] Care Team Providers Care Printed Circuit Board Pcb Draftsman Name Role Phone Alfie Angeles DO Primary Care Provider [phone] Encounter Details Date Type Department Care Team (Late st Contact Info) Description 11/07/2021 Orders Only [facility] [address] [place] [phone] Randi Nails, HIDE AND SKIN PROCESSING WORKER-BAKERY MACHINE MECHANIC [address] [place] [address] Primary hypertension (Primary Dx) Social History Tobacco Use Types Packs/Day Years Used Date Smoking Tobacco: Never Assessed Childcare Answer Date Recorded Childcare Unknown 08/10/2018 Employment Answer Date Recorded Employment Unknown 08/10/2018 Purpose - Life Answer Date Recorded Purpose and direction in life Unknown Comments Unknown Sex and Gender Information Value Date Recorded Sex Assigned at Not on file Legal Sex Female 11:34 AM EDT Gender Identity Not on file Sexual Orientation Not on file documented as of this encounter Plan of Treatment Not on file documented as of this encounter Results * Basic Metabolic Panel (12/12/2021) Blood 12/12/2021 us Randi Nails HIDE AND SKIN PROCESSING WORKER-BAKERY MACHINE MECHANIC LAB BLOOD ORDERABLES Fin al Result MANUALLY TRANSCRIBED RESULTS documented in this encounter Visit Diagnoses Diagnosis Primary hypertension- Primary Unspecified essential hypertension documented in this encounter Care Teams Printed Circuit Board Pcb Draftsman Relationship Specialty Start Date End Date Alfie Angeles DO [address], [place] [address] PCP - General Family Medicine 12/07/22 documented as of this encounter
--- OUTSIDE RECORDS SUMMARY | 2024-11-01 20:11 | XMS_ITS | Encounter Summary ---
Author Organization [employer] Address [id number] [address] [place] [address] Care Team Providers Care Aircraft Part Assembler Name Role Phone Alfie Angeles DO Primary Care Provider [phone] Encounter Details Date Type Department Care Team (Late st Contact Info) Description 12/04/2021 [facility]phone [facility] [address] [place] [phone] Randi Nails APRN-CNP [address] [place] [address] Social History Tobacco Use Types Packs/Day Years [...] on file documented as of this encounter Miscellaneous Notes * Telephone Encounter - Naida Mccain - 12/04/2021 11:17 AM EDT Patient called and said that she bumped her rx up to 75 mg and asked if you could switch it, also send [facility] a [facility] * Telephone Encounter - JANN Billy - 12/04/2021 11:17 AM EDT If she is referring to her sertraline - it does not come in 75mg doses- only 50 or 100mg- would shewant me to send in the 100mg dose? * Telephone Encounter - Naida Mccain - 12/04/2021 11:17 AM EDT She said that she is just going to stick eith the 50mg since the 100mg gives her headaches of the Sertraline documented in this encounter Plan of Treatment Not on file documented as of this encounter Visit Diagnoses Not on filedocumented in this encounter Care Teams Aircraft Part Assembler Relationship Specialty Start Date End Date Alfie Angeles DO [address], [facility] [place] [address] PCP - General Family Medicine 12/07/22 documented as of this encounter
--- OUTSIDE RECORDS SUMMARY | 2024-11-01 20:11 | XMS_ITS | Encounter Summary ---
Author Organization [employer] Address [id number] [address] [place] [address] Care Team Providers Care Briquette 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 Helper Name Role Phone Alfie Angeles Primary Care Provider + [phone] Encounter Details Date Type Department Care Team (Late st Contact Info) Description 10/15/2023 [facility] [address] [place] [phone] Luz Erazo CMA Social History Tobacco Use Types Packs/Day Years Used Date Smoking Tobacco: Never Smokeless Tobacco: Never Alcohol Use Standard Drinks/Week Comments Yes 0 (1 standard drink = 0.6 oz pur e alcohol) [facility] Utilities Answer Date Recorded In the past 12 months has [email or web address] electric, gas, oil, or water company threatened to shut off services in your home? No 08/13/2023 Social Connection and Isolat ion Panel [NHANES] Answer Date Recorded In a typical week, how many times do you talk on the phone with family, friends, or neighbors? More than three times a week 08/13/2023 How often do you get togethe r with friends or relatives? Twice a week 08/13/2023 How often do you attend chur ch or jain services? Never 08/13/2023 Do you belong to any clubs o r organizations such as anglican groups, unions, fraternal or athletic groups, or school groups? No 08/13/2023 How often do you attend meet ings of the clubs or organizations you belong to? Never 08/13/2023 Are you , , di vorced, , never , or living with a partner? 08/13/2023 AUDIT-C Answer Date Recorded Q1: How often do you have a drink containing alc ohol? 2-4 times a month 08/13/2023 Q2: How many drinks containi ng alcohol do you have on a typical day when you are drinking? 1 or 2 08/13/2023 Q3: How often do you have si x or more drinks on one occasion? Never 08/13/2023 Overall Financial Resource Strain (CARDIA) Answe r Date Recorded How hard is it for you to pa y for the very basics like food, housing, medical care, and heating? Not hard at all 02/04/2023 PHQ-2 Answer Date Recorded Total Score 0 08/13/2023 [facility] of Occupat ional Health - Occupational Stress Questionnaire Answer Date Recorded Do you feel stress - tense, restless, nervous, or anxious, or unable to sleep at night because your mind is troubled all the time - these days? Not at all 08/13/2023 Exercise Vital Sign Answer Date Recorde d On average, how many days pe r week do you engage in moderate to strenuous exercise (like a brisk walk)? 0 days 08/13/2023 On average, how many minutes do you engage in exercise at this level? 0 min 08/13/2023 PRAPARE - Transportation Answer Date Re corded In the past 12 months, has l ack of transportation kept you from medical appointments or from getting medications? No 08/2022 In the past 12 months, has l ack of transportation kept you from meetings, work, or from getting things needed for daily living? No 02/04/2023 Housing Instability Answer Date Recorde d Are you worried or concerned that in the next two months you may not have stable housing that you own, rent or stay in as a part of a household? No 02/04/2023 Childcare Answer Date Recorded Do problems getting child ca re make it difficult for you to work or study? No 12/07/2022 Employment Answer Date Recorded Do you need help finding a l ocal career center and/or a training program? No 08/13/2023 Hunger Screening Answer Date Recorded Within the past 12 months we worried whether our food would run out before we got money to buy more. Never True 08/13/2023 Within the past 12 months th e food we bought just didn't last and we didn't have money to get more. Never True 08/13/2023 Purpose - Life Answer Date Recorded I have a purpose and direction in my life. Stron gly Agree 08/13/2023 Comments Unknown Sex and Gender Information Value Date Recorded Sex Assigned at Not on file Legal Sex Female 11:34 AM EDT Gender Identity Not on file Sexual Orientation Not on file documented as of this encounter Miscellaneous Notes * Telephone Encounter - Luz Erazo CMA - 10/15/2023 11:24 AM EDT pt called stated she took an at home UTI test came back positive for nitrates she wanted to know ifyou could send something in or do you need to see her or maybe a nurse visit? * Telephone Encounter - Alfie Angeles DO - 10/15/2023 11:24 AM EDT Have her come in for a nurse visit with vitals * Telephone Encounter - Luz Erazo CMA - 10/15/2023 11:24 AM EDT Called pt left vm to call back Wednesday to set up a nurse visit documented in this encounter Plan of Treatment Not on file documented as of this encounter Visit Diagnoses Not on filedocumented in this encounter Additional Health Concerns Assessment Noted Time PHQ-9 Depression Total Score: 0 08/13/19 24 10:29 AM EDT documented as of this encounter Care Teams Briquette 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 Helper Relationship Specialty Start Date End Date Alfie Angeles DO [address], [place] [address] PCP - General Family Medicine 12/07/22 documented as of this encounter
--- OUTSIDE RECORDS SUMMARY | 2024-11-01 20:11 | XMS_ITS | Encounter Summary ---
Author Organization [facility] Address [address] [place] [address] Care Team Providers Care Overhead Distribution Engineer Name Role Phone Alfie Angeles MD Primary Care Provider [phone] Encounter Details Date Type Department Care Team (Late st Contact Info) Description 01/29/2023 Clinisync Result Encounter [facility] External Department Unsolicited Rani Richards DO [address] [place], [place] [id number] Social History Tobacco Use Types Packs/Day Years Used Date Smoking Tobacco: Never Smokeless Tobacco: Never Alcohol Use Standard Drinks/Week Comments Never 0 (1 standard drink = 0.6 oz pur e alcohol) Comments Unknown Sex and Gender Information Value Date Recorded Sex Assigned at Female 10/19/2022 5:38 PM EDT Legal Sex Female 11:47 PM EDT Gender Identity Female 10/19/2022 5:38 PM EDT Sexual Orientation Not on file documented as of this encounter Plan of Treatment Upcoming Encounters Date Type Department Care Team (Late st Contact Info) Description 11/07/2025 2:00 PM EDT Procedure Visit [facility] [address] [place] [phone] Rani Richards DO [address] [place], [place] [id number] documented as of this encounter Procedures Procedure Name Priority Date/Time Associated Diagnosis Comments XR DEXA AXIAL SKELETON 01/29/2023 10:19 AM EST documented in this encounter Results * XR DEXA AXIAL SKELETON (01/29/2023 10:19 AM EST) Anatomical Region Laterality Modality Other 01/29/2023 10:1 9 AM EST Narrative 01/29/2023 10:19 AM EST [address] [address] XRay Report Signed Patient: ZAKI ROSADO MR#: [id number] : 1970 Acct:[id number] Age/Sex: 52 / F ADM Date: 01/29/23 Loc: MAMMO Attending Dr: Rani Richards D.O. Ordering Physician: Rani Richards D.O. Date of Service: 01/29/23 Procedure(s): XR DEXA axial skeleton Accession Number(s): [id number] cc: ALFIE ANGELES ; Rani Richards D.O. [address] [address] Patient Name: ZAKI ROSADO MRN: [id number] date: 1970 Sex: F Assigned Patient [facility]: [facility] Current Patient Location: [facility] Accession/Order Number: [id number] Exam Date: 01/29/2023 09:16 Report Date: 01/29/2023 10:19 At the request of: RANI RICHARDS Procedure: XR DEXA axial skeleton EXAMINATION: XR DEXA axial skeleton HISTORY: Screening For Osteoporosis Z13.820 COMPARISON: No relevant comparison available. TECHNIQUE: Dual-energy X-ray absorptiometry (DXA) was performed. FINDINGS: SPINE ANALYSIS: Average bone mineral density is 1.140 g/cm2. T-score (standard deviation relative to young adult mean): -0.5 . HIP ANALYSIS: Lowest bone mineral density is within the left femoral trochanter, 0.657 g/cm2. T-score (standard deviation relative to young adult mean): -1.7 . XR/XR DEXA axial skeleton IMPRESSION: World [employer] Organization Classification: Osteopenia - Moderate Fracture Risk Electronically authenticated by: ROB RODRIGUEZ Date: 01/29/2023 10:19 Dictated By: Rob Rodriguez M.D. Signed By: 01/29/23 1021 DD/ 1019 TD/TT: Assembly Operator: Procedure Note Radiology, Radiologist, - 01/29/2023 [place] [address] XRay Report Signed Patient: ZAKI ROSADO CMR#: [id number] : 1970Acct:[id number] Age/Sex: 52 / FADM Date: 01/29/23 Loc: MAMMO Attending Dr: Rani Richards D.O. Ordering Physician: Rani Richards D.O. Date of Service: 01/29/23 Procedure(s): XR DEXA axial skeleton Accession Number(s): [id number] cc: ALFIE ANGELES ; Rani Richards D.O. [address] [place] [id number] Patient Name: ZAKI ROSADO MRN: [id number] date: 1970 Sex: F Assigned Patient Location: [facility] Current Patient Location: [facility] Accession/Order Number: [id number] Exam Date: 01/29/2023 09:16 Report Date: 01/29/2023 10:19 At the request of: RANI RICHARDS Procedure: XR DEXA axial skeleton EXAMINATION: XR DEXA axial skeleton HISTORY: Screening For Osteoporosis Z13.820 COMPARISON: No relevant comparison available. TECHNIQUE: Dual-energy X-ray absorptiometry (DXA) was performed. FINDINGS: SPINE ANALYSIS: Average bone mineral density is 1.140 g/cm2. T-score (standard deviation relative to young adult mean): -0.5 . HIP ANALYSIS: Lowest bone mineral density is within the left femoral trochanter, 0.657 g/cm2. T-score (standard deviation relative to young adult mean): -1.7 . XR/XR DEXA axial skeleton IMPRESSION: World Bruno Organization Classification: Osteopenia - Moderate FractureRisk Electronically authenticated by: ROB RODRIGUEZ Date: 01/29/2023 10:19 Dictated By: Rob Rodriguez M.D. Signed By:01/29/23 1021 DD/ 1019 TD/TT: Assembly Operator: us Rani Richards DO [facility] Final Result documented in this encounter Visit Diagnoses Not on filedocumented in this encounter Care Teams Overhead Distribution Engineer Relationship Specialty Start Date End Date Alfie Angeles MD PCP - General 10/19/22 documented as of this encounter
--- OUTSIDE RECORDS SUMMARY | 2024-11-01 20:11 | XMS_ITS | Clinical Summary ---
Author Organization [facility] Address [address] [place] [address] Care Team Providers Care Border Patrol Agent Name Role Phone Alfie Angeles MD Primary Care Provider [phone] Allergies No known active allergies Medications metoprolol succinate XL (Toprol-XL) 25 MG 24 hr tablet 1 (one) time each day at the same time. 04/28/19 23 Active naproxen (Naprosyn) 500 MG tablet Take 500 mg by mouth 2 (two) times a day as needed. 10/14/19 23 Active sertraline (Zoloft) 100 MG tablet Take 1 tablet by mouth in the morning. 07/14/19 23 Active Calcium Carb-Cholecalc iferol (Calcium 1000 + D) 1000-20 MG-MCG tablet 03/01/19 24 Active aspirin-acetam inophen-caffei ne (Excedrin Migraine) 250-250-65 MG tablet Take 1 tablet by mouth every 6 (six) hours if needed for headaches Active loratadine-pse udoephedrine ER (Claritin-D 12-hour) 5-120 MG 12 hr tablet Take 1 tablet by mouth in the morning and 1 tablet before bedtime. Do not crush, chew, or split. Active Ubrogepant (Ubrelvy) 100 MG tablet Take 100 mg by mouth Daily as needed 08/13/19 24 025 Discontinued Active Problems Problem Noted Date Diagnosed Date Nonintractable episodic headache 10/20/2022 Encounters Date Type Department Care Team Description 11/01/2024 2:00 PM EDT Office [facility] [address] [place] [address] [place] [address] David Richards DO Well woman exam with routine gynecological exam; Breast cancer screening by mammogram; Postmenopausal state 11/01/2024 Bamboo flowsheet [facility] [address] [place] [address] David Richards DO from Last 3 Months Family History Medical History Relation Name Comments Heart disease Father Relation Name Status Comments Father Social History Tobacco Use Types Packs/Day Years Used Date Smoking Tobacco: Never Smokeless Tobacco: Never Tobacco Cessation:Counseling Given: Not Answered Alcohol Use Standard Drinks/Week Comments Never 0 (1 standard drink = 0.6 oz pur e alcohol) Comments No Sex and Gender Information Value Date Recorded Sex Assigned at Female 10/19/2022 5:38 PM EDT Legal Sex Female 11:47 PM EDT Gender Identity Female 10/19/2022 5:38 PM EDT Sexual Orientation Not on file Last Filed Vital Signs Vital Sign Reading Time Taken Comments Blood Pressure 120/70 11/01/2024 2:40 PM EDT Pulse - - Temperature - - Respiratory Rate - - Oxygen Saturation - - Inhaled Oxygen Concentration - - Weight 69.3 kg (152 lb 12.8 oz) 11/01/2024 2:40 PM EDT Height 154.9 cm (5' 1 ) 10/12/2023 10:4 5 AM EDT Body Mass Index 28.87 10/12/2023 10:45 AM EDT Plan of Treatment Upcoming Encounters Date Type Department Care Team (Late st Contact Info) Description 11/07/2025 2:00 PM EDT Procedure Visit [facility] [address] [place] [address] David Richards DO [address], [place] [phone] Insurance [employer] Care Teams Border Patrol Agent Relationship Specialty Start Date End Date Alfie Angeles MD PCP - General 10/19/22
--- OUTSIDE RECORDS SUMMARY | 2024-11-01 20:11 | XMS_ITS | Encounter Summary ---
Author Organization [facility] Address [address] [place] [address] Care Team Providers Care Reproduction Machine Loader Name Role Phone Alfie Angeles DO Primary Care Provider [phone] Reason for Visit * Reason Comments Med Refill Encounter Details Date Type Department Care Team (Late st Contact Info) Description 04/20/2023 Refill [facility] [address] [place] [address] Poornima Gotti, SENIOR ORACLE DBA [address] [place] [address] Sinus tachycardia Social History Tobacco Use Types Packs/Day Years Used Date Smoking Tobacco: Never Assessed [place] Safety & Environment Answer Date Rec orded Fear of Current or Ex-Partner Not on file Emotionally Abused Not on file 04/22/2023 Physically Abused Not on file 04/22/2023 Sexually Abused Not on file 04/22/2023 Physically or Sexually Abused Not on file Comments Unknown Sex and Gender Information Value Date Recorded Sex Assigned at Not on file Legal Sex Female 12:22 AM EDT Gender Identity Not on file Sexual Orientation Not on file documented as of this encounter Plan of Treatment Not on file documented as of this encounter Visit Diagnoses Diagnosis Sinus tachycardia Other specified cardiac dysrhythmias documented in this encounter Care Teams Reproduction Machine Loader Relationship Specialty Start Date End Date Alfie Angeles DO [address] [facility] PCP - General 02/03/22 documented as of this encounter
--- OUTSIDE RECORDS SUMMARY | 2024-11-01 20:11 | XMS_ITS | Encounter Summary ---
Author Organization [employer] s tem Address [id number] [address] [place] [address] Care Team Providers Care Commercial Credit Officer Name Role Phone Alfie Angeles DO Primary Care Provider [phone] Encounter Details Date Type Department Care Team (Late st Contact Info) Description 01/26/2022 Orders Only [facility] Internal Medicine - Family Medicine [address] [place] [address] Randi Nails, CORPORATE LEGAL ASSISTANT-FABRIC DESIGNER [address] [place] [address] Social History Tobacco Use Types Packs/Day Years [...] on filedocumented in this encounter Care Teams Commercial Credit Officer Relationship Specialty Start Date End Date Alfie Angeles DO [address] [place] [address] PCP - General Family Medicine 12/07/22 documented as of this encounter
--- OUTSIDE RECORDS SUMMARY | 2024-11-01 20:11 | XMS_ITS | Encounter Summary ---
Author Organization [facility] Address [address] [place] [address] Care Team Providers Care Exhaust And Muffler Repairer Name Role Phone Alfie Angeles MD Primary Care Provider Encounter Details Date Type Department Care Team ([facility] Contact Info) Description 11/01/2024 Bamboo flowsheet [facility] [address] [place], [place] [address] [phone] David Richards DO [facility] [place] [address], [place] [address] Social History Tobacco Use Types Packs/Day Years [...] Upcoming Encounters Date Type Department Care Team ([facility] Contact Info) Description 11/07/2025 2:00 PM EDT Procedure Visit [facility] [address] [place] [phone] David Richards DO [facility] [place] [address] documented as of this encounter Visit Diagnoses Not on filedocumented in this encounter Care Teams Exhaust And Muffler Repairer Relationship Specialty Start Date End Date Alfie Angeles MD PCP - General 10/19/22 documented as of this encounter
--- OUTSIDE RECORDS SUMMARY | 2024-11-01 20:11 | XMS_ITS | Encounter Summary ---
Author Organization [facility] Address [address] [place] [address] Care Team Providers Care Rides Attendant Name Role Phone Alfie Angeles MD Primary Care Provider Encounter Details Date Type Department Care Team (Late Contact Info) Description 01/13/2024 Abstract [facility] [address] [facility] [place] [address] David Richards DO [facility] [place] [address]ar, [facility] Social History Tobacco Use Types Packs/Day Years [...] Encounters Date Type Department Care Team (Late Contact Info) Description 11/07/2025 2:00 PM EDT Procedure Visit [facility] [address] [facility] [place] [address] David Richards DO [facility] [address], [place] [id number] documented as of this encounter Visit Diagnoses Not on filedocumented in this encounter Care Teams Rides Attendant Relationship Specialty Start Date End Date Alfie Angeles MD PCP - General 10/19/22 documented as of this encounter
--- OUTSIDE RECORDS SUMMARY | 2024-11-01 20:11 | XMS_ITS | Encounter Summary ---
Author Organization [employer] Address [id number] [address] [place] [address] Care Team Providers Care Weatherization Technician Name Role Phone Alfie Angeles DO Primary Care Provider + [phone] Reason for Visit * Reason Onset Date Comments Med Refill 02/03/2022 Encounter Details Date Type Department Care Team (Late st Contact Info) Description 02/03/2022 Refill [facility] - Family Medicine [address] [place] [address] Lisa Garces CMA Social History Tobacco Use Types Packs/Day [...] encounter Miscellaneous Notes * Telephone Encounter - Lisa Garces CMA - 02/03/2022 3:21 PM EST Patient said you told her to take 2 a day and now [facility] is telling her she needs a new order stating that before they can give her more. documented in this encounter Plan of Treatment Not on file documented as of this encounter Visit Diagnoses Not on filedocumented in this encounter Care Teams Weatherization Technician Relationship Specialty Start Date End Date Alfie Angeles DO [address], [place] [address] PCP - General Family Medicine 12/07/22 documented as of this encounter
--- OUTSIDE RECORDS SUMMARY | 2024-11-01 20:11 | XMS_ITS | Encounter Summary ---
Author Organization [facility] Address [facility] [id number] [address] [place] [address] Care Team Providers Care Caregiver Services Home Name Role Phone Alfie Angeles DO Primary Care Provider [phone] Encounter Details Date Type Department Care Team (Late st Contact Info) Description 12/25/2021 Orders Only [facility] Internal Medicine - Family Medicine [address] [place] [phone] Jessica Vaz MA Primary hypertension Social History Tobacco Use Types Packs/Day Years [...] on file documented as of this encounter Procedures Procedure Name Priority Date/Time Associated Diagnosis Comments BASIC METABOLIC PANEL Routine 12/12/2021 Primary hypertension documented in this encounter Results * Basic Metabolic Panel (12/12/2021) Blood 12/12/2021 us Randi Nails SQUADRON WORKER-PAPER MACHINE OPERATOR LAB BLOOD ORDERABLES Fin al Result MANUALLY TRANSCRIBED RESULTS documented in this encounter Visit Diagnoses Diagnosis Primary hypertension Unspecified essential hypertension documented in this encounter Care Teams Caregiver Services Home Relationship Specialty Start Date End Date Alfie Angeles DO [address], [facility] [place] [address] PCP - General Family Medicine 12/07/22 documented as of this encounter
--- OUTSIDE RECORDS SUMMARY | 2024-11-01 20:11 | XMS_ITS | Clinical Summary ---
Author Organization [facility] Address [address] [place] [address] Care Team Providers Care Marketing Operations Assistant Name Role Phone Alfie Angeles DO Primary Care Provider [phone] Allergies No known active allergies Medications fluticasone (Flonase) 50 mcg/actuation nasal spray fluticasone propionate 50 mcg/actuation nasal spray,suspensio n Active naproxen sodium (Anaprox) 550 mg tablet take 1 tablet by mouth every 12 hours if needed 2 Active Jacek Fe 03/20, , 1 mg-20 mcg (21)/75 mg (7) tablet Take 1 tablet by mouth in the morning. 2 Active sertraline (Zoloft) 50 mg tablet Take 2 tablets by mouth in the morning. 2 Active ubrogepant (Ubrelvy) 100 mg tablet in the morning. Acti ve metoprolol succinate XL (Toprol-XL) 25 mg 24 hr tabletIndication s:Sinus tachycardia TAKE 1 TABLET DAILY 90 tablet 3 3 Active Active Problems Problem Noted Date Diagnosed Date Sinus tachycardia 02/04/2022 Assessment & Plan (02/04/2022 1:56 PM EST): SVT and palpitations are well controlled with toprol, no concerning symptoms, continue to maintain adequate hydration. Continue toprol RTC 1 year or as needed Social History Tobacco Use Types Packs/Day Years [...] on file Sexual Orientation Not on file Last Filed Vital Signs Vital Sign Reading Time Taken Comments Blood Pressure 125/80 02/07/2021 2:12 PM EST Pulse 82 01/15/2020 1:11 PM EST Temperature - - Respiratory Rate - - Oxygen Saturation 98% 02/07/2021 2:12 PM EST Inhaled Oxygen Concentration - - Weight 65.3 kg (144 lb) 02/04/2022 1:41 PM EST Height 154.9 cm (5' 1 ) 02/07/2021 2:03 PM EST Body Mass Index 27.21 02/07/2021 2:03 PM EST Plan of Treatment Health Maintenance Due Date Last Done Comments CT Colonography 1972 Colonoscopy 1972 Colorectal Cancer Screening 1972 FIT-DNA 1972 FIT 1972 FOBT 1972 Sigmoidoscopy 1972 Depression Screening 1984 Hepatitis B Vaccines (1 of 3 - 19+ 3-dose series) 1991 Pap Smear 1993 Cervical Cancer Screening 2002 HPV/Cotest 2002 Mammogram 2012 Zoster Vaccines (1 of 2) 2022 Influenza Vaccine (#1) 2024 Adult Tetanus 06/19/2025 06/20/2015 HIB Vaccines Aged Out No longer eligi ble based on patient's age to complete this topic HPV Vaccines Aged Out No longer eligi ble based on patient's age to complete this topic IPV Vaccines Aged Out No longer eligi ble based on patient's age to complete this topic Meningococcal B Vaccine Aged Out No l onger eligible based on patient's age to complete this topic Meningococcal Vaccine Aged Out No rustam shawn eligible based on patient's age to complete this topic Pneumococcal Vaccine: Pediat rics (0 to 5 Years) and At-Risk Patients (6 to 64 Years) Aged Out No longer eligi ble based on patient's age to complete this topic Rotavirus Vaccines Aged Out No longer eligible based on patient's age to complete this topic Insurance [employer] Care Teams Marketing Operations Assistant Relationship Specialty Start Date End Date Alfie Angeles DO [address] [facility] PCP - General 02/03/22
--- OUTSIDE RECORDS SUMMARY | 2024-11-01 20:11 | XMS_ITS | Encounter Summary ---
Author Organization [employer] s tem Address [id number] [address] [place] [address] Care Team Providers Care Bonding Supervisor Name Role Phone Alfie Angeles DO Primary Care Provider + [phone] Encounter Details Date Type Department Care Team (Late st Contact Info) Description 02/04/2023 Orders Only [facility] Internal Medicine - Family Medicine [address] [place] [id number] Alfie Angeles DO [address], [place] [address] Social History Tobacco Use Types Packs/Day Years Used Date Smoking Tobacco: Never Smokeless Tobacco: Never Alcohol Use Standard Drinks/Week Comments Yes 0 (1 standard drink = 0.6 oz pur e alcohol) Overall Financial Resource Strain (CARDIA) Answe r Date Recorded How hard is it for you to pa y for the very basics like food, housing, medical care, and heating? Not hard at all 02/04/2023 PHQ-2 Answer Date Recorded Total Score 0 12/07/2022 PRAPARE - Transportation Answer Date Re corded [...] study? No 12/07/2022 Employment Answer Date Recorded Employment Unknown 08/10/2018 Hunger Screening Answer Date Recorded Within the past 12 months we worried whether our food would run out before we got money to buy more. Never True 02/04/2023 Within the past 12 months th e food we bought just didn't last and we didn't have money to get more. Never True 02/04/2023 Purpose - Life Answer Date Recorded Purpose [...] Procedure Name Priority Date/Time Associated Diagnosis Comments MAMMOGRAPHY Routine 01/29/2023 11:48 AM EST documented in this encounter Results * HM MAMMOGRAPHY (01/29/2023 11:48 AM EST) Anatomical Region Laterality Modality Other us Alfie Angeles DO HEALTH MAINTENANCE Final Res ult documented in this encounter Visit Diagnoses Not on filedocumented in this encounter Additional Health Concerns Assessment Noted Time PHQ-9 Depression Total Score: 0 12/08/19 23 9:03 AM EDT documented as of this encounter Care Teams Bonding Supervisor Relationship Specialty Start Date End Date Alfie Angeles DO [address] [facility], [place] [address] PCP - General Family Medicine 12/07/22 documented as of this encounter
--- OUTSIDE RECORDS SUMMARY | 2024-11-01 20:11 | XMS_ITS | Encounter Summary ---
Author Organization [facility] Address [address] [place] [address] Care Team Providers Care Dairy Processing Equipment Operator Name Role Phone Alfie Angeles MD Primary Care Provider Encounter Details Date Type Department Care Team (Late st Contact Info) Description 01/29/2023 Clinisync Result Encounter [facility] External Department Unsolicited David Richards DO [address] [place], [place] [id number] Social History Tobacco Use Types Packs/Day Years [...] EDT Procedure Visit [facility] [address] [place] [id number] David Richards DO [address] [place], [place] [id number] documented as of this encounter Procedures Procedure Name Priority Date/Time Associated Diagnosis Comments MM TOMOSYNTHESIS SCREENING BI 01/29/2023 2:56 PM EST documented in this encounter Results * MM TOMOSYNTHESIS SCREENING BI (01/29/2023 2:56 PM EST) Anatomical Region Laterality Modality Other 01/29/2023 2:56 PM EST Narrative 01/29/2023 2:56 PM EST The [address] [address] Mammography Report Signed Patient: ANJALI ROSADO MR#: [id number] : 1970 Acct:[id number] Age/Sex: 52 / F ADM Date: 01/29/23 Loc: MAMMO Attending Dr: David Richards D.O. Ordering Physician: David Richards D.O. Results: Date of Service: 01/29/23 Follow Up: Procedure(s): MM tomosynthesis screening BI Accession Number(s): [id number] cc: ALFIE ANGELES ; David Richards D.O. Patient Name: ANJALI ROSADO MR#: [id number] : 1970 Exam Date: 01/29/2023 Ordering Doctor: DR David Richards . RADIOLOGY REPORT PROCEDURE: MM TOMOSYNTHESIS SCREENING BI COMPARISON: MG MAMM SCREEN 3D ALEXA CAD, 11/28/2021. MG MAMM SCREEN 3D ALEXA CAD, 11/14/2020. MG MAMM SCREEN ALEXA W CAD, 11/14/2019. MG MAMM ALEXA SCRN W CAD DIG, 01/08/2015. INDICATIONS: Screening Calculator Name NCI Breast Cancer Risk Assessment Tool 5 Year Breast Cancer Risk 1.60% Lifetime Breast Cancer Risk 14.50% Personal Breast Cancer No Personal Ovarian Cancer No Treatments None Family Cancers Aunt-maternal with melenoma cancer at age 50; Nephew with neuroblastoma cancer at age 1. LOCATION: [facility] BREAST COMPOSITION: Heterogeneously dense,which may obscure small masses. FINDINGS: DIAGNOSTIC CATEGORY 2--BENIGN FINDING: RIGHT BREAST: No significant suspicious finding. No significant change has occurred. LEFT BREAST: No significant suspicious finding. Scattered benign-appearing nodules are present. No significant change has occurred. RECOMMENDATIONS: ROUTINE MAMMOGRAM AND CLINICAL EVALUATION IN 12 MONTHS. PLEASE NOTE: A NORMAL MAMMOGRAM DOES NOT EXCLUDE THE POSSIBILITY OF BREAST CANCER. A CLINICALLY SUSPICIOUS PALPABLE LUMP SHOULD BE BIOPSIED. Dictated by: Rob Rodriguez M.D. on 01/29/2023 at 14:53 Approved by: Rob Rodriguez M.D. on 01/29/2023 at 14:56 Dictated By: Rob Rodriguez M.D. Signed By: 01/29/23 1457 DD/ 1456 TD/TT: Metal Hardener: Procedure Note Radiology, Radiologist, MD - 01/29/2023 [place] [address] Mammography Report Signed Patient: ANJALI ROSADO CMR#: [id number] : 1970Acct:[id number] Age/Sex: 52 / FADM Date: 01/29/23 Loc: MAMMO Attending Dr: David Richards D.O. Ordering Physician: David iRchards D.O.Results: Date of Service: 01/29/23Follow Up: Procedure(s): MM tomosynthesis screening BI Accession Number(s): [id number] cc: ALFIE ANGELES Corey D.O. Patient Name: ANJALI ROSADO MR#: [id number] : 1970 Exam Date: 01/29/2023 Ordering Doctor: DR David Richards . RADIOLOGY REPORT PROCEDURE: MM TOMOSYNTHESIS SCREENING BI COMPARISON: MG MAMM SCREEN 3D ALEXA CAD, 11/28/2021. MG MAMM SCREEN 3DBIL CAD, 11/14/2020. MG MAMM SCREEN ALEXA W CAD, 11/14/2019. MG MAMM ALEXA SCRN WCAD DIG, 01/08/2015. INDICATIONS: Screening Calculator Name NCI Breast Cancer Risk Assessment Tool 5 Year Breast Cancer Risk 1.60% Lifetime Breast Cancer Risk 14.50% Personal Breast Cancer No Personal Ovarian Cancer No Treatments None Family Cancers Aunt-maternal with melenoma cancer at age 50; Nephew with neuroblastoma cancer at age 1. LOCATION: [facility] BREAST COMPOSITION: Heterogeneously dense,which may obscure smallmasses. FINDINGS: DIAGNOSTIC CATEGORY 2--BENIGN FINDING: RIGHT BREAST: No significant suspicious finding. No significant changehas occurred. LEFT BREAST: No significant suspicious finding. Scatteredbenign-appearing nodules are present. No significant change has occurred. RECOMMENDATIONS: ROUTINE MAMMOGRAM AND CLINICAL EVALUATION IN 12 MONTHS. PLEASE NOTE: A NORMAL MAMMOGRAM DOES NOT EXCLUDE THE POSSIBILITY OFBREAST CANCER. A CLINICALLY SUSPICIOUS PALPABLE LUMP SHOULD BE BIOPSIED. Dictated by: Rob Rodriguez M.D. on 01/29/2023 at 14:53 Approved by: Rob Rodriguez M.D. on 01/29/2023 at 14:56 Dictated By: Rob Rodriguez M.D. Signed By:01/29/23 1457 DD/ 1456 TD/TT: Metal Hardener: [facility] Susie DO [facility] Final Result documented in this encounter Visit Diagnoses Not on filedocumented in this encounter Care Teams Dairy Processing Equipment Operator Relationship Specialty Start Date End Date Alfie Angeles MD PCP - General 10/19/22 documented as of this encounter
--- OUTSIDE RECORDS SUMMARY | 2024-11-01 20:11 | XMS_ITS | Patient Health Record ---
Author Organization [facility] [place] Address [address] [place] [address] Care Team Providers Care Special Education Director Name Role Phone Alfie Angeles DO Primary Care Provider Unavail able Allergies No Known Allergies Reason For Referral No Information Medications Medication SIG (Take, Route, Frequency, Duration) Notes Start Date End Date Status Metoprolol Succinate ER 25 MG Oral for 90 Days Active Multivitamin - 1 tablet Orally Once a day Active Magnesium Oxide 400 MG Oral for 30 Days Active Suprep Bowel Prep Kit 17.5-3.13-1.6 GM/177ML 177ml Orally BID for 1 11/30/2022 Active Naproxen 500 MG Oral for 90 Days Active Sertraline HCl 100 MG Oral for 90 Days Active Social History Tobacco Use: Social History Observation Description Date Details (start date - stop date) Never Smoker NA - NA Tobacco Use/Smoking Question Answer Notes Patient is a nonsmoker Plan Of Treatment No Information Insurance Providers Payer Name Payer Address Payer Phone Subscriber Number Group Number Insured Name Patient Relationship to Insured Coverage Start Date Coverage End Date MMO [address] [place], [place] [id number] Zaki White Self - patient is the insured Medical (General) History Medical History History ICD Code Anxiety F41.9 Depression F32.9 Pulmonary nodule R91.1 Sinus tachycardia R00.0 Migraines G43.909 Surgical History Surgery Date(Month/Year) breast biopsy D&C uterus mouth surgery salpingectomy bilateral
--- OUTSIDE RECORDS SUMMARY | 2024-11-01 20:11 | XMS_ITS | Encounter Summary ---
Author Organization [facility] [employer] [facility] Address [id number] [address] [place] [address] Care Team Providers Care Rescue Boat Operator Name Role Phone TenishaAlfie garcia Silvano DICKERSON Primary Care Provider + [phone] Reason for Visit * Reason Onset Date Comments New Med Request 02/04/2023 Encounter Details Date Type Department Care Team ([facility] st Contact Info) Description 02/04/2023 [facility]phone [facility] Medicine [address] [place] [address] Baylee Sarah CMA New Med Request Social History Tobacco Use Types Packs/Day Years [...] encounter Miscellaneous Notes * Telephone Encounter - Baylee Sarah CMA - 02/04/2023 11:11 AM EST Pt called states she has been sick with sinus and COVID since Wednesday and now has [place] [facility] she has drainage and it is painful.Would call in something for the eye.Pharmacy is listed and correct. * Telephone Encounter - Alfie Angeles DO - 02/04/2023 11:11 AM EST She should still have a telehealth visit to document and verify diagnosis * Telephone Encounter - Baylee Sarah CMA - 02/04/2023 11:11 AM EST I called her and booked a video visit documented in this encounter Plan of Treatment Not on file documented as of this encounter Visit Diagnoses Not on filedocumented in this encounter Additional Health Concerns Assessment Noted Time PHQ-9 Depression Total Score: 0 12/08/19 23 9:03 AM EDT documented as of this encounter Care Teams Rescue Boat Operator Relationship Specialty Start Date End Date Alfie Angeles DO [address], [facility] [place] [address] PCP - General Family Medicine 12/07/22 documented as of this encounter
--- OUTSIDE RECORDS SUMMARY | 2024-11-01 20:11 | XMS_ITS | Encounter Summary ---
Author Organization [employer] Address [id number] [address] [place] [address] Care Team Providers Care Informatica Mdm Architect Name Role Phone Alfie Angeles Primary Care Provider + [phone] Encounter Details Date Type Department Care Team (Late st Contact Info) Description 11/09/2023 Orders Only [facility] Internal Medicine - Family Medicine [address] [place] [phone] Ref Prov, [place] [address] Social History Tobacco Use Types Packs/Day Years Used Date Smoking Tobacco: Never Smokeless Tobacco: Never Alcohol Use Standard Drinks/Week Comments Yes 0 (1 standard drink = 0.6 oz pur e alcohol) [facility] Utilities Answer Date Recorded In the past 12 months has e electric, gas, oil, or water company threatened [...] often do you attend chur ch or religion services? Never 08/13/2023 Do you belong to any clubs o r organizations such as tenriism groups, unions, fraternal or athletic groups, or [...] Answer Date Recorded Total Score 0 08/13/2023 [facility] of Occupat ional Health - Occupational Stress [...] Procedure Name Priority Date/Time Associated Diagnosis Comments US PELVIC WITH TRANSVAGINAL Routine 11/08/2023 10:35 AM EDT documented in this encounter Results * Ultrasound pelvic with transvaginal (11/08/2023 10:35 AM EDT) Anatomical Region Laterality Modality Body, Pelvis Ultrasound us Not In System Ref Prov IMG US ORDERABLES Final R esult documented in this encounter Visit Diagnoses Not on filedocumented in this encounter Additional Health Concerns Assessment Noted Time PHQ-9 Depression Total Score: 0 08/13/19 24 10:29 AM EDT documented as of this encounter Care Teams Informatica Mdm Architect Relationship Specialty Start Date End Date Alfie Angeles DO [address], [place] [address] PCP - General Family Medicine 12/07/22 documented as of this encounter
--- OUTSIDE RECORDS SUMMARY | 2024-11-01 20:11 | XMS_ITS | Encounter Summary ---
Author Organization [facility] Address [address] [place] [address] Care Team Providers Care Principal Cloud Architect Name Role Phone Alfie Angeles MD Primary Care Provider Encounter Details Date Type Department Care Team (Late Contact Info) Description 01/12/2024 Abstract [facility] [address] [facility] [place] [address] David Richards DO [address] [place] [address] [place]ht[place], [facility] Social History Tobacco Use Types Packs/Day [...] EDT Procedure Visit [facility] [place] [address] [facility] [place] [address] David Richards DO [facility] [address]uri [place], [place] [id number] documented as of this encounter Visit Diagnoses Not on filedocumented in this encounter Care Teams Principal Cloud Architect Relationship Specialty Start Date End Date Alfie Angeles MD PCP - General 10/19/22 documented as of this encounter
--- OUTSIDE RECORDS SUMMARY | 2024-11-01 20:11 | XMS_ITS | Encounter Summary ---
Author Organization [employer] Address [facility] [place] [id number] [address] [place] [address] Care Team Providers Care Construction Pit Worker Name Role Phone Alfie Angeles DO Primary Care Provider [phone] Encounter Details Date Type Department Care Team (Late st Contact Info) Description 12/22/2023 Orders Only [facility] Internal Medicine - Family Medicine [address] [place] [phone] Alfie Angeles DO [address], [place] [address] Social History Tobacco Use Types Packs/Day Years Used Date Smoking Tobacco: Never Smokeless Tobacco: Never Alcohol Use Standard Drinks/Week Comments Yes 0 (1 standard drink = 0.6 oz pur e alcohol) [facility] Utilities Answer Date Recorded In the past 12 months has [employer], gas, oil, or water company threatened to [...] often do you attend chur ch or caodaism services? Never 08/13/2023 Do you belong to any clubs o r organizations such as pentecostal groups, unions, fraternal or athletic groups, or [...] Answer Date Recorded Total Score 0 08/13/2023 [facility] of Occupat ional Health - Occupational Stress [...] Recorded Do you need help finding a [facility] and/or a training program? No [...] documented as of this encounter Care Teams Construction Pit Worker Relationship Specialty Start Date End Date Alfie Angeles DO [address], [place] [address] PCP - General Family Medicine 12/07/22 documented as of this encounter
--- OUTSIDE RECORDS SUMMARY | 2024-11-01 20:11 | XMS_ITS | Encounter Summary ---
Author Organization [facility] Address [address] [place] [address] Care Team Providers Care Life Insurance Agent Name Role Phone Alfie Angeles MD Primary Care Provider Encounter Details Date Type Department Care Team (Late Contact Info) Description 01/19/2024 Abstract [facility] [address] [facility] [address] David Richards DO [facility] Walker Emily Akhtar, [facility] Social History Tobacco Use Types Packs/Day [...] EDT Procedure Visit [facility] [place] [facility] [address] [facility] [address] David Richards DO [facility] [address] [place], [place] [id number] documented as of this encounter Visit Diagnoses Not on filedocumented in this encounter Care Teams Life Insurance Agent Relationship Specialty Start Date End Date Alfie Angeles MD PCP - General 10/19/22 documented as of this encounter
--- OUTSIDE RECORDS SUMMARY | 2024-11-01 20:11 | XMS_ITS | Clinical Summary ---
Author Organization [facility] tem Address [id number] [address] [place] [address] Care Team Providers Care Study Abroad Coordinator Name Role Phone Alfie Angeles Primary Care Provider + [phone] Allergies No known active allergies Medications * This document contains information received from the source organization and may not represent a complete record from that organization. fluticasone propionate (FLONASE) 50 mcg/actuation nasal spray fluticasone propionate 50 mcg/actuation nasal spray,suspensio n Active naproxen (NAPROSYN) 500 mg tablet Take 1 tablet (500 mg total) by mouth 2 (two) times a day as needed for pain. 180 tablet 3 Active magnesium oxide (MAGOX) 400 mg tablet 3 Active ubrogepant (UBRELVY) 100 mg tabletIndication s:Other migraine without status migrainosus, not intractable Take 100 mg by mouth daily as needed (migraine). 2 tablet 4 Active metoprolol succinate XL (TOPROL XL) 25 mg 24 hr tablet TAKE 1 TABLET IN THE MORNING 90 tablet 3 4 Active sertraline (ZOLOFT) 100 mg tablet TAKE 1 TABLET IN THE MORNING 90 tablet 5 Active Active Problems Problem Noted Date Diagnosed Date Depression, major, in remission 07/05/2023 Nonintractable episodic headache 10/20/2022 Sinus tachycardia 04/03/2019 Overview (03/24/2022): Last Assessment & Plan: SVT and palpitations are well controlled with toprol, no concerning symptoms, continue to maintain adequate hydration. Continue toprol RTC 1 year or as needed Migraine Encounters Date Type Department Care Team Description 09/29/2024 Refill [facility] Internal Medicine - Family Medicine [address] [place] [address] Alfie Angeles, DO from Last 3 Months Immunizations Immunization Administration Dates Next Due Tdap 06/20/2015 Family History Medical History Relation Name Comments Supraventricular tachycardia Daughter Anxiety disorder Father COPD Father Depression Father Emphysema Father Heart failure Father Hyperlipidemia Father Hypertension Father No Known Problems Mother Relation Name Status Comments Daughter Alive Father Alive Mother Alive Social History Tobacco Use Types Packs/Day Years Used Date Smoking Tobacco: Never Smokeless Tobacco: Never Tobacco Cessation:Counseling Given: Not Answered Alcohol Use Standard Drinks/Week Comments Yes 0 (1 standard drink = 0.6 oz pur e alcohol) [facility] Utilities Answer Date Recorded In the past 12 months has e [employer], gas, oil, or water [employer] threatened to shut off services in your [...] often do you attend chur ch or buddhism services? Never 08/13/2023 Do you belong to any clubs o r organizations such as confucianism groups, unions, fraternal or athletic groups, or [...] Answer Date Recorded Total Score 0 08/13/2023 [facility] of Occupat ional Health - Occupational Stress [...] Recorded Do you need help finding a [facility] career center and/or a training program? No [...] Sign Reading Time Taken Comments Blood Pressure 100/62 10/18/2023 10:51 AM EDT Pulse 66 10/18/2023 10:51 AM EDT Temperature 36.7 C (98.1 F) 10/18/2023 10:51 AM EDT Respiratory Rate 18 08/13/2023 10:29 AM EDT Oxygen Saturation 97% 10/18/2023 10:51 AM EDT Inhaled Oxygen Concentration - - Weight 66.4 kg (146 lb 6.4 oz) 10/18/2023 10:51 AM EDT Height 154.9 cm (5' 1 ) 10/18/2023 10:51 AM EDT Body Mass Index 27.66 10/18/2023 10:51 AM EDT Plan of Treatment Health Maintenance Due Date Last Done Comments Colonoscopy 2017 Zoster (Shingles) Vaccine (1 of 2) 2022 Mammogram 01/30/2024 01/29/2023 Depression Screening 08/12/2024 08/13/2023 Tobacco Screening 08/12/2024 08/13/2023 Adult BMI Screening 10/17/2024 10/18/2023 Influenza Vaccine 10/30/2024 DTaP,Tdap and Td Vaccines (2 - Td or Tdap) 06/19/2025 06/20/2015 Pap Smear 10/20/2025 10/20/2022 Medical Devices Not on file Procedures Procedure Name Priority Date/Time Associated Diagnosis Comments MAMMOGRAPHY Routine 01/29/2023 11:48 AM EST from Last 3 Months or Most Recently Relevant to Health Maintenance Results * MAMMOGRAPHY (01/29/2023 11:48 AM EST) Anatomical Region Laterality Modality Other us Alfie Angeles DO HEALTH MAINTENANCE Final Res ult from Last 3 Months or Most Recently Relevant to Health Maintenance Insurance [employer] Care Teams Study Abroad Coordinator Relationship Specialty Start Date End Date Alfie Angeles DO [address] [facility] [place] [address] PCP - General Family Medicine 12/07/22
--- OUTSIDE RECORDS SUMMARY | 2024-11-01 20:11 | XMS_ITS | Encounter Summary ---
Author Organization [facility] Address [address] [place] [address] Care Team Providers Care Railroad Watchman Name Role Phone Alfie Angeles MD Primary Care Provider Encounter Details Date Type Department Care Team (Late Contact Info) Description 01/14/2024 Abstract [facility]ARRO [address] [place] [address] David Richards DO [facility] [place] Emily [place], [facility] Social History Tobacco Use Types Packs/Day [...] EDT Procedure Visit [facility] Hermilo NAVARRO [address] [place] [address] David Richards DO [facility] Mayuri [place], [place] [id number] documented as of this encounter Visit Diagnoses Not on filedocumented in this encounter Care Teams Railroad Watchman Relationship Specialty Start Date End Date Alfie Angeles MD PCP - General 10/19/22 documented as of this encounter
--- OUTSIDE RECORDS SUMMARY | 2024-11-01 20:11 | XMS_ITS | Encounter Summary ---
Author Organization [facility] Address [address] [place] [address] Care Team Providers Care Manual Writer Name Role Phone Alfie Angeles MD Primary Care Provider Encounter Details Date Type Department Care Team (Late Contact Info) Description 11/04/2023 Orders Only [facility] Hermilo NAVARRO [address] [facility] [place] [address] Mary Lou Martin LPN 102 [facility] Joe ARTE[place] [facility] Social History Tobacco Use Types Packs/Day Years [...] EDT Procedure Visit [facility] Hermilo NAVARRO [address] [facility] [place] [address] David Richards DO [address] [facility] [address] [place] [id number] documented as of this encounter Procedures Procedure Name Priority Date/Time Associated Diagnosis Comments PAP SMEAR Routine 10/25/2023 12:00 AM EDT documented in this encounter Results * Pap Smear (10/25/2023 12:00 AM EDT) Swab Cervical swab / Unknown Susie Nurse [facility] CYTOLOGY ORDERABLES Final Result EXTERNAL LAB documented in this encounter Visit Diagnoses Not on filedocumented in this encounter Care Teams Manual Writer Relationship Specialty Start Date End Date Alife Angeles MD PCP - General 10/19/22 documented as of this encounter
--- OUTSIDE RECORDS SUMMARY | 2024-11-01 20:11 | XMS_ITS | Encounter Summary ---
Author Organization [facility] Address [address] [place] [address] Care Team Providers Care Right Of Way Maintenance Supervisor Name Role Phone Alfie Angeles MD Primary Care Provider Encounter Details Date Type Department Care Team (Late st Contact Info) Description 11/08/2023 Clinisync Result Encounter [facility] External Department Unsolicited Rani Richards DO [address] [place] [address] Social History Tobacco Use Types Packs/Day Years [...] as of this encounter Miscellaneous Notes * Result Encounter Note - Carol Newton LPN - 11/08/2023 3:58 PM EDT Pt would like to come in and discuss procedure with you. documented in this encounter Plan of Treatment Upcoming Encounters Date Type Department Care Team (Late st Contact Info) Description 11/07/2025 2:00 PM EDT Procedure Visit [facility] OBGYN [address] [place] [phone] Rani Richards DO [address] [place] [address] Dr Joe Kumar [place] [id number] (work) documented as of this encounter Procedures Procedure Name Priority Date/Time Associated Diagnosis Comments US PELVIS W/ TRANSVAGINAL 11/08/2023 3:54 PM EDT documented in this encounter Results * US PELVIS W/ TRANSVAGINAL (11/08/2023 3:54 PM EDT) Anatomical Region Laterality Modality Other 11/08/2023 3:54 PM EDT Narrative 11/08/2023 3:56 PM EDT [address] [address] Ultrasound Report Signed Patient: ANJALI ROSADO MR#: [id number] : 1970 Acct:[id number] Age/Sex: 53 / F ADM Date: 11/08/23 Loc: [facility] Attending Dr: Rani Richards D.O. Ordering Physician: Rani Richards D.O. Date of Service: 11/08/23 Procedure(s): US pelvis w/ transvaginal Accession Number(s): [id number] cc: ALFIE ANGELES Corey D.O. The [address] [address] Patient Name: ANJALI ROSADO MRN: [id number] date: 1970 Sex: F Assigned Patient Location: [facility] Current Patient Location: [facility] Accession/Order Number: [id number] Exam Date: 11/08/2023 08:25 Report Date: 11/08/2023 15:54 At the request of: RANI RICHARDS Procedure: US pelvis w/ transvaginal EXAMINATION: US pelvis w/ transvaginal HISTORY: POST MENOPAUSAL BLEEDING COMPARISON: No relevant comparison available. FINDINGS: Abdominal and transvaginal images The uterus is normal in size and contour measuring 6.6 x 3.3 x 4.6 cm. Heterogeneous echotexture. No focal myometrial mass. The endometrium measures 9 mm. The right ovary measures 3.3 x 2.3 x 2.6 cm. Normal color Doppler flow. 2.8 cm area of anechoic echogenicity, simple cyst favored The left ovary measures 2.3 x 1.2 x 2.1 cm. Normal color and Doppler flow. 1.1 cm area of heterogeneous avascular echotexture, a complex cyst is favored US/US pelvis w/ transvaginal IMPRESSION: 2.8 cm right ovarian simple cyst 1.1 cm left ovarian complex appearing cyst The endometrium measures 9 mm, thickened for postmenopausal patient Electronically authenticated by: JOSY NEELY Date: 11/08/2023 15:54 Dictated By: Josy Neely M.D. Signed By: 11/08/23 1556 DD/ 155 TD/TT: National Dedicated Truck Driver: Procedure Note Radiology, Radiologist, MD - 11/08/2023 [place] [address] Ultrasound Report Signed Patient: ANJALI ROSADO CMR#: [id number] : 1970Acct:[id number] Age/Sex: 53 / FADM Date: 11/08/23 Loc: [facility] Attending Dr: Rani Richards D.O. Ordering Physician: Rani Richards D.O. Date of Service: 11/08/23 Procedure(s): US pelvis w/ transvaginal Accession Number(s): [id number] cc: ALFIE ANGELES Corey D.O. The [address] [id number] Patient Name: ANJALI ROSADO MRN: [id number] date: 1970 Sex: F Assigned Patient Location: [facility] Current Patient Location: [facility] Accession/Order Number: [id number] Exam Date: 11/08/2023 08:25 Report Date: 11/08/2023 15:54 At the request of: RANI RICHARDS Procedure: US pelvis w/ transvaginal EXAMINATION: US pelvis w/ transvaginal HISTORY: POST MENOPAUSAL BLEEDING COMPARISON: No relevant comparison available. FINDINGS: Abdominal and transvaginal images The uterus is normal in size and contour measuring 6.6 x 3.3 x 4.6 cm. Heterogeneous echotexture. No focal myometrial mass. The endometrium measures 9 mm. The right ovary measures 3.3 x 2.3 x 2.6 cm. Normal color Doppler flow.2.8 cm area of anechoic echogenicity, simple cyst favored The left ovary measures 2.3 x 1.2 x 2.1 cm. Normal color and Doppler flow.1.1 cm area of heterogeneous avascular echotexture, a complex cyst is favored US/US pelvis w/ transvaginal IMPRESSION: 2.8 cm right ovarian simple cyst 1.1 cm left ovarian complex appearing cyst The endometrium measures 9 mm, thickened for postmenopausal patient Electronically authenticated by: JOSY NEELY Date: 11/08/2023 15:54 Dictated By: Josy Neely M.D. Signed By:11/08/23 1556 DD/ 1554 TD/TT: National Dedicated Truck Driver: us Rani Susie DO [facility] Final Result documented in this encounter Visit Diagnoses Not on filedocumented in this encounter Care Teams Right Of Way Maintenance Supervisor Relationship Specialty Start Date End Date Alfie Angeles MD PCP - General 10/19/22 documented as of this encounter
--- OUTSIDE RECORDS SUMMARY | 2024-11-01 20:11 | XMS_ITS | Encounter Summary ---
Author Organization [facility] Address [address] [place] [address] Care Team Providers Care Vice President Talent Management Name Role Phone Alfie Angeles MD Primary Care Provider [phone] Encounter Details Date Type Department Care Team (Late st Contact Info) Description 01/11/2024 Clinisync Result Encounter [facility] External Department Unsolicited Rani Richards DO [address] [place], [place] [phone] Social History Tobacco Use Types Packs/Day Years [...] EDT Procedure Visit [facility] Hermilo OBGYKatharine [address] [place] [phone] Rani Richards DO [address] [place], [place] [address] documented as of this encounter Procedures Procedure Name Priority Date/Time Associated Diagnosis Comments ECG 12-LEAD 01/11/2024 11:54 AM EST documented in this encounter Results * ECG 12-LEAD (01/11/2024 11:54 AM EST) Anatomical Region Laterality Modality Other 01/11/2024 11:5 4 AM EST Narrative 01/11/2024 10:51 PM EST The [address] [address] Electrocardiograph Report Signed Patient: ZAKI ROSADO MR#: [id number] : 1970 Acct:[id number] Age/Sex: 53 / F ADM Date: 01/11/24 Loc: PST Attending Dr: Rani Richards D.O. Ordering Physician: Rani Richards D.O. 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 Signed By: 01/11/24 2251 DD/ 1154 TD/TT: Paper Processing Machine Helper: Procedure Note Radiology, Radiologist, - 01/11/2024 The [place] [id number] Electrocardiograph Report Signed Patient: ZAKI ROSADO CMR#: [id number] : 1970Acct:[id number] Age/Sex: 53 / FADM Date: 01/11/24 Loc: PST Attending Dr: Rani Richards D.O. Ordering Physician: Susie,Rani D.O. 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 Signed By:01/11/24 2251 DD/ 1154 TD/TT: Paper Processing Machine Helper: us Rani Richards DO [facility] Final Result documented in this encounter Visit Diagnoses Not on filedocumented in this encounter Care Teams Vice President Talent Management Relationship Specialty Start Date End Date Alfie Angeles MD PCP - General 10/19/22 documented as of this encounter
--- OUTSIDE RECORDS SUMMARY | 2024-11-01 20:11 | XMS_ITS | Encounter Summary ---
Author Organization [facility] Address [address] [place] [address] Care Team Providers Care Medical I D Sales Name Role Phone Alfie Angeles MD Primary Care Provider Encounter Details Date Type Department Care Team (Late st Contact Info) Description 12/21/2023 Clinisync Result Encounter [facility] External Department Unsolicited Rani Richards DO [address] [place], [place] [phone] Social History Tobacco Use Types Packs/Day Years [...] EDT Procedure Visit [facility] [address] [place] [phone] Rani Richards DO [address] [place], [place] [address] documented as of this encounter Procedures Procedure Name Priority Date/Time Associated Diagnosis Comments US PELVIS W/ TRANSVAGINAL 12/21/2023 10:52 AM EDT documented in this encounter Results * US PELVIS W/ TRANSVAGINAL (12/21/2023 10:52 AM EDT) Anatomical Region Laterality Modality Other 12/21/2023 10:5 2 AM EDT Narrative 12/21/2023 10:55 [place] [address] Ultrasound Report Signed Patient: ZAKI ROSADO MR#: [id number] : 1970 Acct:[id number] Age/Sex: 53 / F ADM Date: 12/20/23 Loc: [facility] Attending Dr: Rani Richards D.O. Ordering Physician: Rani Richards D.O. Date of Service: 12/20/23 Procedure(s): US pelvis w/ transvaginal Accession Number(s): [id number] cc: ALFIE ANGELES Corey D.O. [place] [id number] Patient Name: ZAKI ROSADO MRN: [id number] date: 1970 Sex: F Assigned Patient Location: [facility] Current Patient Location: Accession/Order Number: [id number] Exam Date: 12/20/2023 13:36 Report Date: 12/21/2023 10:52 At the request of: RANI RIHCARDS Procedure: US pelvis w/ transvaginal EXAMINATION: US pelvis w/ transvaginal HISTORY: LEFT COMPLEX OVARIAN CYST COMPARISON: 11/08/2023 FINDINGS: Transabdominal and transvaginal The uterus is normal in size and contour with heterogeneous echotexture. The uterus measures 5.7 x 3.6 x 4.8 cm per the uterus is anteverted, anteflexed. No focal myometrial mass. The endometrium measures 8 mm, normal The right ovary measures 1.8 x 1.3 x 2.3 cm. Normal color and Doppler flow. The previously noted cyst is not seen The left ovary measures 2.5 x 1.6 x 2.0 cm. Normal color Doppler flow. Previously noted complex cyst is not visualized US/US pelvis w/ transvaginal IMPRESSION: Interval resolution of bilateral ovarian cysts Electronically authenticated by: JOSY NEELY Date: 12/21/2023 10:52 Dictated By: Josy Neely M.D. Signed By: 12/21/23 1055 DD/ 105 TD/TT: Harvesting Supervisor: Procedure Note Radiology, Radiologist, MD - 12/21/2023 [place] [address] Ultrasound Report Signed Patient: ZAKI ROSADO CMR#: [id number] : 1970Acct:[id number] Age/Sex: 53 / FADM Date: 12/20/23 Loc: [facility] Attending Dr: Rani Richards D.O. Ordering Physician: Rani Richards D.O. Date of Service: 12/20/23 Procedure(s): US pelvis w/ transvaginal Accession Number(s): [id number] cc: ALFIE ANGELES ; Rani Richards D.O. The [address] [address] Patient Name: ZAKI ROSADO MRN: [id number] date: 1970 Sex: F Assigned Patient Location: [facility] Current Patient Location: Accession/Order Number: [id number] Exam Date: 12/20/2023 13:36 Report Date: 12/21/2023 10:52 At the request of: RANI RICHARDS Procedure: US pelvis w/ transvaginal EXAMINATION: US pelvis w/ transvaginal HISTORY: LEFT COMPLEX OVARIAN CYST COMPARISON: 11/08/2023 FINDINGS: Transabdominal and transvaginal The uterus is normal in size and contour with heterogeneous echotexture.The uterus measures 5.7 x 3.6 x 4.8 cm per the uterus is anteverted,anteflexed. No focal myometrial mass. The endometrium measures 8 mm, normal The right ovary measures 1.8 x 1.3 x 2.3 cm. Normal color and Dopplerflow. The previously noted cyst is not seen The left ovary measures 2.5 x 1.6 x 2.0 cm. Normal color Doppler flow. Previously noted complex cyst is not visualized US/US pelvis w/ transvaginal IMPRESSION: Interval resolution of bilateral ovarian cysts Electronically authenticated by: JOSY NEELY Date: 12/21/2023 10:52 Dictated By: Josy Neely M.D. Signed By:12/21/23 1055 DD/ 1052 TD/TT: Harvesting Supervisor: us Rani Susie DO [facility] Final Result documented in this encounter Visit Diagnoses Not on filedocumented in this encounter Care Teams Medical I D Sales Relationship Specialty Start Date End Date Alfie Angeles MD PCP - General 10/19/22 documented as of this encounter
--- OUTSIDE RECORDS SUMMARY | 2024-11-01 20:11 | XMS_ITS | Encounter Summary ---
Author Organization [facility] Address [id number] [address] [place] [address] Care Team Providers Care Wire Stripping 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 Name Role Phone Alfie Angeles DO Primary Care Provider [phone] Reason for Visit * Reason Onset Date Comments Med Refill 10/12/2022 Encounter Details Date Type Department Care Team (Late st Contact Info) Description 10/12/2022 [facility] [address] [place] [address] Lisa Garces CMA Med Refill Social History Tobacco Use Types Packs/Day Years Used Date Smoking Tobacco: Never Smokeless Tobacco: Never Alcohol Use Standard Drinks/Week Comments Yes 0 (1 standard drink = 0.6 oz pur e alcohol) PHQ-2 Answer Date Recorded Total Score 0 03/24/2022 Childcare Answer Date Recorded Childcare Unknown 08/10/2018 [...] Telephone Encounter - Lisa Garces CMA - 10/12/2022 10:11 AM EDT [facility] sent a refill on the Naproen Sod 5550mg * Telephone Encounter - Alfie Angeles DO - 10/12/2022 10:11 AM EDT I have not seen any refill request for naproxen come through. Was this message from the patient? * Telephone Encounter - Lisa Garces CMA - 10/12/2022 10:11 AM EDT Pharmacy sent it.It says [facility] * Telephone Encounter - Alfie Angeles DO - 10/12/2022 10:11 AM EDT It was not in my review been. Might be in [facility] but I sent it in any way documented in this encounter Plan of Treatment Not on file documented as of this encounter Visit Diagnoses Not on filedocumented in this encounter Additional Health Concerns Assessment Noted Time PHQ-9 Depression Total Score: 0 03/24/19 23 11:05 AM EST documented as of this encounter Care Teams Wire Stripping 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 Relationship Specialty Start Date End Date Alfie Angeles DO [address] [place] [address] PCP - General Family Medicine 12/07/22 documented as of this encounter
--- OUTSIDE RECORDS SUMMARY | 2024-11-01 20:15 | XMS_ITS | CCD ---
Author Organization [facility] Care Team Providers Care Informaticist Name Role Phone Kalie Solis Unavailable LAURA MONTANO Attending Unavailable FURLONG, DR ALFIE Schaefer Primary Care Unavailable ROSSY WING Admitting Unavailable ROSSY WING Attending Unavailable ROSSY WING Consulting Unavailable READERARTUR Consulting Unavailable NEWATIA, TEJ Consulting Unavailable DIAB ., SOTO Consulting Unavailable SUSIE ., DR SARAVIA Admitting Unavailable SSUIE ., DR SARAVIA Attending Unavailable FURLONG, DR ALFIE Schaefer Primary Care Unavailable SUSIE ., DR SARAVIA Consulting Unavailable SUSIE ., DR SARAVIA Admitting Unavailable SUSIE ., DR SARAVIA Attending Unavailable FURLONG, DR ALFIE Schaefer Primary Care Unavailable SUSIE ., DR SARAVIA Consulting Unavailable SUSIE ., DR SARAIVA Admitting Unavailable SUSIE ., DR SARAVIA Attending Unavailable FURLONG, DR ALFIE Schaefer Primary Care Unavailable SUSIE ., DR SARAVIA Consulting Unavailable RIGO WALLACE Consulting Unavailable RAMONITA II, SAJAN Consulting Unavailable SUSIE ., DR SARAVIA Admitting Unavailable SUSIE ., DR SARAVIA Attending Unavailable FURLONG, DR ALFIE Schaefer Primary Care Unavailable SUSIE ., DR SARAVIA Consulting Unavailable ROSA, JOHNNY Admitting Unavailable ROSA, JOHNNY Attending Unavailable FURLOMARIAJOSE, DR ALFIE Schaefer Primary Care Unavailable ROSA, JOHNNY Consulting Unavailable SUSIE ., DR SARAVIA Admitting Unavailable SUSIE ., DR SARAVIA Attending Unavailable FURLONG, DR ALFIE Schaefer Primary Care Unavailable [place]ST[place], DR JOSY Cameron Consulting Unavailable SUSIE ., DR SARAVIA Consulting Unavailable ALFIE ANGELES Referring Unavailable CLAUDIA, ALFIE Schaefer Primary Care Unavailable ZEINA MURRY Attending Unavailable FURLOALFIE PAIGE Referring Unavailable FURLOMARIAJOSE, ALFIE Schaefer Primary Care Unavailable FURLONG, ALFIE Schaefer Attending Unavailable CLAUDIA, ALFIE Schaefer Referring Unavailable TENISHALONG, ALFIE cShaefer Primary Care Unavailable FURLONG, ALFIE Schaefer Attending Unavailable FURLONG, ALFIE Schaefer Referring Unavailable FURLONG, ALFIE Schaefer Primary Care Unavailable TENISHALONG, ALFIE Schaefer Referring Unavailable FURTESSYNG, ALFIE Schaefer Primary Care Unavailable CLAUDIA, ALFIE Schaefer Attending Unavailable Alfie Angeles MD Primary Care Provider [phone] Alfie Angeles DO Primary Care Provider David Richards DO Attending Provider [phone] Tenishalomariajose, Alfie Primary Care Unavailable Susie, David Attending Unavailable Susie, David Admitting Unavailable GAB THOMAS Attending Unavailable DAVID RICHARDS Attending Unavailable SUSIE, DAVID Attending Unavailable JESSICA KAUFFMAN Attending Unavailable Alfie Angeles DO Primary Care Provider [phone] Alfie Angeles DO Primary Care Provider [phone] Alfie Angeles MD Primary Care Provider [phone] Medications Current Medications Medication Drug Class(es) Dates Sig (Normalized) Sig (Original) acetaminophen 250 mg / aspirin 250 mg / caffeine 65 mg oral tablet (2 sources) Platelet Aggregation Inhibitor, Nonsteroidal Anti-inflammatory Drug, Central Nervous System Stimulant, Methylxanthine take 1 tablet by mouth every six hours as needed for headache aspirin-acetamin ophen-caffeine (Excedrin Migraine) 250-250-65 MG tablet Take 1 tablet by mouth every 6 (six) hours if needed for headaches Active Calcium Carb-Cholecalciferol (Calcium 1000 + D) 1000-20 MG-MCG tablet (15 sources) Start: 03-01-2023 Calcium Carb-Cholecalcif marinaa (Calcium 1000 + D) 1000-20 MG-MCG tablet 03/01/2023 Active 12 hr dextromethorphan hydrobromide 30 mg / guaiFENesin 600 mg extended release oral tablet (1 source) Uncompetitive W-oxtvkf-A-aspartate Receptor Antagonist, Sigma-1 Agonist Start: 05-06-2023 End: 05-16-2023 take 1 tablet by mouth every hour dextromethorphan -guaiFENesin (MUCINEX DM) 30-600 mg tablet extended release 12 hr Take 1 tablet by mouth every 12 (twelve) hours for 10 days. 20 tablet 0 05/06/2023 05/16/2023 Active fluticasone propionate 0.05 mg/actuat metered dose nasal spray (10 sources) Corticosteroid fluticasone propionate (FLONASE) 50 mcg/actuation nasal spray fluticasone propionate 50 mcg/actuation nasal spray,suspension Active fluticasone prop ionate (FLONASE) 50 mcg/actuation nasal spray fluticasone propionate 50 mcg/actuation nasal spray,suspension 0 Active 12 hr loratadine 5 mg / pseudoephedrine sulfate 120 mg extended release oral tablet (2 sources) alpha-Adrenergic Agonist take 1 tablet by mouth once in the morning, then take 1 tablet by mouth every twelve hours at bedtime loratadine-pseudoephedrine ER (Claritin-D 12-hour) 5-120 MG 12 hr tablet Take 1 tablet by mouth in the morning and 1 tablet before bedtime. Do not crush, chew, or split. 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 04/28/2022 Active Start: 05-14-2021 End: 07-05-2023 metoprolol succinate XL (TOP ROL XL) 25 mg 24 hr tablet metoprolol succinate ER 25 mg tablet,extended release 24 hr TAKE 1 TABLET DAILY 05/14/2021 07/05/2023 Discontinued (Reorder) Metoprolol Succi bailey Active naproxen 500 mg oral tablet (20 sources) Nonsteroidal Anti-inflammatory Drug Start: 10-13-2022 take 1 tablet by mouth twice daily as needed naproxen (Naprosyn) 500 MG tablet Take 500 mg by mouth 2 (two) times a day as needed. 10/13/2022 Active nitrofurantoin, macrocrystals 25 mg / nitrofurantoin, monohydrate 75 mg oral capsule (1 source) Nitrofuran Antibacterial Start: 10-18-2023 End: 10-23-2023 take 1 capsule by mouth in the morning, then take 1 capsule by mouth at bedtime nitrofurantoin, macrocrystal-mo nohydrate, (MACROBID) 100 mg capsule Take 1 capsule (100 mg total) by mouth in the morning and 1 capsule (100 mg total) before bedtime. Do all this for 5 days. 10 capsule 10/18/2023 10/23/2023 Active predniSONE 20 mg oral tablet (1 source) Start: 05-06-2023 End: 05-13-2023 take 1 tablet by mouth in the morning predniSONE (DELTASONE) 20 mg tablet Take 1 tablet (20 mg total) by mouth in the morning for 7 days. 7 tablet 0 05/06/2023 05/13/2023 Active sertraline 100 mg oral tablet (20 sources) Serotonin Reuptake Inhibitor Start: 09-29-2024 sertraline (ZOLOFT) 100 mg tablet TAKE 1 TABLET IN THE MORNING 90 tablet 09/29/2024 Active Start: 07-13-2022 End: 09-29-2024 take 1 tablet by mouth in the morning sertraline (Zoloft) 100 MG tablet Take 1 tablet by mouth in the morning. 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 21 tablet 10/12/2023 Active ubrogepant 100 mg oral tablet (20 sources) Start: 08-13-2023 End: 11-01-2024 take 1 tablet by mouth every twenty-four hours as needed Ubrogepant (Ubrelvy) 100 MG tablet Take 100 mg by mouth Daily as needed 08/13/2023 11/01/2024 Discontinued Problems Active Problems Problem Classification Problem Date Documented Date Episodic/Chronic Anxiety disorders (1 source) Anxiety disorder, unspecified; Translations: [ANXIETY DISORDER UNSPECIFIED] Onset: 03-23-2022 Chronic Contraceptive and procreative management (4 sources) Encounter for sterilization; Translations: [ENCOUNTER FOR STERILIZATION] Onset: 03-13-2022 Episodic Esophageal disorders (1 source) Gastro-esophageal reflux disease without esophagitis; Translations: [GERD WITHOUT ESOPHAGITIS] Onset: 06-09-2022 Chronic Essential hypertension (4 sources) Essential (primary) hypertension; Translations: [ESSENTIAL PRIMARY HYPERTENSION] Onset: 12-12-2021 Chronic Genitourinary symptoms and ill-defined conditions (1 source) Mixed urinary incontinence; Translations: [Mixed incontinence] 07-05-2023 Chronic Headache; including migraine (14 sources) Other migraine, not intractable, without status migrainosus; Translations: [Migraine without aura, not refractory ] Onset: 07-05-2023 10-25-2023 Chronic Menopausal disorders (2 sources) Postmenopausal bleeding; Translations: [Postmenopausal bleeding] 10-25-2023 Chronic Mood disorders (11 sources) Major depressive disorder, single episode, in full remission; Translations: [Major depression in remission] Onset: 07-05-2023 07-05-2023 Chronic Nonspecific chest pain (4 sources) Chest pain, unspecified; Translations: [Other chest pain] Onset: 06-07-2022 Episodic Osteoporosis (2 sources) Postmenopausal osteoporosis; Translations: [Age-related osteoporosis without current pathological fracture] 10-25-2023 Chronic Other aftercare (1 source) Other mcc (current) drug therapy; Translations: [OTH UNDER BASTER CURRENT DRUG THERAPY] Onset: 06-09-2022 Episodic Other aftercare (2 sources) Surgical follow-up; Translations: [Encounter for follow-up examination after completed treatment for conditions other than malignant neoplasm] 02-01-2024 Episodic Other nervous system disorders (1 source) Lesion of plantar nerve, right lower limb; Translations: [Lesion of plantar nerve, right lower limb] Onset: 08-13-2023 Chronic Other nervous system disorders (1 source) Mortons neuroma of right foot; Translations: [Lesion of plantar nerve, right lower limb] 08-13-2023 Chronic Other screening for suspected conditions (not mental disorders or infectious disease) (1 source) Endometrium thickened; Translations: [Abnormal findings on diagnostic imaging of other specified body structures] 12-20-2023 Chronic Other screening for suspected conditions (not mental disorders or infectious disease) (15 sources) Encounter for screening mammogram for malignant neoplasm of breast; Translations: [Encounter for screening for malignant neoplasm of cervix] Onset: 09-22-2021 Episodic Ovarian cyst (2 sources) Complex cyst of left ovary; Translations: [Other ovarian cyst, left side] 11-17-2023 Episodic Pulmonary heart disease (1 source) Personal history of pulmonary embolism; Translations: [PERSONAL HISTORY PULMONARY EMBOLISM] Onset: 03-23-2022 Episodic Residual codes; unclassified (2 sources) Postmenopausal state; Translations: [Asymptomatic menopausal state] 11-01-2024 Episodic Unclassified (1 source) CONTACT W/AND (SUSP) EXPOS COVID-19; Translations: [CONTACT W/AND (SUSP) EXPOS COVID-19] Onset: 03-12-2022 Unclassified (1 source) Annual Exam Onset: 08-13-2023 Unclassified (1 source) medication review Onset: 07-05-2023 Unclassified (1 source) Earache Onset: 05-06-2023 Urinary tract infections (1 source) Urinary tract infectious disease Onset: 10-18-2023 Episodic Past or Other Problems Problem Classification Problem Date Documented Date Episodic/Chronic Cardiac dysrhythmias (12 sources) Tachycardia, unspecified; Translations: [Sinus tachycardia] Onset: 04-03-2019 07-05-2023 Episodic Genitourinary symptoms and ill-defined conditions (1 source) Dysuria; Translations: [Dysuria] 10-18-2023 Episodic Headache; including migraine (20 sources) Headache; Translations: [Nonintractable episodic headache] Onset: 10-20-2022 10-20-2022 Episodic Immunizations and screening for infectious disease (1 source) Encounter for screening for human papillomavirus (HPV); Translations: [ENC SCREENING HUMAN PAPILLOMAVIRUS] Onset: 09-23-2021 Episodic Mood disorders (11 sources) Mood disorders; Translations: [DEPRESSION UNSPECIFIED] Onset: 07-05-2023 Resolved: 08-13-2023 07-05-2023 Other injuries and conditions due to external causes (1 source) Unspecified injury of right foot, initial encounter; Translations: [Injury of right foot, initial encounter S99.921A] Onset: 12-10-2020 Resolved: 12-10-2020 Episodic Other lower respiratory disease (1 source) Cough Onset: 05-06-2023 Episodic Other nutritional; endocrine; and metabolic disorders (1 source) Overweight; Translations: [Overweight] Onset: 07-05-2023 Episodic Other nutritional; endocrine; and metabolic disorders (2 sources) Overweight; Translations: [Overweight] 07-05-2023 Episodic Other upper respiratory disease (1 source) Pain in throat Onset: 05-06-2023 Episodic Other upper respiratory infections (2 sources) Acute upper respiratory infection, unspecified; Translations: [Viral upper respiratory tract infection] Onset: 05-06-2023 05-06-2023 Episodic Residual codes; unclassified (1 source) Family history of malignant neoplasm of other organs or systems; Translations: [FAM HX MALIG NEOPLASM OTH ORGN/SYS] Onset: 12-01-2021 Episodic Residual codes; unclassified (1 source) Other general symptoms and signs; Translations: [Other general symptoms and signs] Onset: 05-06-2023 Episodic Residual codes; unclassified (1 source) Viral syndrome; Translations: [Other general symptoms and signs] 05-06-2023 Episodic Sprains and strains (1 source) Unspecified sprain of unspecified toe(s), initial encounter; Translations: [Sprain of toe, initial encounter S93.509A] Onset: 12-10-2020 Resolved: 12-10-2020 Episodic Results Test Name Value Interpretation Reference Range Facility ALL CBC WITH AUTO DIFFon BASOPHILS ABSOLUTE AUTO 0 [facility] Basophils/100 WBC (Bld) 0.5 % 0.2 - 2.0 % [facility] Eosinophils/100 WBC (Bld) 1.3 % 0.9 - 7.0 % [facility] Erythrocyte distribution width (RBC) [Ratio] 12.4 % 11.0 - 15.0 % [facility] Hematocrit (Bld) [Volume fraction] 40.4 % 36.0 - 48.0 % [facility] Hemoglobin (Bld) [Mass/Vol] 13.4 g/dL 12.0 - 16.0 g/dL [facility] IMMATURE GRANULOCYTES ABS AUTO 0.02 [facility] Immature granulocytes/100 WBC (Bld) 0.2 % 0.0 - 0.5 % [facility] Interpretation and review of laboratory results [facility] LYMPHOC[facility] ABSOLUTE AUTO 2.7 [facility] Lymphocytes/100 WBC (Bld) 33.5 % 20.5 - 60.0 % [facility] MCH (RBC) [Entitic mass] 31.3 pg 26.7 - 34.0 pg [facility] MCHC (RBC) [Mass/Vol] 33.2 g/dL 29.9 - 35.2 g/dL [facility] MCV (RBC) [Entitic vol] 94.4 fL 81.0 - 99.0 fL [facility] MONOCYTES ABSOLUTE AUTO 1 High [facility] Monocytes/100 WBC (Bld) 11.8 % 1.7 - 12.0 % [facility] NEUTROPHILS ABSOLUTE AUTO 4.3 [facility] Neutrophils/100 WBC (Bld) 52.7 % 43.0 - 75.0 % [facility] Platelet mean volume (Bld) [Entitic vol] 9.1 fL Low 9.5 - 13.5 fL [facility] TBH EO # 0.1 [facility] TB PLT 372 [facility] TB RBC 4.28 [facility]H WBC 8.2 [facility] Michael 01-14-2024 L - -------- Specimen: [id number] Received: 01/17/24 Status: ZEFERINO Cynthia Num: [id number] Spec Type: Surgical Subm Dr: David Richards Tissues: A Endometrium - Curettings (ENDOMETRIAL CURETTINGS) Procedures: JESSE, Gross/Micro L4 -------- Age/ Patient Sex Location Account Attending Physician -------- Anjali White 53/F [facility] [id number] David Richards -------- SPEC NUM: [id number] RECD: 01/17/24 STATUS: JARONAdriana MARIE NUM: [id number] BARBARA: 01/14/24- SUBM DR: David Richards ENTERED: 01/17/[address]: Hermilo,Lab SPEC TYPE: Surgical DEPT: NATHAN DOMINGO ENTERED BY: [id number] RECV BY: [id number] ORDERED: HE/2, Gross/Micro L4 ORDERED: VILLA/Christopher, Gross/Micro L4 Pathological Diagnosis Endometrial curettings: -Multiple small disrupted endometrial glandular strips of at least weakly type proliferative endometrium, and slightly limited for overall assessment, otherwise without obvious features of hyperplasia or atypia observed -Incidental occasionally minute intermixed clusters of cervical epithelial elements without dysplasia Clinical Information Thickened endometrium Gross Description Part A is received in formalin labeled with the patients name, date of , and endometrial curettings is a Telfa pad with ordonez-pink to red-brown, delicate soft tissue fragments, admixed with a pale coy mucoid material, 0.8 x 0.6 x 0.1 cm in aggregate. The specimen is filtered and entirely submitted in a single cassette. (1, ns, [id number]) VINCENT -------- Specimen: [id number] Received: 01/17/24 Status: ZEFERINO Marie Num: [id number] Spec Type: Surgical Subm Dr: David Richards Tissues: A Endometrium - Curettings (ENDOMETRIAL CURETTINGS) Procedures: VILLA/Christopher, Gross/Micro L4 -------- Patient: Anjali White [id number] (Continued) -------- Specimen: [id number] Received: 01/17/24 (Continued) Signed (signature on file) Pravin Villasenor MD 01/18/24 1648 -------- Specimen: [id number] Received: 01/17/24 Status: JARONAdriana Marie Num: [id number] Spec Type: Surgical Subm Dr: David Richards Tissues: A Endometrium - Curettings (ENDOMETRIAL CURETTINGS) Procedures: VILLA/Ye White/Nehemiah L4 -------- Patient: Anjali White [id number] (Continued) -------- Specimen: [id number] Received: 01/17/24 (Continued) Microscopic Description Microscopic examinations are performed supporting the above interpretation CPT Codes 44447 -------- -------- Specimen: [id number] Received: 01/17/24 Status: ZEFERINO Marie Num: [id number] Spec Type: Surgical Subm Dr: David Richards Tissues: A Endometrium - Curettings (ENDOMETRIAL CURETTINGS) Procedures: Ye MOLINA/Nehemiah L4 -------- Patient: Anjali White [id number] (Continued) -------- Signed (signature on file) Pravin Villasenor MD 01/18/24 8163 Normal [facility] Physician [facility] TB PREG QUANT HCGon 15-2 024 HCG QUANTITATIVE <1 mIU/mL [facility] Comment on above: 5-50 0.2-1 WEEK 50-500 1-2 WEEKS 100-5,000 2-3 WEEKS 500-10,000 3-4 WEEKS 1,000-50,000 4-5 WEEKS 10,000-100,000 5-6 WEEKS 15,000-200,000 6-8 WEEKS 10,000-100,000 2-3 MONTHS [facility] Mytonomy e IGP,APTIMA HPV,AGE GDLNon AGE GDLN ACOG TESTING Note . [facility] Comment on above: TESTS RESULT FLAG UN ITS REF RANGE LAB Clinician Provided Cytology Information Source.............Cervix;Endocervix No. of containers..01 ThinPrep Vial Age Algo ACOG Mackenzie... FLAG LEGEND: L-Low Normal,H-High Normal,LL-Alert Low,HH-Alert High <-Panic Low,>-Panic High,A-Abnormal,AA-Critical Abnormal Performed at: 01 =[facility] [place] [address] Mariana Sanchez MD, HPV APTIMA Negative Negative [facility] Comment on above: This nucleic acid am plification test detects fourteen high- risk HPV types (16,18,31,33,35,39,45,51,52,56,58,59,66,68) without differentiation. Performed at: =G - [facility] [place] [place], [place] [id number] Research Physicist: Mariana Sanchez MD, Phone: [phone] Performed at: [address] [id number] Research Physicist: Mariana Sanchez MD, Phone: [phone] IGP, APTIMA HPV, RFX 16/18,45 Note . [facility] Comment on above: TESTS RESULT FLAG UN ITS REF RANGE LAB DIAGNOSIS: 02 NEGATIVE FOR INTRAEPITHELIAL LESION OR MALIGNANCY. Specimen adequacy: 02 Satisfactory for evaluation. Endocervical and/or squamous metaplastic cells (endocervical component) are present. Performed by: Rena Wilson, Marketing Analytics Lead . 02 Note: Note 02 The Pap smear is a screening test designed to aid in the detection of premalignant and malignant conditions of the uterine cervix. It is not a diagnostic procedure and should not be used as the sole means of detecting cervical cancer. Both false-positive and false-negative reports do occur. Test Methodology: Note 02 This liquid based ThinPrep(R) pap test was screened with the use of an image guided system. HPV Genotype Reflex Note 02 Criteria not met, HPV Genotype not performed. FLAG LEGEND: L-Low Normal,H-High Normal,LL-Alert Low,HH-Alert High <-Panic Low,>-Panic High,A-Abnormal,AA-Critical Abnormal Performed at: [address] [place] [address], [place] [address] Mariana Sanchez MD, BRUSH-SPATULA CERVIX ENDOCERVIX [facility] POCT urinalysis dipstick onl yon 10-18-2023 Appearance (U) clear [facility] External Poct Urine Bilirubin Negative [facility] External Poct Urine Blood Trace [facility] External Poct Urine Color yellow [facility] External Poct Urine Glucose Negative [facility] External Poct Urine Ketones Negative [facility] External Poct Urine Leukocyte Esterase 1+ [facility] External Poct Urine Nitrite Positive [facility] External Poct Urine Ph 6.0 [facility] External Poct Urine Protein Negative [facility] External Poct Urine Specific [place] 1.015 [facility] External Poct Urine Urobilinogen 0.2 [facility] COMPREHENSIVE METABOLIC PANE Michael 08-13-2023 Albumin [Mass/Vol] 4.1 g/dL Normal 3.2-5.3 [facility] Comment on above: Performed By: #### Stacy FRANKS [id number] #### [facility] ([id number]) [address] [place] [address] ALP [Catalytic activity/Vol] 90 U/L Normal 39-130 [facility] Comment on above: Performed By: #### Stacy FRANKS, 03503-9 #### [facility] ([id number]) [address], [address] [place] [address] ALT [Catalytic activity/Vol] 18 U/L Normal 0-31 [facility] Comment on above: Performed By: #### Stacy FRANKS, 30510-4 #### [facility] ([id number]) [address] [place] [address] Anion gap [Moles/Vol] 9 mmol/L Normal 5-15 [facility] Comment on above: Performed By: #### Stacy FRANKS, 09058-9 #### [facility] ([id number]) [address], [address] [place] [address] AST [Catalytic activity/Vol] 22 U/L Normal 0-41 [facility] Comment on above: Performed By: #### Stacy FRANKS, 38524-9 #### [facility] ([id number]) [address], [address] [place] [address] Bilirubin [Mass/Vol] 0.6 mg/dL Normal 0.3-1.2 [facility] Comment on above: Performed By: #### Stacy FRANKS, 72923-8 #### [facility] ([id number]) [address], [address] [place] [address] Calcium [Mass/Vol] 9.4 mg/dL Normal 8.5-10.5 [facility] Comment on above: Performed By: #### Stacy FRANKS, 13754-1 #### [facility] ([id number]) [address], [address] [place] [address] Chloride [Moles/Vol] 104 mmol/L Normal 98-109 [facility] Comment on above: Performed By: #### Stacy FRANKS, 02645-6 #### [facility] ([id number]) [address], [address] [place] [address] CO2 [Moles/Vol] 28 mmol/L Normal 22-32 [facility] Comment on above: Performed By: #### Stacy FRANKS, 30218-1 #### [facility] ([id number]) [address], [address] [place] [address] Creatinine [Mass/Vol] 0.72 mg/dL Normal 0.40-1.00 [facility] [facility] Comment on above: Result Comment: METH OD TRACEABLE TO IDMS STANDARD Performed By: #### Stacy FRANKS, 88239-9 #### [facility] ([id number]) [address], [address] [place] [address] eGFR (CKD-EPI) NON-RACE DEPENDENT >90 Normal >59 [facility] Comment on above: Result Comment: Reported eGFR is based on the CKD-EPI 2020 equation that does not use a race coefficient. Performed By: #### Stacy FRANKS, 48140-4 #### [facility] ([id number]) [address], [address] [place] [address] Glucose [Mass/Vol] 86 mg/dL Normal 65-99 [facility] Comment on above: Performed By: #### Stacy FRANKS, 94478-3 #### [facility] ([id number]) [address], [address] [place] [address] Potassium [Moles/Vol] 3.9 mmol/L Normal 3.5-5.0 [facility] Comment on above: Performed By: #### Stacy FRANKS 71227-9 #### [facility] ([id number]) [address], [address] [place] [address] Protein [Mass/Vol] 7.3 g/dL Normal 6.0-8.0 [facility] Comment on above: Performed By: #### Stacy FRANKS, 97777-0 #### [facility] ([id number]) [address], [address] [place] [address] Sodium [Moles/Vol] 141 mmol/L Normal 134-146 [facility] Comment on above: Performed By: #### Stacy FRANKS 35909-4 #### [facility] ([id number]) [address], [address] [place] [address] Urea nitrogen [Mass/Vol] 10 mg/dL Normal 5-23 [facility] Comment on above: Performed By: #### Stacy FRANKS, 32427-7 #### [facility] ([id number]) [address], [address] [place] [address] Comprehensive metabolic pane michael 08-13-2023 Albumin [Mass/Vol] 4.1 g/dL 3.2 - 5.3 g/dL [facility] ALP [Catalytic activity/Vol] 90 U/L 39 - 130 U/L [facility] ALT No additional P-5'-P [Catalytic activity/Vol] 18 U/L 0 - 31 U/L [facility] Anion gap [Moles/Vol] 9 mmol/L 5 - 15 mmol/L [facility] AST [Catalytic activity/Vol] 22 U/L 0 - 41 U/L [facility] Bilirubin [Mass/Vol] 0.6 mg/dL 0.3 - 1.2 mg/dL [facility] Calcium [Mass/Vol] 9.4 mg/dL 8.5 - 10. 5 mg/dL [facility] Chloride [Moles/Vol] 104 mmol/L 98 - 109 mmol/L [facility] CO2 [Moles/Vol] 28 mmol/L 22 - 32 mmol/L [facility] Creatinine [Mass/Vol] 0.72 mg/dL 0.40 - 1.00 mg/dL [facility] Comment on above: METHOD TRACEABLE TO [facility] STANDARD eGFR (CKD-EPI)non-race dependent - PINF [facility] Comment on above: Reported eGFR is based on the CKD-EPI 2020 equation that does not use a race coefficient. Glucose [Mass/Vol] 86 mg/dL 65 - 99 mg/dL [facility] Potassium [Moles/Vol] 3.9 mmol/L 3.5 - 5.0 mmol/L [facility] Protein [Mass/Vol] 7.3 g/dL 6.0 - 8.0 g/dL [facility] Sodium [Moles/Vol] 141 mmol/L 134 - 146 mmol/L [facility] Urea nitrogen [Mass/Vol] 10 mg/dL 5 - 23 mg/dL [facility] Lipid 1996 panelon 4 Cholesterol [Mass/Vol] 218 mg/dL High 150 - 200 mg/dL [facility] Cholesterol in HDL [Mass/Vol] 51 mg/dL 39 - PINF mg/dL [facility] Comment on above: HDL <40 mg/dL - High Risk HDL > or = 40mg/dL- Desirable HDL >60 mg/dL - Negative Risk Cholesterol in LDL [Mass/Vol] 123 mg/dL NINF - 130 mg/dL [facility] Comment on above: LDL <100 mg/dL - Desirable LDL >160 mg/dL - High Risk Cholesterol in VLDL [Mass/Vol] 44 mg/dL High 0 - 30 mg/dL [facility] Cholesterol.total/C holesterol in HDL [Mass ratio] 4.3 {ratio} 1.0 - 5.0 [facility] Interpretation and review of laboratory results Abnormal [facility] Triglyceride [Mass/Vol] 218 mg/dL High 27 - 150 mg/dL [facility] Cholesterol [Mass/Vol] 218 mg/dL High 150-200 [facility] Comment on above: Performed By: #### Stacy FRANKS, 66824-7 #### [facility] ([id number]) [address] [place] [address] Cholesterol in HDL [Mass/Vol] 51 mg/dL Normal >39 [facility] Comment on above: Result Comment: HDL <40 mg/dL - High Risk HDL > or = 40mg/dL- Desirable HDL >60 mg/dL - Negative Risk Performed By: #### Stacy FRANKS, 59843-2 #### [facility] ([id number]) [address], [address] [place] [address] Cholesterol in LDL [Mass/Vol] 123 mg/dL Normal <130 [facility] Comment on above: Result Comment: LDL <100 mg/dL - Desirable LDL >160 mg/dL - High Risk Performed By: #### Stacy FRANKS, 40050-0 #### [facility] ([id number]) [address], [address] [place] [address] Cholesterol in VLDL [Mass/Vol] 44 mg/dL High 0-30 [facility] Comment on above: Performed By: #### Stacy FRANKS, 58014-3 #### [facility] ([id number]) [address], [address] [place] [address] CHOLESTEROL:HDL 4.3 Normal 1.0-5.0 [facility] Comment on above: Performed By: #### Stacy FRANKS, 84134-6 #### [facility] ([id number]) [address], [address] [place] [address] Triglyceride [Mass/Vol] 218 mg/dL High 27-150 [facility] Comment on above: Performed By: #### Stacy FRANKS, 04251-2 #### [facility] ([id number]) [address], [address] [place] [address] No Panel Informationon 08-12 [facility] POCT Influenza A/Influenza B /SARS-COV-2 Veritoron 05-06-2023 External Poct Influenza A Antigen Negative [facility] External Poct Influenza B Antigen Negative [facility] SARS-CoV-2 (COVID-19) Ag IA.rapid Ql (Resp) Negative [facility] CARDIAC PRESTON ADMITon 023 CK [Catalytic activity/Vol] 77 U/L Normal 26-192 [facility] Comment on above: Performed By: ###MAKENNA Fung MP #### [facility] [address] [address] [address] Maria Teresa Villasenor CK.MB [Mass/Vol] ng/mL Normal <=3.60 [facility] Comment on above: Performed By: #### B MAKENNA FRANKS #### [facility] [address] [address] [address] Maria Teresa Villasenor HSTROP <4.0 Normal 4.0-51.3 [facility] Comment on above: Result Comment: CUT- OFF POINTS HAVE BEEN ESTABLISHED BASED ON THE FOURTH UNIVERSAL DEFINITIONS OF MYOCARDIAL INFARCTION. THE UPPER REFERENCE LIMIT (URL) OF TROPONIN, DEFINED THE 99TH PERCENTILE OF cTnI DISTRIBUTION IN A REFERENCE POPULATION, HAS BEEN CONFIRMED THE DECISION THRESHOLD FOR [place] DIAGNOSIS. Performed By: #### B MAKENNA FRANKS #### [facility] [address] [address] [address] Maria Teresa Villasenor ANJANA 30 ng/mL Normal 9-82 [facility] Comment on above: Performed By: #### B MAKENNA FRANKS #### [facility] [address] [place] [address] Dr. Maria Teresa Villasenor CBC AUTO DIFFon 06-07-2022 BASO # 0.0 103/ul Normal 0.0-0.1 [facility] Comment on above: Performed By: #### C BC ####[facility] [address] [address]Dr. Maria Teresa Villasenor Basophils/100 WBC (Bld) 0.4 % Normal 0.2-2.0 [facility] Comment on above: Performed By: #### C BC ####[facility] [address] [address]DrMaksim Villasenor EO # 0.1 103/ul Normal 0.0-0.7 [facility] Comment on above: Performed By: #### C BC ####[facility] [address] [address]DrMaksim Villasenor Eosinophils/100 WBC (Bld) 0.9 % Normal 0.9-7.0 [facility] Comment on above: Performed By: #### C BC ####[facility] [address] [address]DrMaksim Villasenor Erythrocyte distribution width (RBC) [Ratio] 12.6 % Normal 11.0-15.0 [facility] Comment on above: Performed By: #### C BC ####[facility] [address] [address]Dr. Maria Teresa Villasenor Hematocrit (Bld) [Volume fraction] 39.7 % Normal 36.0-48.0 [facility] Comment on above: Performed By: #### C BC ####[facility] [address] [address]Dr. Carolynedaysi Villasenor Hemoglobin (Bld) [Mass/Vol] 13.3 g/dL Normal 12.0-16.0 [facility] Comment on above: Performed By: #### C BC ####[facility] [address] [address]Dr. Carolynedaysi Villasenor IG # 0.03 10e3/ul Normal 0.00-0.03 [facility] Comment on above: Performed By: #### C BC ####[facility] [address] [address]Dr. Maria Teresa Villasenor IG % 0.3 % Normal 0.0-0.5 [facility] Comment on above: Performed By: #### C BC ####[facility] [address] [place], [place] [address]Dr. Carolynedaysi Villasenor LYMPH # 1.7 103/ul Normal 1.2-3.8 [facility] Comment on above: Performed By: #### C BC ####[facility] [address] [address]Dr. Maria Teresa Villasenor Lymphocytes/100 WBC (Bld) 16.2 % Critically low 20.5-60.0 [facility] Comment on above: Performed By: #### C BC ####[facility] [address] [place], [place] [address]Dr. Maria Teresa Villasenor MANUAL DIFF REQ NO Normal [facility] Comment on above: Performed By: #### C BC ####[facility] [address] [place], [place] [address]Dr. Maria Teresa Villasenor MCH (RBC) [Entitic mass] 31.9 pg Normal 26.7-34.0 [facility] Comment on above: Performed By: #### C BC ####[facility] [address] [id number]. Maria Teresa Hamilton MCHC (RBC) [Mass/Vol] 33.5 g/dL Normal 29.9-35.2 [facility] Comment on above: Performed By: #### C BC ####[facility] [address] [id number]. Carolynedaysi Villasenor MCV (RBC) [Entitic vol] 95.2 fL Normal 81.0-99.0 [facility] Comment on above: Performed By: #### C BC ####[facility] [address] [place], [place] [address]Dr. Maria Teresa Villasenor MONO # 0.7 103/ul Normal 0.3-0.8 [facility] Comment on above: Performed By: #### C BC ####[facility] [address] [place], [place] [address]Dr. Maria Teresa Villasenor Monocytes/100 WBC (Bld) 6.7 % Normal 1.7-12.0 [facility] Comment on above: Performed By: #### C BC ####[facility] [address] [place], [place] [address]Dr. Maria Teresa Villasenor NEUT # 8.1 103/ul Critically high 1.4-6.[address] [facility] Comment on above: Performed By: #### C BC ####[facility] [address] [place], [place] [address]Dr. Maria Teresa Villasenor Neutrophils/100 WBC (Bld) 75.5 % Critically high 43.0-75.0 [facility] Comment on above: Performed By: #### C BC ####[facility] [address] [place], [place] [address]Dr. Maria Teresa Villasenor Platelet mean volume (Bld) [Entitic vol] 9.1 fL Critically low 9.5-13.5 [facility] Comment on above: Performed By: #### C BC ####[facility] [address] [place], [place] [address]Dr. Maria Teresa Villasenor PLT 315 103/ul Normal 150-450 [facility] Comment on above: Performed By: #### C BC ####[facility] [address] [place], [place] [address]RcMaksim Villasenor RBC 4.17 106/ul Critically low 4.20-5.40 [facility] Comment on above: Performed By: #### C BC ####[facility] [address] [place], [place] [address]YgMaksim Villasenor WBC 10.7 103/ul Normal 4.0-11.0 [facility] Comment on above: Performed By: #### C BC ####[facility] [address] [place], [place] [address]Uw. Maria Teresa Villasenor CTA CHEST WO W [...] by: TEJ CATES Date: 2022-06-07 08:33 Normal [facility] D-DIMERon 06-07-2022 D-DIMER 0.62 mg/L FEU Critically high <=0.59 [facility] Comment on above: Performed By: #### D DIM #### [facility] [address] [place], [place] [address] Dr. Maria Teresa Villasenor D-DIMER COMMENTS SEE BELOW Normal [facility] Comment on above: Result Comment: [...] hospitalization. Performed By: #### D DIM #### [facility] [address] [place] [address] Dr. Maria Teresa Villasenor PROF CHEM 8 (BAS METB)on Anion gap [Moles/Vol] 12.5 mmol/L Normal [facility] Comment on above: Performed By: #### B MAKENNA FRANKS #### [facility] [address] [place] [address] Dr. Maria Teresa Villasenor Calcium [Mass/Vol] 9.4 mg/dL Normal 8.5-10.1 [facility] Comment on above: Performed By: #### B MAKENNA FRANKS #### [facility] [address] [place] [address] Dr. Maria Teresa Villasenor Chloride [Moles/Vol] 103 mmol/L Normal 98-107 [facility] Comment on above: Performed By: #### B TRACIE FRANKSDM #### [facility] [address] [place] [address] Dr. Maria Teresa Villasenor CO2 [Moles/Vol] 28.3 mmol/L Normal 21.0-32.0 [facility] Comment on above: Performed By: #### B TRACIE FRANKSDM #### [facility] [address] [place] [address] Dr. Maria Teresa Villasenor Creatinine [Mass/Vol] 0.68 mg/dL Normal 0.55-1.02 [facility] Comment on above: Performed By: #### B GOLDEN, TRACIEDM #### [facility] [address] [place] [address] Dr. Maria Teresa Villasenor EGFR-AF BERMUDIAN >60 Normal >=60 [facility] Comment on above: Performed By: #### B GOLDEN, CMADM #### [facility] [address] [place] [address] Dr. Maria Teresa Villasenor EGFR-NON AF BERMUDIAN >60 Normal >=60 [facility] Comment on above: Performed By: #### B GOLDEN, CMADM #### [facility] [address] [address] [address] Maria Teresa Villasenor Glucose [Mass/Vol] 99 mg/dL Normal 74-106 [facility] Comment on above: Performed By: #### B GOLDEN, CMADM #### [facility] [address] [place] [address] Dr. Maria Teresa Villasenor Potassium [Moles/Vol] 3.8 mmol/L Normal 3.5-5.1 [facility] Comment on above: Performed By: #### B GOLDEN, CMADM #### [facility] [address] [place] [address] Dr. Maria Teresa Villasenor Sodium [Moles/Vol] 140 mmol/L Normal 136-145 [facility] Comment on above: Performed By: #### B GOLDEN, CMADM #### [facility] [address] [place] [address] Dr. Maria Teresa Villasenor Urea nitrogen [Mass/Vol] 20.0 mg/dL Critically high 7.0-18.0 [facility] Comment on above: Performed By: #### B GOLDEN, CMADM #### [facility] [address] [place] [address] Dr. Maria Teresa Villasenor Urea nitrogen/Creatinine [Mass ratio] 29.4 mg/mg Normal [facility] Comment on above: Performed By: #### B GOLDEN, CMADM #### [facility] [address] [place] [address] Dr. Maria Teresa Villasenor TROPONIN, HIGH SENSITIVITYon 06-07-2022 HSTROP <4.0 Normal 4.0-51.3 [facility] Comment on above: Result Comment: CUT- OFF POINTS HAVE BEEN ESTABLISHED BASED ON THE FOURTH UNIVERSAL DEFINITIONS OF MYOCARDIAL INFARCTION. THE UPPER REFERENCE LIMIT (URL) OF TROPONIN, DEFINED THE 99TH PERCENTILE OF cTnI DISTRIBUTION IN A REFERENCE POPULATION, HAS BEEN CONFIRMED THE DECISION THRESHOLD FOR [place] DIAGNOSIS. Performed By: #### H STROPN #### [facility] [address] [place] [address] Dr. Maria Teresa Villasenor XR CHEST 1 [...] ARTUR HARTMANN Date: 2022-06-07 07:38 Normal [facility] CBC AUTO DIFFon 03-13-2022 BASO # 0.1 103/ul Normal 0.0-0.1 [facility] Comment on above: Performed By: #### C BC #### [facility] [address] [place] [address] Dr. Maria Teresa Villasenor Basophils/100 WBC (Bld) 0.5 % Normal 0.2-2.0 [facility] Comment on above: Performed By: #### C BC #### [facility] [address] [place] [address] Dr. Maria Teresa Villasenor EO # 0.2 103/ul Normal 0.0-0.7 [facility] Comment on above: Performed By: #### C BC #### [facility] [address] [place] [address] Dr. Maria Teresa Villasenor Eosinophils/100 WBC (Bld) 2.4 % Normal 0.9-7.0 [facility] Comment on above: Performed By: #### C BC #### [facility] [address] [place] [address] Dr. Maria Teresa Villasenor Erythrocyte distribution width (RBC) [Ratio] 12.6 % Normal 11.0-15.0 [facility] Comment on above: Performed By: #### C BC #### [facility] [address] [place] [address] Dr. Maria Teresa Villasenor Hematocrit (Bld) [Volume fraction] 43.1 % Normal 36.0-48.0 [facility] Comment on above: Performed By: #### C BC #### [facility] [address] [place] [address] Dr. Maria Teresa Villasenor Hemoglobin (Bld) [Mass/Vol] 13.3 g/dL Normal 12.0-16.0 [facility] Comment on above: Performed By: #### C BC #### [facility] [address] [place] [address] Dr. Maria Teresa Villasenor IG # 0.02 10e3/ul Normal 0.00-0.03 [facility] Comment on above: Performed By: #### C BC #### [facility] [address] [place] [address] Dr. Maria Teresa Villasenor IG % 0.2 % Normal 0.0-0.5 [facility] Comment on above: Performed By: #### C BC #### [facility] [address] [place] [address] Dr. Maria Teresa Villasenor LYMPH # 2.7 103/ul Normal 1.2-3.8 [facility] Comment on above: Performed By: #### C BC #### [facility] [address] [place] [address] Dr. Maria Teresa Villasenor Lymphocytes/100 WBC (Bld) 28.6 % Normal 20.5-60.0 [facility] Comment on above: Performed By: #### C BC #### [facility] [address] [place] [address] Dr. Maria Teresa Villasenor MANUAL DIFF REQ NO Normal [facility] Comment on above: Performed By: #### C BC #### [facility] [address] [place] [address] Dr. Maria Teresa Villasenor MCH (RBC) [Entitic mass] 32.7 pg Normal 26.7-34.0 [facility] Comment on above: Performed By: #### C BC #### [facility] [address] [address] [address] Maria Teresa Villasenor MCHC (RBC) [Mass/Vol] 30.9 g/dL Normal 29.9-35.2 [facility] Comment on above: Performed By: #### C BC #### [facility] [address] [address] [address] Maria Teresa Villasenor MCV (RBC) [Entitic vol] 105.9 fL Critically high 81.0-99.0 [facility] Comment on above: Performed By: #### C BC #### [facility] [address] [address] [address] Maria Teresa Villasenor MONO # 1.2 103/ul Critically high 0.3-0.8 [facility] Comment on above: Performed By: #### C BC #### [facility] [address] [place] [address] Dr. Maria Teresa Villasenor Monocytes/100 WBC (Bld) 12.3 % Critically high 1.7-12.0 [facility] Comment on above: Performed By: #### C BC #### [facility] [address] [address] [address] Maria Teresa Villasenor NEUT # 5.3 103/ul Normal 1.4-6.5 [facility] Comment on above: Performed By: #### C BC #### [facility] [address] [place] [address] Dr. Maria Teresa Villasenor Neutrophils/100 WBC (Bld) 56.0 % Normal 43.0-75.0 [facility] Comment on above: Performed By: #### C BC #### [facility] [address] [address] [address] Maria Teresa Villasenor Platelet mean volume (Bld) [Entitic vol] 9.3 fL Critically low 9.5-13.5 [facility] Comment on above: Performed By: #### C BC #### [facility] [address] [address] [address] Maria Teresa Villasenor PLT 357 103/ul Normal 150-450 [facility] Comment on above: Performed By: #### C BC #### [facility] [address] [place], [place] [address] Dr. Maria Teresa Villasenor RBC 4.07 106/ul Critically low 4.20-5.[address] [facility] Comment on above: Performed By: #### C BC #### [facility] [address] [place], [place] [address] Dr. Maria Teresa Villasenor WBC 9.4 103/ul Normal 4.0-11.0 [facility] Comment on above: Performed By: #### C BC #### [facility] [address] [id number] Maria Teresa Villasenor PREG HCG QUALon 03-13-2022 , QUAL Negative Normal NEGATIVE [facility] Comment on above: Performed By: #### P REG #### [facility] [address] [id number] Maria Teresa Villasenor Covid-19 PCR (CVDTB)on 03-01 SARS-CoV-2 (COVID-19) RNA JOSÉ ANTONIO+probe Ql (Unsp spec) Not detected Normal NOT DETECTED [facility] Comment on above: Result Comment: This test is not yet approved or cleared by the [place] FDA. When there are no FDA-approved or cleared tests available, and other criteria are met, FDA can make tests available under an emergency access mechanism called an Emergency Use Authorization (EUA). The EUA for this test is supported by the [facility] of Health and Human Service's (HHS's) declaration [...] consistent with SARS-CoV-2. Performed By: #### C VDTBH ####[facility] [address] [id number]. Maria Teresa Villasenor Office Visiton 02-04-2022 Follow-up visit [id number] Anjali White Stacy 1970 F Date Provider Department Center 02/04/2022 LAURA OLSEN CARD [facility] No family history on file Level of Service:28083 [place] OFFICE/OUTPATIENT ESTABLISHED LOW MDM 20-29 MIN Normal [facility] PROF CHEM 8 (BAS METB)on Anion gap [Moles/Vol] 10.2 mmol/L Normal [facility] Comment on above: Performed By: #### B MP #### [facility] [address] [address] [address] Maria Teresa Villasenor Calcium [Mass/Vol] 8.7 mg/dL Normal 8.5-10.1 [facility] Comment on above: Performed By: #### B MP #### [facility] [address] [address] [address] Maria Teresa Villasenor Chloride [Moles/Vol] 106 mmol/L Normal 98-107 [facility] Comment on above: Performed By: #### B MP #### [facility] [address] [address] [address] Maria Teresa Villasenor CO2 [Moles/Vol] 27.8 mmol/L Normal 21.0-32.0 [facility] Comment on above: Performed By: #### B MP #### [facility] [address] [address] [address] Maria Teresa Villasenor Creatinine [Mass/Vol] 0.64 mg/dL Normal 0.55-1.02 [facility] Comment on above: Performed By: #### B MP #### [facility] [address] [address] [address] Maria Teresa Villasenor EGFR-AF BERMUDIAN >60 Normal >=60 [facility] Comment on above: Performed By: #### B MP #### [facility] [address] [address] [address] Maria Teresa Villasenor EGFR-NON AF BERMUDIAN >60 Normal >=60 [facility] Comment on above: Performed By: #### B MP #### [facility] [address] [address] [address] Maria Teresa Villasenor Glucose [Mass/Vol] 89 mg/dL Normal 74-106 [facility] Comment on above: Performed By: #### B MP #### [facility] [address] [address] [address] Maria Teresa Villasenor Potassium [Moles/Vol] 4.0 mmol/L Normal 3.5-5.1 [facility] Comment on above: Performed By: #### B MP #### [facility] [address] [address] [address] Maria Teresa Villasenor Sodium [Moles/Vol] 140 mmol/L Normal 136-145 [facility] Comment on above: Performed By: #### B MP #### [facility] [address] [address] [address] Maria Teresa Villasenor Urea nitrogen [Mass/Vol] 12.0 mg/dL Normal 7.0-18.0 [facility] Comment on above: Performed By: #### B MP #### [facility] [address] [address] [address] Maria Teresa Villasenor Urea nitrogen/Creatinine [Mass ratio] 18.8 mg/mg Normal [facility] Comment on above: Performed By: #### B MP #### [facility] [address] [address] [address] Maria Teresa Villasenor MG MAMM SCREEN 3D ALEXA CADon 11-28-2021 MG MAMM SCREEN 3D ALEXA CAD Patient: ANJALI WHITE Exam Date: 11/28/2021 : 1970 Gender:F Ordering : DR DAVID RICHARDS . Admission #: [id number] Family : Order #: [id number] CLICK HERE TO VIEW EXAM RADIOLOGY REPORT [...] neuroblastoma cancer at age 3. LOCATION: [facility] BREAST COMPOSITION: Heterogeneously dense,which may obscure small [...] Sebastian MD on 11/28/2021 at 12:51 Normal [facility] PAP ACOG PANEL 2: 30 to 65on 09-24-2021 . . Normal [facility] Comment on above: Result Comment: Perf ormed at: WB Performed By: #### 4 [id number] #### [facility] [address] [place] [address] Dr. Maria Teresa Villasenor Age Gdln ACOG Testing -67 Normal [facility] Comment on above: Performed By: #### 4 [id number] #### [facility] [address] [place] [address] Dr. Maria Teresa Villasenor DIAGNOSIS: Comment Normal [facility] Comment on above: Result Comment: NEGA TIVE FOR INTRAEPITHELIAL LESION OR MALIGNANCY. Performed at: WB Performed By: #### 4 [id number] #### [facility] [address] [place] [address] Dr. Maria Teresa Villasenor HPV Aptima Negative Normal Negative [facility] Comment on above: Result Comment: This nucleic acid amplification test detects fourteen high-risk HPV types (16,18,31,33,35,39,45,51,52,56,58,59,66,68) without differentiation. Performed at: =G Performed By: #### 4 [id number] #### [facility] [address] [place] [address] Dr. Maria Teresa Villasenor Methodology: Comment Normal [facility] Comment on above: Result Comment: This liquid based ThinPrep(R) pap test was screened with the use of an image guided system. Performed at: WB Performed By: #### 4 [id number] #### [facility] [address] [place] [address] Dr. Maria Teresa Villasenor Note: Comment Normal [facility] Comment on above: Result Comment: The Pap smear is a screening test designed to aid in the detection of premalignant and malignant conditions of the uterine cervix. It is not a diagnostic procedure and should not be used as the sole means of detecting cervical cancer. Both false-positive and false-negative reports do occur. . Performed at: WB Performed By: #### 4 [id number] #### [facility] [address] [address] [address] Maria Teresa Villasenor Performed by: Comment Normal [facility] Comment on above: Result Comment: Sabrina Vasquez, Marketing Analytics Lead (ASCP) Performed at: WB Performed By: #### 4 [id number] #### [facility] [address] [place] [address] Dr. Maria Teresa Villasenor Specimen adequacy: Comment Normal [facility] Comment on above: Result Comment: Sati sfactory for evaluation. Endocervical and/or squamous metaplastic cells (endocervical component) are present. Performed at: WB Performed By: #### 4 [id number] #### [facility] [address] [place] [address] Dr. Maria Teresa Vill[facility]enor [facility]21 Albumin [Mass/Vol] 4.3 g/dL Normal 3.6-5.1 [facility] Comment on above: Performed By: #### 1 230, 7010 #### [facility] [address] [place]per: Jacob Zavaleta MD Albumin/Globulin [Mass ratio] 1.8 {ratio} Normal 1.0-2.5 [facility] Comment on above: Performed By: #### 1 230, 0810 #### [facility] [address] [place]: Jacob Zavaleta MD ALP [Catalytic activity/Vol] 56 U/L Normal 31-125 [facility] Comment on above: Performed By: #### 1 023, 9110 #### [facility] of [address], [address] [place] [address] [place]: Jacob Zavaleta MD ALT [Catalytic activity/Vol] 9 U/L Normal 6-29 [facility] Comment on above: Performed By: #### 1 0231, 7600 #### [facility] of [address] [place] [address] [place]per: Jacob Zavaleta MD AST [Catalytic activity/Vol] 10 U/L Normal 10-35 [facility] Comment on above: Performed By: #### 1 023, 7600 #### [facility] of [address] [address] [place]: Jacob Zavaleta MD Bilirubin [Mass/Vol] 0.4 mg/dL Normal 0.2-1.2 [facility] Comment on above: Performed By: #### 1 023, 7600 #### [facility] of [address] [address] [place]: Jacob Zavaleta MD BUN/CREATININE RATIO NOT APPLICABLE Normal 6-22 [facility] Comment on above: Performed By: #### 1 0231, 7600 #### [facility] of [address] [address] [place]: Jacob Zavaleta MD Calcium [Mass/Vol] 9.3 mg/dL Normal 8.6-10.2 [facility] Comment on above: Performed By: #### 1 0231, 7600 #### [facility] of [address] [address] [place]: Jacob Zavaleta MD Chloride [Moles/Vol] 106 mmol/L Normal 98-110 [facility] Comment on above: Performed By: #### 1 0231, 7600 #### [facility] of [address] [place] [address] [place]: Jacob Zavaleta MD CO2 [Moles/Vol] 26 mmol/L Normal 20-32 [facility] Comment on above: Performed By: #### 1 0231, 7600 #### [facility] [address], [address] [place] [address] [place]: Jacob Zavaleta MD Creatinine [Mass/Vol] 0.77 mg/dL Normal 0.50-1.10 [facility] Comment on above: Performed By: #### 1 023, 7600 #### [facility] [address] [place] [address] [place]per: Jacob Zavaleta MD eGFR NON-AFR. BERMUDIAN 91 mL/min/1.73m2 Normal > OR = 60 [facility] Comment on above: Performed By: #### 1 023, 7600 #### [facility] [address] [place] [address] [place]: Jacob Zavaleta MD GFR/1.73 sq M.predicted among blacks MDRD (S/P/Bld) [Vol rate/Area] 105 mL/min/{1.73_m2} Normal > OR = 60 [facility] Comment on above: Performed By: #### 1 023, 7600 #### [facility] [address] [place] [address] [place]per: Jacob Zavaleta MD Globulin (S) [Mass/Vol] 2.4 g/dL Normal 1.9-3.7 [facility] Comment on above: Performed By: #### 1 023, 7600 #### [facility] [address] [place] [address] [place]: Jacob Zavaleta MD Glucose [Mass/Vol] 148 mg/dL High 65-139 [facility] Comment on above: Result Comment: Non-fasting reference interval For someone without known diabetes, a glucose value >125 mg/dL indicates that they may have diabetes and this should be confirmed with a follow-up test. Performed By: #### 1 023, 7600 #### [facility] [address], [address] [place] [address] [place]: Jacob Zavaleta MD Potassium [Moles/Vol] 4.2 mmol/L Normal 3.5-5.3 [facility] Comment on above: Performed By: #### 1 0231, 7600 #### [facility] of [address], [address] [place] [address] [place]: Jacob Zavaleta MD Protein [Mass/Vol] 6.7 g/dL Normal 6.1-8.1 [facility] Comment on above: Performed By: #### 1 0231, 7600 #### [facility] of [address], [address] [place] [address] [place]per: Jacob Zavaleta MD Sodium [Moles/Vol] 139 mmol/L Normal 135-146 [facility] Comment on above: Performed By: #### 1 0231, 7600 #### [facility] of [address], [address] [place] [address] Bar Helper: Jacob Zavaleta MD Urea nitrogen [Mass/Vol] 12 mg/dL Normal 7-25 [facility] Comment on above: Performed By: #### 1 023, 7600 #### [facility] of [address] [address] [place]per: Jacob Zavaleta MD LIPID PANEL, [facility] 07-31 Cholesterol [Mass/Vol] 191 mg/dL Normal <200 [facility] Comment on above: Order Comment: FASTI NG:NO FASTING: NO Performed By: #### 1 0231, 7600 #### [facility] of [address], [address] [place] [address] [place]per: Jacob Zavaleta MD Cholesterol in HDL [Mass/Vol] 60 mg/dL Normal > OR = 50 [facility] Comment on above: Order Comment: FASTI NG:NO FASTING: NO Performed By: #### 1 0231, 7600 #### [facility] of [address] [address] [place]per: Jacob Zavaleta MD Cholesterol in LDL [Mass/Vol] [...] LDL-C. Dima HINSON et al. BLANCA. 2013;310(19): 4025-4644 (http://education.Branded Reality/faq/ALC341) Performed By: #### 1 023, 0 #### [facility] [address], [address] [place] [address] [place]per: Jacob Zavaleta MD Cholesterol.total/C holesterol in HDL [Mass ratio] 3.2 {ratio} Normal <5.0 [facility] Comment on above: Order Comment: FASTI NG:NO FASTING: NO Performed By: #### 1 230, 0 #### [facility] [address], [address] [place] [address] [place] Helper: Jacob Zavaleta MD NON HDL CHOLESTEROL 131 mg/dL (calc) High <130 [facility] Comment on above: Order Comment: FASTI NG:NO FASTING: NO Result Comment: For patients with diabetes plus 1 major ASCVD risk factor, treating to a non-HDL-C goal of <100 mg/dL (LDL-C of <70 mg/dL) is considered a therapeutic option. Performed By: #### 1 230, 0 #### [facility] [address], [address] [place] [address] [place]per: Jacob Zavaleta MD Triglyceride [Mass/Vol] 126 mg/dL Normal <150 [facility] Comment on above: Order Comment: FASTI NG:NO FASTING: NO Performed By: #### 1 023, 7600 #### [facility] [address], [address] [place] [address] [place]per: Jacob Zavaleta MD XR foot RT min 3V*on 021 XR foot RT min 3V* [facility] Other XR foot RT min 3V* [facility] [place] [employer] Other XR foot RT min 3V* [address] [employer] Other XR foot RT min 3V* GWYN Srivastava [id number] [employer] Other XR foot RT min 3V* XRay Report [employer] Other XR foot RT min 3V* Signed [facility] Other XR foot RT min 3V* Patient: Anjali White MR#: [id number] [facility] Other XR foot RT min 3V* 0 [facility] Other XR foot RT min 3V* : 1970 Acct:[id number] [employer] Other XR foot RT min 3V* Age/Sex: 50 / F ADM Date: 12/10/20 [facility] Other XR foot RT min 3V* Loc: XDUCLY Room: Type: [facility] [employer] Other XR foot RT min 3V* Attending Dr: Kalie HARRINGTON [facility] Other XR foot RT min 3V* Ordering Provider: LEN Alvarado [employer] Other XR foot RT min 3V* Date of Service: 12/10/20 [facility] Other XR foot RT min 3V* XR/XR foot RT min 3V*: Injury of right foot, initial encounter [facility] Other XR foot RT min 3V* Copies to: LEN Alvarado [facility] Other XR foot RT min 3V* CLINICAL HISTORY: Struck right foot against treadmill this morning while walking, pain, bruising [facility] Other XR foot RT min 3V* with swelling to the distal fifth metatarsal and little toe. [facility] Other XR foot RT min 3V* XR foot RT min 3V* [facility] Other XR foot RT min 3V* COMPARISON: None [facility] Other XR foot RT min 3V* FINDINGS: AP, latera l and oblique views of the right foot were obtained. There is no evidence of [facility] Other XR foot RT min 3V* fracture, dislocatio n or bony erosion. Mild spur at the head of the first metatarsal is noted. Soft [facility] Other XR foot RT min 3V* tissue swelling is demonstrated along the lateral aspect of the fifth metatarsal and the little toe. [facility] Other XR foot RT min 3V* XR/XR foot RT min 3V* [facility] Other XR foot RT min 3V* IMPRESSION: [facility] Other XR foot RT min 3V* NO FRACTURE OR SUBLUXATION. [facility] Other XR foot RT min 3V* Impression dictated by: Niels Boyd M.D.12/10/2020 10:37 AM [facility] Other XR foot RT min 3V* Dictation Location: [facility]13 [facility] Other XR foot RT min 3V* Transcribed By: JONH 12/10/20 1037 [facility] Other XR foot RT min 3V* Dictated By: Niels Boyd MD 12/10/20 1027 [facility] Other XR foot RT min 3V* Signed By: [facility] Other XR foot RT min 3V* 12/10/[address] [place] [address] [facility] Other Vital Signs Date Time Vital Sign Value Performing Clinician Facility 11-01-2024 14:40-0400 Body mass index (BMI) [Ratio] 28.87 kg/m2 David Susie DO Work Phone: [facility] 11-01-2024 14:40-0400 Body weight 69.31 kg David Susie DO Work Phone: [facility] 11-01-2024 14:40-0400 Diastolic blood pressure 70 mm[Hg] David Susie DO Work Phone: [facility] 11-01-2024 14:40-0400 Systolic blood pressure 120 mm[Hg] David Susie DO Work Phone: [facility] 02-01-2024 09:11-0500 Body mass index (BMI) [Ratio] 27.78 kg/m2 Jessica PHAN Work Phone: [facility] 02-01-2024 09:11-0500 Body weight 66.68 kg Jessica PHAN Work Phone: [facility] 02-01-2024 09:11-0500 Diastolic blood pressure 74 mm[Hg] Jessica PHAN Work Phone: [facility] 02-01-2024 09:11-0500 Systolic blood pressure 118 mm[Hg] Jessica PHAN Work Phone: [facility] 12-20-2023 15:10-0400 Body mass index (BMI) [Ratio] 27.21 kg/m2 David Susie DO Work Phone: [facility] 12-20-2023 15:10-0400 Body weight 65.32 kg David Susie DO Work Phone: [facility] 12-20-2023 15:10-0400 Diastolic blood pressure 70 mm[Hg] David Susie DO Work Phone: [facility] 12-20-2023 15:10-0400 Systolic blood pressure 118 mm[Hg] David Susie DO Work Phone: [facility] 10-25-2023 08:43-0400 Body mass index (BMI) [Ratio] 27.02 kg/m2 David Susie DO Work Phone: [facility] 10-25-2023 08:43-0400 Body weight 64.86 kg David Susie DO Work Phone: [facility] 10-25-2023 08:43-0400 Diastolic blood pressure 72 mm[Hg] David Susie DO Work Phone: [facility] 10-25-2023 08:43-0400 Systolic blood pressure 118 mm[Hg] David Susie DO Work Phone: [facility] 10-18-2023 10:51-0400 Body height 154.9 cm Alfie Furlong DO Work Phone: [facility] 10-18-2023 10:51-0400 Body mass index (BMI) [Ratio] 27.66 kg/m2 Alfie Furlong DO Work Phone: [facility] 10-18-2023 10:51-0400 Body temperature 98.1 [degF] Alfie Furlong DO Work Phone: [facility] 10-18-2023 10:51-0400 Body weight 66.41 kg Alfie Furlong DO Work Phone: [facility] 10-18-2023 10:51-0400 Diastolic blood pressure 62 mm[Hg] Alfie Furlong DO Work Phone: [facility] 10-18-2023 10:51-0400 Heart rate 66 /min Alfie Furlong DO Work Phone: [facility] 10-18-2023 10:51-0400 SaO2% (BldA) [Mass fraction] 97 % Alfie Furlong DO Work Phone: [facility] 10-18-2023 10:51-0400 Systolic blood pressure 100 mm[Hg] Alfie Furlong DO Work Phone: [facility] 08-13-2023 10:29-0400 Body height 154.9 cm Alfie Furlong DO Work Phone: [facility] 08-13-2023 10:29-0400 Body mass index (BMI) [Ratio] 28.12 kg/m2 Alfie Furlong DO Work Phone: [facility] 08-13-2023 10:29-0400 Body temperature 98.29 [degF] Alfie Furlong DO Work Phone: [facility] 08-13-2023 10:29-0400 Body weight 67.5 kg Alfie Furlong DO Work Phone: [facility] 08-13-2023 10:29-0400 Diastolic blood pressure 60 mm[Hg] Alfie Furlong DO Work Phone: [facility] 08-13-2023 10:29-0400 Heart rate 80 /min Alfie Furlong DO Work Phone: [facility] 08-13-2023 10:29-0400 Respiratory rate 18 /min Alfie Furlong DO Work Phone: [facility] 08-13-2023 10:29-0400 SaO2% (BldA) [Mass fraction] 97 % Alfie Furlong DO Work Phone: [facility] 08-13-2023 10:29-0400 Systolic blood pressure 90 mm[Hg] Alfie Furlong DO Work Phone: [facility] 07-05-2023 15:52-0400 Body height 154.9 cm Alfie Furlong DO Work Phone: [facility] 07-05-2023 15:52-0400 Body mass index (BMI) [Ratio] 28.34 kg/m2 Alfie Furlong DO Work Phone: [facility] 07-05-2023 15:52-0400 Body temperature 98.2 [degF] Alfie Furlong DO Work Phone: [facility] 07-05-2023 15:52-0400 Body weight 68.04 kg Alfie Furlong DO Work Phone: [facility] 07-05-2023 15:52-0400 Diastolic blood pressure 60 mm[Hg] Alfie Furlong DO Work Phone: [facility] 07-05-2023 15:52-0400 Heart rate 85 /min Alfie Furlong DO Work Phone: [facility] 07-05-2023 15:52-0400 Respiratory rate 18 /min Alfie Furlong DO Work Phone: [facility] 07-05-2023 15:52-0400 SaO2% (BldA) [Mass fraction] 98 % Alfie Furlong DO Work Phone: [facility] 07-05-2023 15:52-0400 Systolic blood pressure 104 mm[Hg] Alfie Furlong DO Work Phone: [facility] 05-06-2023 11:13-0500 Body height 154.9 cm Zeina Murry APRN-OUTSIDE PLANT CABLE ENGINEER Work Phone: [facility] 05-06-2023 11:13-0500 Body mass index (BMI) [Ratio] 27.89 kg/m2 Zeina Murry AGRICULTURAL SCIENCES PROFESSOR-OUTSIDE PLANT CABLE ENGINEER Work Phone: [facility] 05-06-2023 11:13-0500 Body temperature 98.49 [degF] Zeina Murry AGRICULTURAL SCIENCES PROFESSOR-OUTSIDE PLANT CABLE ENGINEER Work Phone: [facility] 05-06-2023 11:13-0500 Body weight 66.95 kg Zeina Murry AGRICULTURAL SCIENCES PROFESSOR-OUTSIDE PLANT CABLE ENGINEER Work Phone: [facility] 05-06-2023 11:13-0500 Diastolic blood pressure 64 mm[Hg] Zeina Murry APRN-OUTSIDE PLANT CABLE ENGINEER Work Phone: [facility] 05-06-2023 11:13-0500 Heart rate 82 /min Zeina BOYDOUTSIDE PLANT CABLE ENGINEER Work Phone: [facility] 05-06-2023 11:13-0500 SaO2% (BldA) [Mass fraction] 97 % Zeina Murry APRN-OUTSIDE PLANT CABLE ENGINEER Work Phone: [facility] 05-06-2023 11:13-0500 Systolic blood pressure 90 mm[Hg] Zeina Murry APRN-OUTSIDE PLANT CABLE ENGINEER Work Phone: [facility] 12-10-2020 10:35-0400 Body height 154.94 cm Kalie Blackmond Other [employer] Other 12-10-2020 10:35-0400 Body mass index (BMI) [Ratio] 26.98 kg/m2 Kalie Blackmond Other [facility] Other 12-10-2020 10:35-0400 Body temperature 97.8 [degF] Kalie Blackmond Other [facility] Other 12-10-2020 10:35-0400 Body weight 64.77 kg Kalie Blackmond Other [facility] Other 12-10-2020 10:35-0400 Diastolic blood pressure 77 mm[Hg] Kalie Blackmond Other [facility] Other 12-10-2020 10:35-0400 Respiratory rate 18 /min Kalie Irma Other [facility] Other 12-10-2020 10:35-0400 SaO2% (BldA) [Mass fraction] 100 % Kalie Solis Other [facility] Other 12-10-2020 10:35-0400 Systolic blood pressure 113 mm[Hg] Kalie Solis Other [facility] Other Encounters Encounter Date Encounter Type Care Provider Facility Start: 11-01-2024 End: 11-01-2024 Bamboo flowsheet David Susie DO Work Phone: [facility] Start: 11-01-2024 End: 11-01-2024 Bamboo flowsheet David Susie DO Work Phone: [facility] Start: 11-01-2024 End: 11-01-2024 Patient encounter procedure David Susie DO Work Phone: [facility] Work Phone: Start: 11-01-2024 End: 11-01-2024 Periodic preventive med est patient 40-64yrs David Susie DO Work Phone: [facility] Comment on above: Well woman exam with routine gynecological exam; Breast cancer screening by mammogram; Postmenopausal state Start: 09-29-2024 End: 09-29-2024 Refill Alfie Angeles DO [facility] Start: 07-05-2024 End: 07-31-2024 Telephone encounter Rosaura Robins CMA [facility] Start: 07-03-2024 End: 07-04-2024 Refill Johnny Lee AGRICULTURAL SCIENCES PROFESSOR-WHIP SAWYER Work Phone: [facility] Start: 02-01-2024 End: 02-01-2024 Bamboo flowsheet Jessica PHAN Work Phone: [facility] Start: 02-01-2024 End: 02-01-2024 Bamboo flowsheet Jessica PHAN Work Phone: [facility] Start: 02-01-2024 End: 02-01-2024 Postop follow up visit related to original px Jessica PHAN Work Phone: [facility] Comment on above: Postop check Start: 02-01-2024 End: 02-01-2024 ambulatory JESSICA KAUFFMAN Not Available Start: 01-14-2024 End: 01-14-2024 Clinisync Result Encounter David Susie DO Work Phone: [facility] Unsolicited Start: 01-14-2024 End: 01-14-2024 Clinisync Result Encounter David Susie DO Work Phone: [facility] External [facility] Unsolicited Start: 01-14-2024 End: 01-14-2024 ambulatory Alfie Furlong DO Work Phone: [facility] Work Phone: Start: 01-14-2024 End: 01-14-2024 Departed Referred Alfie Furlong DO Work Phone: [facility] Start: 01-10-2024 End: 01-10-2024 Refill Alfie Schaefer Furlong DO Work Phone: [facility] Start: 12-20-2023 End: 12-20-2023 Office outpatient visit 15 minutes David Susie DO Work Phone: [facility] Comment on above: Pre-op examination; Thickened endometrium Start: 12-20-2023 End: 12-20-2023 Preprocedural examination done David Susie DO Work Phone: [facility] Start: 12-20-2023 End: 12-20-2023 ambulatory DAVID SUSIE Not Available Start: 12-20-2023 End: 12-20-2023 Bamboo flowsheet David Susie DO Work Phone: [facility] Start: 12-20-2023 End: 12-20-2023 Bamboo flowsheet David Susie DO Work Phone: [facility] Start: 11-17-2023 End: 11-17-2023 Phys/qhp telephone evaluation 5-10 min David Susie DO Work Phone: [facility] Comment on above: Complex cyst of left ovary Start: 10-25-2023 End: 10-25-2023 Bamboo flowsheet David Susie DO Work Phone: [facility] Start: 10-25-2023 End: 10-29-2023 Bamboo flowsheet David Susie DO Work Phone: [facility] Start: 10-25-2023 End: 10-29-2023 Clinisync Result Encounter David Susie DO Work Phone: [facility] External Department Unsolicited Start: 10-25-2023 End: 10-25-2023 Patient encounter procedure David Susie DO Work Phone: [facility] Healthcare Start: 10-25-2023 End: 10-25-2023 Periodic preventive med est patient 40-64yrs David Susie DO Work Phone: [facility] Comment on above: Well woman exam with routine gynecological exam; Osteoporosis, post-menopausal ([facility]/HCC); Breast cancer screening by mammogram; Post-menopausal bleeding; Migraine without aura and with status migrainosus, not intractable (CMS/HCC) Start: 10-25-2023 End: 10-25-2023 ambulatory DAVID SUSIE Not Available Start: 10-18-2023 End: 10-18-2023 Office outpatient visit 5 minutes Alfie Angeles DO Work Phone: [facility] Comment on above: Dysuria (Primary Dx) Start: 10-18-2023 End: 10-18-2023 ambulatory ALFIE ANGELES [facility] Start: 10-12-2023 End: 10-12-2023 ambulatory GAB THOMAS Not Available Start: 08-13-2023 End: 08-13-2023 ambulatory [facility] Start: 08-13-2023 Encounter for genera l adult medical examination without abnormal findings [facility] Start: 08-13-2023 End: 08-13-2023 Patient encounter status [facility] DO Work Phone: [facility] Work Phone: Start: 08-13-2023 End: 08-13-2023 Periodic preventive med est patient 40-64yrs [facility] DO Work Phone: [facility] Comment on above: Well adult health ch amilcar (Primary Dx); Overweight; Special screening for malignant neoplasm of colon; Other migraine without status migrainosus, not intractable; Gunn neuroma, right Start: 08-13-2023 End: 08-13-2023 ambulatory [facility] Start: 08-13-2023 Encounter for genera l adult medical examination without abnormal findings [facility] Start: 07-08-2023 End: 07-08-2023 Refcrescencio Lee AGRICULTURAL SCIENCES PROFESSOR-WHIP SAWYER Work Phone: [facility] Start: 07-05-2023 End: 07-05-2023 Office outpatient visit 25 minutes [facility] DO Work Phone: [facility] Comment on above: Depression, major, i n remission (CMS-HCC) (Primary Dx); Sinus tachycardia; Overweight; Other migraine without status migrainosus, not intractable; Mixed stress and urge urinary incontinence Start: 07-05-2023 End: 07-05-2023 ambulatory [facility] Start: 05-06-2023 End: 05-06-2023 Office outpatient visit 15 minutes Zeina Maciel Lovely AGRICULTURAL SCIENCES PROFESSOR-OUTSIDE PLANT CABLE ENGINEER Work Phone: [facility] Comment on above: Flu-like symptoms (P rimary Dx); Viral upper respiratory tract infection Start: 05-06-2023 End: 05-06-2023 ambulatory ZEINA MACIEL [facility] Start: 06-07-2022 End: 06-07-[address] ALFIE ANGELES Facility:[facility] Start: 03-13-2022 End: 03-13-[address] DAVID RICHARDS . Facility:[facility] Start: 03-12-2022 Encounter for preprocedural laboratory examination DR DAVID RICHARDS . [facility] Start: 03-10-2022 End: 03-11-[address] DAVID RICHARDS . Facility:[facility] Start: 03-10-2022 End: 03-11-2022 Encounter for preprocedural laboratory examination DR DAVID RICHARDS . Facility:[facility] Start: 03-06-2022 Encounter for preprocedural cardiovascular examination DR DAVID RICHARDS . [facility] Start: 03-02-2022 End: 03-03-[address] DAVID RICHARDS . Facility:[facility] Start: 03-02-2022 End: 03-03-2022 Encounter for preprocedural cardiovascular examination DR DAVID RICHARDS . Facility:[facility] Start: 02-04-2022 End: 02-04-2022 ambulatory LAURA MONTANO [facility] Start: 12-12-2021 End: 12-13-2021 ambulatory JOHNNY LEE Facility:[facility] Start: 11-28-2021 End: 11-29-[address] DAVID RICHARDS . Facility:[facility] Start: 09-22-2021 End: 09-22-[address] DAVID RICHARDS . Facility:[facility] Start: 12-10-2020 Office outpatient ne w 20 minutes Kalie Soils [facility] Procedures Date Procedure Procedure Detail Performing Clinician Start: 01-14-2024 ALL CBC WITH AUTO DIFF David Susie DO Work Phone: Start: 01-14-2024 [facility] PREG QUANT HCG Core y Susie DO Work Phone: Start: 10-25-2023 IGP,APTIMA HPV,AGE GDLN David Susie DO Work Phone: Start: 10-18-2023 Urnls dip stick/tabl et rgnt non-auto w/o micrscp Alfie Angeles DO Work Phone: Start: 08-13-2023 Adult depression scr eening assessment Alfie Angeles DO Work Phone: Start: 07-05-2023 Adult depression scr eening assessment Alfie Angeles DO Work Phone: Start: 05-06-2023 POCT INFLUENZA A/INF LUENZA B/SARS-COV-2 VERITOR Zeina Murry AGRICULTURAL SCIENCES PROFESSOR-OUTSIDE PLANT CABLE ENGINEER Work Phone: Start: 05-06-2023 Adult depression scr eening assessment Zeina Murry AGRICULTURAL SCIENCES PROFESSOR-OUTSIDE PLANT CABLE ENGINEER Work Phone: Start: 01-29-2023 Mammography Zeina Murry AGRICULTURAL SCIENCES PROFESSOR-[facility] Work Phone: Start: 10-20-2022 Microscopic observat ion [Identifier] in Cervix by Cyto stain Zeina Murry AGRICULTURAL SCIENCES PROFESSOR-[facility] Work Phone: Plan of Treatment Date Care Activity Detail Author Start: 11-07-2025 End: 11-07-2025 Patient encounter procedure 11/07/2025 2:00 PM EDT Procedure Visit [facility] [address] [place] [id number] David Richards DO [address] [place] [address] [facility] Start: 10-20-2025 Screening for malign ant neoplasm of cervix Pap Smear [facility] Start: 06-19-2025 DTaP,Tdap and Td Vaccines (2 - Td or Tdap) DTaP,Tdap and Td Vaccines (2 - Td or Tdap) [facility] Start: 11-01-2024 End: 11-01-2025 DXA Skeletal system Views for bone density DEXA bone density Imaging Routine Postmenopausal state Expected: 11/01/2024 (Approximate), Expires: 11/01/2025 [facility] Comment on above: Expected: 11/01/2024 (Approximate), Expires: 11/01/2025 Start: 11-01-2024 End: 01-01-2026 MG Breast - bilateral Screening Bilateral screening mammogram Imaging Routine Breast cancer screening by mammogram Expected: 11/01/2024, Expires: 01/01/2026 [facility] Work Phone: Comment on above: Expected: 11/01/2024 , Expires: 01/01/2026 Start: 11-01-2024 End: 11-01-2024 Patient encounter procedure [facility] Comment on above: Arrived Start: 10-30-2024 Influenza vaccination Influenza Vacc ine [facility] Start: 10-17-2024 Adult BMI Screening Adult BMI Screen ing [facility] Start: 08-12-2024 Adult BMI Screening Adult BMI Screen ing [facility] Start: 08-12-2024 Depression Screening Depression Scre ening [facility] Start: 08-12-2024 Tobacco Screening Tobacco Screening [facility] Start: 07-04-2024 Adult BMI Screening Adult BMI Screen ing [facility] Start: 07-04-2024 Depression Screening Depression Scre ening [facility] Start: 07-04-2024 Tobacco Screening Tobacco Screening [facility] Start: 05-05-2024 Adult BMI Screening Adult BMI Screen ing [facility] Start: 05-05-2024 Depression Screening Depression Scre ening [facility] Start: 05-05-2024 Tobacco Screening Tobacco Screening [facility] Start: 02-01-2024 End: 02-01-2024 Patient encounter procedure 02/01/2024 8:50 AM EST Office Visit [facility] [address] [place] [address] Jessica Kauffman PA [address] [place], [place] [id number] Arrived [facility] Comment on above: Arrived Start: 01-30-2024 Screening for malign ant neoplasm of breast Mammogram [facility] Start: 12-20-2023 End: 12-20-2023 Patient encounter procedure 12/20/2023 2:30 PM EDT Consult [facility] [address] [place] [id number] David Richards, DO [address] [place], [place] [id number] Arrived [facility] Comment on above: Arrived Start: 12-20-2023 End: 12-20-2023 Patient encounter procedure 12/20/2023 1:20 PM EDT Consult [facility] [address] [place] [address] David Richards, DO [address] [place], [place] [id number] [facility] Start: 11-24-2023 End: 11-24-2023 Patient encounter procedure 11/24/2023 1:15 PM EDT Office Visit [facility] [address] [place] [id number] Gab Thomas, DPM [address] [place], [place] [id number] [facility] Start: 11-17-2023 End: 11-16-2024 US for US PELVIS-TRANSVAG IF INDICATED Imaging Routine Complex cyst of left ovary Expected: 11/17/2023 (Approximate), Expires: 11/16/2024 [facility] Work Phone: Comment on above: Expected: 11/17/2023 (Approximate), Expires: 11/16/2024 Start: 11-08-2023 End: 11-08-2023 Professional / ancillary services management 11/08/2023 8:30 AM EDT Ancillary Procedure [facility] [address] [place] [address] [facility] Start: 10-31-2023 Influenza vaccination Influenza Vacc ine [facility] Start: 10-25-2023 End: 10-24-2024 US for US PELVIS-TRANSVAG IF INDICATED Imaging Routine Post-menopausal bleeding Expected: 10/25/2023 (Approximate), Expires: 10/24/2024 [facility] Comment on above: Expected: 10/25/2023 (Approximate), Expires: 10/24/2024 Start: 10-25-2023 End: 10-25-2023 Patient encounter procedure 10/25/2023 8:30 AM EDT Office Visit [facility] [address] [place] [address] David Richards DO [address] [place] [address] Arrived [facility] Comment on above: Arrived Start: 08-13-2023 End: 08-13-2023 Patient encounter procedure 08/13/2023 10:30 AM EDT [facility] [address] [place] [address] Alfie Angeles, DO [address], [place] [address] [facility] Start: 07-28-2023 Administration of varicella zoster vaccine Zoster (Shingles) Vaccine (1 of 2) [facility] Comment on above: Postponed from 04/08 (Patient Refused) Start: 07-28-2023 Screening for malign ant neoplasm of colon Colonoscopy [facility] Comment on above: Postponed from 04/08 (Patient Refused) Start: 10-30-2022 Influenza vaccination Influenza Vacc ine [facility] Start: 2022 Administration of varicella zoster vaccine Zoster (Shingles) Vaccine (1 of 2) [facility] Start: 2017 Screening for malign ant neoplasm of colon Colonoscopy [facility] Start: 1990 Adult BMI Follow Up Plan Adult BMI F ollow Up Plan [facility] Cologuard [facility] Lab Routine Special screening for malignant neoplasm of colon Ordered: 08/13/2023 [facility] Work Phone: Comment on above: Ordered: 08/13/2023 THIN PREP TIS PAP AN D HR HPV DNA THIN PREP TIS PAP AND HR HPV DNA Pathology and Cytology Routine Well woman exam with routine gynecological exam Ordered: 10/25/2023 [facility] [employer] Work Phone: Comment on above: Ordered: 10/25/2023 THIN PREP TIS PAP AN D HR HPV DNA THIN PREP TIS PAP AND HR HPV DNA Pathology and Cytology Routine Well woman exam with routine gynecological exam Ordered: 11/01/2024 [facility] Comment on above: Ordered: 11/01/2024 Immunizations Immunization Date Immunization Notes Care Provider Alan grant 06-20-2015 tetanus toxoid, redu brinda diphtheria toxoid, and acellular pertussis vaccine, adsorbed Zeina Murry AGRICULTURAL SCIENCES PROFESSOR-OUTSIDE PLANT CABLE ENGINEER Work Phone: [facility] Payers Date Payer Category Payer Self-pay 2022 Commercial [employer] are - PPO [employer] Member Subscriber Plan / Payer (Effective 2022-Present) Name: Anjali White Relation to Subscriber: Self Name: Anjali White Payer ID: Not on file Type: Not on file Address: [place] [id number] 2022 Private Health Insurance [employer] [id number] 2022 Unknown [id number]. [id number] 1972 Unknown [id number] 2.16.840.1.007458.3.579.2. 593 1972 Unknown [id number] 2.16.840.1.593952.3.579.2. 593 1972 Unknown [id number] 2.16.840.1.930174.3.579.2. 593 1972 Unknown [id number] 2.16.840.1.875556.3.579.2. 593 1972 Unknown [id number] 2.16.840.1.795930.3.579.2. 593 1972 Unknown [id number] 2.16.840.1.144734.3.579.2. 593 1972 Unknown [id number] 2.16.840.1.882596.3.579.2. 593 1972 Unknown [id number] 2.16.840.1.985961.3.579.2. 1286 1972 Unknown [id number] 2.16.840.1.813255.3.579.2. 1286 1972 Unknown [id number] 2.16.840.1.997971.3.579.2. 1286 1972 Unknown [id number] 2.16.840.1.545774.3.579.2. 1286 1972 Unknown [id number] 2.16.840.1.943660.3.579.2. 1286 1972 Unknown [id number] 2.16.840.1.460593.3.579.2. 1259 1972 Unknown [id number] 2.16.840.1.477128.3.579.2. 1259 1972 Unknown [id number] 2.16.840.1.087679.3.579.2. 1259 1972 Unknown [id number] 2.16.840.1.263818.3.579.2. 1259 1959 Unknown [id number] 2.16.840.1.017319.19 Unknown [id number] 2.16.840.1.940590.3.579.2. 531 Social History Date Type Detail Facility Start: 10-25-2023 End: 12-20-2023 Sex Assigned At [facility] Start: 03-24-2022 End: 10-15-2022 Tobacco smoking status KYIS Never smoked tobacco [facility] Start: 03-24-2022 End: 10-15-2022 Tobacco use and exposure Smokeless tobacco non-user [facility] Start: 10-25-2023 End: 11-01-2024 Alcoholic beverage intake Lifetime non-drinker (finding) [facility] Start: 10-25-2023 End: 12-20-2023 History of Social function [facility] Start: 1970 Sex assigned at Female [facility] Start: 10-19-2022 Gender identity Identifies as female gender (finding) [facility] Tobacco smoking stat us KYIS Unknown if ever smoked [facility] Work Phone: Start: 10-04-2014 End: 01-18-2024 Sex Female (finding) [facility] Start: 07-05-2023 End: 01-18-2024 Alcoholic beverage intake Current drinker of alcohol (finding) [facility] How hard is it for y ou to pay for the very basics like food, housing, medical care, and heating Not hard at all [facility] Start: 1970 Sex assigned at Not on file P [facility] Has the [employer], [employer], or [employer] threatened to shut off services in your home in past 12Mo No [facility] Are you now , , , , never or living with a partner? [facility] How often to you hav e a drink containing alcohol? 2-4 times a month [facility] How many standard drinks containing alcohol do you have on a typical day? 1 or 2 [facility] How often do you hav e 6 or more drinks on 1 occasion? 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 female who presents for [facility] Visit Patient presents today for Annual Exam. MEDICATIONS Current Outpatient Medications Medication Instructions sfmvuki-foxlfracsmuzc-[id number] (Excedrin Migraine) 250-250-65 MG tablet 1 tablet, [...] nursing note reviewed. Exam conducted with a electrical hardware engineer present. Vitals: Estimated body mass index is 28.87 kg/m as calculated from the following: Height as of 10/12/23: 5' 1 . Weight as of this [...] Genia Maria NP documented in this encounter [facility] 09-29-2024 Miscellaneous Notes Rx sent in. She is due for her yearly wellness anytime documented in this encounter [facility] 09-29-2024 Telephone encounter Note Rx sent in. She is due for her yearly wellness anytime [facility] 07-05-2024 Miscellaneous Notes Patient was called and told she was due for a wellness in July. LM TO CB documented in this encounter [facility] 07-05-2024 Telephone encounter Note Patient was called and told she was due for a wellness in July. [facility] 07-05-2024 Telephone encounter Note LM TO CB [facility] 07-03-2024 Miscellaneous Notes refill Rx sent in. She is due for a wellness after 08/12/24 documented in this encounter [facility] 07-03-2024 Telephone encounter Note refill [facility] 07-03-2024 Telephone encounter Note Rx sent in. She is due for a wellness after 08/12/24 [facility] 02-01-2024 History of Presen t illness Narrative Reason for Appointment: Patient ID: Anjali White is a 53 y.o. female who presents for Post-op Visit Patient presents today for 1 Week Post Op Follow Up appointment. MEDICATIONS Current Outpatient Medications Medication Instructions Calcium Carb-Cholecalciferol (Calcium 1000 + D) 1000-20 MG-MCG tablet metoprolol succinate XL (Toprol-XL) 25 MG 24 [...] SYSTEMS Review of Systems: Review of Systems OBJECTIVE Objective: OBGyn Exam Vitals: Estimated body mass index is 27.78 kg/m as calculated from the following: Height as of 10/12/23: 5' 1 . Weight as of this encounter: 147 lb. BP: 118/74 No LMP recorded. Patient is premenopausal. ASSESSMENT & PLAN ICD-10-CM 1. Postop check Z09 Post Op Follow Up: Patient presents today for a postop follow up after having a D&C Hysteroscopy performed at [facility] with Dr. Richards. Pathology results was reviewed with the patient in great detail and all restrictions have been lifted. Follow Up: Patient is to return to the office for annual exam unless needed otherwise. Documented by SYLVESTER Givens on behalf of: SYLVESTER Givens documented in this encounter [facility] 12-20-2023 History of Presen t illness Narrative Reason for Appointment: Patient ID: Anjali White is a 53 y.o. female who presents for Pre-op Visit Patient presents today for Pre Op appointment. Patient is scheduled to undergo D&C Hysteroscopy, possible Myosure on 01/14/[address] Richards at [facility]. MEDICATIONS Current Outpatient Medications Medication Instructions Calcium [...] nursing note reviewed. Exam conducted with a electrical hardware engineer present. Vitals: Estimated body mass index is [...] reviewed, and patient is to proceed to [facility] OR. Follow Up: Patient is to follow up between 1-2 weeks post operative to assess proper healing and recovery from procedure. Documented by Ayesha Acharya LPN on behalf of: David Richards DO documented in this encounter [facility] 11-17-2023 History of Presen t illness Narrative Reason for Appointment: Patient ID: Anjali White is a 53 y.o. female who presents for Telehealth and Left ovarian CYst Patient presents today via telephone call for a telehealth appointment. Patients Phone #: [phone] (mobile) Current Medications: has a current medication list which includes the following prescription(s): calcium 1000 + d, magnesium oxide, magnesium oxide, metoprolol succinate xl, naproxen, sertraline, and ubrelvy. Medical History: Active Ambulatory Problems Diagnosis Date Noted Nonintractable episodic headache 10/20/2022 Resolved Ambulatory Problems Diagnosis Date Noted No Resolved Ambulatory Problems Past Medical History: Diagnosis Date Anxiety Depression (CMS/HCC) Multiple pulmonary nodules Sinus tachycardia Family History Problem Relation Name Age of Onset Heart disease Father Social History Tobacco Use Smoking status: Never Smokeless tobacco: Never Vaping Use Vaping status: Never Used Substance Use Topics Alcohol use: Never Drug use: Never Past Surgical History: Procedure Laterality Date BREAST BIOPSY Left SECTION, LOW TRANSVERSE 2014 DILATION AND CURETTAGE OF UTERUS MOUTH SURGERY PAP SMEAR 09/22/2021 negative SALPINGECTOMY Bilateral 03/13/2022 laparoscopic No Known Allergies Vitals: Estimated body mass index is 27.02 kg/m as calculated from the following: Height as of 10/12/23: 5' 1 . Weight as of 10/25/23: 143 lb. BP: No LMP recorded. Patient is premenopausal. Assessment/Plan Encounter Diagnosis Name Primary? Complex cyst of left ovary Pt was called and US reviewed with pt- left ovarian complex cyst seen on ultrasound- endometrial thickness at 9mm noted as well. Pt to have ultrasound repeated in 6 weeks and will be scheduled for D&C hysteroscopy poss myosure in the beginning of December. Today's telehealth visit consisted of spending 10 minutes talking to patient on the phone. Documented by Bibiana Quesada LPN on behalf of: David Richards DO documented in this encounter [facility] 10-25-2023 History of Presen t illness Narrative Reason for Appointment: Patient ID: Anjali White is a 53 y.o. female who presents for Gynecologic Exam Patient presents today for Annual Exam. MEDICATIONS Current Outpatient Medications Medication Instructions Calcium Carb-Cholecalciferol (Calcium 1000 + D) 1000-20 MG-MCG tablet magnesium oxide (Mag-Ox) 400 MG tablet take 1 tablet by mouth every morning before meals meloxicam (MOBIC) 15 mg, Oral, Daily metoprolol succinate XL (Toprol-XL) 25 MG 24 [...] SYSTEMS Review of Systems: Review of Systems All other systems reviewed and are negative. OBJECTIVE Objective: Physical Exam Constitutional: Appearance: Normal appearance. She is well-developed. Genitourinary: Vulva normal. Breasts: Breasts are soft. Right: Normal. Left: [...] nursing note reviewed. Exam conducted with a electrical hardware engineer present. Vitals: Estimated body mass index is 27.02 kg/m as calculated from the following: Height as of 10/12/23: 5' 1 . Weight as of this encounter: 143 lb. BP: 118/72 No LMP recorded. Patient is premenopausal. ASSESSMENT & PLAN ICD-10-CM 1. Well woman exam with routine gynecological exam Z01.419 THIN PREP TIS PAP AND HR HPV DNA 2. Osteoporosis, post-menopausal ([facility] M81.0 CANCELED: DEXA bone density 3. Breast cancer screening by mammogram Z12.31 CANCELED: Bilateral screening mammogram CANCELED: Bilateral screening mammogram Annual: Patient presents today for an annual exam. Patient states she is doing well and complaints of cycle in July of this year. Patient voiced that is lasted a week and was painful. Discussed pain management and if this continues to reach out to office if patient desires to have Endometrial ablation. Will order endometrial Stripe with Ultrasound for reassurance. Pap was obtained without difficulty and patient given mammogram order to have scheduled/obtained. Discussed Magnesium Oxide to help with headaches. Follow Up: Patient is to return in one year for annual unless needed otherwise. Documented by Ayesha Acharya LPN on behalf of: David Richards DO documented in this encounter [facility] 10-18-2023 History of Presen t illness Narrative Subjective Patient ID: Anjali White is a 53 y.o. female. Patient thinks she has a urinary tract infection Urinary Tract Infection The current episode started in the past 7 days. The problem occurs every urination. The problem has been unchanged. She has tried nothing for the symptoms. The following portions of the patient's history were reviewed and updated as appropriate: allergies, current medications, past family history, past medical history, past social history, past surgical history, problem list, and medication reconciliation was completed including current medication and post discharge medication. Review of Systems Objective Physical Exam Assessment/Plan Anjali was seen today for urinary tract infection. Diagnoses and all orders for this visit: Dysuria - POCT urinalysis dipstick only Urinalysis suggests a urinary tract infection. We will treat with Macrobid twice a day for 5 days. documented in this encounter [facility] 08-13-2023 History of Presen t illness Narrative Images from the original note were not included. Subjective Patient ID: Anjali White is a 53 y.o. female. Roger presents today for her annual wellness. She has a new problem. She had the pain on the bottom of her right foot between errors 2nd and 3rd toes. Feels like she has walking on a stone at times. If she hits it just right it will hurt for the rest of the day. She saw head bookkeeper a while back when she stubbed her toe. They took an x-ray of it and he squeezed her for foot so hard that it started hurting that day. It has been off and on since but getting worse lately. Otherwise she is doing well. She is taking her medications. The sertraline is doing great . She wants to continue it at its current dose. She does not want to go back to the depression that she had. She was not suicidal but she said it was bad. She did go see a surgeon about having a colonoscopy last year but then his office called and canceled it. She said he is no longer doing those procedures anymore at [place]. They were going to refer to someone else but never did. She does not have any GI symptoms. She has relatives with colon cancer but no first-degree relatives such as a parent or sibling. The following portions of the patient's history were reviewed and updated as appropriate: allergies, current medications, past family history, past medical history, past social history, past surgical history, problem list, and medication reconciliation was completed including current medication and post discharge medication. Review of Systems Objective Physical Exam Exam conducted with a electrical hardware engineer present (Paulo Lenz MS III). Constitutional: General: She is not in acute distress. Appearance: She is overweight. HENT: Head: Normocephalic. Eyes: General: No scleral icterus. Extraocular Movements: Extraocular movements intact. Conjunctiva/sclera: Conjunctivae normal. Neck: Vascular: No carotid bruit. Cardiovascular: Rate and Rhythm: Normal rate and regular rhythm. Pulses: Normal pulses. Heart sounds: Normal heart sounds. No murmur heard. Pulmonary: Effort: Pulmonary effort is normal. No respiratory distress. Breath sounds: Normal breath sounds. No wheezing, rhonchi or rales. Abdominal: General: Bowel sounds are normal. Palpations: Abdomen is soft. Tenderness: There is no abdominal tenderness. Musculoskeletal: Cervical back: Neck supple. Right lower leg: No edema. Left lower leg: No edema. Right foot: Normal range of motion. No deformity or bunion. Feet: Feet: Right foot: Skin integrity: Skin integrity normal. Toenail Condition: Right toenails are normal. Comments: Tenderness between 2nd and 3rd metatarsal heads Lymphadenopathy: Cervical: No cervical adenopathy. Skin: General: Skin is warm. Neurological: General: No focal deficit present. Mental Status: She is alert and oriented to person, place, and time. Psychiatric: Mood and Affect: Mood normal. Behavior: Behavior normal. Thought Content: Thought content normal. Judgment: Judgment normal. Assessment/Plan Anjali was seen today for annual exam. Diagnoses and all orders for this visit: Well adult health check - Comprehensive metabolic panel; Future - Lipid panel; Future Health maintenance discussed. Check CMP and lipids Overweight She is overweight. She would benefit from weight loss. Diet exercise and weight loss discussed and encouraged. Special screening for malignant neoplasm of colon - Cologuard Non[facility] We discussed checking colon cancer with colonoscopy and Cologuard. She agreed to the Cologuard. She would pursue further evaluation with a colonoscopy if needed. Other migraine without status migrainosus, not intractable - ubrogepant (UBRELVY) 100 mg tablet; Take 100 mg by mouth daily as needed (migraine). She used Ubrelvy in the past with great benefit. She had 10 pills but was told that it would not be covered under her insurance although she did not pay anything for it. She would like to try it again. Sample given. She will check with insurance and I can send it in if she would like. Luis A neuroma, right I recommend that she go back to the head bookkeeper for a probable neuroma. She said she would. documented in this encounter [facility] 07-05-2023 History of Presen t illness Narrative Subjective Patient ID: Anjali White is a 53 y.o. female. Anjali is here to recheck multiple problems. She is taking sertraline for depression. It was increased recently to 100 mg. She is doing great . She is really happy with her improvement. She would like to continue. Live live things do not bother her at work or at home like they used to. She has much more patience then she used to. It is improving her quality of life. She has not having any side effects. He has not had any recent headaches. She is taking the magnesium and it is working well. She has not had any recent tachycardia issues. She is taking the metoprolol daily and not having any side effects. She is also had occasional urinary incontinence. She was told by a urologist that she had both types of incontinence. It isn't that common but it does occur. The following portions of the patient's history were reviewed and updated as appropriate: allergies, current medications, past family history, past medical history, past social history, past surgical history, problem list, and medication reconciliation was completed including current medication and post discharge medication. Review of Systems Constitutional: Negative. HENT: Negative. Respiratory: Negative. Cardiovascular: Negative. Gastrointestinal: Negative. Endocrine: Negative. Genitourinary: Positive for difficulty urinating (Her being was told she had mixed urinary incontinence by urologist years ago). Musculoskeletal: Negative. Neurological: Positive for headaches (no recent migraine). Psychiatric/Behavioral: Negative. Doing great on medication Objective Physical Exam Exam conducted with a electrical hardware engineer present (Dale Vasques [facility]). Constitutional: General: She is not in acute distress. Appearance: She is overweight. She is not ill-appearing. HENT: Head: Normocephalic. Eyes: General: No scleral icterus. Extraocular Movements: Extraocular movements intact. Conjunctiva/sclera: Conjunctivae normal. Cardiovascular: Rate and Rhythm: Normal rate and regular rhythm. Pulses: Normal pulses. Heart sounds: Normal heart sounds. No murmur heard. Pulmonary: Effort: Pulmonary effort is normal. No respiratory distress. Breath sounds: Normal breath sounds. No wheezing, rhonchi or rales. Musculoskeletal: Cervical back: Neck supple. Right lower leg: No edema. Left lower leg: No edema. Lymphadenopathy: Cervical: No cervical adenopathy. Skin: General: Skin is warm. Neurological: General: No focal deficit present. Mental Status: She is alert and oriented to person, place, and time. Psychiatric: Mood and Affect: Mood normal. Behavior: Behavior normal. Thought Content: Thought content normal. Judgment: Judgment normal. Assessment/Plan Anjali was seen today for medication review. Diagnoses and all orders for this visit: Depression, major, in remission (CMS-HCC) She is doing great on medication. She would like to continue. We did discuss trying to wean her off but she does not want to do that. Risks and benefits of medication discussed. Sinus tachycardia Stable. Continue current regimen Overweight She is overweight. She would benefit from weight loss. She was interested in GLP-1 medications but she does not have any cardiovascular risks as she is under 30% BMI. Diet exercise and weight loss discussed and encouraged. Other migraine without status migrainosus, not intractable Doing well. Continue current regimen Urinary incontinence Discussed different treatment regimens such as medications and botox. She will think about it. Other orders - Discontinue: metoprolol succinate XL (TOPROL XL) 25 mg 24 hr tablet; Take 1 tablet (25 mg total) by mouth in the morning. - metoprolol succinate XL (TOPROL XL) 25 mg 24 hr tablet; Take 1 tablet (25 mg total) by mouth in the morning. [facility] History of Presen t illness Narrative Subjective Patient ID: Anjali White is a 53 y.o. female. Onset [...] Thought content normal. Judgment: Judgment normal. Assessment/Plan Anjali was seen today for sore throat, cough [...] well, no active wheezing noted on exam Zeina Maciel KAY Murry 05/06/23 1223 documented in this encounter [facility] 03-13-2022 Note OPERATIVE NOTE OPERATION DATE: 03/13/2022 PROCEDURE: Bilateral laparoscopic salpingectomy. PREOPERATIVE DIAGNOSIS: Multiparity, desires permanent sterilization. POSTOPERATIVE DIAGNOSIS: Multiparity, desires permanent sterilization. ANESTHESIA: General. SURGEON: David Richards D.O. CHARCOAL UNLOADER: UCHE Bynum URINE OUTPUT: Yellow and clear. [...] and needle counts were correct x2. [facility] 02-04-2022 Note SVT and palpitations are well controlled with toprol, no concerning symptoms, continue to maintain adequate hydration. Continue toprol RTC 1 year or as needed [facility] 02-04-2022 Note UTP CARDIOLOGY PROGR ESS NOTE HPI: Anjali White is a 51 y.o. female here [...] toprol RTC 1 year or as needed [facility] 12-10-2020 Evaluation note Encounter Date Diagnosis Assessment [...] Tylenol or ibuprofen as needed for pain. Synerscope Other Evaluation note* Diagnosis Pre-op examination Thickened endometrium Nonspecific (abnormal) findings on radiological and other examination of genitourinary organs documented in this encounter [facility] HealthcareEvaluation noteNo assessment information availableMercy Hospital Work Phone: Evaluation note* Diagnosis Postop check Follow-up examination, following unspecified surgery documented in this encounter [facility] HealthcareEvaluation note* Diagnosis Complex cyst of left ovary documented in this encounter [facility] HealthcareEvaluation note* Diagnosis Well woman exam with routine gynecological exam Routine gynecological examination Osteoporosis, post-menopausal (CMS/HCC) Senile osteoporosis Breast cancer screening by mammogram Post-menopausal bleeding Postmenopausal bleeding Migraine without aura and with status migrainosus, not intractable (CMS/HCC) documented in this encounter [facility] HealthcareEvaluation note* Diagnosis Depression, major, in remission (CMS-HCC)- Primary Sinus tachycardia Other specified cardiac dysrhythmias Overweight Other migraine without status migrainosus, not intractable Mixed stress and urge urinary incontinence Mixed incontinence urge and stress (male)(female) [facility] Diagnosis Well adult health check- Primary Unspecified general medical examination Overweight Special screening for malignant neoplasm of colon Special screening for malignant neoplasms, colon Other migraine without status migrainosus, not intractable Gunn neuroma, right [facility]* Diagnosis Flu-like symptoms- Primary Viral upper respiratory tract infection Acute upper respiratory infections of unspecified site [facility]* Diagnosis Dysuria- Primary documented in this encounter [facility] SystemEvaluation note* Diagnosis Well woman exam with routine gynecological exam Routine gynecological examination Breast cancer screening by mammogram Postmenopausal state Asymptomatic postmenopausal status (age-related) (natural) documented in this encounter [facility] HealthcareHistory general Narrative - Reported* Type Description Date Medical History tachycardia Surgical History D&C Surgical History wisdom teeth extract Surgical History x1 Hospitalization History see above Synerscope Other InstructionsNot on filedocumented in this encounter [facility] this [facility] filedocumented in this [facility] on filedocumented in this [facility] filedocumented in this [facility] filedocumented in this [facility] Summary Purpose Family History Relationship Condition Age at Onset Recorded Date/T noble father Hypertension Unknown Heart disease Unknown Advance Directives Advance Directive Response Recorded Date/ Time Advance Directives No December 17, 2020 12:24pm Additional Source Comments INFORMATION SOURCE (unrecogn ized section and content) DATE CREATED AUTHOR 08/23/2021 [facility] DATE CREATED AUTHOR AUTHOR'S ORGANIZ ATION 02/05/2022 [facility] DATE CREATED AUTHOR AUTHOR'S ORGANIZ ATION 06/09/2022 [facility] DATE CREATED AUTHOR AUTHOR'S ORGANIZ ATION 08/15/2023 [facility] DATE CREATED AUTHOR AUTHOR'S ORGANIZ ATION 10/19/2023 [facility] DATE CREATED AUTHOR AUTHOR'S ORGANIZ ATION 01/19/2024 [facility] DATE CREATED AUTHOR AUTHOR'S ORGANIZ ATION 02/02/2024 [facility] EPIC REASON FOR VISIT (unrecogniz ed section and content) Reason Comments Pre-op Visit Reason Comments Post-op Visit Reason Comments Telehealth Left ovarian CYst Reason Comments Gynecologic Exam Reason Comments medication review Reason Comments Med Refill Reason Comments Annual Exam Reason Comments Sore Throat Cough Chest congestion Earache Reason Comments Urinary Tract Infection Frequency,Lower abd pressure x1 week Reason Comments Well Women Visit Care Teams (unrecognized sec tion and content) Informaticist Relationship Specialty Start Date End Date Alfie Angeles MD [address] [place] [address] PCP - General 10/19/22 Informaticist Relationship Specialty Start Date End Date Alfie Angeles MD [address] [place] [address] PCP - General 10/19/22 Team Status: Active Member Role Status Dates Alfie Angeles DO Primary Care Provider Active Team Status: Inactive Member Role Status Dates Alfie Angeles DO Primary Care Provider Active Start: January 14, 2024 End: January 14, 2024 David Richards DO Attending Provider Active Start : January 14, 2024 End: January 14, 2024 Informaticist Relationship Specialty Start Date End Date Alfie Angeles MD [address] [place] [address] PCP - General 10/19/22 Informaticist Relationship Specialty Start Date End Date Alfie Angeles MD [address] [place] [address] PCP - General 10/19/22 Informaticist Relationship Specialty Start Date End Date Alfie Angeles MD [address] [place] [address] PCP - General 10/19/22 Informaticist Relationship Specialty Start Date End Date Alfie Angeles MD [address] [place] [address] PCP - General 10/19/22 Informaticist Relationship Specialty Start Date End Date Alfie Angeles MD [address] [place] [address] PCP - General 10/19/22 Informaticist Relationship Specialty Start Date End Date Alfie Angeles DO [address] [place] [address] PCP - General Family Medicine 12/07/22 Informaticist Relationship Specialty Start Date End Date Claudia Alfie G, [address] [place] [address] PCP - General Family Medicine 12/07/22 Informaticist Relationship Specialty Start Date End Date Claudia Alfie G, [address], [place] [address] PCP - General Family Medicine 12/07/22 Informaticist Relationship Specialty Start Date End Date Claudia Alfie Schaefer [address], [place] [address] PCP - General Family Medicine 12/07/22 Informaticist Relationship Specialty Start Date End Date Claudia Alfie Schaefer [address], [place] [address] PCP - General Family Medicine 12/07/22 Informaticist Relationship Specialty Start Date End Date Alfie Angeles [address], [place] [address] PCP - General Family Medicine 12/07/22 Informaticist Relationship Specialty Start Date End Date Alfie Angeles DO [address], [place] [address] PCP - General Family Medicine 12/07/22 Informaticist Relationship Specialty Start Date End Date Alfie Angeles MD PCP - General 10/19/22 Informaticist Relationship Specialty Start Date End Date Alfie Angeles MD PCP - General 10/19/22 Goals (unrecognized section and content) Goals may be documented in a n alternate section FOR RECORDS PERTAINING TO PATIENTS WHO ARE [...] BE BASED ON THE PRIMARY CLINICAL RECORDS. [facility] [place] [employer] [facility] provides no warranty or guarantee of the accuracy or completeness of information in this document.
[2024-11-05 08:39] LABS: Age Gdln ACOG Testing Note (.); IGP, Aptima HPV, rfx 16/18,45 Note (.)
== END 2024-11-01 20:07 | disposition home or self-care (01) ==
LOC: LAB 20:06
PROVIDERS: PCP Family Medicine; Visit Provider Nurse Practitioner Family
DX: Z01.419 Encounter for gynecological examination (general) (routine) without abnormal findings (principal)
CPT/HCPCS: 87624; 88175

== ENCOUNTER 2024-11-10 13:58 | Outpatient (OUT) | payer OTHER, SELFPAY ==
--- OUTSIDE RECORDS SUMMARY | 2024-11-10 14:06 | XMS_ITS | CCD ---
Author Organization 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 Name Role Phone Kalie Solis Unavailable LAURA [...] SUSIE ., DR SARAVIA Consulting Unavailable ROSA, RANDI Admitting Unavailable ROSA, RANDI Attending Unavailable FURLOMARIAJOSE, DR ALFIE Schaefer Primary Care Unavailable ROSA, RANDI Consulting Unavailable SUSIE ., DR SARAVIA Admitting Unavailable SUSIE ., DR SARAVIA Attending Unavailable FURLONG, DR ALFIE Schaefer Primary Care Unavailable DERRY, DR JOSY Cameron Consulting Unavailable SUSIE ., DR SARAVIA Consulting Unavailable ALFIE ANGELES Referring Unavailable CLAUDIA, ALFIE Schaefer Primary Care Unavailable ZEINA MURRY Attending Unavailable FURLOALFIE PAIGE Referring Unavailable FURLOMARIAJOSE, ALFIE Schaefer Primary Care Unavailable FURLONG, ALFIE Schaefer Attending Unavailable CLAUDIA, ALFIE Schaefer Referring Unavailable CLAUDIA, ALFIE Schaefer Primary Care Unavailable JESÚSNG, ALFIE Schaefer Attending Unavailable BONIFACIOLONG, ALFIE Schaefer Referring Unavailable FURLONG, ALFIE Silvano Primary Care Unavailable BONIFACIOLONG, ALFIE Silvano Referring Unavailable BONIFACIOTESSYNG, ALFIE Silvano Primary Care Unavailable CLAUDIA, ALFIE Schaefer Attending Unavailable Alfie Angeles MD Primary Care Provider [phone] Alfie Angeles DO Primary Care Provider [phone] David Richards DO Attending Provider Claudia, Alfie Primary Care Unavailable David Richards Attending Unavailable David Richards Admitting Unavailable Alfie Angeles DO Primary Care Provider Alfie Angeles DO Primary Care Provider [phone] Alfie Angeles MD Primary Care Provider [phone] DAVID RICHARDS Attending Unavailable DAVID RICHARDS Attending Unavailable JESSICA KAUFFMAN Attending Unavailable Medications Current Medications Medication Drug Class(es) Dates Sig (Normalized) Sig (Original) acetaminophen 250 mg / aspirin 250 mg / caffeine 65 mg oral tablet (3 sources) Platelet Aggregation Inhibitor, Nonsteroidal Anti-inflammatory Drug, Central Nervous System Stimulant, Methylxanthine take 1 tablet by mouth every six hours as needed for headache aspirin-acetamin ophen-caffeine (Excedrin Migraine) 250-250-65 MG tablet Take 1 tablet by mouth every 6 (six) hours if needed for headaches Active Calcium Carb-Cholecalciferol (Calcium 1000 + D) 1000-20 MG-MCG tablet (16 sources) Start: 03-01-2023 Calcium Carb-Cholecalcif mariana (Calcium 1000 + D) 1000-20 MG-MCG tablet 03/01/2023 Active 12 hr dextromethorphan hydrobromide 30 mg / guaiFENesin 600 mg extended release oral tablet (1 source) Uncompetitive J-hsxvoq-O-aspartate Receptor Antagonist, Sigma-1 Agonist Start: 05-06-2023 End: [...] sulfate 120 mg extended release oral tablet (3 sources) alpha-Adrenergic Agonist take 1 tablet by mouth once in the morning, then take 1 tablet by mouth every twelve hours at bedtime loratadine-pseudoephedrine ER (Claritin-D 12-hour) 5-120 MG 12 hr tablet Take 1 tablet by mouth in the morning and 1 tablet before bedtime. Do not crush, chew, or split. Active magnesium oxide 400 mg oral tablet (20 sources) Star t: 10-0 8- 23 End: 11-30 24 magnesium oxide (MAGOX) [...] tablet (20 sources) beta-Adrenergic Pancho Star t: 05-0 08-18 24 End: 12-30 24 metoprolol succinate XL (TOPROL XL) 25 mg 24 hr tablet TAKE 1 TABLET IN THE MORNING 90 tablet 3 01/10/2024 Active Start: 04-28-2022 metoprolol suc cinate XL (Toprol-XL) 25 MG 24 hr tablet 1 (one) time each day at the same time. 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 [facility] Comment on above: TESTS RESULT FLAG UN ITS REF RANGE LAB Clinician Provided Cytology Information Source.............Cervix;Endocervix No. of containers..01 ThinPrep Vial Age Algo ACOG Mackenzie... FLAG LEGEND: L-Low Normal,H-High Normal,LL-Alert Low,HH-Alert High <-Panic Low,>-Panic High,A-Abnormal,AA-Critical Abnormal Performed at: 01 =G [address] [address] Mariana Sanchez MD, HPV APTIMA Negative Negative [facility] Comment on above: This nucleic acid am plification test detects fourteen high- risk HPV types (16,18,31,33,35,39,45,51,52,56,58,59,66,68) without differentiation. Performed at: = - [address] [id number] Medical Asst: Mariana Sanchez MD, Phone: [phone] Performed at: - [address] [id number] Medical Asst: Mariana Sanchez MD, Phone: [phone] IGP, APTIMA HPV, RFX 16/18,45 Note . [facility] Comment on above: TESTS RESULT FLAG UN ITS REF RANGE LAB DIAGNOSIS: 02 NEGATIVE FOR INTRAEPITHELIAL LESION OR MALIGNANCY. Specimen adequacy: 02 Satisfactory for evaluation. Endocervical and/or squamous metaplastic cells (endocervical component) are present. Performed by: 02 Syl James, Vortex Operator ([facility]) . 02 Note: Note 02 The Pap [...] High <-Panic Low,>-Panic High,A-Abnormal,AA-Critical Abnormal Performed at: 02 [facility] [address] [place] [address] Mariana Sanchez MD, BRUSH-SPATULA CERVIX ENDOCERVIX [facility] Healthcar e ALL CBC WITH AUTO DIFFon BASOPHILS ABSOLUTE AUTO 0 [facility] Basophils/100 WBC (Bld) 0.5 % 0.2 - 2.0 % [facility] Eosinophils/100 WBC (Bld) 1.3 % 0.9 - 7.0 % [facility] Erythrocyte distribution width (RBC) [Ratio] 12.4 % 11.0 - 15.0 % [facility] Hematocrit (Bld) [Volume fraction] 40.4 % 36.0 - 48.0 % [facility] Hemoglobin (Bld) [Mass/Vol] 13.4 g/dL 12.0 - 16.0 g/dL [facility] IMMATURE GRANULOCYTES ABS AUTO 0.02 [facility] Immature granulocytes/100 WBC (Bld) 0.2 % 0.0 - 0.5 % [facility] Interpretation and review of laboratory results Abnormal [facility] LYMPHOCYTES ABSOLUTE AUTO 2.7 [facility] Lymphocytes/100 WBC (Bld) 33.5 % 20.5 - 60.0 % [facility] MCH (RBC) [Entitic mass] 31.3 pg 26.7 - 34.0 pg [facility] MCHC (RBC) [Mass/Vol] 33.2 g/dL 29.9 - 35.2 g/dL [facility] MCV (RBC) [Entitic vol] 94.4 fL 81.0 - 99.0 fL [facility] MONOCYTES ABSOLUTE AUTO 1 High [facility] Monocytes/100 WBC (Bld) 11.8 % 1.7 - 12.0 % [facility] NEUTROPHILS ABSOLUTE AUTO 4.3 [facility] Neutrophils/100 WBC (Bld) 52.7 % 43.0 - 75.0 % [facility] Platelet mean volume (Bld) [Entitic vol] 9.1 fL Low 9.5 - 13.5 fL [facility] EO # 0.1 [facility]T [address] [facility] RBC 4.28 [facility] WBC 8.2 [facility] Michael 01-14-2024 L - -------- Specimen: [id number] Received: 01/17/24 Status: ZEFERINO Marie Num: [id number] Spec Type: Surgical Subm Dr: David Richards Tissues: A Endometrium - Curettings (ENDOMETRIAL CURETTINGS) Procedures: HE/2, Gross/Micro L4 -------- Age/ Patient Sex Location Account Attending Physician -------- Anjali White 53/F [place] [id number] David Richards -------- SPEC NUM: [id number] RECD: 01/17/24 STATUS: ZEFERINO MARIE NUM: [id number] BARBARA: 01/14/24- [facility] DR: David Richards ENTERED: 01/17/[address] [facility] [address]: Chavo Akhtar SPEC TYPE: Surgical DEPT: NATHAN DOMINGO ENTERED BY: [id number] RECV BY: [id number] ORDERED: HE/2, Gross/Micro L4 ORDERED: HE/2, Gross/Micro L4 Pathological Diagnosis Endometrial curettings: -Multiple [...] submitted in a single cassette. (1, ns, [id number]) VINCENT -------- Specimen: [id number] Received: 01/17/24 Status: ZEFERINO Marie Num: [id number] Spec Type: Surgical Subm Dr: David Richards Tissues: A Endometrium - Curettings (ENDOMETRIAL CURETTINGS) Procedures: HE/2, Gross/Micro L4 -------- Patient: Anjali White [id number] (Continued) -------- Specimen: [id number] Received: 01/17/24 (Continued) Signed (signature on file) Pravin Villasenor MD 01/18/24 1648 -------- Specimen: [id number] Received: 01/17/24 Status: ZEFERINO Marie Num: [id number] Spec Type: Surgical Subm Dr: David Richards Tissues: A Endometrium - Curettings (ENDOMETRIAL CURETTINGS) Procedures: HE/Christopher, Gross/Micro L4 -------- Patient: Anjali White [id number] (Continued) -------- Specimen: [id number] Received: 01/17/24 (Continued) Microscopic Description Microscopic examinations are performed supporting the above interpretation CPT Codes 77672 -------- -------- Specimen: [id number] Received: 01/17/24 Status: ZEFERINO Marie Num: [id number] Spec Type: Surgical Subm Dr: David Richards Tissues: A Endometrium - Curettings (ENDOMETRIAL CURETTINGS) Procedures: HE/Christopher, Ye/Nehemiah L4 -------- Patient: Anjali White [id number] (Continued) -------- Signed (signature on file) Pravin Villasenor MD 01/18/[address] [facility] TB PREG QUANT HCGon 01-13- 024 HCG QUANTITATIVE <1 mIU/mL [facility] Comment on above: 5-50 0.2-1 WEEK 50-500 1-2 WEEKS 100-5,000 2-3 WEEKS 500-10,000 3-4 WEEKS 1,000-50,000 4-5 WEEKS 10,000-100,000 5-6 WEEKS 15,000-200,000 6-8 WEEKS 10,000-100,000 2-3 MONTHS [facility] Healthcar e IGP,APTIMA HPV,AGE GDLNon AGE GDLN ACOG TESTING Note . [facility] Comment on above: TESTS RESULT FLAG UN ITS REF RANGE LAB Clinician Provided Cytology Information Source.............Cervix;Endocervix No. of containers..01 ThinPrep Vial Age Algo ACOG Mackenzie... FLAG LEGEND: L-Low Normal,H-High Normal,LL-Alert Low,HH-Alert High <-Panic Low,>-Panic High,A-Abnormal,AA-Critical Abnormal Performed at: 01 =[address] [place] [address] Mariana Sanchez MD, HPV APTIMA Negative Negative [facility] Comment on above: This nucleic acid am plification test detects fourteen high- risk HPV types (16,18,31,33,35,39,45,51,52,56,58,59,66,68) without differentiation. Performed at: =[address] [id number] Medical Asst: Mariana Sanchez MD, Phone: [phone] Performed at: [address] [id number] Medical Asst: Mariana Sanchez MD, Phone: [phone] IGP, APTIMA HPV, RFX 16/18,45 Note . [facility] Comment on above: TESTS RESULT FLAG UN ITS REF RANGE LAB DIAGNOSIS: 02 NEGATIVE FOR INTRAEPITHELIAL LESION OR MALIGNANCY. Specimen adequacy: 02 Satisfactory for evaluation. Endocervical and/or squamous metaplastic cells (endocervical component) are present. Performed by: 02 Christina Wilson Felt Cementer . 02 Note: Note 02 The Pap [...] High <-Panic Low,>-Panic High,A-Abnormal,AA-Critical Abnormal Performed at: 02 WB [facility] [address] [place] [address] Mariana Sanchez MD, BRUSH-SPATULA CERVIX [facility]OC[facility]IX [facility] POCT urinalysis dipstick on yon 10-18-2023 Appearance (U) clear [facility] External Poct Urine Bilirubin Negative [facility] External Poct Urine Blood Trace [facility] External Poct Urine Color yellow [facility] External Poct Urine Glucose Negative [facility] External Poct Urine Ketones Negative [facility] External Poct Urine Leukocyte [facility]sterase [facility] Urine Nitrite Positive [facility] External Poct Urine Ph 6.0 [facility] External Poct Urine Protein Negative [facility] External Poct Urine Specific [place] 1.015 [facility] h System External Poct Urine Urobilinogen 0.[address] [facility] COMPREHENSIVE METABOLIC PANE Michael 08-13-2023 Albumin [Mass/Vol] 4.1 g/dL Normal 3.2-5.3 [facility] Comment on above: Performed By: #### Stacy FRANKS 63470-0 #### [facility] ([id number]) [address], [address] [place] [address] ALP [Catalytic activity/Vol] 90 U/L Normal 39-130 [facility] Comment on above: Performed By: #### Stacy FRANKS, 58196-9 #### [facility] ([id number]) [address], [address] [place] [address] ALT [Catalytic activity/Vol] 18 U/L Normal 0-31 [facility] Comment on above: Performed By: #### Stacy FRANKS, 61989-1 #### [facility] ([id number]) [address], [address] [place] [address] Anion gap [Moles/Vol] 9 mmol/L Normal 5-15 [facility] Comment on above: Performed By: #### Stacy FRANKS, 81782-6 #### [facility] ([id number]) [address], [address] [place] [address] AST [Catalytic activity/Vol] 22 U/L Normal 0-41 [facility] Comment on above: Performed By: #### Stacy FRANKS, 72979-2 #### [facility] ([id number]) [address], [address] [place] [address] Bilirubin [Mass/Vol] 0.6 mg/dL Normal 0.3-1.2 [facility] Comment on above: Performed By: #### Stacy FRANKS, 73377-9 #### [facility] ([id number]) [address], [address] [place] [address] Calcium [Mass/Vol] 9.4 mg/dL Normal 8.5-10.5 [facility] Comment on above: Performed By: #### Stacy FRANKS, 24468-6 #### [facility] ([id number]) [address], [address] [place] [address] Chloride [Moles/Vol] 104 mmol/L Normal 98-109 [facility] Comment on above: Performed By: #### Stacy FRANKS, 69694-9 #### [facility] ([id number]) [address], [address] [place] [address] CO2 [Moles/Vol] 28 mmol/L Normal 22-32 [facility] Comment on above: Performed By: #### Stacy FRANKS, 89935-3 #### [facility] ([id number]) [address], [address] [place] [address] Creatinine [Mass/Vol] 0.72 mg/dL Normal 0.40-1.00 [facility] Comment on above: Result Comment: METH OD TRACEABLE TO IDMS STANDARD Performed By: #### Stacy FRANKS, 44738-4 #### [facility] ([id number]) [address] [address] [place] [address] eGFR (CKD-EPI) NON-RACE DEPENDENT >90 Normal >59 [facility] Comment on above: Result Comment: Reported eGFR is based on the CKD-EPI 2020 equation that does not use a race coefficient. Performed By: #### Stacy FRANKS 21852-0 #### [facility] ([id number]) [address], [address] [place] [address] Glucose [Mass/Vol] 86 mg/dL Normal 65-99 [facility] Comment on above: Performed By: #### Stacy FRANKS, 12385-0 #### [facility] ([id number]) [address], [address] [place] [address] Potassium [Moles/Vol] 3.9 mmol/L Normal 3.5-5.0 [facility] Comment on above: Performed By: #### Stacy FRANKS, 87576-3 #### [facility] ([id number]) [address], [address] [place] [address] Protein [Mass/Vol] 7.3 g/dL Normal 6.0-8.0 [facility] Comment on above: Performed By: #### Stacy FRANKS, 24356-9 #### [facility] ([id number]) [address], [address] [place] [address] Sodium [Moles/Vol] 141 mmol/L Normal 134-146 [facility] Comment on above: Performed By: #### Stacy FRANKS, 70100-2 #### [facility] ([id number]) [address], [address] [place] [address] Urea nitrogen [Mass/Vol] 10 mg/dL Normal 5-23 [facility] Comment on above: Performed By: #### Stacy FRANKS, 26897-7 #### [facility] ([id number]) [address], [address] [place] [address] Comprehensive metabolic pane michael 08-13-2023 Albumin [Mass/Vol] 4.1 g/dL 3.2 - 5.3 g/dL [facility] ALP [Catalytic activity/Vol] 90 U/L 39 - 130 U/L [facility] ALT No additional P-5'-P [Catalytic activity/Vol] 18 U/L 0 - 31 U/L [facility] Anion gap [Moles/Vol] 9 mmol/L 5 - 15 mmol/L [facility] AST [Catalytic activity/Vol] 22 U/L 0 - 41 U/L [facility] Bilirubin [Mass/Vol] 0.6 mg/dL 0.3 - 1.2 mg/dL [facility] Calcium [Mass/Vol] 9.4 mg/dL 8.5 - 10. 5 mg/dL [facility] Chloride [Moles/Vol] 104 mmol/L 98 - 109 mmol/L [facility] CO2 [Moles/Vol] 28 mmol/L 22 - 32 mmol/L [facility] Creatinine [Mass/Vol] 0.72 mg/dL 0.40 - 1.00 mg/dL [facility] Comment on above: METHOD TRACEABLE TO [facility] STANDARD eGFR (CKD-EPI)non-race dependent - PINF [facility] Comment on above: Reported eGFR is based on the CKD-EPI 2020 equation that does not use a race coefficient. Glucose [Mass/Vol] 86 mg/dL 65 - 99 mg/dL [facility] Potassium [Moles/Vol] 3.9 mmol/L 3.5 - 5.0 mmol/L [facility] Protein [Mass/Vol] 7.3 g/dL 6.0 - 8.0 g/dL [facility] Sodium [Moles/Vol] 141 mmol/L 134 - 146 mmol/L [facility] Urea nitrogen [Mass/Vol] 10 mg/dL 5 - 23 mg/dL [facility] Lipid 1996 panelon 4 Cholesterol [Mass/Vol] 218 mg/dL High 150 - 200 mg/dL [facility] Cholesterol in HDL [Mass/Vol] 51 mg/dL 39 - PINF mg/dL [facility] Comment on above: HDL <40 mg/dL - High Risk HDL > or = 40mg/dL- Desirable HDL >60 mg/dL - Negative Risk Cholesterol in LDL [Mass/Vol] 123 mg/dL NINF - 130 mg/dL [facility] Comment on above: LDL <100 mg/dL - Desirable LDL >160 mg/dL - High Risk Cholesterol in VLDL [Mass/Vol] 44 mg/dL High 0 - 30 mg/dL [facility] Cholesterol.total/C holesterol in HDL [Mass ratio] 4.3 {ratio} 1.0 - 5.0 [facility] Interpretation and review of laboratory results Abnormal [facility] Triglyceride [Mass/Vol] 218 mg/dL High 27 - 150 mg/dL [facility] Cholesterol [Mass/Vol] 218 mg/dL High 150-200 [facility] Comment on above: Performed By: #### Stacy FRANKS, 27183-0 #### [facility] ([id number]) [address] [place] [address] Cholesterol in HDL [Mass/Vol] 51 mg/dL Normal >39 [facility] Comment on above: Result Comment: HDL <40 mg/dL - High Risk HDL > or = 40mg/dL- Desirable HDL >60 mg/dL - Negative Risk Performed By: #### Stacy FRANKS, 61818-2 #### [facility] ([id number]) [address], [address] [place] [address] Cholesterol in LDL [Mass/Vol] 123 mg/dL Normal <130 [facility] Comment on above: Result Comment: LDL <100 mg/dL - Desirable LDL >160 mg/dL - High Risk Performed By: #### Stacy FRANKS, 31306-0 #### [facility] ([id number]) [address], [address] [place] [address] Cholesterol in VLDL [Mass/Vol] 44 mg/dL High 0-30 [facility] Comment on above: Performed By: #### C GOLDEN, 36341-5 #### [facility] ([id number]) [address], [address] [place] [address] CHOLESTEROL:HDL 4.3 Normal 1.0-5.0 [facility] Comment on above: Performed By: #### C GOLDEN, 90825-4 #### [facility] ([id number]) [address], [address] [place] [address] Triglyceride [Mass/Vol] 218 mg/dL High 27-150 [facility] Comment on above: Performed By: #### C GOLDEN, 92246-4 #### [facility] ([id number]) [address], [address] [place] [address] No Panel Informationon 08-12 [facility] POCT Influenza A/Influenza B /SARS-COV-2 Veritoron 05-06-2023 External Poct Influenza A Antigen Negative [facility] External Poct Influenza B Antigen Negative [facility] SARS-CoV-2 (COVID-19) Ag IA.rapid Ql (Resp) Negative [facility] CARDIAC PRESTON ADMITon 023 CK [Catalytic activity/Vol] 77 U/L Normal 26-192 [facility] Comment on above: Performed By: #### MAKENNA Vargas MP #### [facility] [address] [address] [address] Maria Teresa Villasenor CK.MB [Mass/Vol] ng/mL Normal <=3.60 [facility] Comment on above: Performed By: #### MAKENNA Vargas MP #### [facility] [address] [address] [address] Maria Teresa Villasenor HSTROP <4.0 Normal 4.0-51.3 [facility] Comment on above: Result Comment: CUT- OFF POINTS HAVE BEEN ESTABLISHED BASED ON THE FOURTH UNIVERSAL DEFINITIONS OF MYOCARDIAL INFARCTION. THE UPPER REFERENCE LIMIT (URL) OF TROPONIN, DEFINED THE 99TH PERCENTILE OF cTnI DISTRIBUTION IN A REFERENCE POPULATION, HAS BEEN CONFIRMED THE DECISION THRESHOLD FOR [place] DIAGNOSIS. Performed By: #### B MAKENNA FRANKS #### [facility] [address] [address] [address] Maria Teresa Villasenor ANJANA 30 ng/mL Normal 9-82 [facility] Comment on above: Performed By: #### B MAKENNA FRANKS #### [facility] [address] [address] [address] Maria Teresa Villasenor CBC AUTO DIFFon 06-07-2022 BASO # 0.0 103/ul Normal 0.0-0.1 [facility] Comment on above: Performed By: #### C BC ####[facility] [address] [address]DrMaksim Villasenor Basophils/100 WBC (Bld) 0.4 % Normal 0.2-2.0 [facility] Comment on above: Performed By: #### C BC ####[facility] [address] [address]DrMaksim Villasenor EO # 0.1 103/ul Normal 0.0-0.7 [facility] Comment on above: Performed By: #### C BC ####[facility] [address] [address]Dr. Maria Teresa Villasenor Eosinophils/100 WBC (Bld) 0.9 % Normal 0.9-7.0 [facility] Comment on above: Performed By: #### C BC ####[facility] [address] [address]DrMaksim Villasenor Erythrocyte distribution width (RBC) [Ratio] 12.6 % Normal 11.0-15.0 [facility] Comment on above: Performed By: #### C BC ####[facility] [address] [address]DrMaksim Villasenor Hematocrit (Bld) [Volume fraction] 39.7 % Normal 36.0-48.0 [facility] Comment on above: Performed By: #### C BC ####[facility] [address] [address]Dr. Maria Teresa Villasenor Hemoglobin (Bld) [Mass/Vol] 13.3 g/dL Normal 12.0-16.0 [facility] Comment on above: Performed By: #### C BC ####[facility] [address] [address]Dr[address] Maria Teresa Villasenor IG # 0.03 10e3/ul Normal 0.00-0.03 [facility] Comment on above: Performed By: #### C BC ####[facility] [address] [place], [place] [address]Dr. Maria Teresa Villasenor IG % 0.3 % Normal 0.0-0.5 [facility] Comment on above: Performed By: #### C BC ####[facility] [address] [place], [place] [address]Dr. Maria Teresa Villasenor LYMPH # 1.7 103/ul Normal 1.2-3.8 [facility] Comment on above: Performed By: #### C BC ####[facility] [address] [place], [place] [address]Dr. Maria Teresa Villasenor Lymphocytes/100 WBC (Bld) 16.2 % Critically low 20.5-60.0 [facility] Comment on above: Performed By: #### C BC ####[facility] Ecvve[address] [place], [place] [address]Dr. Maria Teresa Villasenor MANUAL DIFF REQ NO Normal [facility] Comment on above: Performed By: #### C BC ####[facility] [address] [place], [place] [address]Dr. Maria Teresa Villasenor MCH (RBC) [Entitic mass] 31.9 pg Normal 26.7-34.0 [facility] Comment on above: Performed By: #### C BC ####[facility] Ddqjvosghp[address] [place], [place] [address]Dr. Maria Teresa Villasenor MCHC (RBC) [Mass/Vol] 33.5 g/dL Normal 29.9-35.2 [facility] Comment on above: Performed By: #### C BC ####[facility] [address] [place] [id number]. Maria Teresa Villasenor MCV (RBC) [Entitic vol] 95.2 fL Normal 81.0-99.0 [facility] Comment on above: Performed By: #### C BC ####[facility] [address]ugg[address] [place] [id number] Maria Teresa Villasenor MONO # 0.7 103/ul Normal 0.3-0.8 [facility] Comment on above: Performed By: #### C BC ####[facility] [address] [place] [id number]. Maria Teresa Hamilton Monocytes/100 WBC (Bld) 6.7 % Normal 1.7-12.0 [facility] Comment on above: Performed By: #### C BC ####[facility] Gsxubqzy[address] [place], [place] [address]Dr. Maria Teresa Villasenor NEUT # 8.1 103/ul Critically high 1.4-6.5 [facility] Comment on above: Performed By: #### C BC ####[facility] [address] [place], [place] [id number]. Maria Teresa Hamilton Neutrophils/100 WBC (Bld) 75.5 % Critically high 43.0-75.0 [facility] Comment on above: Performed By: #### C BC ####[facility] Azssavog[address] [place], [place] [id number]. Maria Teresa Hamilton Platelet mean volume (Bld) [Entitic vol] 9.1 fL Critically low 9.5-13.5 [facility] Comment on above: Performed By: #### C BC ####[facility] F[address] [place], [place] [address]Dr. Maria Teresa Hamilton PLT 315 103/ul Normal 150-450 [facility] Comment on above: Performed By: #### C BC ####[facility] [address] [place] [id number] Villasenor RBC 4.17 106/ul Critically low 4.20-5.40 [facility] Comment on above: Performed By: #### C BC ####[facility] [address] [place], [place] [address]JgDr. Maria Teresa Villasenor WBC 10.7 103/ul Normal 4.0-11.0 [facility] Comment on above: Performed By: #### C BC ####[facility] [address] [place], [place] [address]QjDr. Maria Teresa Villasenor CTA CHEST WO W [...] TEJ CATES Date: 2022-06-07 08:33 Normal [facility] D-DIMERon 06-07-2022 D-DIMER 0.62 mg/L FEU Critically high <=0.59 [facility] Comment on above: Performed By: #### D DIM #### [facility] [address] [place], [place] [address] Dr. aMria Teresa Villasenor D-DIMER COMMENTS SEE BELOW Normal [facility] Comment on above: Result Comment: Incr [...] hospitalization. Performed By: #### D DIM #### [facility] [address] [place] [address] Dr. Maria Teresa Villasenor PROF CHEM 8 (BAS METB)on Anion gap [Moles/Vol] 12.5 mmol/L Normal [facility] Comment on above: Performed By: #### B MAKENNA FRANKS #### [facility] [address] [place] [address] Dr. Maria Teresa Villasenor Calcium [Mass/Vol] 9.4 mg/dL Normal 8.5-10.1 [facility] Comment on above: Performed By: #### MAKENNA Vargas MP #### [facility] [address] [place] [address] Dr. Maria Teresa Villasenor Chloride [Moles/Vol] 103 mmol/L Normal 98-107 [facility] Comment on above: Performed By: #### MAKENNA Vargas MP #### [facility] [address] [place] [address] Dr. Maria Teresa Villasenor CO2 [Moles/Vol] 28.3 mmol/L Normal 21.0-32.0 [facility] Comment on above: Performed By: #### B MAKENNA FRANKS #### [facility] [address] [place] [address] Dr. Maria Teresa Villasenor Creatinine [Mass/Vol] 0.68 mg/dL Normal 0.55-1.02 [facility] Comment on above: Performed By: #### MAKENNA Vargas MP #### [facility] [address] [place] [address] Dr. Maria Teresa Villasenor EGFR-AF DOMINICAN >60 Normal >=60 [facility] Comment on above: Performed By: #### B MAKENNA FRANKS #### [facility] [address] [place] [address] Dr. Maria Teresa Villasenor EGFR-NON AF DOMINICAN >60 Normal >=60 [facility] Comment on above: Performed By: #### B TRACIE FRANKSDM #### [facility] [address] [place] [address] [address] Maria Teresa Villasenor Glucose [Mass/Vol] 99 mg/dL Normal 74-106 [facility] Comment on above: Performed By: #### B TRACIE FRANKSDM #### [facility] [address] [place] [address] Dr. Maria Teresa Villasenor Potassium [Moles/Vol] 3.8 mmol/L Normal 3.5-5.1 [facility] Comment on above: Performed By: #### B TRACIE FRANKSDM #### [facility] [address] [place] [address] Dr. Maria Teresa Villasenor Sodium [Moles/Vol] 140 mmol/L Normal 136-145 [facility] Comment on above: Performed By: #### B TRACIE FRANKSDM #### [facility] [address] [place] [address] [address] Maria Teresa Villasenor Urea nitrogen [Mass/Vol] 20.0 mg/dL Critically high 7.0-18.0 [facility] Comment on above: Performed By: #### B MAKENNA FRANKS #### [facility] [address] [place] [address] Dr. Maria Teresa Villasenor Urea nitrogen/Creatinine [Mass ratio] 29.4 mg/mg Normal [facility] Comment on above: Performed By: #### B TRACIE FRANKSDM #### [facility] [address] [place] [address] Dr. Maria Teresa Villasenor TROPONIN, HIGH SENSITIVITYon 06-07-2022 HSTROP <4.0 Normal 4.0-51.3 [facility] Comment on above: Result Comment: CUT- OFF POINTS HAVE BEEN ESTABLISHED BASED ON THE FOURTH UNIVERSAL DEFINITIONS OF MYOCARDIAL INFARCTION. THE UPPER REFERENCE LIMIT (URL) OF TROPONIN, DEFINED THE 99TH PERCENTILE OF cTnI DISTRIBUTION IN A REFERENCE POPULATION, HAS BEEN CONFIRMED THE DECISION THRESHOLD FOR [place] DIAGNOSIS. Performed By: #### H GARRICKPN #### [facility] [address] [place] [address] Dr. Maria Teresa Villasenor XR CHEST 1 [...] ARTUR HARTMANN Date: 2022-06-07 07:38 Normal [facility] CBC AUTO DIFFon 03-13-2022 BASO # 0.1 103/ul Normal 0.0-0.1 [facility] Comment on above: Performed By: #### C BC #### [facility] [address] [place] [address] Dr. Maria Teresa Villasenor Basophils/100 WBC (Bld) 0.5 % Normal 0.2-2.0 [facility] Comment on above: Performed By: #### C BC #### [facility] [address] [place] [address] Dr. Maria Teresa Villasenor EO # 0.2 103/ul Normal 0.0-0.7 [facility] Comment on above: Performed By: #### C BC #### [facility] [address] [place] [address] Dr. Maria Teresa Villasenor Eosinophils/100 WBC (Bld) 2.4 % Normal 0.9-7.0 [facility] Comment on above: Performed By: #### C BC #### [facility] [address] [place] [address] Dr. Maria Teresa Villasenor Erythrocyte distribution width (RBC) [Ratio] 12.6 % Normal 11.0-15.0 [facility] Comment on above: Performed By: #### C BC #### [facility] [address] [place] [address] Dr. Maria Teresa Villasenor Hematocrit (Bld) [Volume fraction] 43.1 % Normal 36.0-48.0 [facility] Comment on above: Performed By: #### C BC #### [facility] [address] [place] [address] Dr. Maria Teresa Villasenor Hemoglobin (Bld) [Mass/Vol] 13.3 g/dL Normal 12.0-16.0 [facility] Comment on above: Performed By: #### C BC #### [facility] [address] [place] [address] Dr. Maria Teresa Villasenor IG # 0.02 10e3/ul Normal 0.00-0.03 [facility] Comment on above: Performed By: #### C BC #### [facility] [address] [place] [address] Dr. Maria Teresa Villasenor IG % 0.2 % Normal 0.0-0.5 [facility] Comment on above: Performed By: #### C BC #### [facility] [address] [place] [address] Dr. Maria Teresa Villasenor LYMPH # 2.7 103/ul Normal 1.2-3.8 [facility] Comment on above: Performed By: #### C BC #### [facility] [address] [place] [address] Dr. Maria Teresa Villasenor Lymphocytes/100 WBC (Bld) 28.6 % Normal 20.5-60.0 [facility] Comment on above: Performed By: #### C BC #### [facility] [address] [place] [address] Dr. Maria Teresa Villasenor MANUAL DIFF REQ NO Normal [facility] Comment on above: Performed By: #### C BC #### [facility] [address] [place] [address] Dr. Maria Teresa Villasenor MCH (RBC) [Entitic mass] 32.7 pg Normal 26.7-34.0 [facility] Comment on above: Performed By: #### C BC #### [facility] [address] [place] [address] Dr. Maria Teresa Villasenor MCHC (RBC) [Mass/Vol] 30.9 g/dL Normal 29.9-35.2 [facility] Comment on above: Performed By: #### C BC #### [facility] [address] [place] [address] [address] Maria Teresa Villasenor MCV (RBC) [Entitic vol] 105.9 fL Critically high 81.0-99.0 [facility] Comment on above: Performed By: #### C BC #### [facility] [address] [place] [address] [address] Maria Teresa Villasenor MONO # 1.2 103/ul Critically high 0.3-0.8 [facility] Comment on above: Performed By: #### C BC #### [facility] [address] [place] [address] [address] Maria Teresa Villasenor Monocytes/100 WBC (Bld) 12.3 % Critically high 1.7-12.0 [facility] Comment on above: Performed By: #### C BC #### [facility] [address] [place] [address] Dr. Maria Teresa Villasenor NEUT # 5.3 103/ul Normal 1.4-6.5 [facility] Comment on above: Performed By: #### C BC #### [facility] [address] [place] [address] Dr. Maria Teresa Villasenor Neutrophils/100 WBC (Bld) 56.0 % Normal 43.0-75.0 [facility] Comment on above: Performed By: #### C BC #### [facility] [address] [place] [address] [address] Maria Teresa Villasenor Platelet mean volume (Bld) [Entitic vol] 9.3 fL Critically low 9.5-13.5 [facility] Comment on above: Performed By: #### C BC #### [facility] [address] [place] [address] [address] Maria Teresa Villasenor PLT 357 103/ul Normal 150-450 [facility] Comment on above: Performed By: #### C BC #### [facility] [address] [place] [address] Dr. Maria Teresa Villasenor RBC 4.07 106/ul Critically low 4.20-5.40 [facility] Comment on above: Performed By: #### C BC #### [facility] [address] [place], [place] [address] Dr. Maria Teresa Villasenor WBC 9.4 103/ul Normal 4.0-11.0 [facility] Comment on above: Performed By: #### C BC #### [facility] [address] [place], [place] [address] Dr. Maria Teresa Villasenor PREG HCG QUALon 03-13-2022 , QUAL Negative Normal NEGATIVE [facility] Comment on above: Performed By: #### P REG #### [facility] [address] [place], [place] [address] Dr. Maria Teresa Villasenor Covid-19 PCR (CVDTB)on 03-01 SARS-CoV-2 (COVID-19) RNA JOSÉ ANTONIO+probe Ql (Unsp spec) Not detected Normal NOT DETECTED [facility] Comment on above: Result Comment: This test is not yet approved or cleared by the [place] FDA. When there are no FDA-approved or cleared tests available, and other criteria are met, FDA can make tests available under an emergency access mechanism called an Emergency Use Authorization (EUA). The EUA for this test is supported by the [place] of Health and Human Service's (HHS's) declaration [...] with SARS-CoV-2. Performed By: #### C VDTBH ####[facility] [address] [place], [place] [address]BpDr. Maria Teresa Villasenor Office Visiton 02-04-2022 Follow-up visit [id number] Anjali White 1970 F Date Provider Department Center 02/04/2022 LAURA OLSEN [facility] No family history on file Level of Service:[address] [place] OFFICE/OUTPATIENT ESTABLISHED LOW MDM 20-29 MIN Normal [facility] PROF CHEM 8 (BAS METB)on Anion gap [Moles/Vol] 10.2 mmol/L Normal [facility] Comment on above: Performed By: #### B MP #### [facility] [address] [place] [address] [address] Maria Teresa Villasenor Calcium [Mass/Vol] 8.7 mg/dL Normal 8.5-10.1 [facility] Comment on above: Performed By: #### B MP #### [facility] [address] [place] [address] [address] Maria Teresa Villasenor Chloride [Moles/Vol] 106 mmol/L Normal 98-107 [facility] Comment on above: Performed By: #### B MP #### [facility] [address] [place] [address] [address] Maria Teresa Villasenor CO2 [Moles/Vol] 27.8 mmol/L Normal 21.0-32.0 [facility] Comment on above: Performed By: #### B MP #### [facility] [address] [place] [address] [address] Maria Teresa Villasenor Creatinine [Mass/Vol] 0.64 mg/dL Normal 0.55-1.02 [facility] Comment on above: Performed By: #### B MP #### [facility] [address] [place] [address] [address] Maria Teresa Villasenor EGFR-AF DOMINICAN >60 Normal >=60 [facility] Comment on above: Performed By: #### B MP #### [facility] [address] [place] [address] [address] Maria Teresa Villasenor EGFR-NON AF DOMINICAN >60 Normal >=60 [facility] Comment on above: Performed By: #### B MP #### [facility] [address] [place] [address] [address] Maria Teresa Villasenor Glucose [Mass/Vol] 89 mg/dL Normal 74-106 [facility] Comment on above: Performed By: #### B MP #### [facility] [address] [place], [place] [address] Dr. Maria Teresa Villasenor Potassium [Moles/Vol] 4.0 mmol/L Normal 3.5-5.1 [facility] Comment on above: Performed By: #### B MP #### [facility] [address] [place], [place] [address] Dr. Maria Teresa Villasenor Sodium [Moles/Vol] 140 mmol/L Normal 136-145 [facility] Comment on above: Performed By: #### B MP #### [facility] [address] [place], [place] [address] Dr. Maria Teresa Villasenor Urea nitrogen [Mass/Vol] 12.0 mg/dL Normal 7.0-18.0 [facility] Comment on above: Performed By: #### B MP #### [facility] [address] [place] [address] [address] Maria Teresa Villasenor Urea nitrogen/Creatinine [Mass ratio] 18.8 mg/mg Normal [facility] Comment on above: Performed By: #### B MP #### [facility] [address] [place] [address] [address] Maria Teresa Villasenor MG MAMM SCREEN 3D ALEXA CADon 11-28-2021 MG MAMM SCREEN 3D ALEXA CAD Patient: ANJALI WHITE Exam Date: 11/28/2021 : 1970 Gender:F Ordering : DR DAVID RICHARDS . Admission #: [id number] Family : Order #: [id number] CLICK HERE TO VIEW EXAM RADIOLOGY REPORT [...] neuroblastoma cancer at age 3. LOCATION: [facility] BREAST COMPOSITION: Heterogeneously dense,which may obscure [...] Sebastian MD on 11/28/2021 at 12:51 Normal [facility] PAP ACOG PANEL 2: 30 to 65on 09-24-2021 . . Normal [facility] Comment on above: Result Comment: Perf ormed at: WB Performed By: #### 4 [id number] #### [facility] [address] [place] [address] [address] Maria Teresa Villasenor Age Gdln ACOG Testing [facility] Comment on above: Performed By: #### 4 [id number] #### [facility] [address] [place] [address] [address] Maria Teresa Villasenor DIAGNOSIS: Comment Normal [facility] Comment on above: Result Comment: NEGA TIVE FOR INTRAEPITHELIAL LESION OR MALIGNANCY. Performed at: WB Performed By: #### 4 [id number] #### [facility] [address] [place] [address] [address] Maria Teresa Villasenor HPV Aptima Negative Normal Negative [facility] Comment on above: Result Comment: This nucleic acid amplification test detects fourteen high-risk HPV types (16,18,31,33,35,39,45,51,52,56,58,59,66,68) without differentiation. Performed at: =G Performed By: #### 4 [id number] #### [facility] [address] [place] [address] [address] Maria Teresa Villasenor Methodology: Comment Normal [facility] Comment on above: Result Comment: This liquid based ThinPrep(R) pap test was screened with the use of an image guided system. Performed at: WB Performed By: #### 4 [id number] #### [facility] [address] [place] [address] [address] Maria Teresa Villasenor Note: Comment Normal [facility] Comment on above: Result Comment: The Pap smear is a screening test designed to aid in the detection of premalignant and malignant conditions of the uterine cervix. It is not a diagnostic procedure and should not be used as the sole means of detecting cervical cancer. Both false-positive and false-negative reports do occur. . Performed at: WB Performed By: #### 4 [id number] #### [facility] [address] [place] [address] Dr. Maria Teresa Villasenor Performed by: Comment Normal [facility] Comment on above: Result Comment: Sabrina Vasquez, Felt Cementer (ASCP) Performed at: WB Performed By: #### 4 [id number] #### [facility] [address] [place] [address] Dr. Maria Teresa Villasenor Specimen adequacy: Comment Normal [facility] Comment on above: Result Comment: Sati sfactory for evaluation. Endocervical and/or squamous metaplastic cells (endocervical component) are present. Performed at: WB Performed By: #### 4 [id number] #### [facility] [address] [place] [address] Dr. Maria Teresa Villasenor [facility] 08-23-2021 Albumin [Mass/Vol] 4.3 g/dL Normal 3.6-5.1 [facility] Comment on above: Performed By: #### 1 231, 1300 #### [facility] [place] [address] Restaurant Maintenance Technician: Jacob Zavaleta MD Albumin/Globulin [Mass ratio] 1.8 {ratio} Normal 1.0-2.5 [facility] Comment on above: Performed By: #### 1 023, 0090 #### [facility] [place] [address] Restaurant Maintenance Technician: Jacob Zavaleta MD ALP [Catalytic activity/Vol] 56 U/L Normal 31-125 [facility] Comment on above: Performed By: #### 1 023, 8180 #### [facility] [address], [address] [place] [address] Restaurant Maintenance Technician: Jacob Zavaleta MD ALT [Catalytic activity/Vol] 9 U/L Normal 6-29 [facility] Comment on above: Performed By: #### 1 0231, 7600 #### [facility] of [place] [address] Restaurant Maintenance Technician: Jacob Zavaleta MD AST [Catalytic activity/Vol] 10 U/L Normal 10-35 [facility] Comment on above: Performed By: #### 1 0231, 7600 #### [facility] of [address], [address] [place] [address] Restaurant Maintenance Technician: Jacob Zavaleta MD Bilirubin [Mass/Vol] 0.4 mg/dL Normal 0.2-1.2 [facility] Comment on above: Performed By: #### 1 0231, 7600 #### [facility] of [place] [address] Restaurant Maintenance Technician: Jacob Zavaleta MD BUN/CREATININE RATIO NOT APPLICABLE Normal 6-22 [facility] Comment on above: Performed By: #### 1 023, 7600 #### [facility] of [place] [address] Restaurant Maintenance Technician: Jacob Zavaleta MD Calcium [Mass/Vol] 9.3 mg/dL Normal 8.6-10.2 [facility] Comment on above: Performed By: #### 1 0231, 7600 #### [facility] of [place] [address] Restaurant Maintenance Technician: Jacob Zavaleta MD Chloride [Moles/Vol] 106 mmol/L Normal 98-110 [facility] Comment on above: Performed By: #### 1 0231, 7600 #### [facility] of [address], [address] [place] [address] Restaurant Maintenance Technician: Jacob Zavaleta MD CO2 [Moles/Vol] 26 mmol/L Normal 20-32 [facility] Comment on above: Performed By: #### 1 0231, 7600 #### [facility] of [place] [address] Restaurant Maintenance Technician: Jacob Zavaleta MD Creatinine [Mass/Vol] 0.77 mg/dL Normal 0.50-1.10 [facility] Comment on above: Performed By: #### 1 230, 7600 #### [facility] [place] [address] Restaurant Maintenance Technician: Jacob Zavaleta MD eGFR NON-AFR. DOMINICAN 91 mL/min/1.73m2 Normal > OR = 60 [facility] Comment on above: Performed By: #### 1 230, 7600 #### [facility] [place] [address] Restaurant Maintenance Technician: Jacob Zavaleta MD GFR/1.73 sq M.predicted among blacks MDRD (S/P/Bld) [Vol rate/Area] 105 mL/min/{1.73_m2} Normal > OR = 60 [facility] Comment on above: Performed By: #### 1 230, 7599 #### [facility] [place] [address] Restaurant Maintenance Technician: Jacob Zavaleta MD Globulin (S) [Mass/Vol] 2.4 g/dL Normal 1.9-3.7 [facility] Comment on above: Performed By: #### 1 230, 0 #### [facility] [place] [address] Restaurant Maintenance Technician: Jacob Zavaleta MD Glucose [Mass/Vol] 148 mg/dL High 65-139 [facility] Comment on above: Result Comment: Non-fasting reference interval For someone without known diabetes, a glucose value >125 mg/dL indicates that they may have diabetes and this should be confirmed with a follow-up test. Performed By: #### 1 230, 7600 #### [facility] [place] [address] Restaurant Maintenance Technician: Jacob Zavaleta MD Potassium [Moles/Vol] 4.2 mmol/L Normal 3.5-5.3 [facility] Comment on above: Performed By: #### 1 230, 7600 #### [facility] [address] [address] Restaurant Maintenance Technician: Jacob Zavaleta MD Protein [Mass/Vol] 6.7 g/dL Normal 6.1-8.1 [facility] Comment on above: Performed By: #### 1 0231, 7600 #### [facility] of [address], [address] [place] [address] Restaurant Maintenance Technician: Jacob Zavaleta MD Sodium [Moles/Vol] 139 mmol/L Normal 135-146 [facility] Comment on above: Performed By: #### 1 0231, 7600 #### [facility] of [address], [address] [place] [address] Restaurant Maintenance Technician: Jacob Zavaleta MD Urea nitrogen [Mass/Vol] 12 mg/dL Normal 7-25 [facility] Comment on above: Performed By: #### 1 023, 7600 #### [facility] [place] [address] Restaurant Maintenance Technician: Jacob Zavaleta MD LIPID PANEL, [facility] 07-31 Cholesterol [Mass/Vol] 191 mg/dL Normal <200 [facility] Comment on above: Order Comment: FASTI NG:NO FASTING: NO Performed By: #### 1 0231, 7600 #### [facility] [place] [address] Restaurant Maintenance Technician: Jacob Zavaleta MD Cholesterol in HDL [Mass/Vol] 60 mg/dL Normal > OR = 50 [facility] Comment on above: Order Comment: FASTI NG:NO FASTING: NO Performed By: #### 1 023, 7600 #### [facility] [place] [address] Restaurant Maintenance Technician: Jacob Zavaleta MD Cholesterol in LDL [Mass/Vol] 107 mg/dL High [facility] Comment on above: Order Comment: FASTI NG:NO FASTING: NO Result Comment: Refe rence range: <100 Desirable range <100 mg/dL for primary prevention; <70 mg/dL for patients with CHD or diabetic patients with > or = 2 CHD risk factors. LDL-C is now calculated using the Dima-Lee calculation, which is a validated novel method providing better accuracy than the Friedewald equation in the estimation of LDL-C. Dima SS et al. BLANCA. 2013;310(19): 0908-6334 (http://education.Tittat.Murfie/faq/ZDW638) Performed By: #### 1 023, 0 #### [facility] [address], [address] [place] [address] Restaurant Maintenance Technician: Jacob Zavaleta MD Cholesterol.total/C holesterol in HDL [Mass ratio] 3.2 {ratio} Normal <5.0 [facility] Comment on above: Order Comment: FASTI NG:NO FASTING: NO Performed By: #### 1 023, 7600 #### [facility] [address], [address] [place] [address] Restaurant Maintenance Technician: Jacob Zavaleta MD NON HDL CHOLESTEROL 131 mg/dL (calc) High <130 [facility] Comment on above: Order Comment: FASTI NG:NO FASTING: NO Result Comment: For patients with diabetes plus 1 major ASCVD risk factor, treating to a non-HDL-C goal of <100 mg/dL (LDL-C of <70 mg/dL) is considered a therapeutic option. Performed By: #### 1 023, 7600 #### [facility] [address], [address] [place] [address] Restaurant Maintenance Technician: Jacob Zavaleta MD Triglyceride [Mass/Vol] 126 mg/dL Normal <150 [facility] Comment on above: Order Comment: FASTI NG:NO FASTING: NO Performed By: #### 1 023, 7600 #### [facility] [address], [address] [place] [address] Restaurant Maintenance Technician: Jacob Zavaleta MD XR foot RT min 3V*on 021 XR foot RT min 3V* [facility] [place] Other XR foot RT min 3V* [facility] [employer] [place] Other XR foot RT min 3V* [address] [facility] Other XR foot RT min 3V* [place] [address] [facility] Other XR foot RT min 3V* XRay Report [facility] Other XR foot RT min 3V* Signed [facility] Other XR foot RT min 3V* Patient: Anjali White MR#: [id number] [facility] Other XR foot RT min 3V* 0 [facility] Other XR foot RT min 3V* : 1970 Acct:[id number] [facility] Other XR foot RT min 3V* Age/Sex: 50 / F ADM Date: 12/10/20 [facility] Other XR foot RT min 3V* Loc: XDUCLY Room: Type: [facility] Other XR foot RT min 3V* Attending Dr: Kalie HARRINGTON [facility] Other XR foot RT min 3V* Ordering Provider: LEN Alvarado [facility] Other XR foot RT min 3V* Date of Service: 12/10/20 [facility] Other XR foot RT min 3V* XR/XR foot RT min 3V*: Injury of right foot, initial encounter [facility] Other XR foot RT min 3V* Copies to: LEN Alvarado [facility] Other XR foot RT min 3V* CLINICAL HISTORY: Struck right foot against treadmill this morning while walking, pain, bruising [facility] Other XR foot RT min 3V* with swelling to the distal fifth metatarsal and little toe. [facility] Other XR foot RT min 3V* XR foot RT min 3V* [facility] Other XR foot RT min 3V* COMPARISON: None [facility] Other XR foot RT min 3V* FINDINGS: AP, latera l and oblique views of the right foot were obtained. There is no evidence of [facility] Other XR foot RT min 3V* fracture, dislocatio n or bony erosion. Mild spur at the head of the first metatarsal is noted. Soft [facility] Other XR foot RT min 3V* tissue swelling is demonstrated along the lateral aspect of the fifth metatarsal and the little toe. [facility] Other XR foot RT min 3V* XR/XR foot RT min 3V* [facility] Other XR foot RT min 3V* IMPRESSION: [facility] Other XR foot RT min 3V* NO FRACTURE OR SUBLUXATION. [facility] Other XR foot RT min 3V* Impression dictated by: Niels Boyd M.D.12/10/2020 10:37 AM [facility] Other XR foot RT min 3V* Dictation Location: [facility] Other XR foot RT min 3V* Transcribed By: JONH 12/10/20 1037 [facility] Other XR foot RT min 3V* Dictated By: Niels Boyd MD 12/10/20 1027 [facility] Other XR foot RT min 3V* Signed By: [facility] Other XR foot RT min 3V* 12/10/20 1037 [facility] [employer] Other Vital Signs Date Time Vital Sign Value Performing Clinician Facility 11-01-2024 14:40-0400 Body mass index (BMI) [Ratio] 28.87 kg/m2 David Susie DO Work Phone: [facility] 11-01-2024 14:40-0400 Body weight 69.31 kg David Susie DO Work Phone: [facility] 11-01-2024 14:40-0400 Diastolic blood pressure 70 mm[Hg] David Susie DO Work Phone: [facility] 11-01-2024 14:40-0400 Systolic blood pressure 120 mm[Hg] David Susie DO Work Phone: [facility] 02-01-2024 09:11-0500 Body mass index (BMI) [Ratio] 27.78 kg/m2 Jessica PHAN Work Phone: [facility] 02-01-2024 09:11-0500 Body weight 66.68 kg Jessica PHAN Work Phone: [facility] 02-01-2024 09:11-0500 Diastolic blood pressure 74 mm[Hg] Jessica PHAN Work Phone: [facility] 02-01-2024 09:11-0500 Systolic blood pressure 118 mm[Hg] Jessica PHAN Work Phone: [facility] 12-20-2023 15:10-0400 Body mass index (BMI) [Ratio] 27.21 kg/m2 David Susie DO Work Phone: [facility] 12-20-2023 15:10-0400 Body weight 65.32 kg David Susie DO Work Phone: [facility] 12-20-2023 15:10-0400 Diastolic blood pressure 70 mm[Hg] David Susie DO Work Phone: [facility] 12-20-2023 15:10-0400 Systolic blood pressure 118 mm[Hg] David Susie DO Work Phone: [facility] 10-25-2023 08:43-0400 Body mass index (BMI) [Ratio] 27.02 kg/m2 David Susie DO Work Phone: [facility] 10-25-2023 08:43-0400 Body weight 64.86 kg David Susie DO Work Phone: [facility] 10-25-2023 08:43-0400 Diastolic blood pressure 72 mm[Hg] David Susie DO Work Phone: [facility] 10-25-2023 08:43-0400 Systolic blood pressure 118 mm[Hg] David Susie DO Work Phone: [facility] 10-18-2023 10:51-0400 Body height 154.9 cm Alfie Furlong DO Work Phone: [facility] 10-18-2023 10:51-0400 Body mass index (BMI) [Ratio] 27.66 kg/m2 Alfie BarBirdlong DO Work Phone: [facility] 10-18-2023 10:51-0400 Body temperature 98.1 [degF] Alfie BarBirdlong DO Work Phone: [facility] 10-18-2023 10:51-0400 Body weight 66.41 kg Alfie Furlong DO Work Phone: [facility] 10-18-2023 10:51-0400 Diastolic blood pressure 62 mm[Hg] Alfie Furlong DO Work Phone: [facility] 10-18-2023 10:51-0400 Heart rate 66 /min Alfie BarBirdlong DO Work Phone: [facility] 10-18-2023 10:51-0400 SaO2% (BldA) [Mass fraction] 97 % Alfie Furlong DO Work Phone: [facility] 10-18-2023 10:51-0400 Systolic blood pressure 100 mm[Hg] Alfie Furlong DO Work Phone: [facility] 08-13-2023 10:29-0400 Body height 154.9 cm Alfie Furlong DO Work Phone: [facility] 08-13-2023 10:29-0400 Body mass index (BMI) [Ratio] 28.12 kg/m2 Alfie Furlong DO Work Phone: [facility] 08-13-2023 10:29-0400 Body temperature 98.29 [degF] Alfie Furlong DO Work Phone: [facility] 08-13-2023 10:29-0400 Body weight 67.5 kg Alfie Furlong DO Work Phone: [facility] 08-13-2023 10:29-0400 Diastolic blood pressure 60 mm[Hg] Alfie Furlong DO Work Phone: [facility] 08-13-2023 10:29-0400 Heart rate 80 /min Alfie Furlong DO Work Phone: [facility] 08-13-2023 10:29-0400 Respiratory rate 18 /min Alfie Furlong DO Work Phone: [facility] 08-13-2023 10:29-0400 SaO2% (BldA) [Mass fraction] 97 % Alfie Furlong DO Work Phone: [facility] 08-13-2023 10:29-0400 Systolic blood pressure 90 mm[Hg] Alfie Furlong DO Work Phone: [facility] 07-05-2023 15:52-0400 Body height 154.9 cm Alfie Furlong DO Work Phone: [facility] 07-05-2023 15:52-0400 Body mass index (BMI) [Ratio] 28.34 kg/m2 Alfie Furlong DO Work Phone: [facility] 07-05-2023 15:52-0400 Body temperature 98.2 [degF] Alfie Furlong DO Work Phone: [facility] 07-05-2023 15:52-0400 Body weight 68.04 kg Alfie Furlong DO Work Phone: [facility] 07-05-2023 15:52-0400 Diastolic blood pressure 60 mm[Hg] Alfie Furlong DO Work Phone: [facility] 07-05-2023 15:52-0400 Heart rate 85 /min Alfie Furlong DO Work Phone: [facility] 07-05-2023 15:52-0400 Respiratory rate 18 /min Alfie Furlong DO Work Phone: [facility] 07-05-2023 15:52-0400 SaO2% (BldA) [Mass fraction] 98 % Alfie Furlong DO Work Phone: [facility] 07-05-2023 15:52-0400 Systolic blood pressure 104 mm[Hg] Alfie Furlong DO Work Phone: [facility] 05-06-2023 11:13-0500 Body height 154.9 cm Zeina Murry APRN-CHROME WORKER Work Phone: [facility] 05-06-2023 11:13-0500 Body mass index (BMI) [Ratio] 27.89 kg/m2 Zeina Murry APRN-CHROME WORKER Work Phone: [facility] 05-06-2023 11:13-0500 Body temperature 98.49 [degF] Zeina Murry APRN-CHROME WORKER Work Phone: [facility] 05-06-2023 11:13-0500 Body weight 66.95 kg Zeina Murry APRN-CHROME WORKER Work Phone: [facility] 05-06-2023 11:13-0500 Diastolic blood pressure 64 mm[Hg] Zeina Murry APRN-CHROME WORKER Work Phone: [facility] 05-06-2023 11:13-0500 Heart rate 82 /min Zeina VILLANUEVA Work Phone: [facility] 05-06-2023 11:13-0500 SaO2% (BldA) [Mass fraction] 97 % Zeina VILLANUEVA Work Phone: [facility] 05-06-2023 11:13-0500 Systolic blood pressure 90 mm[Hg] Zeina VILLANUEVA Work Phone: [facility] 12-10-2020 10:35-0400 Body height 154.94 cm Kalie Blackmond Other [facility] Other 12-10-2020 10:35-0400 Body mass index (BMI) [Ratio] 26.98 kg/m2 Kalie Irma Other [facility] Other 12-10-2020 10:35-0400 Body temperature 97.8 [degF] Kalie Blackmond Other [facility] Other 12-10-2020 10:35-0400 Body weight 64.77 kg Kalie Blackmond Other [facility] Other 12-10-2020 10:35-0400 Diastolic blood pressure 77 mm[Hg] Kalie Irma Other [facility] Other 12-10-2020 10:35-0400 Respiratory rate 18 /min Kalie Irma Other [facility] Other 12-10-2020 10:35-0400 SaO2% (BldA) [Mass fraction] 100 % Kalie Irma Other [facility] Other 12-10-2020 10:35-0400 Systolic blood pressure 113 mm[Hg] Kalie Solis Other [place] [employer] Other Encounters Encounter Date Encounter Type Care Provider Facility Start: 11-01-2024 End: 11-01-2024 Bamboo flowsheet David Susie DO Work Phone: [facility] Start: 11-01-2024 End: 11-05-2024 Bamboo flowsheet David Susie DO Work Phone: [facility] Start: 11-01-2024 End: 11-05-2024 Clinisync Result Encounter Genia Maria NP Work Phone: [facility] Unsolicited Start: 11-01-2024 End: 11-01-2024 Patient encounter procedure David Susie DO Work Phone: [facility] Work Phone: Start: 11-01-2024 End: 11-01-2024 Periodic preventive med est patient 40-64yrs David Susie DO Work Phone: [facility] Comment on above: Well woman exam with routine gynecological exam; Breast cancer screening by mammogram; Postmenopausal state Start: 11-01-2024 End: 11-01-2024 ambulatory DAVID SUSIE Not Available Start: 09-29-2024 End: 09-29-2024 Refill Alfie Angeles DO [facility] Phone[facility] Start: 07-05-2024 End: 07-31-2024 Telephone encounter Rosaura Robins CMA [facility] Start: 07-03-2024 End: 07-04-2024 Refill Randi Lee SUPERVISOR BEET END-INSPECTOR EXPERIMENTAL ASSEMBLY Work [facility] Start: 02-01-2024 End: 02-01-2024 Bamboo flowsheet Jessica PHAN Work Phone: [facility] Start: 02-01-2024 End: 02-01-2024 Bamboo flowsheet Jessica PHAN Work Phone: [facility] Start: 02-01-2024 End: 02-01-2024 Postop follow up visit related to original px Jessica PHAN Work Phone: [facility] Comment on above: Postop check Start: 02-01-2024 End: 02-01-2024 ambulatory JESSICA JAMARI Not Available Start: 01-14-2024 End: 01-14-2024 Clinisync Result Encounter David Susie DO Work Phone: [facility] External Department Unsolicited Start: 01-14-2024 End: 01-14-2024 Clinisync Result Encounter David Susie DO Work Phone: [facility] External Department Unsolicited Start: 01-14-2024 End: 01-14-2024 ambulatory Alfie Furlong DO Work Phone: [facility] Work Phone: Start: 01-14-2024 End: 01-14-2024 Departed Referred Alfie Furlong DO Work Phone: [facility] Start: 01-10-2024 End: 01-10-2024 Refill Alfie G Furlong DO Work Phone: [facility] Start: 12-20-2023 End: 12-20-2023 Office outpatient visit 15 minutes David Susie DO Work Phone: [facility] Comment on above: Pre-op examination; Thickened endometrium Start: 12-20-2023 End: 12-20-2023 Preprocedural examination done David Susie DO Work Phone: [facility] Start: 12-20-2023 End: 12-20-2023 ambulatory DAVID SUSIE Not Available Start: 12-20-2023 End: 12-20-2023 Bamboo flowsheet David Susie DO Work Phone: [facility] Start: 12-20-2023 End: 12-20-2023 Bamboo flowsheet Advid Susie DO Work Phone: [facility] Start: 11-17-2023 End: 11-17-2023 Phys/qhp telephone evaluation 5-10 min David Susie DO Work Phone: [facility] Comment on above: Complex cyst of left ovary Start: 10-25-2023 End: 10-25-2023 Bamboo flowsheet David Susie DO Work Phone: [facility] Start: 10-25-2023 End: 10-29-2023 Bamboo flowsheet David Susie DO Work Phone: [facility] Start: 10-25-2023 End: 10-29-2023 Clinisync Result Encounter David Susie DO Work Phone: [facility] External Department Unsolicited Start: 10-25-2023 End: 10-25-2023 Patient encounter procedure David Susie DO Work Phone: [facility] Healthcare Start: 10-25-2023 End: 10-25-2023 Periodic preventive med est patient 40-64yrs David Susie DO Work Phone: [facility] Comment on above: Well woman exam with routine gynecological exam; Osteoporosis, post-menopausal ([facility]); Breast cancer screening by mammogram; Post-menopausal bleeding; Migraine without aura and with status migrainosus, not intractable ([facility]) Start: 10-18-2023 End: 10-18-2023 Office outpatient visit 5 minutes Alfie Angeles DO Work Phone: [facility] Comment on above: Dysuria (Primary Dx) Start: 10-18-2023 End: 10-18-2023 ambulatory ALFIE [facility] Start: 08-13-2023 End: 08-13-2023 ambulatory ALFIE G [facility] Start: 08-13-2023 Encounter for genera l adult medical examination without abnormal findings [facility] Start: 08-13-2023 End: 08-13-2023 Patient encounter status Alfie Stevenmariajose DO Work Phone: [facility] Work Phone: Start: 08-13-2023 End: 08-13-2023 Periodic preventive med est patient 40-64yrs Alfie Stevenmariajose DO Work Phone: [facility] Comment on above: Well adult health ch amilcar (Primary Dx); Overweight; Special screening for malignant neoplasm of colon; Other migraine without status migrainosus, not intractable; Gunn neuroma, right Start: 08-13-2023 End: 08-13-2023 ambulatory [facility] Start: 08-13-2023 Encounter for genera l adult medical examination without abnormal findings [facility] Start: 07-08-2023 End: 07-08-2023 Refill Randi Lee SUPERVISOR BEET END-INSPECTOR EXPERIMENTAL ASSEMBLY Work Phone: [facility] Start: 07-05-2023 End: 07-05-2023 Office outpatient visit 25 minutes Alfie Stevenmariajose DICKERSON Work Phone: [facility] Comment on above: Depression, major, i n remission (CMS-HCC) (Primary Dx); Sinus tachycardia; Overweight; Other migraine without status migrainosus, not intractable; Mixed stress and urge urinary incontinence Start: 07-05-2023 End: 07-05-2023 ambulatory [facility] Start: 05-06-2023 End: 05-06-2023 Office outpatient visit 15 minutes Zeina Murry SUPERVISOR BEET END-CHROME WORKER Work Phone[facility] Comment on above: Flu-like symptoms (P rimary Dx); Viral upper respiratory tract infection Start: 05-06-2023 End: 05-06-20[facility] Start: 06-07-2022 End: 06-07-[address] ALFIE ANGELES Facility:[facility] Start: 03-13-2022 End: 03-13-[address] DAVID RICHARDS . Facility:[facility] Start: 03-12-2022 Encounter for preprocedural laboratory examination DR DAVID RICHARDS . [facility] Start: 03-10-2022 End: 03-11-[address] DAVID RICHARDS . Facility:[facility] Start: 03-10-2022 End: 03-11-2022 Encounter for preprocedural laboratory examination DR DAVID RICHARDS . Facility:[facility] Start: 03-06-2022 Encounter for preprocedural cardiovascular examination DR DAVID RICHARDS . [facility] Start: 03-02-2022 End: 03-03-[address] DAVID RICHARDS . Facility:[facility] Start: 03-02-2022 End: 03-03-2022 Encounter for preprocedural cardiovascular examination DR DAVID RICHARDS . Facility:[facility] Start: 02-04-2022 End: 02-04-2022 ambulatory LAURA CHARMAINE [facility] Start: 12-12-2021 End: 12-13-2021 ambulatory RANDI LEE Facility:[facility] Start: 11-28-2021 End: 11-29-[address] DAVID RICHARDS . Facility:[facility] Start: 09-22-2021 End: 09-22-[address] DAVID RICHARDS . Facility:[facility] Start: 12-10-2020 Office outpatient ne w 20 minutes Kalie Solis [facility] Procedures Date Procedure Procedure Detail Performing Clinician Start: 11-01-2024 IGP,APTIMA HPV,AGE GDLN Genia Maria PARKING OFFICER Work Phone: Start: 01-14-2024 ALL CBC WITH AUTO DIFF [...] INFLUENZA A/INF LUENZA B/SARS-COV-2 VERITOR Zeina Murry SUPERVISOR BEET END-CHROME WORKER Work Phone: Start: 05-06-2023 Adult depression scr eening assessment Zeina Murry SUPERVISOR BEET END-CHROME WORKER Work Phone: Start: 01-29-2023 Mammography Zeina Murry SUPERVISOR BEET END-CHROME WORKER Work Phone: Start: 10-20-2022 Microscopic observat ion [Identifier] in Cervix by Cyto stain Zeina Murry SUPERVISOR BEET END-CHROME WORKER Work Phone: Plan of Treatment Date Care Activity Detail Author Start: 11-07-2025 End: 11-07-2025 Patient encounter procedure 11/07/2025 2:00 PM EDT Procedure Visit [facility] [address] [address] David Richards, DO [address] [address] [facility] Start: 10-20-2025 Screening for malign ant neoplasm of cervix Pap Smear [employer] [facility] Start: 06-19-2025 DTaP,Tdap and Td Vaccines (2 - Td or Tdap) DTaP,Tdap and Td Vaccines (2 - Td or Tdap) [facility] Start: 11-01-2024 End: 11-01-2025 DXA Skeletal system Views for bone density DEXA bone density Imaging Routine Postmenopausal state Expected: 11/01/2024 (Approximate), Expires: 11/01/2025 [facility] Comment on above: Expected: 11/01/2024 (Approximate), [...] Start: 10-30-2024 Influenza vaccination Influenza Vacc ine [facility] Start: 10-17-2024 Adult BMI Screening Adult BMI Screen ing [facility] Start: 08-12-2024 Adult BMI Screening Adult BMI Screen ing [facility] Start: 08-12-2024 Depression Screening Depression Scre ening [facility] Start: 08-12-2024 Tobacco Screening Tobacco Screening [facility] Start: 07-04-2024 Adult BMI Screening Adult BMI Screen ing [facility] Start: 07-04-2024 Depression Screening Depression Scre ening [facility] Start: 07-04-2024 Tobacco Screening Tobacco Screening [facility] Start: 05-05-2024 Adult BMI Screening Adult BMI Screen ing [facility] Start: 05-05-2024 Depression Screening Depression Scre ening [facility] Start: 05-05-2024 Tobacco Screening Tobacco Screening [facility] Start: 02-01-2024 End: 02-01-2024 Patient encounter procedure 02/01/2024 8:50 AM EST Office Visit [facility] [address] [place] [address] Jessica Kauffman PA [address] [place], [place] [id number] Arrived [facility] Comment on above: Arrived Start: 01-30-2024 Screening for malign ant neoplasm of breast Mammogram [facility] Start: 12-20-2023 End: 12-20-2023 Patient encounter procedure 12/20/2023 2:30 PM EDT Consult [facility] [address] [place] [address] David Richards, DO [facility] [address] [place], [place] [id number] Arrived [facility] Comment on above: Arrived Start: 12-20-2023 End: 12-20-2023 Patient encounter procedure 12/20/2023 1:20 PM EDT Consult [facility] [address] [place] [address] David Richards, DO [address] [place], [place] [id number] [facility] Start: 11-24-2023 End: 11-24-2023 Patient encounter procedure 11/24/2023 1:15 PM EDT Office Visit [facility] [address] [place] [id number] Gab Thomas, DPM [address] [address] [facility] Start: 11-17-2023 End: 11-16-2024 US for US PELVIS-TRANSVAG IF INDICATED Imaging Routine Complex cyst of left ovary Expected: 11/17/2023 (Approximate), Expires: 11/16/2024 [facility] Work Phone: Comment on above: Expected: 11/17/2023 (Approximate), Expires: 11/16/2024 Start: 11-08-2023 End: 11-08-2023 Professional / ancillary services management 11/08/2023 8:30 AM EDT Ancillary Procedure [facility] [address] [place] [address] [facility] Start: 10-31-2023 Influenza vaccination Influenza Vacc ine [facility] Start: 10-25-2023 End: 10-24-2024 US for US PELVIS-TRANSVAG IF INDICATED Imaging Routine Post-menopausal bleeding Expected: 10/25/2023 (Approximate), Expires: 10/24/2024 [facility] Comment on above: Expected: 10/25/2023 (Approximate), Expires: 10/24/2024 Start: 10-25-2023 End: 10-25-2023 Patient encounter procedure 10/25/2023 8:30 AM EDT Office Visit [facility] OB [address] [place] [address] David Richards DO [address] [address] Arrived [facility] Comment on above: Arrived Start: 08-13-2023 End: 08-13-2023 Patient encounter procedure 08/13/2023 10:30 AM EDT Office Visit [facility] Internal Medicine - Family Medicine [address] [place] [address] Alfie Angeles, DO [address], [place] [address] [facility] Internal Medicine - Family Medicine Start: 07-28-2023 Administration of varicella zoster vaccine Zoster (Shingles) Vaccine (1 of 2) [facility] Comment on above: Postponed from 04/08 (Patient Refused) Start: 07-28-2023 Screening for malign ant neoplasm of colon Colonoscopy [facility] Comment on above: Postponed from 04/08 (Patient Refused) Start: 10-30-2022 Influenza vaccination Influenza Vacc ine [facility] Start: 2022 Administration of varicella zoster vaccine Zoster (Shingles) Vaccine (1 of 2) [facility] Start: 2017 Screening for malign ant neoplasm of colon Colonoscopy [facility] Start: 1990 Adult BMI Follow Up Plan Adult BMI F ollow Up Plan [facility] Cologuard [facility] Cologuar d [facility] Lab Routine Special screening for malignant neoplasm of colon Ordered: 08/13/2023 [facility] Work Phone: Comment on above: Ordered: 08/13/2023 THIN PREP TIS PAP AN D HR HPV DNA THIN PREP TIS PAP AND HR HPV DNA Pathology and Cytology Routine Well woman exam with routine gynecological exam Ordered: 10/25/2023 [facility] [employer] Work Phone: Comment on above: Ordered: 10/25/2023 THIN PREP TIS PAP AN D HR HPV DNA THIN PREP TIS PAP AND HR HPV DNA Pathology and Cytology Routine Well woman exam with routine gynecological exam Ordered: 11/01/2024 [facility] Comment on above: Ordered: 11/01/2024 Immunizations Immunization Date Immunization Notes Care Provider Alan grant 06-20-2015 tetanus toxoid, redu brinda diphtheria toxoid, and acellular pertussis vaccine, adsorbed Zeina Murry SUPERVISOR BEET END-CHROME WORKER Work Phone: [facility] Payers Date Payer Category Payer Self-pay 2022 Commercial [employer] C are - PPO [employer] [id number] 2022 Private Health Insurance [employer] [id number] 2022 Unknown [id number]. [id number] 1972 Unknown [id number] 2.16.840.1.329158.3.579.2. 593 1972 Unknown [id number] 2.16.840.1.466437.3.579.2. 593 1972 Unknown [id number] 2.16.840.1.878910.3.579.2. 593 1972 Unknown [id number] 2.16.840.1.352704.3.579.2. 593 1972 Unknown [id number] 2.16.840.1.784147.3.579.2. 593 1972 Unknown [id number] 2.16.840.1.903222.3.579.2. 593 1972 Unknown [id number] 2.16.840.1.178836.3.579.2. 593 1972 Unknown [id number] 2.16.840.1.562041.3.579.2. 1286 1972 Unknown [id number] 2.16.840.1.591325.3.579.2. 1286 1972 Unknown [id number] 2.16.840.1.963412.3.579.2. 1286 1972 Unknown [id number] 2.16.840.1.299528.3.579.2. 1286 1972 Unknown [id number] 2.16.840.1.764971.3.579.2. 1286 1972 Unknown [id number] 2.16.840.1.939533.3.579.2. 1259 1972 Unknown [id number] 2.16.840.1.371757.3.579.2. 1259 1972 Unknown [id number] 2.16.840.1.214072.3.579.2. 1259 1959 Unknown [id number] 2.16.840.1.211964.19 Unknown [id number] 2.16.840.1.554036.3.579.2. 531 Social History Date Type Detail Facility Start: 10-25-2023 End: 12-20-2023 Sex Assigned At [facility] Start: 03-24-2022 End: 10-15-2022 Tobacco smoking status WIIS Never smoked tobacco [facility] Start: 03-24-2022 End: 10-15-2022 Tobacco use and exposure Smokeless tobacco non-user [facility] Start: 10-25-2023 End: 11-01-2024 Alcoholic beverage intake Lifetime non-drinker (finding) [facility] Start: 10-25-2023 End: 12-20-2023 History of Social function [facility] Start: 1970 Sex assigned at [facility] Start: 10-19-2022 Gender identity Identifies as female gender (finding) [facility] Tobacco smoking stat us WIIS Unknown if ever smoked [facility] Work Phone: Start: 10-04-2014 End: 01-18-2024 Sex Female (finding) [facility] Start: 07-05-2023 End: 01-18-2024 Alcoholic beverage intake Current drinker of alcohol (finding) [facility] How hard is it for y ou to pay for the very basics like food, housing, medical care, and heating Not hard at all [facility] Start: 1970 Sex assigned at Not on file P [facility] Has the [employer], [employer], or [employer] threatened to shut off services in your home in past 12Mo No [facility] Are you now , , , , never or living with a partner? [facility] How often to you hav e a drink containing alcohol? 2-4 times a month [facility] How many standard drinks containing alcohol do you have on a typical day? 1 or 2 [facility] How often do you hav e 6 or more drinks on 1 occasion? Never [facility] Do you feel stress - tense, restless, nervous, or anxious, or unable to sleep at night because your mind is troubled all the time - these days [OSQ] Not at all [facility] Clinical Notes 12-10-2020 to 11-01-2024 Genia Maria, PARKING OFFICER - 11/01/2024 2:00 PM EDTTelephone Encounter - Alfie Angeles, DO - 09/29/2024 1:05 AM EDTTelephone Encounter - Alfie Angeles, DO - 09/29/2024 1:05 AM EDT Note Date & Type Note Facility 11-01-2024 History of Presen t illness Narrative Reason for Appointment: Patient ID: Anjali White is a 54 y.o. female who presents for Well Women Visit Patient presents today for Annual Exam. MEDICATIONS Current Outpatient Medications Medication Instructions argbeyf-werhyotgjfqwe-[id number] (Excedrin Migraine) 250-250-65 MG tablet 1 tablet, [...] nursing note reviewed. Exam conducted with a transportation department supervisor present. Vitals: Estimated body mass index is 28.87 kg/m as calculated from the following: Height as of 24: 5' 1 . Weight as of this [...] Genia Maria NP documented in this encounter [facility] 09-29-2024 Miscellaneous Notes Rx sent in. She is due for her yearly wellness anytime documented in this encounter [facility] 09-29-2024 Telephone encounter Note Rx sent in. She is due for her yearly wellness anytime [facility] 07-05-2024 Miscellaneous Notes Patient was called and told she was due for a wellness in July. LM TO CB documented in this encounter [facility] 07-05-2024 Telephone encounter Note Patient was called and told she was due for a wellness in July. [facility] 07-05-2024 Telephone encounter Note LM TO CB [facility] 07-03-2024 Miscellaneous Notes refill Rx sent in. She is due for a wellness after 08/12/24 documented in this encounter [facility] 07-03-2024 Telephone encounter Note refill [facility] 07-03-2024 Telephone encounter Note Rx sent in. She is due for a wellness after 08/12/24 [facility] 02-01-2024 History of Presen t [...] having a D&C Hysteroscopy performed at [facility] with Dr. Richards. Pathology results was reviewed with the patient in great detail and all restrictions have been lifted. Follow Up: Patient is to return to the office for annual exam unless needed otherwise. Documented by SYLVESTER Givens on behalf of: SYLVESTER Givens documented in this encounter [facility] 12-20-2023 History of Presen t illness Narrative Reason for Appointment: Patient ID: Anjali White is a 53 y.o. female who presents for Pre-op Visit Patient presents today for Pre Op appointment. Patient is scheduled to undergo D&C Hysteroscopy, possible Myosure on 01/14/[address] Richards at [facility]. MEDICATIONS Current Outpatient Medications Medication Instructions [...] nursing note reviewed. Exam conducted with a transportation department supervisor present. Vitals: Estimated body mass index is [...] reviewed, and patient is to proceed to [facility] OR. Follow Up: Patient is to follow up between 1-2 weeks post operative to assess proper healing and recovery from procedure. Documented by Ayesha Acharya LPN on behalf of: David Richards DO documented in this encounter [facility] 11-17-2023 History of Presen t illness Narrative Reason for Appointment: Patient ID: Anjali White is a 53 y.o. female who presents for Telehealth and Left ovarian CYst Patient presents today via telephone call for a telehealth appointment. Patients Phone #: [phone] (mobile) Current Medications: has a current medication [...] David Richards DO documented in this encounter [facility] 10-25-2023 History of Presen t illness Narrative [...] nursing note reviewed. Exam conducted with a transportation department supervisor present. Vitals: Estimated body mass index is 27.02 kg/m as calculated from the following: Height as of 10/11/24: 5' 1 . Weight as of this encounter: 143 lb. BP: 118/72 No LMP recorded. Patient is premenopausal. ASSESSMENT & PLAN ICD-10-CM 1. Well woman exam with routine gynecological exam Z01.419 THIN PREP TIS PAP AND HR HPV DNA 2. Osteoporosis, post-menopausal (CMS/HCC) M81.0 CANCELED: DEXA bone density 3. Breast [...] David Richards DO documented in this encounter [facility] 10-18-2023 History of Presen t illness Narrative [...] for 5 days. documented in this encounter [email or web address] 08-13-2023 History of Presen t illness Narrative [...] the rest of the day. She saw numerical tool programmer a while back when she stubbed her [...] no longer doing those procedures anymore at [place]. They were going to refer to someone [...] Objective Physical Exam Exam conducted with a transportation department supervisor present (Paulo Lenz MS III). Constitutional: General: [...] recommend that she go back to the numerical tool programmer for a probable neuroma. She said she would. documented in this encounter [facility] 07-05-2023 History of Presen t [...] Objective Physical Exam Exam conducted with a transportation department supervisor present (Dale Vas[facility]es [facility] Constitutional: General: She is [...] in the morning. documented in this encounter [email or web address] 05-06-2023 History of Presen t illness Narrative [...] well, no active wheezing noted on exam NicolasaSteph Murry APRN-SHIVA 05/06/23 1223 documented in this encounter [facility] 03-13-2022 Note OPERATIVE NOTE OPERATION DATE: 03/13/2022 PROCEDURE: Bilateral laparoscopic salpingectomy. PREOPERATIVE DIAGNOSIS: Multiparity, desires permanent sterilization. POSTOPERATIVE DIAGNOSIS: Multiparity, desires permanent sterilization. ANESTHESIA: General. SURGEON: David Richards D.O. DRAG OUT WORKER: UCHE Bynum URINE OUTPUT: Yellow and clear. [...] and needle counts were correct x2. [facility] 02-04-2022 Note SVT and palpitations are well controlled with toprol, no concerning symptoms, continue to maintain adequate hydration. Continue toprol RTC 1 year or as needed [facility] 02-04-2022 Note UTP CARDIOLOGY PROGR ESS [...] propionate 50 mcg/actuation nasal spray,suspension Jacek Fe /20, 28, 1 mg-20 mcg (21)/75 mg (7) [...] toprol RTC 1 year or as needed [facility] 12-10-2020 Evaluation note Encounter Date Diagnosis [...] Tylenol or ibuprofen as needed for pain. [facility] Other Evaluation note* Diagnosis Pre-op examination Thickened endometrium Nonspecific (abnormal) findings on radiological and other examination of genitourinary organs documented in this encounter [facility] HealthcareEvaluation noteNo assessment information available[facility] Work Phone: Evaluation note* Diagnosis Postop check Follow-up examination, following unspecified surgery documented in this encounter [facility] HealthcareEvaluation note* Diagnosis Complex cyst of left ovary documented in this encounter [facility] Healthcare[facility] note* Diagnosis Well woman exam with routine gynecological exam Routine gynecological examination Osteoporosis, post-menopausal (CMS/HCC) Senile osteoporosis Breast cancer screening by mammogram Post-menopausal bleeding Postmenopausal bleeding Migraine without aura and with status migrainosus, not intractable (CMS/HCC) documented in this encounter [facility]* Diagnosis Depression, major, in remission (CMS-HCC)- Primary Sinus tachycardia Other specified cardiac dysrhythmias Overweight Other migraine without status migrainosus, not intractable Mixed stress and urge urinary incontinence Mixed incontinence urge and stress (male)(female) [facility] Diagnosis Well adult health check- Primary Unspecified general medical examination Overweight Special screening for malignant neoplasm of colon Special screening for malignant neoplasms, colon Other migraine without status migrainosus, not intractable Gunn neuroma, right [facility] Diagnosis Flu-like symptoms- Primary Viral upper respiratory tract infection Acute upper respiratory infections of unspecified site [facility] Diagnosis Dysuria- Primary [facility] Diagnosis Well woman exam with routine gynecological exam Routine gynecological examination Breast cancer screening by mammogram Postmenopausal state Asymptomatic postmenopausal status (age-related) (natural) documented in this encounter [facility] HealthcareHistory general Narrative - Reported* Type Description Date Medical History tachycardia Surgical History D&C Surgical History wisdom teeth extract Surgical History x1 Hospitalization History see above [facility] Other InstructionsNot on filedocumented in this encounter [facility] System[facility]ructionsNot on filedocumented in this encounter [facility] [...] DATE CREATED AUTHOR AUTHOR'S ORGANIZ ATION 02/05/2022 [facility] DATE CREATED AUTHOR AUTHOR'S ORGANIZ ATION 06/09/2022 [facility] DATE CREATED AUTHOR AUTHOR'S ORGANIZ ATION 08/15/2023 [facility] DATE CREATED AUTHOR AUTHOR'S ORGANIZ ATION 10/19/2023 [facility] DATE CREATED AUTHOR AUTHOR'S ORGANIZ ATION 01/19/2024 [facility] DATE CREATED AUTHOR AUTHOR'S ORGANIZ ATION 11/03/2024 [facility] dical Specialists EPIC REASON FOR [...] Care Teams (unrecognized sec tion and content) 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 Relationship Specialty Start Date End Date Alfie Angeles MD [address] [place] [address] PCP - General 10/19/22 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 Relationship Specialty Start Date End Date Alfie Angeles MD [address] [place] [address] PCP - General 10/19/22 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 Relationship Specialty Start Date End Date Alfie Angeles MD [address] [place] [address] PCP - General 10/19/22 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 Relationship Specialty Start Date End Date Alfie Angeles MD [address] [place] [address] PCP - General 10/19/22 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 Relationship Specialty Start Date End Date Alfie Angeles MD [address] [place] [address] PCP - General 10/19/22 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 Relationship Specialty Start Date End Date Alfie Angeles DO [address] [place] [address] PCP - General Family Medicine 12/07/22 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 Relationship Specialty Start Date End Date ClaudiaAlfie [address] [place] [address] PCP - General Family Medicine 12/07/22 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 Relationship Specialty Start Date End Date Claudia Alfie G, [address] [place] [address] PCP - General Family Medicine 12/07/22 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 Relationship Specialty Start Date End Date Claudia Alfie G, [address] [place] [address] PCP - General Family Medicine 12/07/22 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 Relationship Specialty Start Date End Date Claudia Alfie Schaefer [address] [place] [address] PCP - General Family Medicine 12/07/22 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 Relationship Specialty Start Date End Date Claudia Alfie G, [address] [place] [address] PCP - General Family Medicine 12/07/22 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 Relationship Specialty Start Date End Date Claudia Alfie Schaefer [address] [place] [address] PCP - General Family Medicine 12/07/22 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 [facility]. provides no warranty or guarantee of the accuracy or completeness of information in this document.
--- NOTE | 2024-11-10 14:07 | MM_ITS ---
Patient Name: ANJALI ROSADO MR#: [id number] : 1970 Exam Date: 11/10/2024 Ordering Doctor: DR RANI FINN . RADIOLOGY REPORT PROCEDURE: MM TOMOSYNTHESIS SCREENING BI COMPARISON: MM TOMOSYNTHESIS SCREENING BI, 01/29/2023. MG MAMM SCREEN 3D ALEXA CAD, 11/28/2021. MG MAMM SCREEN 3D ALEXA CAD, 11/14/2020. MG MAMM ALEXA SCRN W CAD DIG, 01/08/2015. INDICATIONS: screening Calculator Name NCI Breast Cancer Risk Assessment Tool 5 Year Breast Cancer Risk 1.80% Lifetime Breast Cancer Risk 14.00% Personal Breast Cancer No Personal Ovarian Cancer No Treatments None Family Cancers Aunt-maternal with melenoma cancer at age ~50; Nephew with neuroblastoma cancer at age 1. LOCATION: [facility] BREAST COMPOSITION: The breasts are heterogeneously dense, which may obscure small masses. FINDINGS: RIGHT BREAST: No significant suspicious finding. LEFT BREAST: No significant suspicious finding. RECOMMENDATIONS: ROUTINE MAMMOGRAM AND CLINICAL EVALUATION IN 12 MONTHS. Dictated by: Sandro Davenport DO on 11/10/2024 at 15:08 Approved by: Sandro Davenport DO on 11/10/2024 at 15:10
== END 2024-11-10 13:59 | disposition home or self-care (01) ==
PROVIDERS: PCP Family Medicine; Visit Provider Obstetrics & Gynecology
DX: Z12.31 Encounter for screening mammogram for malignant neoplasm of breast (principal); Z80.8 Family history of malignant neoplasm of other organs or systems
CPT/HCPCS: 77063; 77067

== ENCOUNTER 2025-02-09 09:55 | Outpatient (OUT) | payer OTHER, SELFPAY | END 2025-02-09 09:56 | disposition home or self-care (01) | LOC: RAD 09:55 | PROVIDERS: PCP Family Medicine; Visit Provider Obstetrics & Gynecology | DX: Z78.0 Asymptomatic menopausal state (principal) | CPT/HCPCS: 77080 ==

== ENCOUNTER 2025-02-15 19:25 | Emergency (ER) | payer OTHER, SELFPAY ==
[2025-02-15 19:38] VITALS: BP 128/89; PULSE 88; TEMP 36.7; O2SAT 98; BMI 28.3
--- NOTE | 2025-02-15 19:49 | PC.NURSE ---
pt fell 2 days ago and was not seen. Today experiencing right flank pain. Hx of kidney stones
--- NOTE | 2025-02-15 19:50 | CT_ITS ---
[address] [address] Patient Name: ANJALI ROSADO MRN: [id number] date: 1970 Sex: F Assigned Patient Location: ED.MAIN Current Patient Location: ED.MAIN Accession/Order Number: [id number] Exam Date: 02/15/2025 20:12 Report Date: 02/15/2025 20:39 At the request of: LAURA SERNA MD Procedure: CT abdomen pelvis wo con CT abdomen pelvis wo con 02/15/2025 8:15 PM SIGNS AND SYMPTOMS: Left flank pain, recent fall TECHNIQUE: Multidetector ct axial images of the abdomen and pelvis were obtained without IV contrast. Multiplanar reformats were performed and reviewed to further define anatomy and possible pathology. CT was performed with one or more of the following dose reduction techniques: Automated exposure control, adjustment of the mA and/or kV according to patient size, or use of iterative reconstruction technique. COMPARISON: None. FINDINGS: Lower Chest: There is a 7 mm calcified granuloma at the left lung base. ABDOMEN: Liver: There is a calcified granuloma in the left hepatic lobe. Bile Ducts: Normal caliber. Gallbladder: No calcified gallstones. Normal caliber wall. Pancreas: Within normal limits. Spleen: Calcified granulomas are noted in the spleen. Adrenals: Within normal limits. Kidneys: Within normal limits. Pelvis: Reproductive Organs: No pelvic masses. Ureters: Within normal limits. Bladder: Within normal limits. Bowel: There are uncomplicated colonic diverticula. There is a normal appendix in the right lower quadrant. Mesenteric Lymph Nodes: No enlarged mesenteric lymph nodes. Peritoneum: No ascites or free air, no fluid collection. Vessels: within normal limits Retroperitoneum: Within normal limits. Abdominal Wall: There is a small fat-containing periumbilical hernia. There is an 8 mm lucency in the left iliac bone which is of uncertain etiology. Bones: Within normal limits. CT/CT abdomen pelvis wo con IMPRESSION: No acute traumatic injury. Uncomplicated colonic diverticula are noted. There is an 8 mm lucency in the left iliac bone which is of uncertain etiology. Impression dictated by: Dwight Hadley M.D. 02/15/2025 8:39 PM Dictation Location: [facility]. Electronically authenticated by: [id number] Y Date: 02/15/2025 20:39
--- NOTE | 2025-02-15 19:52 | ED.BACK1 ---
HPI HPI - Back Pain/Injury General Chief Complaint: Back Pain/Injury Stated Complaint: Abdominal pain Time Seen by Provider: 02/15/25 19:42 Source: patient Mode of arrival: walk-in Limitations: no limitations History of Present Illness HPI Narrative: This 54-year-old female with a history of kidney stones and osteopenia presents for evaluation of left-sided flank pain. She states the pain started earlier today. She denies any nausea or vomiting at this time. She states at times the pain radiates into the left lower quadrant. She denies any fevers, chills. She denies any urinary symptoms. She does not have any chest pain or shortness of breath. She does not have any additional abdominal pain. She also had a fall recently onto her left side but does not have any pain in the hip joint itself. Related Data Home Medications ?Medication ?Instructions ?Recorded ?Confirmed magnesium oxide 400 mg PO DAILY 12/03/22 01/14/24 metoprolol succinate 25 mg 25 mg PO DAILY tachycardia 12/03/22 01/14/24 tablet,extended release 24 hr naproxen 500 mg tablet,delayed 500 mg PO BID PRN pain 12/03/22 01/14/24 release (EC-Naprosyn) sertraline 100 mg tablet 100 mg PO DAILY 12/03/22 01/14/24 calcium 600 mg (as 1 tab PO DAILY 01/11/24 01/14/24 carbonate)-vitamin D3 5 mcg (200 unit) tablet (Calcium 600 + D(3)) ubrogepant 100 mg tablet (Ubrelvy) 100 mg PO DAILY PRN migraine 01/11/24 01/14/24 headache Allergies Allergy/AdvReac Type Severity Reaction Status Date / Time No Known Drug Allergies Allergy Verified 02/15/25 19:38 Opioid HPI Opioid Management Most Recent Opioid Data: Last Pain Scale 7 Today, 20:06 Last MAR Pain Assessment Today, 20:06 Review of Systems ROS Status of ROS 10 or more systems reviewed and unremarkable except as noted in history and below [facility] Medical History (Updated 02/15/25 @ 21:01 by Poornima Lemos MD) Hypotension during surgery ?I97.88 - Other intraoperative complications of the circulatory system, not elsewhere classified (ICD-10) ?I95.89 - Other hypotension (ICD-10) Hypotension ?I95.9 - Hypotension, unspecified (ICD-10) Neck pain ?M54.2 - Cervicalgia (ICD-10) Kidney stones ?N20.0 - Calculus of kidney (ICD-10) Seasonal allergies ?J30.2 - Other seasonal allergic rhinitis (ICD-10) Heartburn ?R12 - Heartburn (ICD-10) Tachycardia ?R00.0 - Tachycardia, unspecified (ICD-10) Postoperative nausea and vomiting ?R11.2 - Nausea with vomiting, unspecified (ICD-10) ?Z98.890 - Other specified postprocedural states (ICD-10) Sinus tachycardia ?R00.0 - Tachycardia, unspecified (ICD-10) Pulmonary nodule ?R91.1 - Solitary pulmonary nodule (ICD-10) Migraines ?G43.909 - Migraine, unspecified, not intractable, without status migrainosus (ICD-10) Depression ?F32.A - Depression, unspecified (ICD-10) Anxiety ?F41.9 - Anxiety disorder, unspecified (ICD-10) Surgical History (Updated 01/11/24 @ 11:42 by Brisa Pitts NP) History of wisdom tooth extraction ?K08.409 - Partial loss of teeth, unspecified cause, unspecified class (ICD-10) H/O bilateral salpingectomy ?Z90.79 - Acquired absence of other genital organ(s) (ICD-10) History of surgical procedure on mouth ?Z98.890 - Other specified postprocedural states (ICD-10) H/O dilation and curettage ?Z98.890 - Other specified postprocedural states (ICD-10) Previous section ?Z98.891 - History of uterine scar from previous surgery (ICD-10) H/O breast biopsy ?Z98.890 - Other specified postprocedural states (ICD-10) Family History (Updated 01/14/24 @ 10:08 by Manda Stahl RN) Other Family history of COPD (chronic obstructive pulmonary disease) Family history of Parkinson disease Family history of aneurysm Family history of cancer Family history of hypertension Family history of myocardial infarction Family history of skin cancer Heart disease High cholesterol Renal disease Social History (Updated 01/11/24 @ 11:27 by Brisa Pitts NP) Within the past year, how often did you have a drink containing alcohol: monthly or less Smoking status: Never smoker Non-prescribed substance use: denies use 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 Highest level of school completed/degree received: Bachelor's degree Little interest or pleasure in doing things: not at all Feeling down, depressed, or hopeless: not at all Exam Narrative Exam Narrative: Vital signs and Nursing Notes reviewed: Patient is afebrile with a normal pulse, normal blood pressure, she is not hypoxic with pulse ox of 98% on room air General: Awake, alert, oriented, mildly uncomfortable appearing adult female holding her left flank, no respiratory distress HEENT: Normocephalic atraumatic, mucous membranes are moist and pink, eyes are clear, normal conjunctiva, vision is grossly intact Chest: Lungs are clear to auscultation with good air entry, there is no wheezing rhonchi or rales appreciated no accessory muscle use, patient is speaking in complete sentences-no chest wall tenderness to palpation CVS: Regular rate and rhythm S1-S2, no murmurs rubs or gallops, pulses are brisk and equal bilaterally ABD: Soft, nondistended, nontender, no rebound guarding or rigidity, bowel sounds are normal, no pulsatile masses appreciated-mild tenderness in the left flank Extremities: Moving all extremities, no lower extremity tenderness or swelling noted, negative Homans' sign, pulses are brisk and equal bilaterally Skin: Normal in appearance without rash,pallor, petechiae or purpura Neuro: No focal deficits Constitutional Vital Signs, click to edit/add: Last Vital Signs Temp 98.1 F 02/15/25 19:38 Pulse 88 02/15/25 19:38 Resp 18 02/15/25 19:38 BP 128/89 02/15/25 19:38 Pulse Ox 98 02/15/25 19:38 O2 Del Method Room Air 02/15/25 19:38 Course Vital Signs Vital signs: Vital Signs Temperature 98.1 F 02/15/25 19:38 Pulse Rate 88 02/15/25 19:38 Respiratory Rate 18 02/15/25 19:38 Blood Pressure 128/89 02/15/25 19:38 Pulse Oximetry 98 02/15/25 19:38 Oxygen Delivery Method Room Air 02/15/25 19:38 Temperature 98.1 F 02/15/25 19:38 Pulse Rate 88 02/15/25 19:38 Respiratory Rate 18 02/15/25 19:38 Blood Pressure 128/89 02/15/25 19:38 Pulse Oximetry 98 02/15/25 19:38 Oxygen Delivery Method Room Air 02/15/25 19:38 MDM - Back Pain/Injury MDM Narrative Medical decision making narrative: This 54-year-old female with a history of kidney stones, tachycardia and osteopenia presents for evaluation of left flank pain that started earlier today. She has not had any fevers or chills. She denies any urinary symptoms. She states she has had UTIs in the past and typically does not have any symptoms of urinary frequency urgency or dysuria. She appeared moderately uncomfortable grabbing her left flank. She was mildly tender in the left flank but the remainder of her exam was benign. An IV was placed and she was medicated with IV Toradol and IV fluids. She declined Zofran. CT scan of the abdomen pelvis was ordered to rule out kidney stone. It is negative for acute findings but does show calcified granuloma in the lung and hepatic lobe of the liver. She states she has a history of histoplasmosis. It also shows a lucency in her iliac bone on the left of uncertain significance. It does not show any signs of obstructive uropathy or kidney stones, there is also no notation of any pyelonephritis. Routine labs are reviewed. She has normal white count and stable hemoglobin. Electrolytes are low with a mildly low potassium of 3.3. Urine is positive for leukocyte esterase and 50-75 white blood cells per high-power field. In addition to the IV fluids and Toradol she was medicated with 1 g of IV Rocephin. She will be discharged home with a prescription for Keflex and Cipro double coverage due to the flank pain associated with this UTI. She was agreeable to a [place] prior to being discharged and was given a [place] and Zofran at the time of discharge to use for pain throughout the night. Lab Data Attestation: I reviewed the patient's lab results. Labs: Lab Results 02/15/25 02/15/25 Range/Units 19:10 19:42 WBC 8.0 (4.0-11.0) 10^3/uL RBC 4.00 L (4.20-5.40) 10^6/uL Hgb 12.8 (12.0-16.0) g/dL Hct 38.2 (36.0-48.0) % MCV 95.5 (81.0-99.0) fL MCH 32.0 (26.7-34.0) pg MCHC 33.5 (29.9-35.2) g/dL RDW 12.1 (11.0-15.0) % Plt Count 363 (150-450) 10^3/uL MPV 9.3 L (9.5-13.5) fL Neut % (Auto) 47.7 (43.0-75.0) % Lymph % (Auto) 38.4 (20.5-60.0) % Benzie % (Auto) 11.1 (1.7-12.0) % Eos % (Auto) 2.1 (0.9-7.0) % Baso % (Auto) 0.5 (0.2-2.0) % Neut # (Auto) 3.8 (1.4-6.5) 10^3/uL Lymph # (Auto) 3.1 (1.2-3.8) 10^3/uL Benzie # (Auto) 0.9 H (0.3-0.8) 10^3/uL Eos # (Auto) 0.2 (0.0-0.7) 10^3/uL Baso # (Auto) 0.0 (0.0-0.1) 10^3/uL Abs Immat Gran (auto) 0.02 (0.00-0.03) 10^3/uL Imm/Tot Granulo (auto) 0.2 (0.0-0.5) % Sodium 139 (136-145) mmol/L Potassium 3.3 L (3.5-5.1) mmol/L Chloride 106 (98-107) mmol/L Carbon Dioxide 28.5 (21.0-32.0) mmol/L Anion Gap 7.8 BUN 13.0 (7.0-18.0) mg/dL Creatinine 0.88 (0.55-1.02) mg/dL Est GFR ( Amer) >60 (>=60 mL/min/1.73m^2) Est GFR (Non-Af Amer) >60 (>=60 mL/min/1.73m^2) BUN/Creatinine Ratio 14.8 Glucose 115 H (74-106) mg/dL Calcium 9.0 (8.5-10.1) mg/dL Total Bilirubin 0.2 (0.2-1.0) mg/dL AST 16 (15-37) U/L ALT 15 (14-59) U/L Alkaline Phosphatase 98 (46-116) U/L Total Protein 7.8 (6.4-8.2) g/dL Albumin 3.5 (3.4-5.0) g/dL Globulin 4.3 g/dL Albumin/Globulin Ratio 0.8 Urine Color Lt. yellow (YELLOW) Urine Clarity Cloudy A (CLEAR) Urine pH 7.0 (5.0-9.0) Ur Specific [place] 1.010 (1.005-1.025) Urine Protein Trace (NEG/TRACE) mg/dL Urine Glucose (UA) Negative (NEGATIVE) mg/dL Urine Ketones Trace A (NEGATIVE) mg/dL Urine Occult Blood Trace-i (NEGATIVE) Urine Nitrite Negative (NEGATIVE) Urine Bilirubin Negative (NEGATIVE) Urine Urobilinogen 0.2 (0.2-1.0) EU/dL Ur Leukocyte Esterase Large A (NEGATIVE) Urine RBC None seen (0-2) #/HPF Urine WBC 20-50 A (NONE SEEN) #/HPF Ur Squamous Epith Cells Moderate A (NONE/RARE) #/LPF Urine Crystals None seen (None Seen) #/HPF Amorphous Sediment Moderate Urine Bacteria Large A (NONE SEEN) #/HPF Urine Casts None seen (NONE SEEN) #/LPF Urine Mucus Moderate A (NONE SEEN) Ur Culture Indicated? Yes-[facility] [place] [facility] Data CT scan - abdomen: Radiologist's impression: ITS Impressions Abdomen/Pelvis CT 02/15/25 19:50 IMPRESSION: No acute traumatic injury. Uncomplicated colonic diverticula are noted. There is an 8 mm lucency in the left iliac bone which is of uncertain etiology. Impression dictated by: Dwight Hadley M.D. 02/15/2025 8:39 PM Dictation Location: [place] [address] Electronically authenticated by: [id number] Y Date: 02/15/2025 20:39 Discharge Plan Discharge Chief Complaint: Back Pain/Injury Clinical Impression: UTI (urinary tract infection), Pulmonary nodule Patient Disposition: Home, Self-Care Time of Disposition Decision: 21:01 Condition: Good Prescriptions / Home Meds: No Action magnesium oxide 400 mg magnesium capsule 400 mg PO DAILY metoprolol succinate 25 mg tablet extended release 24 hr 25 mg PO DAILY naproxen [EC-Naprosyn] 500 mg tablet,delayed release (DR/EC) 500 mg PO BID PRN (Reason: pain) sertraline 100 mg tablet 100 mg PO DAILY calcium carbonate-vitamin D3 [Calcium 600 + D(3)] 600 mg-5 mcg (200 unit) tablet 1 tab PO DAILY Ubrelvy 100 mg tablet 100 mg PO DAILY PRN (Reason: migraine headache) Print Language: Upper Sorbian Instructions: Urinary Tract Infection in Women (DC), Pulmonary Nodules (ED) Referrals: SYDNEY TAYLOR [Primary Care Provider, Family Practice] - 1 week
[2025-02-15] MEDS: KETOROLAC TROMETHAMINE 30 MG/ML VIAL IVP (20:06)
[2025-02-15] MEDS: 0.9 % SODIUM CHLORIDE 1,000 ML 1000 ML IV (20:06)
--- OUTSIDE RECORDS SUMMARY | 2025-02-15 20:07 | XMS_ITS | Encounter Summary ---
Author Organization [facility] Address [address] [place] [address] Care Team Providers Care Front Office Administrator Name Role Phone Alfie Angeles MD Primary Care Provider [phone] Encounter Details DateTypeDepartmentCare Team (Latest Contact Info)Rxcrnmblijg43/18/2025Telephone [facility] [address] [place] [address] Genia Maria NP [address] [place] [address] Social History Tobacco UseTypesPacks/DayYears UsedDateSmoking Tobacco: NeverSmokeless Tobacco: NeverAlcohol UseStandard Drinks/WeekCommentsNever0 (1 standard drink = 0.6 oz pure alcohol)CommentsNoSex and Gender InformationValueDate RecordedSex Assigned at PrzckHcvzhn20/21/2023 5:38 PM EDTLegal MkzJxatpw32/15/2023 11:47 PM EDTGender OelfzfyaAwdbpk50/21/2023 5:38 PM EDTSexual OrientationNot on file documented as of this encounter Miscellaneous Notes * Telephone Encounter - Genia Maria NP - 02/15/2025 8:57 AM EST I reviewed the Dexa scan with Zaki today. She continues to take the recommended dosage of Vitamin D and Calcium. She is going to add weight bearing exercises to her current treatment plan. No aggressive therapies recommended at this time, but we did review options with Bisphosphonates and HRT if needed in the future. documented in this encounter Plan of Treatment DateTypeDepartmentCare Team (Latest Contact Info)Jpfnwmwqrrw14/12/2026 10:40 AM ESTOffice Visit [facility] [address] [facility] [address] [place] [phone] Ethan Angulo MD [address] [facility] [address] [place] [address] 11/07/2025 2:00 PM EDTProcedure Visit [facility] [address] [place] [address] David Richards DO [address] [place], [place] [id number] documented as of this encounter Visit Diagnoses Not on filedocumented in this encounter Care Teams Team MemberRelationshipSpecialtyStart DateEnd Date Alfie Angeles MD [address] [place] [address] PCP - General10/19/22documented as of this encounter
--- OUTSIDE RECORDS SUMMARY | 2025-02-15 20:07 | XMS_ITS | Clinical Summary ---
Author Organization [facility] Address [address] [place] [address] Care Team Providers Care Stretch Press Operator Name Role Phone Alfie Angeles DO Primary Care Provider Allergies No known active allergies Medications MedicationSigDispense QuantityRefillsLast FilledStart DateEnd DateStatus fluticasone (Flonase) 50 mcg/actuation nasal spray fluticasone propionate 50 mcg/actuation nasal spray,suspensionActive naproxen sodium (Anaprox) 550 mg tablet take 1 tablet by mouth every 12 hours if hjpqpj0307/10/2021ctive Jacek Fe 03/20, , 1 mg-20 mcg (21)/75 mg (7) tablet Take 1 tablet by mouth in the morning.01/25/2022ctive sertraline (Zoloft) 50 mg tablet Take 2 tablets by mouth in the morning.12/10/2021ctive ubrogepant (Ubrelvy) 100 mg tablet in the morning.Active metoprolol succinate XL (Toprol-XL) 25 mg 24 hr tablet Indications:Sinus tachycardiaTAKE 1 TABLET DAILY 90 tablet ctive Active Problems ProblemNoted DateDiagnosed DateSinus pjrcxjwrrbu22/07/2022 Assessment & Plan (02/04/2022 1:56 PM EST): SVT and palpitations are well controlled with toprol, no concerning symptoms, continue to maintain adequate hydration. Continue toprol RTC 1 year or as needed Social History Tobacco UseTypesPacks/DayYears UsedDateSmoking Tobacco: Never AssessedUT Safety & EnvironmentAnswerDate RecordedFear of Current or Ex-PartnerNot on file 04/22/2023Emotionally AbusedNot on file04/22/2023hysically AbusedNot on file 04/22/2023Sexually AbusedNot on file04/22/2023hysically or Sexually AbusedNot on file04/22/2023CommentsUnknownSex and Gender InformationValueDate RecordedSex Assigned at BirthNot on fileLegal HhfFskqdq49/30/2022 12:22 AM EDT Gender IdentityNot on fileSexual OrientationNot on file Last Filed Vital Signs Vital SignReadingTime TakenCommentsBlood Jcxmulmc717/80104/10/2020 2:12 PM EST Vnrpn765101/15/2020 1:11 PM ESTTemperature--Respiratory Rate--Oxygen Aurqdhaojz85% 02/07/2021 2:12 PM ESTInhaled Oxygen Concentration--Kxnkpj97.3 kg (144 lb) 02/04/2022 1:41 PM LHVHpfmkh766.9 cm (5' 1 )02/07/2021 2:03 PM ESTBody Mass Index27.21104/10/2020 2:03 PM EST Plan of Treatment Health MaintenanceDue DateLast DoneCommentsCT Cpmxzvgzljod49/08/1973Colonoscopy 1972Colorectal Cancer Kszuoaxpp97/08/1973FIT-DNA1972FIT1972 FOBT1972 3833Yesqjenwuwbak27/08/1973Depression Rbhmdcroe53/08/1985Hepatitis B Vaccines (1 of 3 - 19+ 3-dose series)1991Pap Smear1993Cervical Cancer Ufpcttzfq68/08/2003HPV/Dkllwf5604/08/20026447Hrcprrnfc62/08/2013Zoster Vaccines (1 of 2)2022Influenza Vaccine (#1)5Adult Hsisxgp8906/19/2025 06/20/2015HIB VaccinesAged OutNo longer eligible based on patient's age to complete this topicHPV VaccinesAged OutNo longer eligible based on patient's age to complete this topicIPV VaccinesAged OutNo longer eligible based on patient's age to complete this topicMeningococcal B VaccineAged OutNo longer eligible based on patient's age to complete this topicMeningococcal VaccineAged OutNo longer eligible based on patient's age to complete this topicPneumococcal Vaccine: Pediatrics (0 to 5 Years) and At-Risk Patients (6 to 64 Years)Aged Out No longer eligible based on patient's age to complete this topicRotavirus VaccinesAged OutNo longer eligible based on patient's age to complete this topic Insurance Care Teams Team MemberRelationshipSpecialtyStart DateEnd Date Alfie Angeles DO [address] [facility] PCP - Doyzmmg32/6/22
--- OUTSIDE RECORDS SUMMARY | 2025-02-15 20:07 | XMS_ITS | Encounter Summary ---
Author Organization [facility] Address [address] [place] [address] Care Team Providers Care Newcomer Hostess Name Role Phone Alfie Angeles MD Primary Care Provider Encounter Details DateTypeDepartmentCare Team (Latest Contact Info)Baggvcsnmtb10/16/2025bstract [facility] [address] [place] [phone] David Richards DO [address] [place], [place] [id number] Social History Tobacco UseTypesPacks/DayYears UsedDateSmoking Tobacco: NeverSmokeless Tobacco: NeverAlcohol UseStandard Drinks/WeekCommentsNever0 (1 standard drink = 0.6 oz pure alcohol)CommentsNoSex and Gender InformationValueDate RecordedSex Assigned at OoxnbSpgbae69/21/2023 5:38 PM EDTLegal CmpHmzzvy81/15/2023 11:47 PM EDTGender KqfckhhaNqgsnv02/21/2023 5:38 PM EDTSexual OrientationNot on file documented as of this encounter Plan of Treatment DateTypeDepartmentCare Team (Latest Contact Info)Ncppfzwjnpu58/12/2026 10:40 AM ESTOffice Visit [facility] [address] [facility] [address] [place] [phone] Ethan Angulo MD [address] [facility] [address] [place] [address] 11/07/2025 2:00 PM EDTProcedure Visit [facility] [address] [place] [address] David Richards DO [address] [address] documented as of this encounter Visit Diagnoses Not on filedocumented in this encounter Care Teams Team MemberRelationshipSpecialtyStart DateEnd Date Alfie Angeles MD [address] [facility] [place] [address] PCP - General10/19/22documented as of this encounter
--- OUTSIDE RECORDS SUMMARY | 2025-02-15 20:07 | XMS_ITS | Clinical Summary ---
Author Organization [email or web address] [facility] tem Address [id number] [address] [place] [address] Care Team Providers Care Turkey Roll Maker Name Role Phone HeriAlfie billy Silvano DICKERSON Primary Care Provider [phone] Allergies No known active allergies Medications * This document contains information received from the source organization and may not represent a complete record from that organization. MedicationSigDispense QuantityRefillsLast FilledStart DateEnd DateStatus fluticasone propionate (FLONASE) 50 mcg/actuation nasal spray Active naproxen (NAPROSYN) 500 mg tablet Take 1 tablet (500 mg total) by mouth 2 (two) times a day as needed for pain. 180 tablet 10/20/2022ctive magnesium oxide (MAGOX) 400 mg tablet 12/06/2022ctive opeppeq-eciuymshhowyf-gyvgpgxx (EXCEDRIN MIGRAINE) 250-250-65 mg per tablet Take 1 tablet by mouth every 6 (six) hours as needed for headaches.12/07/2024 Active triamcinolone (KENALOG) 0.1 % cream Apply 1 Application topically in the morning and 1 Application before bedtime. 30 g 5Active sertraline (ZOLOFT) 100 mg tablet TAKE 1 TABLET IN THE MORNING 90 tablet 5Active metoprolol succinate XL (TOPROL XL) 25 mg 24 hr tablet TAKE 1 TABLET IN THE MORNING 90 tablet 5Active ubrogepant (UBRELVY) 100 mg tablet Indications:Other migraine without status migrainosus, not intractableTake 100 mg by mouth daily as needed (migraine). 16 tablet 5Active fexofenadine (POLLY) 180 mg tablet Take 1 tablet (180 mg total) by mouth in the morning.01/26/2025tive ubrogepant (UBRELVY) 100 mg tablet Indications:Other migraine without status migrainosus, not intractableTake 100 mg by mouth daily as needed (migraine). 2 tablet Discontinued(Reorder) metoprolol succinate XL (TOPROL XL) 25 mg 24 hr tablet TAKE 1 TABLET IN THE MORNING 90 tablet Discontinued sertraline (ZOLOFT) 100 mg tablet TAKE 1 TABLET IN THE MORNING 90 tablet Discontinued fexofenadine (POLLY) 180 mg tablet Take 1 tablet (180 mg total) by mouth in the morning. Discontinued(Reorder) Active Problems ProblemNoted DateDiagnosed DateDepression, major, in yveapqtou60/06/2024 Nonintractable episodic qpxugnld10/22/2023Sinus juirgciuqfs22/03/2020 Overview (03/24/2022): Last Assessment & Plan: SVT and palpitations are well controlled with toprol, no concerning symptoms, continue to maintain adequate hydration. Continue toprol RTC 1 year or as needed Migraine Encounters DateTypeDepartmentCare IpajPsxdrvkfhmy84/04/2025Telephone [facility] [address] [place] [phone] Rosy Jackson RMA 01/31/2025 10:15 AM ESTOffice Visit [facility] [address] [place] [address] Radha Ott, HEAD BUTLER-WIRE WEAVING LOOM SETTER [place] (obstructive sleep apnea) (Primary Dx); Fatigue, unspecified type; Excessive daytime sleepiness; BMI 28.0-28.9,adult; Overweight with body mass index (BMI) of 28 to 28.9 in adult01/30/2025Travel 01/26/2025Refill [facility] [address] [place] [address] Alfie Angeles, DO Other migraine without status migrainosus, not zpupdtbhcsk33/28/2025Refill [facility] [address] [place] [address] Alfie Angeles, 01/18/2025Telephone [facility] [address] [place] [address] Crys Grayson MD 01/05/2025 8:00 PM ESTClinical Support [facility] - [facility] [address] [place] [address] Iweeelpvgum48/10/2025Telephone [facility] - Sleep Disorders [address] [place] [address] Alfie Angeles, Sleep Lab (PSG)12/08/2024Results [facility] [address] [place] [address] Alfie Angeles, DO Lipid profile, Comprehensive metabolic panel12/07/2024 1:00 PM EDTOffice Visit [facility] [address] [place] [address] Alfie Angeles, Well adult exam (Primary Dx); Special screening for malignant neoplasm of colon; Hypersomnia; Dermatitis; Pruritus; Overweight; BMI 28.0-28.9,adult; Allergy, cebwxzk9712/07/2024Orders Only [facility] [address] [place] [address] Ref Prov, Not In System 12/07/2024Travelfrom Last 3 Months Immunizations ImmunizationAdministration DatesNext WwtWatr2806/20/2015 Family History Medical HistoryRelationNameCommentsHypertensionBrother 1Sleep apneaBrother 1 Supraventricular tachycardiaDaughterAnxiety disorderFatherCOPDFatherDepression FatherEmphysemaFatherHeart failureFatherHyperlipidemiaFatherHypertensionFatherNo Known ProblemsMotherRelationNameStatusCommentsBrother 1AliveBrother 2Alive DaughterAliveFatherAliveMotherAliveSisterAlive Social History Tobacco UseTypesPacks/DayYears UsedDateSmoking Tobacco: NeverSmokeless Tobacco: Never Tobacco Cessation:Counseling Given: Not Answered Alcohol UseStandard Drinks/WeekCommentsYes0 (1 standard drink = 0.6 oz pure alcohol)[facility] UtilitiesAnswerDate RecordedIn the past 12 months has the electric, gas, oil, or water company threatened to shut off services in your home?No 08/13/2023Social Connection and Isolation PanelAnswerDate RecordedIn a typical week, how many times do you talk on the phone with family, friends, or neighbors?More than three times a week08/13/2023How often do you get together with friends or relatives?Twice a week08/13/2023How often do you attend moravian or jainism services?Never08/13/2023o you belong to any clubs or organizations such as moravian groups, unions, fraternal or athletic groups, or school groups?No 08/13/2023How often do you attend meetings of the clubs or organizations you belong to?Never08/13/2023re you , , , , never , or living with a partner?Hpfkssw8908/13/2023UDIT-CAnswerDate RecordedQ1: How often do you have a drink containing alcohol?2-4 times a month08/13/2023Q2: How many drinks containing alcohol do you have on a typical day when you are drinking?1 or Q3: How often do you have six or more drinks on one occasion?Never08/13/2023Overall Financial Resource Strain (CARDIA)AnswerDate RecordedHow hard is it for you to pay for the very basics like food, housing, medical care, and heating?Not hard at all02/04/2023HQ-2AnswerDate RecordedTotal Qzkxe354State [employer] [place] of Occupational Health - Occupational Stress QuestionnaireAnswerDate RecordedDo you feel stress - tense, restless, nervous, or anxious, or unable to sleep at night because yourmind is troubled all the time - these days?Not at all08/13/2023Exercise Vital SignAnswerDate RecordedOn average, how many days per week do you engage in moderate to strenuous exercise (like a brisk walk)?0 days08/13/2023On average, how many minutes do you engage in exercise at this level?0 min08/13/2023RAPARE - TransportationAnswerDate RecordedIn the past 12 months, has lack of transportation kept you from medical appointments or from getting medications?No02/04/2023In the past 12 months, has lack of transportation kept you from meetings, work, or from getting things needed for daily living?No02/04/2023Housing InstabilityAnswerDate RecordedAre you worried or concerned that in the next two months you may not have stable housing that you own, rent or stay in as a part of a household?No02/04/2023 ChildcareAnswerDate RecordedDo problems getting child support specialist make it difficult for you to work or study?No12/07/2022EmploymentAnswerDate RecordedDo you need help finding a local career center and/or a training program?No08/13/2023Hunger ScreeningAnswerDate RecordedWithin the past 12 months we worried whether our food would run out before we got money to buy more.Never True12/07/2024Within the past 12 months the food we bought just didn't last and we didn't have money to get more.Never True12/07/2024Purpose - LifeAnswerDate RecordedI have a purpose and direction in my life.Strongly Agree08/13/2023CommentsUnknown Sex and Gender InformationValueDate RecordedSex Assigned at BirthNot on file Legal VmuOnpcug29/06/2015 11:34 AM EDTGender IdentityNot on fileSexual OrientationNot on fileTravel HistoryTravel StartTravel LuoUvbkwug39/21/2025 01/27/2025 Last Filed Vital Signs Vital SignReadingTime TakenCommentsBlood Nkwggnqm734/6812/07/2024 12:56 PM EDT Eaxsy230901/31/2025 10:11 AM DKPJhdpynobglo19.3 ??C (97.3 ??F)12/07/2024 12:56 PM EDTRespiratory Tpgg8324 12:56 PM EDTOxygen Fttbuyzfoa27%01/31/2025 10:11 AM ESTInhaled Oxygen Concentration--Ochvso81.9 kg (151 lb 12.8 oz)01/31/2025 10:11 AM JQBNhzxau731.9 cm (5' 1 )01/31/2025 10:11 AM ESTBody Mass Index28.68 01/31/2025 10:11 AM EST Plan of Treatment DateTypeDepartmentCare Team (Latest Contact Info)Wodygbcuowe53/18/2026 10:30 AM ESTOffice Visit [facility] [address] [place] [address] Radha Ott, HEAD BUTLER-WIRE WEAVING LOOM SETTER [address] [place] [address], [address] [place] [address] 12/07/2025 10:30 AM EDTOffice Visit [facility] [address] [place] [address] Alfie Angeles, [address] [facility] [place] [address] Health MaintenanceDue DateLast DoneCommentsZoster (Shingles) Vaccine (1 of 2) 2022Influenza Gaxlfpu9105/29/2025Postponed from 10/30/2024 (Patient Refused) DTaP,Tdap and Td Vaccines (2 - Td or Tdap)Adult BMI Follow Up PlanDepression Seneqtcgy31Mammogram , 01/29/2023dult BMI Qfjajhwsi20/04/2024Tobacco Kdelfuuyc80olonoscopy02/06/2027Postponed from 2017 (Not Indicated)Pap Smear/04/2024, 10/20/2022 Medical Devices Not on file Procedures Procedure NamePriorityDate/TimeAssociated DiagnosisCommentsPOLYSOMNOGRAPHY 4 OR MORE VSNPIRRQEBGarxtlc51/07/2025 8:37 PM EST Hypersomnia HM LWAQNPPZWGATjluxwh24/09/2025 2:13 PM EDTCOMPREHENSIVE METABOLIC PANELRoutine 12/07/2024 1:38 PM EDT Well adult exam LIPID IHPWFPWMoihdtr52/09/2025 1:38 PM EDT Well adult exam from Last 3 Months Results * PSG Diagnostic (01/05/2025 8:37 PM EST)Specimen (Source)Anatomical Location / LateralityCollection Method / VolumeCollection TimeReceived Time01/05/2025 8:37 PM EST Narrative [facility] - 01/18/2025 1:57 PM EST INTERPRETED Authorizing ProviderResult TypeResult StatusDentomeka [facility] ORDERABLESFinal ResultPerforming OrganizationAddressCity/State/ZIP CodePhone Number SLEEPLAB * HM MAMMOGRAPHY (12/07/2024 2:13 PM EDT)Anatomical RegionLateralityModality Other Narrative Authorizing ProviderResult TypeResult StatusNot In System Ref ProvHEALTH MAINTENANCEFinal Result * (ABNORMAL) Lipid profile (12/07/2024 1:38 PM EDT)ComponentValueRef RangeTest MethodAnalysis TimePerformed AtPathologist HuafvacwjQGGLHYOJCCG503(H)150 - 200 mg/dL12/07/2024 10:27 PM [facility] HBREBAZBFFGVQUNUZRFCHF525 27 - 150 mg/dL12/07/2024 10:27 PM [facility] LABORATORYHDL TSAOSZWJATZ89>39 mg/dL12/07/2024 10:27 PM [facility] LABORATORYComment: HDL <40 mg/dL - High Risk HDL > or = 40mg/dL- Desirable HDL >60 mg/dL - Negative Risk LDL (CALC)150(H)<130 mg/dL12/07/2024 10:27 PM [facility] LABORATORYComment: LDL <100 mg/dL - Desirable LDL >160 mg/dL - High Risk CHOLESTEROL:HDL3.81.0 - 5.010 10:27 PM [facility] LABORATORYVERY LOW UNDDYMFLDKM344 - 30 mg/dL12/07/2024 10:27 PM [facility] LABORATORYSpecimen (Source)Anatomical Location / Laterality Collection Method / VolumeCollection TimeReceived TimeBloodVenous blood / Mgxovms2412/07/2024 1:38 PM EDT1 1:38 PM EDT Narrative Authorizing ProviderResult TypeResult StatusDennis G Furlong DOLAB BLOOD ORDERABLESFinal ResultPerforming OrganizationAddressCity/State/ZIP CodePhone Number [facility] [address] [place] [address], * (ABNORMAL) Comprehensive metabolic panel (12/07/2024 1:38 PM EDT)Component ValueRef RangeTest MethodAnalysis TimePerformed AtPathologist SignatureSODIUM 622275 - 146 mmol/L1 10:27 PM [facility] POTASSIUM4.13.5 - 5.0 mmol/L1 10:27 PM [facility] WRNWBEIQIIVSBFOFGX63231 - 109 mmol/L1 10:27 PM [facility] LABORATORYCARBON MXSCVOF3886 - 32 mmol/L1 10:27 PM [facility] LABORATORYANION GAP95 - 15 mmol/L1 10:27 PM EDT [facility] LABORATORYBLOOD UREA NNEEVXEC540 - 23 mg/dL12/07/2024 10:27 PM [facility] LABORATORYCREATININE0.720.40 - 1.00 mg/dL 12/07/2024 10:27 PM [facility] LABORATORYComment:METHOD TRACEABLE TO IDAR GUXRJMHPORYBYFN2052 - 99 mg/dL12/07/2024 10:27 PM [facility] TWLVJDPMEIBTBJYFM29.48.5 - 10.5 mg/dL12/07/2024 10:27 PM EDT [facility] LABORATORYTOTAL PROTEIN8.6(H)6.0 - 8.0 g/dL12/07/2024 10:27 PM [facility] LABORATORYALBUMIN4.63.2 - 5.3 g/dL 12/07/2024 10:27 PM [facility] LABORATORYALKALINE PHOSPHATASE 8839 - 130 U/L1 10:27 PM [facility] AMOHWKOUGUYDC34 <=41 U/L1 10:27 PM [facility] HEQMYPWTJRNXP74<=31 U/L1 10:27 PM [facility] LABORATORYBILIRUBIN,TOTAL 0.40.3 - 1.2 mg/dL12/07/2024 10:27 PM [facility] EGFR Non-Race Dependent>90>=60 ml/min/1.73sq.m1 10:27 PM [facility] LABORATORYComment: Reported eGFR is based on the CKD-EPI 2020 equation that does not use a race coefficient. Specimen (Source)Anatomical Location / LateralityCollection Method / Volume Collection TimeReceived TimeBloodVenous blood / Fcbseri4612/07/2024 1:38 PM EDT 12/07/2024 1:38 PM EDT Narrative Authorizing ProviderResult TypeResult StatusDennis G Furlong DOLAB BLOOD ORDERABLESFinal ResultPerforming OrganizationAddressCity/State/ZIP CodePhone Number [facility] [address] [place] [address], [place] [phone] from Last 3 Months Insurance * Guarantor: Zaki White TypeRelation to PatientDate of PhoneBilling AddressPersonal/VnbzelHbpv08/08/1973 [facility] [place] [address] Care Teams Team MemberRelationshipSpecialtyStart DateEnd Date Alfie Angeles DO [address] [facility], [place] [address] PCP - GeneralFaboston sanatorium Rbjteuvh83/9/23
--- OUTSIDE RECORDS SUMMARY | 2025-02-15 20:07 | XMS_ITS | Encounter Summary ---
Author Organization [facility] tem Address [id number] [address] [place] [address] Care Team Providers Care Building Energy Retrofit Technician Name Role Phone Alfie Angeles DO Primary Care Provider [phone] Encounter Details DateTypeDepartmentCare Team (Latest Contact Info)Sfpsytqktwc49/10/2025Results Follow-Up [facility] - Family Medicine [address] [place] [address] Alfie Angeles DO [address], [facility] [place] [address] Lipid profile, Comprehensive metabolic panel Social History Tobacco UseTypesPacks/DayYears UsedDateSmoking Tobacco: NeverSmokeless Tobacco: NeverAlcohol UseStandard Drinks/WeekCommentsYes0 (1 standard drink = 0.6 oz pure alcohol)[facility] UtilitiesAnswerDate RecordedIn the past 12 months has the [employer], gas, oil, or water [employer] threatened to shut off services in your home?No 08/13/2023Social Connection and Isolation PanelAnswerDate RecordedIn a typical week, how many times do you talk on the phone with family, friends, or neighbors?More than three times a week08/13/2023How often do you get together with friends or relatives?Twice a week08/13/2023How often do you attend yazidi or buddhism services?Never4Do you belong to any clubs or organizations such as yazidi groups, unions, fraternal or athletic groups, or school groups?No 08/13/2023How often do you attend meetings of the clubs or organizations you belong to?Never08/13/2023re you , , , , never , or living with a partner?Xohrznm9808/13/2023UDIT-CAnswerDate RecordedQ1: How often do you have a [...] care, and heating?Not hard at all02/04/2023HQ-2AnswerDate RecordedTotal Ubgcc123Finhighland ridge hospital [place] of Occupational Health - Occupational Stress QuestionnaireAnswerDate [...] of a household?No02/04/2023 ChildcareAnswerDate RecordedDo problems getting early childhood assistant make it difficult for you to work [...] RecordedSex Assigned at BirthNot on file Legal LebJthrzg67/06/2015 11:34 AM EDTGender IdentityNot on fileSexual OrientationNot on fileTravel HistoryTravel StartTravel VyuHpimbwk92/21/2025 01/27/2025documented as of this encounter Plan of Treatment DateTypeDepartmentCare Team (Latest Contact Info)Ususmtunwqm36/18/2026 10:30 AM ESTOffice Visit [facility] [address] [facility] [place] [address] Radha Ott, FORENSIC DNA ANALYST-FELT CUTTER [address] [place] [address], [address] [place] [address] 12/07/2025 10:30 AM EDTOffice Visit [facility] [address] [place] [phone] Alfie Angeles, [address], [facility] [place] [address] documented as of this encounter Visit Diagnoses Not on filedocumented in this encounter Additional Health Concerns AssessmentNoted TimePHQ-9 Depression Total Score: 12:55 PM EDTA Body Mass Index follow-up plan has been documented for the mqpgftv4512/07/2024 5:27 PM EDTdocumented as of this encounter Care Teams Team MemberRelationshipSpecialtyStart DateEnd Date [facility] Alfie Schaefer DO [address] [facility] [place] [address] PCP - GeneralFaokly Hfgqrokv16/9/23documented as of this encounter
--- OUTSIDE RECORDS SUMMARY | 2025-02-15 20:08 | XMS_ITS | Encounter Summary ---
Author Organization [facility] tem Address [facility] [id number] [address] [place] [address] Care Team Providers Care Health Care Marketing Specialist Name Role Phone HeriAlfie billy Silvano DICKERSON Primary Care Provider Encounter Details DateTypeDepartmentCare Team (Latest Contact Info)Kokbtmwnxtn91/04/2025Telephone [facility] [address] [place] [phone] Rosy Jackson RMA Social History Tobacco UseTypesPacks/DayYears UsedDateSmoking Tobacco: NeverSmokeless [...] relatives?Twice a week08/13/2023How often do you attend congregation or mandaeism services?Never4Do you belong to any clubs or organizations such as congregation groups, unions, fraternal or athletic groups, or school groups?No 08/13/2023How often do you attend meetings of the clubs or organizations you belong to?Never4Are you , , , , never , or living with a partner?Urktwyh9708/13/2023UDIT-CAnswerDate RecordedQ1: How often do you have a [...] care, and heating?Not hard at all02/04/2023HQ-2AnswerDate RecordedTotal Oleju732Fin[facility] [place] of Occupational Health - Occupational Stress QuestionnaireAnswerDate [...] a household?No02/04/2023 ChildcareAnswerDate RecordedDo problems getting child care associate teacher make it difficult for you to work [...] RecordedSex Assigned at BirthNot on file Legal OhzWfjwhr95/06/2015 11:34 AM EDTGender IdentityNot on fileSexual OrientationNot on fileTravel HistoryTravel StartTravel GllFgfcwnp05/21/2025 01/27/2025documented as of this encounter Miscellaneous Notes * Telephone Encounter - KALANI Raymond - 02/01/2025 8:23 AM EST PAP machine and supplies order with supportive documentation faxed to [facility]. documented in this encounter Plan of Treatment DateTypeDepartmentCare Team (Latest Contact Info)Hedzmxdhcvy89/18/2026 10:30 AM ESTOffice Visit [facility] [address] [facility] [place] [address] Radha Ott, CANCER GENETIC COUNSELOR-RN SOCIAL SERVICES [address] [facility], [address] [place] [address] 12/07/2025 10:30 AM EDTOffice Visit [facility] [address] [place] [address] Alfie Angeles, [address], [facility] [place] [address] documented as of this encounter Visit Diagnoses Not on filedocumented in this encounter Additional Health Concerns AssessmentNoted TimePHQ-9 Depression Total Score: 12:55 PM EDTA Body Mass Index follow-up plan has been documented for the tqajoyc3412/07/2024 5:27 PM EDTdocumented as of this encounter Care Teams Team MemberRelationshipSpecialtyStart DateEnd Date Alfie Angeles DO [address], [facility] [place] [address] PCP - GeneralFamily Zcgtfapp84/9/23documented as of this encounter
--- OUTSIDE RECORDS SUMMARY | 2025-02-15 20:09 | XMS_ITS | Clinical Summary ---
Author Organization [facility] Healthcare Address [address] [place] [address] Care Team Providers Care Accounting Methods Analyst Name Role Phone Alfie Angeles MD Primary Care Provider + [phone] Allergies No known active allergies Medications MedicationSigDispense QuantityRefillsLast FilledStart DateEnd DateStatus metoprolol succinate XL (Toprol-XL) 25 MG 24 hr tablet 1 (one) time each day at the same time.04/28/2022ctive naproxen (Naprosyn) 500 MG tablet Take 500 mg by mouth 2 (two) times a day as needed.10/13/2022ctive sertraline (Zoloft) 100 MG tablet Take 1 tablet by mouth in the morning.07/13/2022ctive Calcium Carb-Cholecalciferol (Calcium 1000 + D) 1000-20 MG-MCG tablet 03/01/2023ctive indhwqz-frvfrzdipheza-wcclrygj (Excedrin Migraine) 250-250-65 MG tablet Take 1 tablet by mouth every 6 (six) hours if needed for headachesActive loratadine-pseudoephedrine ER (Claritin-D 12-hour) 5-120 MG 12 hr tablet Take 1 tablet by mouth in the morning and 1 tablet before bedtime. Do not crush, chew, or split.Active magnesium oxide (Mag-Ox) 400 (240 Mg) MG tablet Indications:Migraine without aura and with status migrainosus, not intractable TAKE 1 TABLET BY MOUTH DAILY 30 tablet 1105Active Active Problems ProblemNoted DateDiagnosed DateNonintractable episodic aidlbfem86/22/2023 Encounters DateTypeDepartmentCare XhluPcsucebsmfq23/18/2025Telephone [facility] [address] [address] Genia Maria NP 02/13/2025bstract [facility] [address] [place] [address] David Richards DO 01/15/2025 2:20 PM ESTOffice Visit [facility] [address] [place] [phone] Ethan Angulo MD Rash (Primary Dx); Allergic wvpablwpq06/17/2025amboo flowsheet [facility] [address] [place] [phone] Ethan Angulo MD 01/15/20252572Gfurxu55/16/2025Travelfrom Last 3 Months Family History Medical HistoryRelationNameCommentsHeart diseaseFatherRelationNameStatusComments Father Social History Tobacco UseTypesPacks/DayYears UsedDateSmoking Tobacco: NeverSmokeless Tobacco: Never Tobacco Cessation:Counseling Given: Not Answered Alcohol UseStandard Drinks/WeekCommentsNever0 (1 standard drink = 0.6 oz pure alcohol)CommentsNoSex and Gender InformationValueDate RecordedSex Assigned at MewmaAzsxhk60/21/2023 5:38 PM EDTLegal WieSmqjwx20/15/2023 11:47 PM EDTGender SwkbapubDkajnk97/21/2023 5:38 PM EDTSexual OrientationNot on file Last Filed Vital Signs Vital SignReadingTime TakenCommentsBlood Zzcpocme626/7009 2:40 PM EDT Pulse--Temperature--Respiratory Rate--Oxygen Saturation--Inhaled Oxygen Concentration--Suseru67.5 kg (151 lb)01/15/2025 2:25 PM DRPWnlpqm179.9 cm (5' 1 )01/15/2025 2:25 PM ESTBody Mass Index28.5301/15/2025 2:25 PM EST Plan of Treatment DateTypeDepartmentCare Team (Latest Contact Info)Jlthyjhozct06/12/2026 10:40 AM ESTOffice Visit [facility] [address] [facility] [address] [place] [address] Ethan Angulo MD [address] [facility] [address] [place] [address] 11/07/2025 2:00 PM EDTProcedure Visit [facility] [address] [place], [phone] David Richards DO [address] [place] [address] Insurance Care Teams Team MemberRelationshipSpecialtyStart DateEnd Date Alfie Angeles MD [address] [facility] [place] [address] PCP - General10/19/22
[2025-02-15 20:13] LABS: Glucose Urine UA NEGATIVE (NEGATIVE)
[2025-02-15 20:19] LABS: Cast Seen? NONE SEEN #/LPF (NONE SEEN); Crystals Seen? None Seen #/HPF (None Seen); Urine Culture Indicated YES-FRMC
[2025-02-15 20:25] LABS: Hematocrit 38.2 % (36.0-48.0); Hemoglobin 12.8 g/dL (12.0-16.0); Immature Granulocytes Abs Auto 0.02 10^3/uL (0.00-0.03); Immature Granulocytes Pct Auto 0.2 % (0.0-0.5); Lymphocytes Absolute Auto 3.1 10^3/uL (1.2-3.8); Mean Corpuscular HGB Conc 33.5 g/dL (29.9-35.2); Mean Corpuscular Hemoglobin 32.0 pg (26.7-34.0); Mean Corpuscular Volume 95.5 fL (81.0-99.0); Platelet Count 363 10^3/uL (150-450); Red Blood Count 4.00 10^6/uL (4.20-5.40); White Blood Count 8.0 10^3/uL (4.0-11.0)
[2025-02-15 20:40] LABS: Alanine Aminotransferase 15 U/L (14-59); Albumin Globulin Ratio 0.8; Albumin Level 3.5 g/dL (3.4-5.0); Alkaline Phosphatase 98 U/L (46-116); Anion Gap 7.8; Aspartate Amino Transferase 16 U/L (15-37); Blood Urea Nitrogen 13.0 mg/dL (7.0-18.0); Calcium 9.0 mg/dL (8.5-10.1); Carbon Dioxide 28.5 mmol/L (21.0-32.0); Chloride 106 mmol/L (98-107); Estimated GFR (African America >60 (>=60 mL/min/1.73m^2); Estimated GFR (Non-African Ame >60 (>=60 mL/min/1.73m^2); Globulin 4.3 g/dL; Glucose 115 mg/dL (74-106); Potassium 3.3 mmol/L (3.5-5.1); Sodium 139 mmol/L (136-145); Total Protein 7.8 g/dL (6.4-8.2)
[2025-02-15] MEDS: CIPROFLOXACIN HCL 500 MG TABLET PO (21:19)
[2025-02-15] MEDS: HYDROCODONE/ACET 5-325 MG TABLET 1 TAB PO ×2 (21:20)
[2025-02-15] MEDS: ONDANSETRON 4 MG RAPDIS TABLET SL ×2 (21:20)
[2025-02-15 21:24] VITALS: BP 111/75
== END 2025-02-15 21:26 | disposition home or self-care (01) ==
PROVIDERS: Emergency Provider Emergency Medicine; PCP Family Medicine
DX: N39.0 Urinary tract infection, site not specified (principal); R91.1 Solitary pulmonary nodule; Z87.442 Personal history of urinary calculi; M85.80 Other specified disorders of bone density and structure, unspecified site; Z87.440 Personal history of urinary (tract) infections
CPT/HCPCS: 36415; 74176; 80053; 81001; 85025; 87086; 96365; 96375; 99284; J0696; J1885; J2405; Q0162